=== PATIENT | male | born 1965 | race Caucasian/White ===

== ENCOUNTER 2017-03-01 08:15 | Day surgery (SDC) | payer BC ==
[2017-02-27 15:08] VITALS: BMI 42.8
[~2017-03-01 08:15] MED LIST: LACTATED RINGERS 1,000 ML IV SCH; LIDOCAINE 1% 20 ML VIAL (10MG/ML) FOR IV START INTRADERMA PRN
[2017-03-01 08:31] VITALS: RESP 18; TEMP 98
[2017-03-01] MEDS ORDERED: LACTATED RINGERS 1,000 ML IV ONE (08:32)
[2017-03-01] MEDS ORDERED: PROPOFOL 10 MG/ML 20 ML VIAL IV ONE (09:27)
[2017-03-01] MEDS ORDERED: LIDOCAINE 1% INJ 10MG/ML (20 ML MDV) ONE (09:27)
--- NOTE | 2017-03-01 09:31 | P.GSHP ---
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 marquez. Patient presents today for EGD. His had complaints of epigastric pain. Past Medical History Past Medical History: Atrial Fibrillation, Cancer, Heart Failure, GERD/Reflux, Hypertension Additional Past Medical History / Comment(s): GOUT, HX OF RENAL FAILURE (3 YRS AGO), RASHARD JOHNSONS SYNDROME, EDEMA RIGHT LEG, PROSTATE CANCER WITH METS TO BONE (DX 2014), HAS POWER PORT LEFT UPPER CHEST., RECEVIES HORMONE [place] Q 3 MONTHS AT [place], [place] FOR [place]., HAS LAP BAND., CHRONIC CONSTIPATION , DYSPHAGIA. History of Any Multi-Drug Resistant Organisms: None Reported Past Surgical History: Appendectomy, Bariatric Surgery Additional Past Surgical History / Comment(s): FLUID ABSCESS AFTER APPENDECTOMY (CHILD), PROSTATE BIOPSY'S, LAP BAND, POWER PORT. Past Anesthesia/Blood Transfusion Reactions: No Reported Reaction Past Psychological History: No Psychological Hx Reported Smoking Status: Former smoker Additional Past Alcohol Use History / Comment(s): HX OF CHEWING TOBACCO- QUIT 4 YRS AGO., OCCASIONAL CIGARS SINCE HE WAS 17 YRS OLD. (0-1 PER WEEK) Past Drug Use History: None Reported - Past Family History Father Family Medical History: Cancer Additional Family Medical History / Comment(s): PROSTATE CANCER Brother(s) Family Medical History: Cancer Additional Family Medical History / Comment(s): PROSTATE CANCER Medications and Allergies Home Medications Medication Instructions Recorded Confirmed Type Bicalutamide [Casodex] 50 mg PO HS 02/27/17 02/27/17 History Biotin 5 mg PO HS 02/27/17 02/27/17 History DULoxetine HCL [Cymbalta] 30 mg PO HS 02/27/17 02/27/17 History Furosemide [Lasix] 80 mg PO HS 02/27/17 02/27/17 History Gabapentin [Neurontin] 600 mg PO TID 02/27/17 02/27/17 History Hydrocodone/Acetaminophen 1 each PO Q4HR PRN 02/27/17 02/27/17 History [Hydrocodon-Acetaminophen 5-325] Loratadine [Claritin] 10 mg PO HS 02/27/17 02/27/17 History Omeprazole 40 mg PO HS 02/27/17 02/27/17 History Ramipril [Altace] 5 mg PO HS 02/27/17 02/27/17 History Ubidecarenone [Co Q-10] 300 mg PO HS 02/27/17 02/27/17 History Warfarin [Coumadin] 5 mg PO HS 02/27/17 02/27/17 History cloNIDine HCL [Catapres] 0.1 mg PO HS 02/27/17 02/27/17 History Allergies Allergy/AdvReac Type Severity Reaction Status Date / Time cephalexin [From Keflex] Allergy Unknown Blisters Verified 02/27/17 14:38 levofloxacin [From Levaquin] Allergy Unknown Blisters Verified 02/27/17 14:38 Penicillins Allergy Unknown Blisters Verified 02/27/17 14:38 Tetracyclines Allergy Unknown Blisters Verified 02/27/17 14:38 Surgical - Exam Vital Signs Temp Pulse Resp BP Pulse Ox 98.0 F 87 18 145/99 99 03/01/17 08:30 03/01/17 08:30 03/01/17 08:30 03/01/17 08:30 03/01/17 08:30 - General well developed, no distress - Eyes PERRL - ENT normal pinna - Neck no masses - Respiratory normal expansion - Cardiovascular Rhythm: regular - Abdomen Abdomen: soft, non tender Assessment and Plan Plan: Epigastric dull pain. We'll perform EGD.
--- NOTE | 2017-03-01 09:39 | P.OP ---
Date of Procedure: 03/01/17 Preoperative Diagnosis: Epigastric abdominal pain Postoperative Diagnosis: Mild antral gastritis LAP-BAND without inflammation Esophagitis with retained food in the esophagus Procedure(s) Performed: EGD Implants: Anesthesia: MAC Surgeon: Jairo Lujan Pathology: other (Antrum, esophagus) Condition: stable Disposition: PACU Indications for Procedure: Operative Findings: Description of Procedure: The patient's placed on the endoscopy table in the lateral position. He received IV sedation. The gastroscope placed oropharynx passed in the esophagus and stomach. The scope was then placed through the pylorus. The first and second portion of the duodenum appeared normal. Scope summer back and the antrum and this was mildly inflamed. A biopsies performed. Scope was then retroflexed remainder stomach appeared normal. The patient had a previous placed Chanell device this without insufflation José Miguel. The LAP-BAND gastric pouch appeared to be slightly enlarged. The GE junction was at 40 cm. The distal esophagus appeared inflamed. A biopsies performed. There was some retained food and fluid in the esophagus. Scope was then withdrawn and the proximal esophagus appeared normal. Scope was withdrawn for patient.
[2017-03-01 10:14] VITALS: BP 168/76; PULSE 69
== END 2017-03-01 11:14 | disposition home or self-care (01) ==
LOC: ORWHC2ENDO 08:15
PROVIDERS: ATTEND Surgery
DX: K29.70 Gastritis, unspecified, without bleeding (principal); K21.0 Gastro-esophageal reflux disease with esophagitis; K29.50 Unspecified chronic gastritis without bleeding; I48.91 Unspecified atrial fibrillation; I11.0 Hypertensive heart disease with heart failure; I50.9 Heart failure, unspecified; K59.09 Other constipation; M10.9 Gout, unspecified; Z79.01 Long term (current) use of anticoagulants; Z85.46 Personal history of malignant neoplasm of prostate; Z87.891 Personal history of nicotine dependence; Z88.0 Allergy status to penicillin; Z88.1 Allergy status to other antibiotic agents; Z98.84 Bariatric surgery status
CPT/HCPCS: 88305; 88342; 43239; J2001; J2704

== ENCOUNTER → 2017-03-04 | Outpatient (CLI) | payer BC ==
[2017-03-04 16:28] VITALS: RESP 16; TEMP 98.2; BMI 43.9
[2017-03-04 16:33] VITALS: BP 157/102; PULSE 88
--- NOTE | 2017-03-04 16:49 | P.HPBAR ---
Bariatric H&P - History & Physicial H&P Date: 03/04/17 History & Physicial: Visit/CC: Lapband follow up Patient initial contact: Initial weight: Initial weight in pounds: Height: 5 ft 9 in Initial BMI: Last weight: Current weight: 135.125 kg Current weight in pounds: 297.90 Current BMI: 43.9 [place] body weight (based on NIH guidelines): 72.575 kg Excess body weight loss: The patient is a 51 year-old M who presents for Bariatric Assessment. The patient presents today for follow-up after his EGD. Patient has had complaints of right upper quadrant and epigastric pain. His previous CAT scan was reviewed. Patient has history of cholelithiasis as well as a contracted gallbladder on CAT scan. Patient states he has pain in her quadrant when he eats. His EGD showed some mild gastritis. Past Medical History Past Medical History: Atrial Fibrillation, Cancer, Heart Failure, GERD/Reflux, Hypertension Additional Past Medical History / Comment(s): GOUT, HX OF RENAL FAILURE (3 YRS AGO), RASHARD JOHNSONS SYNDROME, EDEMA RIGHT LEG, PROSTATE CANCER WITH METS TO BONE (DX 2014), HAS POWER PORT LEFT UPPER CHEST., RECEVIES HORMONE TX Q 3 MONTHS AT [place], [place] FOR [facility]., HAS LAP BAND., CHRONIC CONSTIPATION , DYSPHAGIA. History of Any Multi-Drug Resistant Organisms: None Reported Past Surgical History: Appendectomy, Bariatric Surgery Additional Past Surgical History / Comment(s): FLUID ABSCESS AFTER APPENDECTOMY (CHILD), PROSTATE BIOPSY'S, LAP BAND, POWER PORT. Past Anesthesia/Blood Transfusion Reactions: No Reported Reaction Past Psychological History: No Psychological Hx Reported Smoking Status: Former smoker Additional Past Alcohol Use History / Comment(s): HX OF CHEWING TOBACCO- QUIT 4 YRS AGO., OCCASIONAL CIGARS SINCE HE WAS 17 YRS OLD. (0-1 PER WEEK) Past Drug Use History: None Reported - Past Family History Father Family Medical History: Cancer Additional Family Medical History / Comment(s): PROSTATE CANCER Brother(s) Family Medical History: Cancer Additional Family Medical History / Comment(s): PROSTATE CANCER Surgical - Exam Vital Signs Temp Pulse Resp BP 98.2 F 86 16 157/121 03/04/17 16:18 03/04/17 16:18 03/04/17 16:18 06/12/17 16:18 - General well developed, no distress - Eyes PERRL - ENT normal pinna - Neck no masses - Respiratory normal expansion - Abdomen Mild right upper quadrant tenderness Abdomen: soft Bariatric Assessment & Plan Plan: Symptomatically cholelithiasis. Patient will be scheduled for laparoscopic cholecystectomy. Sent minimal GERD from his band. Bariatric Checklist Checklist: Plan: Checklist: EGD: 1. Hiatal hernia: 2. H. Pylori: HgbA1c: Vitamin D: Smoking: Former smoker Primary care physician referral: Anuj Psychiatry clearance: Cardiology clearance: Sleep study: Diet journal: VTE risk score: VTE risk level: Rehab needs at discharge:
== END ==
LOC: BARWHC3 15:48
PROVIDERS: ATTEND Surgery
DX: K80.20 Calculus of gallbladder without cholecystitis without obstruction (principal); Z98.84 Bariatric surgery status; Z87.891 Personal history of nicotine dependence
CPT/HCPCS: 99211

== ENCOUNTER 2017-03-21 10:32 | Day surgery (SDC) | payer BC ==
[~2017-03-21 10:32] MED LIST changes: +CLINDAMYCIN 900 MG in DEXTROSE 5% IN WATER 50 ML IVPB ONE; +GENTAMICIN 480 MG in SODIUM CHLORIDE 0.9% 100 ML IVPB ONE; +HEPARIN SODIUM,PORCINE 5,000 UNIT/ML 1 ML VIAL SQ ONE; -LIDOCAINE 1% 20 ML VIAL (10MG/ML) FOR IV START INTRADERMA PRN
[2017-03-21 10:59] VITALS: RESP 16; TEMP 97.7
[2017-03-21] MEDS ORDERED: LIDOCAINE 1% 20 ML VIAL (10MG/ML) FOR IV START SQ ONE (11:00)
[2017-03-21] MEDS ORDERED: ONDANSETRON 4 MG/2 ML VIAL IVP ONE (11:07)
[2017-03-21] MEDS: DEXAMETHASONE SOD PHOSPHATE 10 MG/ML 1 ML VIAL IV ONE ×2 (11:08→14:07)
--- NOTE | 2017-03-21 11:38 | P.GSHP ---
History of Present Illness H&P Date: 03/21/17 Chief Complaint: Right upper quadrant pain This is a 51-year-old male who presents today for laparoscopic cholecystectomy. He's had complaints of right quadrant pain. Patient's CAT scan shows evidence of gallstones. Past Medical History Past Medical History: Atrial Fibrillation, Cancer, Heart Failure, GERD/Reflux, Hypertension Additional Past Medical History / Comment(s): GOUT. PERIPHERAL EDEMA. HX OF RENAL FAILURE (3 YRS AGO), RASHARD JOHNSONS SYNDROME. PROSTATE CANCER WITH METS TO BONE (DX 2014) IN REMISSION AT THIS TIME. HAS POWER PORT IN LEFT UPPER CHEST. RECEVIES HORMONE [place] Q 3 MONTHS AT [place], [place] FOR [place]. CHRONIC CONSTIPATION. DYSPHAGIA. History of Any Multi-Drug Resistant Organisms: None Reported Past Surgical History: Appendectomy, Bariatric Surgery, Prostate Surgery Additional Past Surgical History / Comment(s): FLUID ABSCESS AFTER APPENDECTOMY (CHILD), PROSTATE BIOPSY'S. LAP BAND 2010. POWER PORT. Past Anesthesia/Blood Transfusion Reactions: No Reported Reaction Past Psychological History: No Psychological Hx Reported Smoking Status: Former smoker Additional Past Alcohol Use History / Comment(s): HX OF CHEWING TOBACCO- QUIT 4 YRS AGO., OCCASIONAL CIGARS SINCE HE WAS 17 YRS OLD. (0-1 PER WEEK) Past Drug Use History: None Reported - Past Family History Father Family Medical History: Cancer Additional Family Medical History / Comment(s): PROSTATE CANCER Brother(s) Family Medical History: Cancer Additional Family Medical History / Comment(s): PROSTATE CANCER Medications and Allergies Home Medications Medication Instructions Recorded Confirmed Type Bicalutamide [Casodex] 50 mg PO HS 02/27/17 03/21/17 History Biotin 5 mg PO HS 02/27/17 03/21/17 History DULoxetine HCL [Cymbalta] 30 mg PO HS 02/27/17 03/21/17 History Furosemide [Lasix] 80 mg PO HS 02/27/17 03/21/17 History Gabapentin [Neurontin] 600 mg PO TID 02/27/17 03/21/17 History Hydrocodone/Acetaminophen 1 each PO Q4HR PRN 02/27/17 03/21/17 History [Hydrocodon-Acetaminophen 5-325] Loratadine [Claritin] 10 mg PO HS 02/27/17 03/21/17 History Omeprazole 40 mg PO HS 02/27/17 03/21/17 History Ramipril [Altace] 5 mg PO HS 02/27/17 03/21/17 History Ubidecarenone [Co Q-10] 300 mg PO HS 02/27/17 03/21/17 History Warfarin [Coumadin] 5 mg PO HS 02/27/17 03/21/17 History cloNIDine HCL [Catapres] 0.1 mg PO BID 02/27/17 03/21/17 History Allergies Allergy/AdvReac Type Severity Reaction Status Date / Time cephalexin [From Keflex] Allergy Unknown Blisters Verified 03/21/17 10:51 levofloxacin [From Levaquin] Allergy Unknown Blisters Verified 03/21/17 10:51 Penicillins Allergy Unknown Blisters Verified 03/21/17 10:51 Tetracyclines Allergy Unknown Blisters Verified 03/21/17 10:51 Surgical - Exam Vital Signs Temp Pulse Resp BP Pulse Ox 97.7 F 79 16 147/79 99 03/21/17 10:57 03/21/17 10:57 03/21/17 10:57 03/21/17 10:57 03/21/17 10:57 - General well developed, no distress - Eyes PERRL - ENT normal pinna - Neck no masses - Respiratory normal expansion - Cardiovascular Rhythm: regular - Abdomen Mild right upper quadrant tenderness Abdomen: soft Assessment and Plan Plan: Right quadrant pain Cholelithiasis. We'll perform laparoscopic cholecystectomy
[2017-03-21] MEDS ORDERED: fentaNYL (PF) 50 MCG/ML 2 ML AMP ONE (11:52)
[2017-03-21] MEDS ORDERED: PROPOFOL 10 MG/ML 20 ML VIAL IV ONE (11:52)
[2017-03-21] MEDS ORDERED: MIDAZOLAM 2 MG/2 ML VIAL ONE (11:52)
[2017-03-21] MEDS ORDERED: SUCCINYLCHOLINE CHLORIDE 100 MG/5 ML SYR IV ONE (11:52)
[2017-03-21] MEDS ORDERED: HYDROmorphone (PF) 1 MG/ML ONE (11:52)
[2017-03-21] MEDS ORDERED: LABETALOL 5 MG/ML VIAL MDV ONE (11:52)
[2017-03-21] MEDS ORDERED: VECURONIUM 10 MG VIAL IV ONE (11:52)
[2017-03-21] MEDS ORDERED: ePHEDrine 50 MG/ML 1 ML AMP ONE (11:52)
[2017-03-21] MEDS ORDERED: LIDOCAINE 1% INJ 10MG/ML (20 ML MDV) ONE (11:52)
[2017-03-21] MEDS ORDERED: GLYCOPYRROLATE 0.2 MG/ML 2 ML VIAL ONE (11:52)
[2017-03-21] MEDS ORDERED: NEOSTIGMINE 1 MG/ML 10 ML VIAL ONE (11:52)
[2017-03-21] MEDS ORDERED: BUPIVACAIN-EPI 0.5%-1:200,000 30 ML VIAL SQ ONE (12:21)
--- NOTE | 2017-03-21 12:38 | P.OP ---
Date of Procedure: 03/21/17 Preoperative Diagnosis: Cholecystitis Cholelithiasis Postoperative Diagnosis: Close sized Cholelithiasis Procedure(s) Performed: Laparoscopic cholecystectomy Implants: Anesthesia: RICKY Surgeon: Jairo Lujan Estimated Blood Loss (ml): 5 Pathology: other (Gallbladder) Condition: stable Disposition: PACU Indications for Procedure: Operative Findings: Description of Procedure: The patient was placed on the operating table. The patient received a general endotracheal tube anesthesia. The patients abdomen was prepped and draped in the usual sterile fashion. Through an infraumbilical stab incision, the fascia of the anterior abdominal wall was grasped with a pair of Kochers and then the Veress needle was placed in the peritoneal cavity. Position of the Veress needle was confirmed with positive drop test. The abdomen was then insufflated. After adequate insufflation, the 10 mm trocar was placed in the peritoneal cavity. Following this the laparoscope was placed in the peritoneal cavity. The patient was placed in the head-up, right side up position and then a 5 mm trocar was placed in the right lateral and right subcostal position under direct visualization. A 8 mm trocar was placed in the epigastric position. The gallbladder was grasped in the fundus and infundibulum. Traction on the gallbladder was placed in the lateral and the cephalad positions. The triangle of Calot was visualized.. The cystic duct was bluntly dissected until the union of the cystic duct and common bile duct was seen. The cystic duct was then divided and sealed with the Harmonic scissors. A PDS Endoloop was then placed throughout the cystic duct stump. The cystic artery divided and sealed with the Harmonic scissors. The gallbladder was then removed from the liver bed using Harmonic scissors. The gallbladder was then extracted through the epigastric port site. Operative field was checked for any bleeding spots and Harmonic scissors was used to coagulate the liver bed. The abdomen was irrigated. The trocars were removed. The skin was closed using interrupted 3-0 Vicryl suture. Dermabond dressing were applied. The patient tolerated the procedure well.
[2017-03-21] MEDS ORDERED: ENALAPRILAT 1.25 MG/ML 1 ML VIAL IVP ONE (13:00)
[2017-03-21] MEDS ORDERED: hydrALAZINE HCL 20 MG/ML 1 ML VIAL IVP ONE ×2 (13:02→13:20)
[2017-03-21] MEDS ORDERED: HYDROmorphone 1 MG/ML 1 ML SYRINGE IVP ONE ×2 (13:40→14:09)
[2017-03-21] MEDS ORDERED: LACTATED RINGERS 1,000 ML IV ONE ×2 (14:11)
[2017-03-21 15:36] VITALS: BP 136/82; PULSE 69
== END 2017-03-21 16:31 | disposition home or self-care (01) ==
LOC: OR 10:32
PROVIDERS: ATTEND Surgery
DX: K80.10 Calculus of gallbladder with chronic cholecystitis without obstruction (principal); Z79.01 Long term (current) use of anticoagulants; I25.10 Atherosclerotic heart disease of native coronary artery without angina pectoris; I11.0 Hypertensive heart disease with heart failure; I50.9 Heart failure, unspecified; Z87.891 Personal history of nicotine dependence; K21.9 Gastro-esophageal reflux disease without esophagitis; Z98.84 Bariatric surgery status; C79.51 Secondary malignant neoplasm of bone; C61 Malignant neoplasm of prostate; Z79.899 Other long term (current) drug therapy; Z88.1 Allergy status to other antibiotic agents; Z88.0 Allergy status to penicillin
CPT/HCPCS: 88304; 47562; J2250; J0360; J1644; J1100; J2710; J2405; J2001; J3010; J1580; J1170; J0330; J2704

== ENCOUNTER → 2018-12-30 | Outpatient (CLI) | payer MEDICARE ==
--- NOTE | 2018-12-30 12:40 | CT ---
EXAMINATION TYPE: CT ChestAbdPelvis w con DATE OF EXAM: 12/30/2018 COMPARISON: Nuclear medicine bone scan dated 05/13/[address] abdomen pelvis also dated 05/13/2015. HISTORY: Increased PSA. Follow up prostate CA CT DLP: 3150 mGycm. Automated Exposure Control for Dose Reduction was Utilized. CONTRAST: CT scan of the thorax, abdomen and pelvis is performed with IV Contrast, patient injected with 100 mL of Isovue 300. FINDINGS: Evaluation of the pelvis is somewhat limited given patient body habitus creating artifact. LUNGS: There are multiple punctate pulmonary nodules. The first measures 3 mm on series 5 image 28, t he next 4 measure 1 to 2 mm on image 29, additional 1 to 2 mm medial right basilar pulmonary nodule i s present on image 41. On the left there is a subsolid peripherally groundglass and centrally solid a pproximately 4 mm pulmonary nodule on series 5 image 34. These were not imaged on the prior of 2014 g iven [id number]. No new focal consolidation or pleural effusion is seen. No pneumothorax. MEDIASTINUM: The main pulmonary artery is enlarged measuring 4.1 cm suggesting underlying pulmonary a rterial hypertension. Very few coronary calcifications are present There are no greater than 1 cm hil ar or mediastinal lymph nodes. There is a trace pericardial effusion and mild cardiomegaly. LIVER/GB: There is a benign calcified hepatic granuloma. No new suspicious hepatic lesions are identi fied. PANCREAS: No significant abnormality is seen. SPLEEN: No significant abnormality is seen. ADRENALS: No significant abnormality is seen. KIDNEYS: Punctate to small to accurately characterize right renal lesions are present.. BOWEL: Gastric lap band is noted. No dilated large or small bowel. GENITAL ORGANS: No gross abnormality seen. LYMPH NODES: There is superficial minimal adenopathy on the right measuring up to 1.9 cm and on the l eft measuring up to 1.5 cm both in short axis. There appears to be a right common iliac lymph node me asuring 1.5 cm in short axis on series 4 image 99. OSSEOUS STRUCTURES: There is diffuse osseous metastasis. The chest was not imaged prior at this insti tution however metastasis is seen diffusely throughout the osseous structures involving the entirety of the chest, abdomen, and pelvis osseous structures with mixed sclerotic and blastic appearance. The re are partially healed fractures of the posterior lateral margins of ribs 10 and 9 on the left. Ther e is marked progression of osseous metastasis of the abdomen and pelvis skeletal structures compariso n to exam of 2014. OTHER: Superficially noted within the left supraclavicular medial chest wall there is a 1.4 cm oval s oft tissue density on series 4 image 6. Correlation with physical examination is recommended if there is further concern direct targeted ultrasound could further assess this finding. IMPRESSION: 1. 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 2. Superficial inguinal adenopathy bilaterally and solitary enlarged 1.5 cm short axis right common i liac chain lymph node. 3. Scattered punctate pulmonary nodules are of low suspicion for metastasis.
--- NOTE | 2018-12-30 13:38 | NM ---
EXAMINATION TYPE: NM bone scan whole body DATE OF EXAM: 12/30/2018 COMPARISON: NONE HISTORY: C61 PROSTATE CA, Z03.89 Delayed whole-body scanning was performed following the injection of 26.4 mCi Tc 99m MDP. Images acq uired 3 hours post injection. FINDINGS: New lesions: There is a new focal lesion noted involving the diametaphyseal region medially of the di stal left femur. L5 pedicle on the left. No additional new lesions are seen. Improved lesions: Bilateral rib lesions persist they are improved particularly involving left posteri or ribs 9 and 10 and anterior right rib #5. Near complete resolution of improvement noted of the dist al left femoral diametaphyseal lesion. Right T9 pedicle lesion. Progressive lesions: Is progressive lesion noted involving the right humeral head and neck. Progressi ve uptake is noted about the ankles and mid feet likely degenerative in nature. Stable lesions: Pelvic lesions are stable. Most liver lesions are stable as well. IMPRESSION: Findings compatible with metastatic disease as discussed with progressive lesion noted right humeral head and neck. Lesions noted distal left femur and left L5 pedicle. Improved lesions also noted as above.
== END | disposition home or self-care (01) ==
LOC: RADNMMAIN 09:03
PROVIDERS: ATTEND Internal Medicine Hematology & Oncology
DX: C79.51 Secondary malignant neoplasm of bone (principal); R91.8 Other nonspecific abnormal finding of lung field; R59.0 Localized enlarged lymph nodes; C61 Malignant neoplasm of prostate; Z88.0 Allergy status to penicillin
CPT/HCPCS: 82565; 84520; 71260; 74177; 78306; 36415; A9503; Q9967

== ENCOUNTER → 2019-03-05 | Outpatient (CLI) | payer MEDICARE ==
[2019-03-05 14:45] LABS: Anisocytosis Slight; Basophils % (A) 0 %; Eosinophils # (A) 0.1 k/uL (0-0.7); Eosinophils % (A) 3 %; HCT 33.2 % (39.0-53.0); HGB 10.1 gm/dL (13.0-17.5); Hypochromasia Marked; Lymphocytes # (A) 0.3 k/uL (1.0-4.8); Lymphocytes % (A) 8 %; MCHC 30.4 g/dL (31.0-37.0); MCV 85.6 fL (80.0-100.0); Mean Platelet Volume 6.7; Monocytes # (A) 0.3 k/uL (0-1.0); Monocytes % (A) 7 %; Neutrophils # (A) 2.9 k/uL (1.3-7.7); Neutrophils % (A) 80 %; Platelet Count 199 k/uL (150-450); RBC 3.88 m/uL (4.30-5.90); RDW 19.1 % (11.5-15.5); WBC 3.6 k/uL (3.8-10.6)
== END | disposition home or self-care (01) ==
LOC: LABWHC1 13:52
PROVIDERS: ATTEND Radiology Radiation Oncology
DX: C61 Malignant neoplasm of prostate (principal); F17.210 Nicotine dependence, cigarettes, uncomplicated
CPT/HCPCS: 36415; 85025

== ENCOUNTER 2019-05-13 12:32 | Inpatient (IN) | payer MEDICARE ==
--- NOTE | 2019-05-13 14:25 | ED ---
General Adult HPI - General Chief complaint: Recheck/Abnormal Lab/Rx Stated complaint: Abnormal labs Time Seen by Provider: 05/13/19 13:18 Source: patient, family Mode of arrival: wheelchair Limitations: no limitations - History of Present Illness Initial comments: Patient is a 53-year-old male with stage IV metastatic prostate cancer is presenting to emergency Department with chief complaint of elevated INR. Patient was sent here by his primary care physician who suggested transfer to emergency department due to elevated INR. Patient is on Coumadin daily. Patient reports multiple regions of ecchymosis on bilateral upper extremities been present for the past several weeks. He reports new onset of ecchymotic regions on his abdomen over the last 3 days. Patient reports a large ecchymotic region measuring approximately 3 x 3 cm on the right flank region. Patient denies headache, chest pain, chest and shortness of breath. Patient has any back pain or abdominal pain. Patient does report right lower leg pitting edema but states that is his baseline. 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 Patient denies headaches, or extremity pain. - Related Data Home Medications Medication Instructions Recorded Confirmed Furosemide [Lasix] 80 mg PO HS 02/27/17 05/13/19 Gabapentin [Neurontin] 900 mg PO TID 02/27/17 05/13/19 Loratadine [Claritin] 10 mg PO HS 02/27/17 05/13/19 Diltiazem HCl [Diltiazem 24Hr ER] 120 mg PO DAILY 09/25/18 05/13/19 Enzalutamide [Xtandi] 40 mg PO QID 09/25/18 05/13/19 DULoxetine HCL [Cymbalta] 20 mg PO DAILY 05/13/19 05/13/19 HYDROcodone/APAP 10-325MG [[place] 1 tab PO Q6H PRN 05/13/19 05/13/19 10-325] Metoprolol Succinate (ER) [Toprol 100 mg PO DAILY 05/13/19 05/13/19 Xl] Warfarin [Coumadin] 7.5 mg PO HS 05/13/19 05/13/19 fentaNYL 50MCG/HR PATCH [Duragesic 50 mcg TRANSDERM Q72H 05/13/19 05/13/19 50MCG/HR] Allergies Allergy/AdvReac Type Severity Reaction Status Date / Time cephalexin [From Keflex] Allergy Unknown Blisters Verified 05/13/19 13:33 levofloxacin [From Levaquin] Allergy Unknown Blisters Verified 05/13/19 13:33 Penicillins Allergy Unknown Blisters Verified 05/13/19 13:33 Tetracyclines Allergy Unknown Blisters Verified 05/13/19 13:33 Review of Systems ROS Statement: Those systems with pertinent positive or pertinent negative responses have been documented in the HPI. ROS Other: All systems not noted in ROS Statement are negative. Past Medical History Past Medical History: Atrial Fibrillation, Cancer, Heart Failure, GERD/Reflux, Hypertension Additional Past Medical History / Comment(s): GOUT. PERIPHERAL EDEMA. HX OF RENAL FAILURE (3 YRS AGO), RASHARD JOHNSONS SYNDROME. PROSTATE CANCER WITH METS TO BONE (DX 2014) IN REMISSION AT THIS TIME. HAS POWER PORT IN LEFT UPPER CHEST. RECEVIES HORMONE TX Q 3 MONTHS AT [place], [place] FOR [place]CER. CHRONIC CONSTIPATION. DYSPHAGIA. History of Any Multi-Drug Resistant Organisms: C-DIFF Date of last positivie culture/infection: 2011 Past Surgical History: Appendectomy, Bariatric Surgery, Prostate Surgery Additional Past Surgical History / Comment(s): FLUID ABSCESS AFTER APPENDECTOMY (CHILD), PROSTATE BIOPSY'S. LAP BAND 2010. POWER PORt removed Past Anesthesia/Blood Transfusion Reactions: No Reported Reaction Past Psychological History: No Psychological Hx Reported Smoking Status: Smoker, current status unknown Past Alcohol Use History: Rare Past Drug Use History: None Reported - Past Family History Father Family Medical History: Cancer Additional Family Medical History / Comment(s): PROSTATE CANCER Brother(s) Family Medical History: Cancer Additional Family Medical History / Comment(s): PROSTATE CANCER General Exam Limitations: no limitations General appearance: alert, in no apparent distress Head exam: Present: atraumatic, normocephalic, normal inspection Eye exam: Present: normal appearance, PERRL, EOMI Pupils: Present: normal accommodation ENT exam: Present: normal exam, mucous membranes moist, normal external ear exam Neck exam: Present: normal inspection, full ROM Respiratory exam: Present: normal lung sounds bilaterally Cardiovascular Exam: Present: regular rate, normal rhythm, normal heart sounds GI/Abdominal exam: Present: soft, other (Multiple ecchymotic regions on abdomen and chest. Large ecchymotic region noted in the right flank region measuring approximately 3 x 3 cm.). Absent: distended, tenderness, guarding, rebound Extremities exam: Present: full ROM, normal capillary refill. Absent: normal inspection (Stasis dermatitis noticed on bilateral lower extremities. +2 pit ting edema noted in the right leg.), tenderness, calf tenderness (Negative Homans bilaterally) Back exam: Present: normal inspection, full ROM Neurological exam: Present: alert, oriented X3 Psychiatric exam: Present: normal affect, normal mood Skin exam: Present: warm, intact, normal color, other (Multiple regions of ecchymosis on chest abdomen and bilateral upper extremities.) Course Vital Signs 05/13/19 13:04 Temperature 98.2 F Pulse Rate 79 Respiratory 18 Rate Blood Pressure 126/78 O2 Sat by Pulse 95 Oximetry Medical Decision Making - Medical Decision Making Patient is a 53-year-old male with stage IV metastatic prostate cancer is presenting to emergency Department with a chief complaint of elevated INR. Patient does report new ecchymotic regions on the abdomen. Patient denies any headaches, abdominal back pain. Patient denies any pain in the extremities. INR is above 10. Hemoglobin is a 7.5 and has decreased by 2.6 since March 15. Stool guaiac was obtained. Patient given oral vitamin K. Coumadin is held. Patient will be admitted for further medical management. occult stool is negative. Case discussed with physician. The admitting physician is Dr. Paiz. - Lab Data Result diagrams: 05/13/19 14:12 05/13/19 14:12 Lab Results 05/13/19 05/13/19 05/13/19 Range/Units 14:12 14:12 14:12 WBC 2.3 L (3.8-10.6) k/uL RBC 2.62 L (4.30-5.90) m/uL Hgb 7.5 L (13.0-17.5) gm/dL Hct 23.5 L (39.0-53.0) % MCV 89.9 (80.0-100.0) fL MCH 28.5 (25.0-35.0) pg MCHC 31.7 (31.0-37.0) g/dL RDW 21.4 H (11.5-15.5) % Plt Count 118 L (150-450) k/uL Neutrophils % 78 % Lymphocytes % 7 % Monocytes % 8 % Eosinophils % 3 % Basophils % 0 % Neutrophils # 1.8 (1.3-7.7) k/uL Lymphocytes # 0.2 L (1.0-4.8) k/uL Monocytes # 0.2 (0-1.0) k/uL Eosinophils # 0.1 (0-0.7) k/uL Basophils # 0.0 (0-0.2) k/uL Hypochromasia Moderate Poikilocytosis Slight Anisocytosis Moderate PT >130.0 H (9.0-12.0) sec INR >10.0 H* (<1.2) APTT 150.0 H* (22.0-30.0) sec Sodium 138 (137-145) mmol/L Potassium 4.0 (3.5-5.1) mmol/L Chloride 105 (98-107) mmol/L Carbon Dioxide 28 (22-30) mmol/L Anion Gap 5 mmol/L BUN 16 (9-20) mg/dL Creatinine 1.02 (0.66-1.25) mg/dL Est GFR (CKD-EPI)AfAm >90 (>60 ml/min/1.73 sqM) Est GFR (CKD-EPI)NonAf 83 (>60 ml/min/1.73 sqM) Glucose 105 H (74-99) mg/dL Calcium 8.7 (8.4-10.2) mg/dL Total Bilirubin 1.0 (0.2-1.3) mg/dL AST 45 (17-59) U/L ALT 15 L (21-72) U/L Alkaline Phosphatase 86 (38-126) U/L Total Protein 6.9 (6.3-8.2) g/dL Albumin 3.4 L (3.5-5.0) g/dL Stool Occult Blood (Negative) 05/13/19 Range/Units 15:52 WBC (3.8-10.6) k/uL RBC (4.30-5.90) m/uL Hgb (13.0-17.5) gm/dL Hct (39.0-53.0) % MCV (80.0-100.0) fL MCH (25.0-35.0) pg MCHC (31.0-37.0) g/dL RDW (11.5-15.5) % Plt Count (150-450) k/uL Neutrophils % % Lymphocytes % % Monocytes % % Eosinophils % % Basophils % % Neutrophils # (1.3-7.7) k/uL Lymphocytes # (1.0-4.8) k/uL Monocytes # (0-1.0) k/uL Eosinophils # (0-0.7) k/uL Basophils # (0-0.2) k/uL Hypochromasia Poikilocytosis Anisocytosis PT (9.0-12.0) sec INR (<1.2) APTT (22.0-30.0) sec Sodium (137-145) mmol/L Potassium (3.5-5.1) mmol/L Chloride (98-107) mmol/L Carbon Dioxide (22-30) mmol/L Anion Gap mmol/L BUN (9-20) mg/dL Creatinine (0.66-1.25) mg/dL Est GFR (CKD-EPI)AfAm (>60 ml/min/1.73 sqM) Est GFR (CKD-EPI)NonAf (>60 ml/min/1.73 sqM) Glucose (74-99) mg/dL Calcium (8.4-10.2) mg/dL Total Bilirubin (0.2-1.3) mg/dL AST (17-59) U/L ALT (21-72) U/L Alkaline Phosphatase (38-126) U/L Total Protein (6.3-8.2) g/dL Albumin (3.5-5.0) g/dL Stool Occult Blood Negative (Negative) Disposition Clinical Impression: Warfarin-induced coagulopathy Disposition: ADMITTED IP TO THIS [facility] Condition: Stable Is patient prescribed a controlled substance at d/c from ED?: No Time of Disposition: 16:04
[2019-05-13 14:29] LABS: Anisocytosis Moderate; Basophils % (A) 0 %; Eosinophils # (A) 0.1 k/uL (0-0.7); Eosinophils % (A) 3 %; HCT 23.5 % (39.0-53.0); HGB 7.5 gm/dL (13.0-17.5); Hypochromasia Moderate; Lymphocytes # (A) 0.2 k/uL (1.0-4.8); Lymphocytes % (A) 7 %; MCH 28.5 pg (25.0-35.0); MCHC 31.7 g/dL (31.0-37.0); MCV 89.9 fL (80.0-100.0); Mean Platelet Volume 7.8; Monocytes # (A) 0.2 k/uL (0-1.0); Monocytes % (A) 8 %; Neutrophils # (A) 1.8 k/uL (1.3-7.7); Neutrophils % (A) 78 %; Platelet Count 118 k/uL (150-450); Poikilocytosis Slight; RBC 2.62 m/uL (4.30-5.90); RDW 21.4 % (11.5-15.5); WBC 2.3 k/uL (3.8-10.6)
[2019-05-13 14:35] LABS: ALT 15 U/L (21-72); AST 45 U/L (17-59); African American GFR (CKD) >90 (>60 ml/min/1.73 sqM); Albumin 3.4 g/dL (3.5-5.0); Alkaline Phosphatase 86 U/L (38-126); Anion Gap 5 mmol/L; Blood Urea Nitrogen 16 mg/dL (9-20); Calcium 8.7 mg/dL (8.4-10.2); Carbon Dioxide 28 mmol/L (22-30); Chloride 105 mmol/L (98-107); Glucose 105 mg/dL (74-99); Sodium 138 mmol/L (137-145); Total Protein 6.9 g/dL (6.3-8.2)
[2019-05-13 14:59] LABS: Prothrombin Time >130.0 sec (9.0-12.0)
[2019-05-13 15:00] LABS: INR >10.0 (<1.2)
[2019-05-13] MEDS ORDERED: PHYTONADIONE ORAL 5 MG/5 ML ORAL.SYRG PO STA (15:37)
[2019-05-13] MEDS ORDERED: NALOXONE 0.4 MG/ML 1 ML VIAL IV PRN (15:54)
[2019-05-13 17:09] VITALS: BMI 53.4
[2019-05-13] MEDS ORDERED: HYDROcodone/APAP 10-325MG 1 EACH TAB PO PRN (17:30)
[2019-05-13] MEDS: ENZALUTAMIDE 40 MG PO SCH ×2 (17:43→23:12)
[2019-05-13] MEDS ORDERED: FUROSEMIDE 80 MG TAB PO SCH (21:00)
[2019-05-13] MEDS ORDERED: LORATADINE 10 MG TAB PO SCH (21:00)
[2019-05-13] MEDS: GABAPENTIN 300 MG CAP PO SCH (21:51)
[2019-05-14 06:42] LABS: Anisocytosis Moderate; Basophils % (A) 0 %; Eosinophils # (A) 0.1 k/uL (0-0.7); Eosinophils % (A) 3 %; HCT 24.8 % (39.0-53.0); HGB 7.6 gm/dL (13.0-17.5); Hypochromasia Marked; Lymphocytes # (A) 0.2 k/uL (1.0-4.8); Lymphocytes % (A) 8 %; MCH 28.1 pg (25.0-35.0); MCHC 30.7 g/dL (31.0-37.0); MCV 91.4 fL (80.0-100.0); Macrocytosis Slight; Mean Platelet Volume 7.8; Monocytes # (A) 0.2 k/uL (0-1.0); Monocytes % (A) 8 %; Neutrophils # (A) 1.9 k/uL (1.3-7.7); Neutrophils % (A) 79 %; Platelet Count 140 k/uL (150-450); RBC 2.71 m/uL (4.30-5.90); RDW 21.2 % (11.5-15.5); WBC 2.4 k/uL (3.8-10.6)
[2019-05-14 06:50] LABS: INR 2.1 (<1.2); Prothrombin Time 20.8 sec (9.0-12.0)
[2019-05-14 07:00] LABS: ALT 12 U/L (21-72); AST 40 U/L (17-59); African American GFR (CKD) >90 (>60 ml/min/1.73 sqM); Albumin 3.5 g/dL (3.5-5.0); Alkaline Phosphatase 95 U/L (38-126); Anion Gap 8 mmol/L; Blood Urea Nitrogen 14 mg/dL (9-20); Calcium 8.6 mg/dL (8.4-10.2); Carbon Dioxide 28 mmol/L (22-30); Chloride 103 mmol/L (98-107); Glucose 92 mg/dL (74-99); Potassium 3.5 mmol/L (3.5-5.1); Sodium 139 mmol/L (137-145); Total Protein 6.6 g/dL (6.3-8.2)
[2019-05-14] MEDS: GABAPENTIN 300 MG CAP PO SCH (08:31)
[2019-05-14] MEDS: ENZALUTAMIDE 40 MG PO SCH (08:31)
[2019-05-14] MEDS ORDERED: METOPROLOL SUCCINATE (ER) 100 MG TAB.ER.24H PO SCH (09:00)
[2019-05-14] MEDS ORDERED: DILTIAZEM CD 120 MG CAP.ER.24H PO SCH (09:00)
[2019-05-14] MEDS ORDERED: DULoxetine HCL 20 MG CAPSULE.DR PO SCH (09:00)
--- NOTE | 2019-05-14 11:00 | P.HPIM ---
History of Present Illness H&P Date: 05/13/19 Chief Complaint: elevated INR Sung Sutherland is a 53 yo M with PMH significant for metastatic prostate cancer, atrial fibrillation, diastolic CHF, CKD who presents to the ED after outpatient INR noted to be >10. He saw his Oncologist the day of admission for prostate cancer infusion and while there his Hgb was noted to be 7 and INR at upper limits of machine. Pt has noticed easy bruising on legs and abdomen for the past few weeks. He denies shortness of breath, chest pain, or lightheadedness. He denies any changes to his diet or medications. He has been compliant with 7.5 mg couamdin qhs and dose not changed recently. He had been having his INRs checked every 2 weeks. He states the same thing happened to his mother who was on coumadin and had a bleed, needed FFP, no one ever figured out why. In the ED vitals stable, his INR was >10 and Hgb 7.5. Review of Systems All systems: negative Constitutional: Denies chills, Denies fever Eyes: denies blurred vision, denies pain Ears, nose, mouth and throat: Denies headache, Denies sore throat Cardiovascular: Denies chest pain, Denies shortness of breath Respiratory: Denies cough Gastrointestinal: Denies abdominal pain, Denies diarrhea, Denies nausea, Denies vomiting Musculoskeletal: Denies myalgias Integumentary: Denies pruritus, Denies rash Neurological: Denies numbness, Denies weakness Psychiatric: Denies anxiety, Denies depression Endocrine: Denies fatigue, Denies weight change Hematologic/Lymphatic: Reports easy bleeding, Reports easy bruising Past Medical History Past Medical History: Atrial Fibrillation, Cancer, Heart Failure, GERD/Reflux, Hypertension Additional Past Medical History / Comment(s): GOUT. PERIPHERAL EDEMA. HX OF RENAL FAILURE (3 YRS AGO), RASHARD JOHNSONS SYNDROME. PROSTATE CANCER WITH METS TO BONE (DX 2014) IN REMISSION AT THIS TIME. HAS POWER PORT IN LEFT UPPER CHEST. RECEVIES HORMONE TX Q 3 MONTHS AT [place], [place] FOR [place]. CHRONIC CONSTIPATION. DYSPHAGIA. History of Any Multi-Drug Resistant Organisms: C-DIFF Date of last positivie culture/infection: 2011 MDRO Source:: stool Past Surgical History: Appendectomy, Bariatric Surgery, Prostate Surgery Additional Past Surgical History / Comment(s): FLUID ABSCESS AFTER APPENDECTOMY (CHILD), PROSTATE BIOPSY'S. LAP BAND 2010. POWER PORt removed Past Anesthesia/Blood Transfusion Reactions: No Reported Reaction Past Psychological History: No Psychological Hx Reported Smoking Status: Smoker, current status unknown Past Alcohol Use History: Rare Past Drug Use History: None Reported - Past Family History Father Family Medical History: Cancer Additional Family Medical History / Comment(s): PROSTATE CANCER Brother(s) Family Medical History: Cancer Additional Family Medical History / Comment(s): PROSTATE CANCER Medications and Allergies Home Medications Medication Instructions Recorded Confirmed Type Furosemide [Lasix] 80 mg PO HS 02/27/17 05/13/19 History Gabapentin [Neurontin] 900 mg PO TID 02/27/17 05/13/19 History Loratadine [Claritin] 10 mg PO HS 02/27/17 05/13/19 History Diltiazem HCl [Diltiazem 24Hr ER 120 mg PO DAILY 09/25/18 05/13/19 History (CD)] Enzalutamide [Xtandi] 40 mg PO QID 09/25/18 05/13/19 History DULoxetine HCL [Cymbalta] 20 mg PO DAILY 05/13/19 05/13/19 History HYDROcodone/APAP 10-325MG [[place] 1 tab PO Q6H PRN 05/13/19 05/13/19 History 10-325] Metoprolol Succinate (ER) [Toprol 100 mg PO DAILY 05/13/19 05/13/19 History XL] fentaNYL 50MCG/HR PATCH [Duragesic 50 mcg TRANSDERM Q72H 05/13/19 05/13/19 History 50MCG/HR] Warfarin [Coumadin] 4 mg PO DAILY #60 tab 05/14/19 Rx Allergies Allergy/AdvReac Type Severity Reaction Status Date / Time cephalexin [From Keflex] Allergy Unknown Blisters Verified 05/13/19 13:33 levofloxacin [From Levaquin] Allergy Unknown Blisters Verified 05/13/19 13:33 Penicillins Allergy Unknown Blisters Verified 05/13/19 13:33 Tetracyclines Allergy Unknown Blisters Verified 05/13/19 13:33 Physical Exam Vitals: Vital Signs Temp Pulse Pulse Resp BP BP Pulse Ox 05/14/19 04:00 98.4 F 77 15 129/77 95 05/14/19 01:06 98 F 72 15 135/75 95 05/13/19 21:50 98.2 F 75 16 140/79 93 L 05/13/19 16:47 97.7 F 68 14 119/61 99 05/13/19 13:04 98.2 F 79 18 126/78 95 Intake and Output 05/13/19 05/14/19 05/14/19 22:59 06:59 14:59 Intake Total 240 360 Output Total 500 Balance 240 -500 360 Intake: Oral 240 360 Output: Urine 500 Other: Voiding Method Toilet Toilet # Voids 3 Weight 162.7 kg Gen: vitals reviewed. well developed, NAD. obese HEENT: normocephalic. mucus membranes moist. TMs clear. PERRL Neck: supple, no JVD or thyromegaly CV: irregularly irregular, no murmur, pulses 1+ Lungs: normal effort, clear throughout Abd: soft, nondistended, no organomegaly Lymph: no cervical or axillary LAD Ext: 3+ edema RLE, 2+ edema LLE. Venous stasis dermatitis. Ecchymosis to bilateral extremities Skin: warm and dry. ecchymosis sandy Neuro: alert and oriented x3, CN II-XII intact Results CBC & Chem 7: 05/14/19 05:57 05/14/19 05:57 Labs: Abnormal Lab Results - Last 24 Hours (Table) 05/13/19 05/13/19 05/13/19 Range/Units 14:12 14:12 14:12 WBC 2.3 L (3.8-10.6) k/uL RBC 2.62 L (4.30-5.90) m/uL Hgb 7.5 L (13.0-17.5) gm/dL Hct 23.5 L (39.0-53.0) % MCHC (31.0-37.0) g/dL RDW 21.4 H (11.5-15.5) % Plt Count 118 L (150-450) k/uL Lymphocytes # 0.2 L (1.0-4.8) k/uL PT >130.0 H (9.0-12.0) sec INR >10.0 H* (<1.2) APTT 150.0 H* (22.0-30.0) sec Glucose 105 H (74-99) mg/dL ALT 15 L (21-72) U/L Albumin 3.4 L (3.5-5.0) g/dL 05/14/19 05/14/19 05/14/19 Range/Units 05:57 05:57 05:57 WBC 2.4 L (3.8-10.6) k/uL RBC 2.71 L (4.30-5.90) m/uL Hgb 7.6 L (13.0-17.5) gm/dL Hct 24.8 L (39.0-53.0) % MCHC 30.7 L (31.0-37.0) g/dL RDW 21.2 H (11.5-15.5) % Plt Count 140 L (150-450) k/uL Lymphocytes # 0.2 L (1.0-4.8) k/uL PT 20.8 H (9.0-12.0) sec INR 2.1 H (<1.2) APTT (22.0-30.0) sec Glucose (74-99) mg/dL ALT 12 L (21-72) U/L Albumin (3.5-5.0) g/dL Assessment and Plan (1) Warfarin overdosage Current Visit: Yes Status: Acute Code(s): T45.511A - POISONING BY ANTICOAGULANTS, ACCIDENTAL, INIT SNOMED Code(s): 73919686 (2) Prostate cancer metastatic to bone Current Visit: Yes Status: Acute Code(s): C61 - MALIGNANT NEOPLASM OF PROSTATE; C79.51 - SECONDARY MALIGNANT NEOPLASM OF BONE SNOMED Code(s): 291928008 (3) Atrial fibrillation Current Visit: Yes Status: Acute Code(s): I48.91 - UNSPECIFIED ATRIAL FIBRILLATION SNOMED Code(s): 73854774 (4) Diastolic CHF Current Visit: Yes Status: Acute Code(s): I50.30 - UNSPECIFIED DIASTOLIC (CONGESTIVE) HEART FAILURE SNOMED Code(s): 201067336 (5) Neuropathy Current Visit: Yes Status: Acute Code(s): G62.9 - POLYNEUROPATHY, UNSPECIFIED SNOMED Code(s): 976169526 (6) Warfarin-induced coagulopathy Current Visit: Yes Status: Acute Code(s): D68.32 - HEMORRHAGIC DISORD D/T EXTRINSIC CIRCULATING ANTICOAGULANTS; T45.515A - ADVERSE EFFECT OF ANTICOAGULANTS, INITIAL ENCOUNTER SNOMED Code(s): 39951319 (7) Acute blood loss anemia Current Visit: Yes Status: Acute Code(s): D62 - ACUTE POSTHEMORRHAGIC ANEMIA SNOMED Code(s): 797910548 Plan: 1. Coumadin coagulopathy. No evidence of active bleeding. Reversed with 10 mg vitamin K in ED. Recheck CBC and INR in the am 2. Acute blood loss anemia. Secondary to coumadin overdose. Continue to monitor 3. Prostate cancer 4. A fib. tele. continue cardize
--- NOTE | 2019-05-14 11:02 | P.DS ---
Providers Date of admission: 05/13/19 16:07 Attending physician: Curt Paiz MD Primary care physician: Elli Leslie - Discharge Diagnosis(es) (1) Warfarin overdosage Current Visit: Yes Status: Acute (2) Prostate cancer metastatic to bone Current Visit: Yes Status: Acute (3) Atrial fibrillation Current Visit: Yes Status: Acute (4) Diastolic CHF Current Visit: Yes Status: Acute (5) Neuropathy Current Visit: Yes Status: Acute (6) Warfarin-induced coagulopathy Current Visit: Yes Status: Acute (7) Acute blood loss anemia Current Visit: Yes Status: Acute Hospital Course: Sung Sutherland is a 53 yo M with PMH significant for metastatic prostate cancer, atrial fibrillation, diastolic CHF, CKD who presents to the ED after outpatient INR noted to be >10. He saw his Oncologist the day of admission for prostate cancer infusion and while there his Hgb was noted to be 7 and INR at upper limits of machine. Pt has noticed easy bruising on legs and abdomen for the past few weeks. He denies shortness of breath, chest pain, or lightheadedness. He denies any changes to his diet or medications. He has been compliant with 7.5 mg couamdin qhs and dose not changed recently. He had been having his INRs checked every 2 weeks. He states the same thing happened to his mother who was on coumadin and had a bleed, needed FFP, no one ever figured out why. In the ED vitals stable, his INR was >10 and Hgb 7.5. Patient was admitted to medicine. Coumadin coagulopathy reversed with vitamin K and coumadin held. The following morning his INR had normalized at 2.1 and Hgb stable at 7.6. He denied any bleeding, lighheadedness, or shortness of breath. He is discharged in stable condition and will follow up with Oncology tomorrow and with PCP on Saturday. He will resume 4 mg coumadin qhs starting tomorrow. We will discuss switching him to eliquis in clinic on Saturday. Discharge exam Gen: vitals reviewed. well developed, NAD. obese HEENT: normocephalic. mucus membranes moist. TMs clear. PERRL Neck: supple, no JVD or thyromegaly CV: irregularly irregular, no murmur, pulses 1+ Lungs: normal effort, clear throughout Abd: soft, nondistended, no organomegaly Lymph: no cervical or axillary LAD Ext: 3+ edema RLE, 2+ edema LLE. Venous stasis dermatitis. Ecchymosis to bilateral extremities Skin: warm and dry. ecchymosis sandy Neuro: alert and oriented x3, CN II-XII intact Patient Condition at Discharge: Stable Plan - Discharge Summary New Discharge Prescriptions: New Warfarin [Coumadin] 4 mg PO DAILY #60 tab Continue Gabapentin [Neurontin] 900 mg PO TID Loratadine [Claritin] 10 mg PO HS Furosemide [Lasix] 80 mg PO HS Enzalutamide [Xtandi] 40 mg PO QID Diltiazem HCl [Diltiazem 24Hr ER (CD)] 120 mg PO DAILY fentaNYL 50MCG/HR PATCH [Duragesic 50MCG/HR] 50 mcg TRANSDERM Q72H HYDROcodone/APAP 10-325MG [[place] 10-325] 1 tab PO Q6H PRN PRN Reason: Pain DULoxetine HCL [Cymbalta] 20 mg PO DAILY Metoprolol Succinate (ER) [Toprol XL] 100 mg PO DAILY Discontinued Warfarin [Coumadin] 7.5 mg PO HS Discharge Medication List Furosemide [Lasix] 80 mg PO HS 02/27/17 [History] Gabapentin [Neurontin] 900 mg PO TID 02/27/17 [History] Loratadine [Claritin] 10 mg PO HS 02/27/17 [History] Diltiazem HCl [Diltiazem 24Hr ER (CD)] 120 mg PO DAILY 09/25/18 [History] Enzalutamide [Xtandi] 40 mg PO QID 09/25/18 [History] DULoxetine HCL [Cymbalta] 20 mg PO DAILY 05/13/19 [History] HYDROcodone/APAP 10-325MG [[place] 10-325] 1 tab PO Q6H PRN 05/13/19 [History] Metoprolol Succinate (ER) [Toprol XL] 100 mg PO DAILY 05/13/19 [History] fentaNYL 50MCG/HR PATCH [Duragesic 50MCG/HR] 50 mcg TRANSDERM Q72H 05/13/19 [His tory] Warfarin [Coumadin] 4 mg PO DAILY #60 tab 05/14/19 [Rx] Follow up Appointment(s)/Referral(s): Elli Leslie MD [Primary Care Provider] - 1-2 days James Holman MD [STAFF PHYSICIAN] - 1 Week Patient Instructions/Handouts: Warfarin (By mouth) Activity/Diet/Wound Care/Special Instructions: Patient will be admitted for further medical management. Discharge Disposition: HOME SELF-CARE
[2019-05-14] MEDS ORDERED: ENZALUTAMIDE 40 MG PO SCH (12:00)
[2019-05-14 12:08] VITALS: BP 130/73; PULSE 80; RESP 16; TEMP 97.8
== END 2019-05-14 13:41 | disposition home or self-care (01) | DRG 918 ==
LOC: EC 12:32 → 3SCARD 16:07
PROVIDERS: ADMIT Family Medicine; ATTEND Family Medicine
DX: T45.511A Poisoning by anticoagulants, accidental (unintentional), initial encounter (principal); C79.51 Secondary malignant neoplasm of bone; D62 Acute posthemorrhagic anemia; Z68.43 Body mass index [BMI] 50.0-59.9, adult; I50.32 Chronic diastolic (congestive) heart failure; I13.0 Hypertensive heart and chronic kidney disease with heart failure and stage 1 through stage 4 chronic kidney disease, or unspecified chronic kidney disease; L51.1 Stevens-Johnson syndrome; R89.2 Abnormal level of other drugs, medicaments and biological substances in specimens from other organs, systems and tissues; C61 Malignant neoplasm of prostate; E66.9 Obesity, unspecified; F17.200 Nicotine dependence, unspecified, uncomplicated; G62.0 Drug-induced polyneuropathy; T45.1X5A Adverse effect of antineoplastic and immunosuppressive drugs, initial encounter; I48.91 Unspecified atrial fibrillation; I87.2 Venous insufficiency (chronic) (peripheral); K21.9 Gastro-esophageal reflux disease without esophagitis; N18.9 Chronic kidney disease, unspecified; R79.1 Abnormal coagulation profile; Z79.01 Long term (current) use of anticoagulants; Z79.899 Other long term (current) drug therapy; Z80.42 Family history of malignant neoplasm of prostate; Z98.84 Bariatric surgery status; M10.9 Gout, unspecified; R58 Hemorrhage, not elsewhere classified; Z79.891 Long term (current) use of opiate analgesic; Z88.1 Allergy status to other antibiotic agents; Z88.0 Allergy status to penicillin
CPT/HCPCS: 36415; 80053; 82272; 85025; 85610; 85730; 99284

== ENCOUNTER 2019-06-20 20:38 | Emergency (ER) | payer MEDICARE ==
--- NOTE | 2019-06-20 21:33 | ED ---
Recheck HPI - General Chief Complaint: Recheck/Abnormal Lab/Rx Stated Complaint: Abn labs Time Seen by Provider: 06/20/19 20:58 Source: patient, family Mode of arrival: ambulatory Limitations: no limitations - History of Present Illness Initial Comments: This patient is a 53-year-old man who states he has history of stage IV prostate cancer and also some underlying kidney dysfunction. He states that he had seen his physician Dr. Paiz to have follow-up lab testing for his conditions, and then received a call today that his hemoglobin was low. The patient states that he has been having some symptoms of anemia mainly in the form of exertional dy spnea and fatigue. He denies resting dyspnea, chest pain, palpitations. He has not had syncopal episodes. The patient has not noted any bloody or dark tarry stools. No overt bleeding. He states that his hemoglobin had been trending low and that his last cancer treatment has been postponed due to having low hemoglobins. MD Complaint: abnormal lab Onset/Timin -: days(s) Returns Today for: Called Because of Abnormal Lab/Test Symptoms Since Prior Visit: no new symptoms Context: called for abnormal lab result Associated Symptoms: none - Related Data Home Medications Medication Instructions Recorded Confirmed Furosemide [Lasix] 80 mg PO HS 02/27/17 06/20/19 Loratadine [Claritin] 10 mg PO HS 02/27/17 06/20/19 Diltiazem HCl [Diltiazem 24Hr ER 120 mg PO DAILY 09/25/18 06/20/19 (CD)] Enzalutamide [Xtandi] 40 mg PO QID 09/25/18 06/20/19 DULoxetine HCL [Cymbalta] 20 mg PO DAILY 05/13/19 06/20/19 HYDROcodone/APAP 10-325MG [[place] 2 tab PO TID 05/13/19 06/20/19 10-325] Metoprolol Succinate (ER) [Toprol 100 mg PO DAILY 05/13/19 06/20/19 XL] Apixaban [Eliquis] 5 mg PO BID 06/20/19 06/20/19 Gabapentin 800 mg PO TID 06/20/19 06/20/19 Methyl Salicylate/Menthol 1 patch TOPICAL DAILY 06/20/19 06/20/19 [Salonpas Patch] fentaNYL 75MCG/HR PATCH [Duragesic 75 mcg TRANSDERM Q72H 06/20/19 06/20/19 75MCG/HR] Allergies Allergy/AdvReac Type Severity Reaction Status Date / Time cephalexin [From Keflex] Allergy Unknown Blisters Verified 06/20/19 21:11 levofloxacin [From Levaquin] Allergy Unknown Blisters Verified 06/20/19 21:11 Penicillins Allergy Unknown Blisters Verified 06/20/19 21:11 Tetracyclines Allergy Unknown Blisters Verified 06/20/19 21:11 adhesive Allergy BLISTERS Verified 06/20/19 21:11 Review of Systems ROS Statement: Those systems with pertinent positive or pertinent negative responses have been documented in the HPI. ROS Other: All systems not noted in ROS Statement are negative. Constitutional: Denies: fever, chills Respiratory: Denies: cough, dyspnea, hemoptysis Cardiovascular: Reports: dyspnea on exertion. Denies: chest pain, palpitations, edema, syncope Gastrointestinal: Denies: abdominal pain, vomiting, diarrhea, hematemesis, melena, hematochezia Genitourinary: Denies: dysuria, hematuria Musculoskeletal: Denies: back pain Skin: Denies: rash Neurological: Denies: headache, weakness Hematological/Lymphatic: Denies: easy bleeding Past Medical History Past Medical History: Atrial Fibrillation, Cancer, Heart Failure, GERD/Reflux, Hypertension Additional Past Medical History / Comment(s): GOUT. PERIPHERAL EDEMA. HX OF RENAL FAILURE (3 YRS AGO), RASHARD JOHNSONS SYNDROME. PROSTATE CANCER WITH METS TO BONE (DX 2014) IN REMISSION AT THIS TIME. HAS POWER PORT IN LEFT UPPER CHEST. RECEVIES HORMONE TX Q 3 MONTHS AT [place], [place] FOR CANCER. CHRONIC CONSTIPATION. DYSPHAGIA. History of Any Multi-Drug Resistant Organisms: C-DIFF Date of last positivie culture/infection: 2011 MDRO Source:: stool Past Surgical History: Appendectomy, Bariatric Surgery, Prostate Surgery Additional Past Surgical History / Comment(s): FLUID ABSCESS AFTER APPENDECTOMY (CHILD), PROSTATE BIOPSY'S. LAP BAND 2010. POWER PORt removed Past Anesthesia/Blood Transfusion Reactions: No Reported Reaction Past Psychological History: No Psychological Hx Reported Smoking Status: Smoker, current status unknown Past Alcohol Use History: Rare Past Drug Use History: None Reported - Past Family History Father Family Medical History: Cancer Additional Family Medical History / Comment(s): PROSTATE CANCER Brother(s) Family Medical History: Cancer Additional Family Medical History / Comment(s): PROSTATE CANCER General Exam Limitations: no limitations General appearance: alert, in no apparent distress Head exam: Present: atraumatic, normocephalic Eye exam: Present: normal appearance. Absent: scleral icterus, conjunctival injection ENT exam: Present: normal oropharynx Neck exam: Present: normal inspection Respiratory exam: Present: normal lung sounds bilaterally. Absent: respiratory distress, wheezes, rales, rhonchi, stridor Cardiovascular Exam: Present: regular rate, irregular rhythm, normal heart sounds. Absent: systolic murmur, diastolic murmur, rubs, gallop GI/Abdominal exam: Present: soft. Absent: distended, tenderness, guarding, rebound, rigid, mass Extremities exam: Present: normal inspection, normal capillary refill. Absent: pedal edema, calf tenderness Neurological exam: Present: alert Skin exam: Present: warm, dry, intact, pallor. Absent: rash, cyanosis, diaphoretic, erythema, petechiae Course Vital Signs 06/20/19 06/20/19 06/20/19 20:50 23:40 23:56 Temperature 98.3 F 99.1 F 99.1 F Pulse Rate 77 79 79 Respiratory 18 19 18 Rate Blood Pressure 122/64 132/82 139/95 O2 Sat by Pulse 100 99 98 Oximetry 06/21/19 06/21/19 06/21/19 00:06 00:35 00:36 Temperature 98.9 F 98.8 F 98.8 F Pulse Rate 69 89 89 Respiratory 18 18 18 Rate Blood Pressure 152/88 154/82 154/82 O2 Sat by Pulse 93 L 96 96 Oximetry 06/21/19 02:00 Temperature 99.2 F Pulse Rate 85 Respiratory 18 Rate Blood Pressure 143/80 O2 Sat by Pulse 96 Oximetry Medical Decision Making - Medical Decision Making Patient's 53-year-old man with history of prostate cancer and with anemia. Patient states he is not able to even move around the home any more without becoming extremely fatigued and winded. His hemoglobin remains below 8 and therefore will transfuse one unit. He then wanted to go home. We'll have him follow with his physician, return here should any symptoms recur. - Lab Data Result diagrams: 06/20/19 22:00 06/20/19 22:00 Lab Results 06/20/19 06/20/19 06/20/19 Range/Units 21:43 22:00 22:00 WBC (3.8-10.6) k/uL RBC (4.30-5.90) m/uL Hgb (13.0-17.5) gm/dL Hct (39.0-53.0) % MCV (80.0-100.0) fL MCH (25.0-35.0) pg MCHC (31.0-37.0) g/dL RDW (11.5-15.5) % Plt Count (150-450) k/uL Neutrophils % % Lymphocytes % % Monocytes % % Eosinophils % % Basophils % % Neutrophils # (1.3-7.7) k/uL Lymphocytes # (1.0-4.8) k/uL Monocytes # (0-1.0) k/uL Eosinophils # (0-0.7) k/uL Basophils # (0-0.2) k/uL Hypochromasia Poikilocytosis Anisocytosis Macrocytosis Sodium 139 (137-145) mmol/L Potassium 4.5 (3.5-5.1) mmol/L Chloride 102 (98-107) mmol/L Carbon Dioxide 26 (22-30) mmol/L Anion Gap 11 mmol/L BUN 25 H (9-20) mg/dL Creatinine 1.13 (0.66-1.25) mg/dL Est GFR (CKD-EPI)AfAm 85 (>60 ml/min/1.73 sqM) Est GFR (CKD-EPI)NonAf 74 (>60 ml/min/1.73 sqM) Glucose 97 (74-99) mg/dL Calcium 9.7 (8.4-10.2) mg/dL Blood Type O Positive Blood Type Confirm O Positive Blood Type Recheck No Previous Record Bld Type Recheck Status CABO Indicated Antibody Screen NEGATIVE Crossmatch See Detail Spec Expiration Date 06/23/2019 - 229906/20/19 Range/Units 22:00 WBC 7.1 (3.8-10.6) k/uL RBC 2.62 L (4.30-5.90) m/uL Hgb 7.6 L (13.0-17.5) gm/dL Hct 24.3 L (39.0-53.0) % MCV 92.7 (80.0-100.0) fL MCH 29.2 (25.0-35.0) pg MCHC 31.4 (31.0-37.0) g/dL RDW 20.0 H (11.5-15.5) % Plt Count 187 (150-450) k/uL Neutrophils % 84 % Lymphocytes % 4 % Monocytes % 7 % Eosinophils % 3 % Basophils % 1 % Neutrophils # 6.0 (1.3-7.7) k/uL Lymphocytes # 0.3 L (1.0-4.8) k/uL Monocytes # 0.5 (0-1.0) k/uL Eosinophils # 0.2 (0-0.7) k/uL Basophils # 0.0 (0-0.2) k/uL Hypochromasia Marked Poikilocytosis Slight Anisocytosis Moderate Macrocytosis Slight Sodium (137-145) mmol/L Potassium (3.5-5.1) mmol/L Chloride (98-107) mmol/L Carbon Dioxide (22-30) mmol/L Anion Gap mmol/L BUN (9-20) mg/dL Creatinine (0.66-1.25) mg/dL Est GFR (CKD-EPI)AfAm (>60 ml/min/1.73 sqM) Est GFR (CKD-EPI)NonAf (>60 ml/min/1.73 sqM) Glucose (74-99) mg/dL Calcium (8.4-10.2) mg/dL Blood Type Blood Type Confirm Blood Type Recheck Bld Type Recheck Status Antibody Screen Crossmatch Spec Expiration Date Disposition Clinical Impression: Symptomatic anemia Disposition: HOME SELF-CARE Condition: Fair Instructions (If sedation given, give patient instructions): Anemia (ED) Is patient prescribed a controlled substance at d/c from ED?: No Referrals: Curt Paiz MD [Primary Care Provider] - 1-2 days
[2019-06-20 22:12] LABS: Anisocytosis Moderate; Basophils % (A) 1 %; Eosinophils # (A) 0.2 k/uL (0-0.7); Eosinophils % (A) 3 %; HCT 24.3 % (39.0-53.0); HGB 7.6 gm/dL (13.0-17.5); Hypochromasia Marked; Lymphocytes # (A) 0.3 k/uL (1.0-4.8); Lymphocytes % (A) 4 %; MCH 29.2 pg (25.0-35.0); MCHC 31.4 g/dL (31.0-37.0); MCV 92.7 fL (80.0-100.0); Macrocytosis Slight; Monocytes # (A) 0.5 k/uL (0-1.0); Monocytes % (A) 7 %; Neutrophils % (A) 84 %; Platelet Count 187 k/uL (150-450); Poikilocytosis Slight; RBC 2.62 m/uL (4.30-5.90); WBC 7.1 k/uL (3.8-10.6)
[2019-06-20 22:50] LABS: Calcium 9.7 mg/dL (8.4-10.2); Potassium 4.5 mmol/L (3.5-5.1)
[2019-06-20 23:57] VITALS: RESP 18
[2019-06-21 02:02] VITALS: BP 143/80; PULSE 85; TEMP 99.2
== END 2019-06-21 02:37 | disposition home or self-care (01) ==
LOC: EC 20:38
DX: D64.9 Anemia, unspecified (principal); I48.91 Unspecified atrial fibrillation; I11.0 Hypertensive heart disease with heart failure; I50.9 Heart failure, unspecified; F17.200 Nicotine dependence, unspecified, uncomplicated; Z79.01 Long term (current) use of anticoagulants; Z79.899 Other long term (current) drug therapy; Z88.0 Allergy status to penicillin; Z88.1 Allergy status to other antibiotic agents; Z91.048 Other nonmedicinal substance allergy status; Z98.84 Bariatric surgery status; Z85.46 Personal history of malignant neoplasm of prostate; Z85.830 Personal history of malignant neoplasm of bone
CPT/HCPCS: 36415; 86900; 86901; 80048; 85025; 86850; 86920; 99283; P9016

== ENCOUNTER → 2019-07-23 | Outpatient (CLI) | payer MEDICARE ==
--- NOTE | 2019-07-23 13:49 | CT ---
EXAMINATION TYPE: CT ChestAbdPelvis w con DATE OF EXAM: 07/23/2019 COMPARISON: 12/30/2018 HISTORY: Prostate CA CT DLP: 5036.2 mGycm CONTRAST: CT scan of the chest, abdomen and pelvis is performed with Oral Contrast and with IV Contrast, patien t injected with 100 mL of Isovue 300. CT Chest: LUNGS: The lungs are clear and free of infiltrate or atelectasis. No pulmonary nodule or mass is det ected. There is a new left-sided pleural effusion measuring 3.8 cm AP dimension. MEDIASTINUM: Thoracic aorta is of normal caliber. The heart is mildly enlarged. No evidence for me diastinal mass or adenopathy. HILAR STRUCTURES: No evidence for mass. No hilar adenopathy is appreciated. OTHER: Multiple Large lymph nodes right axilla measuring up to 2.8 cm short axis. No left axillary adenopathy. CONTRAST CT ABDOMEN AND PELVIS FINDINGS: LIVER/GB: Cholecystectomy clips are in place. No space occupying hepatic lesion. Biliary tree is of n ormal caliber. PANCREAS: No inflammation. No distinct mass. SPLEEN: No splenic enlargement. No lesion seen. ADRENALS: No nodule. No thickening. KIDNEYS/BLADDER: No hydronephrosis. 4 mm calculus proximal right ureter resulting in mild fullness o f the right sided renal collecting system. No distinct renal mass. BOWEL: Normal appendix. Normal bowel caliber. No inflammation. GENITAL ORGANS: No gross abnormality. LYMPH NODES: Bilateral inguinal adenopathy noted. Largest right inguinal lymph node measures 2.2 cm a nd on the left 0.8 cm short axis. Lobulated right-sided external iliac artery adenopathy measures 3.2 cm and appears new. There is also right-sided internal iliac adenopathy measuring 1.9 cm. AORTA: No significant abnormality. OSSEOUS STRUCTURES: No significant abnormality is seen. OTHER: Fat-containing umbilical hernia noted. IMPRESSION: 1. New adenopathy in the region of the right axilla, bilateral inguinal regions and pelvis as discuss ed above. 2. Diffuse bony metastases remain essentially stable. 3. New left-sided pleural effusion.
--- NOTE | 2019-07-23 14:25 | NM ---
EXAMINATION TYPE: NM bone scan whole body DATE OF EXAM: 07/23/2019 COMPARISON: 12/30/2018 HISTORY: 53-year-old male with prostate cancer TECHNIQUE: Delayed whole-body scanning was performed following the injection of 21.7 mCi Tc 99m MDP. Images acquired 3 hours post injection. FINDINGS: Redemonstrated focal increased abnormal activity right humeral head, right clavicular head, upper april rnum, and scattered mild foci throughout the left posterior ribs and scattered within the mid to lowe r thoracic and upper to mid lumbar spine. Focal increased activity left ischium also redemonstrated. Abnormal activity within the right greater than left distal femurs and proximal right tibia. Abnormal activity at the left greater than right ankles may be degenerative and is also similar. Improved activity mid posterior right rib and posterior elements of the lower lumbar spine on the lef t show improvement. IMPRESSION: Scattered osseous metastatic disease relatively similar to prior involving both axial and appendicula r skeletons. There has been some improvement along the mid right posterior rib and within the left po sterior lower lumbar spine.
== END | disposition home or self-care (01) ==
LOC: RADCTMAIN 09:12
PROVIDERS: ATTEND Internal Medicine Hematology & Oncology
DX: C79.51 Secondary malignant neoplasm of bone (principal); C61 Malignant neoplasm of prostate; J90 Pleural effusion, not elsewhere classified; R59.0 Localized enlarged lymph nodes; Z88.0 Allergy status to penicillin
CPT/HCPCS: 82565; 84520; 71260; 74177; 36415; 78306; A9503; Q9967 ×2

== ENCOUNTER 2019-09-01 14:52 | Inpatient (IN) | payer MEDICARE ==
[2019-09-01 15:57] LABS: Anisocytosis Slight; Hypochromasia Moderate; MCH 31.5 pg (25.0-35.0); MCV 95.6 fL (80.0-100.0); Macrocytosis Slight; Mean Platelet Volume 8.3; Poikilocytosis Moderate; RBC 1.59 m/uL (4.30-5.90); RDW 19.6 % (11.5-15.5); WBC 6.4 k/uL (3.8-10.6)
[2019-09-01 15:59] LABS: Albumin 3.1 g/dL (3.5-5.0); Calcium 8.9 mg/dL (8.4-10.2); HCT 15.2 % (39.0-53.0); Potassium 4.5 mmol/L (3.5-5.1); Total Bilirubin 0.8 mg/dL (0.2-1.3); Total Protein 6.8 g/dL (6.3-8.2)
--- NOTE | 2019-09-01 16:02 | ED ---
General Adult HPI - General Source: patient, RN notes reviewed, old records reviewed Mode of arrival: EMS Limitations: no limitations <Mio Flores - Last Filed: 09/01/19 17:50> <Lili Morales - Last Filed: 09/02/19 01:15> - General Chief complaint: Syncope Stated complaint: weakness/near syncope - History of Present Illness Initial comments: This is a 53-year-old male with past medical history significant for metastatic prostate cancer. Patient comes into the emergency department because he was off balance and fell over today he hurt fourth and fifth toe on the right foot. Patient denies any sites denies any neck pain. Patient denies any other symptoms he states he was not dizzy or lightheaded he states he was just off b alance for a second. Patient denies chest pain difficulty breathing first breath. Patient denies any black or bloody stools. Patient denies any fever chills. (Mio Flores) - Related Data Home Medications Medication Instructions Recorded Confirmed Furosemide [Lasix] 80 mg PO HS 02/27/17 09/01/19 Loratadine [Claritin] 10 mg PO HS 02/27/17 09/01/19 Diltiazem HCl [Diltiazem 24Hr ER 120 mg PO DAILY 09/25/18 09/01/19 (CD)] DULoxetine HCL [Cymbalta] 20 mg PO DAILY 05/13/19 09/01/19 HYDROcodone/APAP 10-325MG [[place] 2 tab PO TID 05/13/19 09/01/19 10-325] Metoprolol Succinate (ER) [Toprol 100 mg PO DAILY 05/13/19 09/01/19 XL] Apixaban [Eliquis] 5 mg PO BID 06/20/19 09/01/19 Gabapentin 800 mg PO TID 06/20/19 09/01/19 fentaNYL 75MCG/HR PATCH [Duragesic 75 mcg TRANSDERM Q72H 06/20/19 09/01/19 75MCG/HR] Apalutamide [Erleada] 240 mg PO DAILY 09/01/19 09/01/19 Allergies Allergy/AdvReac Type Severity Reaction Status Date / Time cephalexin [From Keflex] Allergy Unknown Blisters Verified 09/01/19 18:26 levofloxacin [From Levaquin] Allergy Unknown Blisters Verified 09/01/19 18:26 Penicillins Allergy Unknown Blisters Verified 09/01/19 18:26 Tetracyclines Allergy Unknown Blisters Verified 09/01/19 18:26 adhesive Allergy BLISTERS Verified 09/01/19 18:26 Review of Systems ROS Other: All systems not noted in ROS Statement are negative. <Mio Flores - Last Filed: 09/01/19 17:50> ROS Other: All systems not noted in ROS Statement are negative. <Lili Morales - Last Filed: 09/02/19 01:15> ROS Statement: Those systems with pertinent positive or pertinent negative responses have been documented in the HPI. Past Medical History Past Medical History: Atrial Fibrillation, Cancer, Heart Failure, GERD/Reflux, Hypertension Additional Past Medical History / Comment(s): GOUT. PERIPHERAL EDEMA. HX OF RENAL FAILURE (3 YRS AGO), RASHARD JOHNSONS SYNDROME. PROSTATE CANCER WITH METS TO BONE (DX 2014) IN REMISSION AT THIS TIME. HAS POWER PORT IN LEFT UPPER CHEST. RECEVIES HORMONE TX Q 3 MONTHS AT [place], [place] FOR CANCER. CHRONIC CONSTIPATION. DYSPHAGIA. History of Any Multi-Drug Resistant Organisms: C-DIFF Date of last positivie culture/infection: 2011 MDRO Source:: stool Past Surgical History: Appendectomy, Bariatric Surgery, Prostate Surgery Additional Past Surgical History / Comment(s): FLUID ABSCESS AFTER APPENDECTOMY (CHILD), PROSTATE BIOPSY'S. LAP BAND 2010. POWER PORt removed Past Anesthesia/Blood Transfusion Reactions: No Reported Reaction Past Psychological History: No Psychological Hx Reported Smoking Status: Light tobacco smoker Past Alcohol Use History: Rare Past Drug Use History: None Reported - Past Family History Father Family Medical History: Cancer Additional Family Medical History / Comment(s): PROSTATE CANCER Brother(s) Family Medical History: Cancer Additional Family Medical History / Comment(s): PROSTATE CANCER <Mio Flores - Last Filed: 09/01/19 17:50> General Exam Limitations: no limitations <Mio Flores - Last Filed: 09/01/19 17:50> - General Exam Comments Initial Comments: GENERAL: Patient is well-developed and well-nourished. Patient is nontoxic and well- hydrated and is in no acute distress. ENT: Neck is soft and supple. No significant lymphadenopathy is noted. Oropharynx is clear. Moist mucous membranes. Neck has full range of motion without eliciting any pain. EYES: The sclera were anicteric and conjunctiva were pink and moist. Extraocular movements were intact and pupils were equal round and reactive to light. Eyelids were unremarkable. PULMONARY: Unlabored respirations. Good breath sounds bilaterally. No audible rales rhonchi or wheezing was noted. CARDIOVASCULAR: There is a regular rate and rhythm without any murmurs gallops or rubs. ABDOMEN: Soft and nontender with normal bowel sounds. No palpable organomegaly was noted. There is no palpable pulsatile mass. SKIN: Patient's skin is pale. RECTAL: Stool on rectal exam was dark brown NEUROLOGIC: Patient is alert and oriented x3. Cranial nerves II through XII are grossly intact. Motor and sensory are also intact. Normal speech, volume and content. Symmetrical smile. Cerebellar exam grossly intact. MUSCULOSKELETAL: Normal extremities with adequate strength and full range of motion. No lower extremity swelling or edema. No calf tenderness. LYMPHATICS: No significant lymphadenopathy is noted PSYCHIATRIC: Normal psychiatric evaluation. (Mio Flores) Course Vital Signs 09/01/19 09/01/19 09/01/19 14:55 16:56 17:08 Temperature 97.7 F 98.3 F 98.0 F Pulse Rate 78 79 75 Respiratory 17 17 17 Rate Blood Pressure 131/71 127/77 139/86 O2 Sat by Pulse 99 97 Oximetry 09/01/19 17:38 Temperature 98.1 F Pulse Rate 73 Respiratory 17 Rate Blood Pressure 128/88 O2 Sat by Pulse 98 Oximetry Procedures - Laceration Laceration #1 Consent Obtained: verbal consent Indication: laceration Site: foot (between digit 3/4) Size (cm): 2 Description: linear, irregular Depth: simple, single layer Anesthetic Used: lidocaine 1% Anesthesia Technique: local infiltration Amount (mls): 1 Pre-repair: wound explored, irrigated extensively, deep structures intact Type of Sutures: nylon Size of Sutures: 5-0 Number of Sutures: 6 Technique: simple, interrupted Patient Tolerated Procedure: well, no complications Laceration #2 Consent Obtained: verbal consent Indication: laceration Site: foot (Between digits 4 and 5) Size (cm): 2 Description: linear Depth: simple, single layer Anesthetic Used: lidocaine 1% Anesthesia Technique: local infiltration Amount (mls): 1 Pre-repair: wound explored, irrigated extensively, deep structures intact Type of Sutures: nylon Size of Sutures: 5-0 Number of Sutures: 7 Technique: simple, interrupted Patient Tolerated Procedure: well, no complications <Lili Morales - Last Filed: 09/02/19 01:15> - Laceration Laceration #1 Additional Comments: After irrigation extensive cleansing wound edges were approximated as best as possible. (Lili Morales) Laceration #2 Additional Comments: Are was extensively irrigated and cleansed prior to closure. (Lili Morales) Medical Decision Making - Lab Data Result diagrams: 09/01/19 15:20 09/01/19 15:20 <Mio Flores - Last Filed: 09/01/19 17:50> - Lab Data Result diagrams: 09/02/19 00:20 09/01/19 15:20 <Lili Morales - Last Filed: 09/02/19 01:15> - Medical Decision Making EKG shows atrial fibrillation at 82 bpm QRS is 88 QT interval 398 QTC is 464. Patient's EKG shows no ST segment elevation or depression. I gave the patient 2 units of packed red blood cells. Patient has 2 fractures of the proximal phalanx of the right fourth and fifth toes. Patient had lacerations in those areas so he had open fractures I gave the patient clindamycin because he was ALLERGIC to Rocephin and penicillins. Magnesium to the physician [employer] assistant principal sewed up the lacerations. She also was given a tetanus. I spoke with Dr. Delong he agreed to admit the patient admitted the patient wrote admitting orders. (Mio Flores) - Lab Data Lab Results 09/01/19 09/01/19 09/01/19 Range/Units 15:20 15:20 15:20 WBC 6.4 (3.8-10.6) k/uL RBC 1.59 L (4.30-5.90) m/uL Hgb 5.0 L* D (13.0-17.5) gm/dL Hct 15.2 L* (39.0-53.0) % MCV 95.6 (80.0-100.0) fL MCH 31.5 (25.0-35.0) pg MCHC 33.0 (31.0-37.0) g/dL RDW 19.6 H (11.5-15.5) % Plt Count 92 L (150-450) k/uL Neutrophils % (Manual) 82 % Band Neutrophils % 3 % Lymphocytes % (Manual) 10 % Monocytes % (Manual) 5 % Neutrophils # (Manual) 5.40 (1.3-7.7) k/uL Lymphocytes # (Manual) 0.64 L (1.0-4.8) k/uL Monocytes # (Manual) 0.32 (0-1.0) k/uL Nucleated RBCs 0 (0-0) /100 WBC Manual Slide Review Performed Polychromasia Present Hypochromasia Moderate Poikilocytosis Moderate Anisocytosis Slight Macrocytosis Slight PT 11.9 (9.0-12.0) sec INR 1.1 (<1.2) APTT 24.1 (22.0-30.0) sec Sodium 135 L (137-145) mmol/L Potassium 4.5 (3.5-5.1) mmol/L Chloride 104 (98-107) mmol/L Carbon Dioxide 26 (22-30) mmol/L Anion Gap 5 mmol/L BUN 20 (9-20) mg/dL Creatinine 1.08 (0.66-1.25) mg/dL Est GFR (CKD-EPI)AfAm 89 (>60 ml/min/1.73 sqM) Est GFR (CKD-EPI)NonAf 77 (>60 ml/min/1.73 sqM) Glucose 107 H (74-99) mg/dL Calcium 8.9 (8.4-10.2) mg/dL Total Bilirubin 0.8 (0.2-1.3) mg/dL AST 54 (17-59) U/L ALT 11 L (21-72) U/L Alkaline Phosphatase 88 (38-126) U/L Total Protein 6.8 (6.3-8.2) g/dL Albumin 3.1 L (3.5-5.0) g/dL Stool Occult Blood (Negative) Blood Type Blood Type Recheck Bld Type Recheck Status Antibody Screen Crossmatch Spec Expiration Date 09/01/19 09/01/19 Range/Units 15:40 16:50 WBC (3.8-10.6) k/uL RBC (4.30-5.90) m/uL Hgb (13.0-17.5) gm/dL Hct (39.0-53.0) % MCV (80.0-100.0) fL MCH (25.0-35.0) pg MCHC (31.0-37.0) g/dL RDW (11.5-15.5) % Plt Count (150-450) k/uL Neutrophils % (Manual) % Band Neutrophils % % Lymphocytes % (Manual) % Monocytes % (Manual) % Neutrophils # (Manual) (1.3-7.7) k/uL Lymphocytes # (Manual) (1.0-4.8) k/uL Monocytes # (Manual) (0-1.0) k/uL Nucleated RBCs (0-0) /100 WBC Manual Slide Review Polychromasia Hypochromasia Poikilocytosis Anisocytosis Macrocytosis PT (9.0-12.0) sec INR (<1.2) APTT (22.0-30.0) sec Sodium (137-145) mmol/L Potassium (3.5-5.1) mmol/L Chloride (98-107) mmol/L Carbon Dioxide (22-30) mmol/L Anion Gap mmol/L BUN (9-20) mg/dL Creatinine (0.66-1.25) mg/dL Est GFR (CKD-EPI)AfAm (>60 ml/min/1.73 sqM) Est GFR (CKD-EPI)NonAf (>60 ml/min/1.73 sqM) Glucose (74-99) mg/dL Calcium (8.4-10.2) mg/dL Total Bilirubin (0.2-1.3) mg/dL AST (17-59) U/L ALT (21-72) U/L Alkaline Phosphatase (38-126) U/L Total Protein (6.3-8.2) g/dL Albumin (3.5-5.0) g/dL Stool Occult Blood Positive (Negative) Blood Type O Positive Blood Type Recheck O Pos Bld Type Recheck Status No Antibody Screen NEGATIVE Crossmatch See Detail Spec Expiration Date 09/04/2019 - 234 Disposition Time of Disposition: 17:54 <Mio Flores - Last Filed: 09/01/19 17:50> <Lili Morales - Last Filed: 09/02/19 01:15> Clinical Impression: Laceration of foot, GI bleed, Anemia, Toes fractured, Open fracture of fifth toe of right foot, Open fracture of fourth toe of right foot Disposition: ADMITTED IP TO THIS HOSP
[2019-09-01 16:06] LABS: INR 1.1 (<1.2); Partial Thromboplastin Time 24.1 sec (22.0-30.0); Prothrombin Time 11.9 sec (9.0-12.0)
--- NOTE | 2019-09-01 16:15 | XR ---
Right foot HISTORY: Right foot pain 3 views of the right foot Bone mineralization is reduced which may limit sensitivity. There is subchondral sclerosis and possib le cystic change present at the tarsometatarsal joints, degenerative change present at the metatarsop halangeal joint of the first digit. There is hypertrophic change, spurring at the intertarsal joints. Plantar calcaneal spur is present. Basilar calcifications are noted incidentally, spurring also pres ent tibiotalar joint. At the proximal phalanx proximal aspect of the fifth digit right foot there is a minimally displaced transverse fracture. At the distal aspect of the proximal falx of the fourth digit there is a transve rse fracture with minimal displacement. No evident dislocation. There is soft tissue swelling. IMPRESSION: Fourth and fifth digit fractures. There may be underlying crystal deposition arthropathy, osteoarthritic change. Low bone mineralization could limit sensitivity.
[2019-09-01 16:17] LABS: Band Neutrophils % 3 %; Lymphocytes # (M) 0.64 k/uL (1.0-4.8); Monocytes # (M) 0.32 k/uL (0-1.0); Neutrophils % (M) 82 %; Nucleated Red Blood Cells 0 /100 WBC (0-0); Platelet Count 92 k/uL (150-450); Polychromasia Present; Total Cells Counted 100
[2019-09-01] MEDS ORDERED: DIPH,PERTUS(ACELL)TETVAC-LF 0.5 ML VIAL IM ONE (16:50)
[2019-09-01] MEDS ORDERED: CLINDAMYCIN 600 MG in DEXTROSE 5% IN WATER 50 ML IVPB ONE ×2 (17:15)
[2019-09-01] MEDS ORDERED: LIDOCAINE 1% INJ 10MG/ML (20 ML MDV) SQ ONE (17:19)
[2019-09-01] MEDS ORDERED: SODIUM CHLORIDE 0.9% 1,000 ML IV ONE (17:54)
[2019-09-01 19:00] LABS: Glucose,Whole Blood 97 mg/dL (75-99)
[2019-09-01] MEDS: LORATADINE 10 MG TAB PO SCH (21:02)
[2019-09-01] MEDS: HYDROcodone/APAP 10-325MG 1 EACH TAB PO SCH (21:03)
[2019-09-01] MEDS: GABAPENTIN 400 MG CAP PO SCH (21:04)
[2019-09-01] MEDS: CLINDAMYCIN 600 MG in DEXTROSE 5% IN WATER 50 ML IVPB SCH ×2 (22:42)
[2019-09-02 00:58] LABS: Anisocytosis Moderate; HCT 20.5 % (39.0-53.0); Hypochromasia Slight; MCH 30.7 pg (25.0-35.0); MCHC 33.1 g/dL (31.0-37.0); MCV 92.9 fL (80.0-100.0); Macrocytosis Slight; Mean Platelet Volume 8.6; Poikilocytosis Slight; RBC 2.21 m/uL (4.30-5.90); RDW 20.2 % (11.5-15.5)
[2019-09-02 01:07] LABS: HGB 6.8 gm/dL (13.0-17.5); Platelet Count 76 k/uL (150-450)
[2019-09-02 01:34] LABS: Band Neutrophils % 6 %; Metamyelocytes % 3 %; Myelocytes % 1 %; Neutrophils % (M) 77 %; Nucleated Red Blood Cells 3 /100 WBC (0-0); Total Cells Counted 200
[2019-09-02 01:35] LABS: Eosinophils # (M) 0.16 k/uL (0-0.7); Lymphocytes # (M) 0.27 k/uL (1.0-4.8); Metamyelocytes # (M) 0.16 k/uL (0); Monocytes # (M) 0.37 k/uL (0-1.0); Myelocytes # (M) 0.05 k/uL (0); Polychromasia Present; WBC 5.3 k/uL (3.8-10.6)
[2019-09-02] MEDS: CLINDAMYCIN 600 MG in DEXTROSE 5% IN WATER 50 ML IVPB SCH ×8 (05:46→23:06)
[2019-09-02] MEDS: HYDROcodone/APAP 10-325MG 1 EACH TAB PO SCH ×3 (05:46→20:12)
[2019-09-02 06:45] LABS: Anisocytosis Moderate; Basophils % (A) 0 %; Eosinophils # (A) 0.1 k/uL (0-0.7); Eosinophils % (A) 2 %; HCT 21.1 % (39.0-53.0); Hypochromasia Moderate; Lymphocytes # (A) 0.3 k/uL (1.0-4.8); Lymphocytes % (A) 7 %; MCH 29.6 pg (25.0-35.0); MCHC 31.7 g/dL (31.0-37.0); MCV 93.5 fL (80.0-100.0); Macrocytosis Slight; Mean Platelet Volume 8.3; Monocytes # (A) 0.2 k/uL (0-1.0); Monocytes % (A) 5 %; Neutrophils # (A) 3.8 k/uL (1.3-7.7); Neutrophils % (A) 84 %; Poikilocytosis Moderate; RBC 2.26 m/uL (4.30-5.90); RDW 20.6 % (11.5-15.5); WBC 4.5 k/uL (3.8-10.6)
[2019-09-02 06:53] LABS: HGB 6.7 gm/dL (13.0-17.5); Platelet Count 71 k/uL (150-450)
[2019-09-02 07:04] LABS: Calcium 8.3 mg/dL (8.4-10.2); Potassium 3.5 mmol/L (3.5-5.1)
[2019-09-02 07:48] LABS: Polychromasia Present
[2019-09-02] MEDS: GABAPENTIN 400 MG CAP PO SCH ×3 (08:28→20:12)
--- NOTE | 2019-09-02 08:46 | P.CNOR ---
History of Present Illness - [facility] Consult date: 09/02/19 Consult reason: fracture History of present illness: Patient is a 53-year-old male who was brought to [facility] yesterday after sustaining a fall in his home and injuring his right foot. Patient was apparently trying to get to his fall when he tripped he believes he smashed his foot against the edge of his couch or chair. Patient did report to the hospital at that time, lab and imaging test were done. Labs demonstrated a significantly decreased hemoglobin, and a receiving 2 units in the emergency department. Is a history of prostate cancer with metastases, he is followed by oncology and other medical providers. X-rays of the foot demonstrated fractures, the lacerations were washed out and closed in the emergency room by the physician sociology research assistant. They did note it was likely an open fracture due to the fact of the fracture locations compared to the lacerations. In the notes, they documented superficial layer repair, so hard to determine if there was actually bony involvement in the areas of the lacerations. patient was evaluated in the ICU unit today, is resting comfortably. He has a history of neuropathy states it is related to the cancer. He gets occasional sensation in the lower extremity. He notes most discomfort between the toes of the fourth and fifth and third and fourth lacerations are. He has no other acute orthopedic complaints this time. He normally utilizes a cane with ambulation. Review of Systems Constitutional: Reports as per HPI Past Medical History Past Medical History: Atrial Fibrillation, Cancer, Heart Failure, GERD/Reflux, Hypertension Additional Past Medical History / Comment(s): GOUT. PERIPHERAL EDEMA. HX OF RENAL FAILURE (3 YRS AGO), RASHARD JOHNSONS SYNDROME. PROSTATE CANCER WITH METS TO BONE (DX 2014) IN REMISSION AT THIS TIME. POWER PORT IN LEFT UPPER CHEST INFECTED AND REMOVED 2017. RECEVIES HORMONE TX Q 3 MONTHS AT [facility]. CHRONIC CONSTIPATION. DYSPHAGIA. History of Any Multi-Drug Resistant Organisms: C-DIFF Year Discovered:: 2011 MDRO Source:: stool Past Surgical History: Appendectomy, Bariatric Surgery Additional Past Surgical History / Comment(s): FLUID ABSCESS AFTER APPENDECTOMY (CHILD), PROSTATE BIOPSY'S. LAP BAND 2010. POWER PORt removed, gallbladder removed Past Anesthesia/Blood Transfusion Reactions: No Reported Reaction Past Psychological History: No Psychological Hx Reported Smoking Status: Current some day smoker Past Alcohol Use History: Rare Additional Past Alcohol Use History / Comment(s): HX OF CHEWING TOBACCO- QUIT 4 YRS AGO., OCCASIONAL CIGARS SINCE HE WAS 17 YRS OLD. (0-1 PER WEEK) Past Drug Use History: None Reported - Past Family History Father Family Medical History: Cancer Additional Family Medical History / Comment(s): PROSTATE CANCER Brother(s) Family Medical History: Cancer Additional Family Medical History / Comment(s): PROSTATE CANCER Medications and Allergies Home Medications Medication Instructions Recorded Confirmed Type Furosemide [Lasix] 80 mg PO HS 02/27/17 09/01/19 History Loratadine [Claritin] 10 mg PO HS 02/27/17 09/01/19 History Diltiazem HCl [Diltiazem 24Hr ER 120 mg PO DAILY 09/25/18 09/01/19 History (CD)] DULoxetine HCL [Cymbalta] 20 mg PO DAILY 05/13/19 09/01/19 History HYDROcodone/APAP 10-325MG [[place] 2 tab PO TID 05/13/19 09/01/19 History 10-325] Metoprolol Succinate (ER) [Toprol 100 mg PO DAILY 05/13/19 09/01/19 History XL] Apixaban [Eliquis] 5 mg PO BID 06/20/19 09/01/19 History Gabapentin 800 mg PO TID 06/20/19 09/01/19 History fentaNYL 75MCG/HR PATCH [Duragesic 75 mcg TRANSDERM Q72H 06/20/19 09/01/19 History 75MCG/HR] Apalutamide [Erleada] 240 mg PO DAILY 09/01/19 09/01/19 History Allergies Allergy/AdvReac Type Severity Reaction Status Date / Time cephalexin [From Keflex] Allergy Unknown Blisters Verified 09/01/19 18:26 levofloxacin [From Levaquin] Allergy Unknown Blisters Verified 09/01/19 18:26 Penicillins Allergy Unknown Blisters Verified 09/01/19 18:26 Tetracyclines Allergy Unknown Blisters Verified 09/01/19 18:26 adhesive Allergy BLISTERS Verified 09/01/19 18:26 Physical Examination Right foot: Lacerations with sutures were visualized during the third and fourth digit and fourth and fifth digit. The wound edges appeared clean and intact, no obvious drainage present. He's able to wiggle all the toes of minimal difficulty. The dorsal pedis pulses 2+. No areas of fluctuance appreciated around the foot. Notable swelling throughout that right lower extremity, he has a history of lymphedema. Results - Labs Labs: Abnormal Lab Results - Last 24 Hours (Table) 09/01/19 09/01/19 09/01/19 Range/Units 15:20 15:20 15:40 RBC 1.59 L (4.30-5.90) m/uL Hgb 5.0 L* D (13.0-17.5) gm/dL Hct 15.2 L* (39.0-53.0) % RDW 19.6 H (11.5-15.5) % Plt Count 92 L (150-450) k/uL Lymphocytes # (1.0-4.8) k/uL Lymphocytes # (Manual) 0.64 L (1.0-4.8) k/uL Metamyelocytes # (Man) (0) k/uL Myelocytes # (Manual) (0) k/uL Nucleated RBCs (0-0) /100 WBC Sodium 135 L (137-145) mmol/L Glucose 107 H (74-99) mg/dL Calcium (8.4-10.2) mg/dL ALT 11 L (21-72) U/L Albumin 3.1 L (3.5-5.0) g/dL Crossmatch See Detail 09/02/19 09/02/19 09/02/19 Range/Units 00:20 06:19 06:19 RBC 2.21 L 2.26 L (4.30-5.90) m/uL Hgb 6.8 L* D 6.7 L* (13.0-17.5) gm/dL Hct 20.5 L 21.1 L (39.0-53.0) % RDW 20.2 H 20.6 H (11.5-15.5) % Plt Count 76 L 71 L (150-450) k/uL Lymphocytes # 0.3 L (1.0-4.8) k/uL Lymphocytes # (Manual) 0.27 L (1.0-4.8) k/uL Metamyelocytes # (Man) 0.16 H (0) k/uL Myelocytes # (Manual) 0.05 H (0) k/uL Nucleated RBCs 3 H (0-0) /100 WBC Sodium (137-145) mmol/L Glucose (74-99) mg/dL Calcium 8.3 L (8.4-10.2) mg/dL ALT (21-72) U/L Albumin (3.5-5.0) g/dL Crossmatch H & H 09/01/19 09/02/19 09/02/19 Range/Units 15:20 00:20 06:19 Hgb 5.0 L* D 6.8 L* D 6.7 L* (13.0-17.5) gm/dL Hct 15.2 L* 20.5 L 21.1 L (39.0-53.0) % Coagulation 09/01/19 Range/Units 15:20 INR 1.1 (<1.2) Result Diagrams: 09/02/19 06:19 09/02/19 06:19 Assessment and Plan Plan: Imaging: I was unable to review the x-rays of the foot today, there is an issue with her system. We'll be able to review once system is up and running Assessment: 1. Right foot fourth proximal phalanx fracture 2. Right foot fifth proximal phalanx fracture 3. Right foot lacerations 4. Multiple medical comorbidities Plan: I was able to review the case in maintaining Dr. Menjivar. We will review the images when available. I did redress the foot today at bedside. I will place a prescription for a postop shoe. Recommend weight-bear as tolerated, advise walking more to the heel versus the toes. Ice and elevate often Dressing changes every 2-3 days, I will do this myself during hospital stay No orthopedic surgical intervention at this time Other medical editor recommendations We'll continue to follow during inpatient stay Time with Patient: Less than 30
[2019-09-02] MEDS: DILTIAZEM CD 120 MG CAP.ER.24H PO SCH (10:39)
[2019-09-02] MEDS: FUROSEMIDE 80 MG TAB PO SCH (10:39)
[2019-09-02] MEDS: METOPROLOL SUCCINATE (ER) 100 MG TAB.ER.24H PO SCH (10:39)
[2019-09-02] MEDS: DULoxetine HCL 20 MG CAPSULE.DR PO SCH (10:39)
[2019-09-02 11:09] LABS: Reticulocyte % 2.6 % (0.5-2.0)
[2019-09-02] MEDS ORDERED: LOPERAMIDE 2 MG CAP PO PRN (15:06)
--- NOTE | 2019-09-02 19:32 | P.CONS ---
History of Present Illness - Reason for Consult Consult date: 09/02/19 GI bleed Requesting physician: Curt Paiz - Chief Complaint Fall - History of Present Illness 53-year-old male with a full history significant for atrial fibrillation, c ongestive heart failure, GERD, metastatic prostate cancer and hypertension who presented to the hospital due to complaints of a mechanical fall. The patient sustained lacerations to his right foot after following from a standing position after tripping and injuring his foot on what he believes was C edge of his couch or chair. The patient reports significant blood loss stating that "it looked li ke a crime scene" at his house secondary to the blood loss. The patient is currently being treated for metastatic prostate cancer and reports starting a new chemotherapeutic agent approximately 4 weeks ago. He also reports significant nosebleeds over the 1-2 days prior to presentation during which she states that he swallowed a significant amount of blood. At that time he is also noted some dark bowel movements which she attributed to the nosebleeds. On presentation he was found to have a hemoglobin of 5 and was subsequently transfused 2 units of packed red blood cells with a repeat hemoglobin of 6.8 and then 6.7. He denies any pain in his abdomen, nausea, vomiting, hematemesis or bright red blood per rectum. 2 bowel movements today were also dark in color. Previously he underwent EGD on 02/2017 with findings of antritis and esophagitis. Review of Systems REVIEW OF SYSTEMS: CONSTITUTIONAL: Denies any fevers, chills, weight change or fatigue. CARDIOVASCULAR: Denies any chest pain, palpitations high or low blood pressures RESPIRATORY: Denies any shortness of breath, hemoptysis or cough. GENITOURINARY: No dysuria or hematuria. MUSCULOSKELETAL: Laceration of the right foot secondary to mechanical fall SKIN: Denies any new rashes or lesions, jaundice or pallor. PSYCHIATRIC: Denies any depression or anxiety. NEUROLOGY: Denies headache, denies any new focal deficits. EARS/NOSE/THROAT: No recent hearing change, congestion, nasal discharge or sore throat. EYES: No pain in eyes, discharge or change in vision. GASTROINTESTINAL: As per HPI. Past Medical History Past Medical History: Atrial Fibrillation, Cancer, Heart Failure, GERD/Reflux, Hypertension Additional Past Medical History / Comment(s): GOUT. PERIPHERAL EDEMA. HX OF RENAL FAILURE (3 YRS AGO), RASHARD JOHNSONS SYNDROME. PROSTATE CANCER WITH METS TO BONE (DX 2014) IN REMISSION AT THIS TIME. POWER PORT IN LEFT UPPER CHEST INFECTED AND REMOVED 2017. RECEVIES HORMONE TX Q 3 MONTHS AT [facility]. CHRONIC CONSTIPATION. DYSPHAGIA. History of Any Multi-Drug Resistant Organisms: C-DIFF Year Discovered:: 2011 MDRO Source:: stool Past Surgical History: Appendectomy, Bariatric Surgery Additional Past Surgical History / Comment(s): FLUID ABSCESS AFTER APPENDECTOMY (CHILD), PROSTATE BIOPSY'S. LAP BAND 2010. POWER PORt removed, gallbladder removed Past Anesthesia/Blood Transfusion Reactions: No Reported Reaction Past Psychological History: No Psychological Hx Reported Smoking Status: Current some day smoker Past Alcohol Use History: Rare Additional Past Alcohol Use History / Comment(s): HX OF CHEWING TOBACCO- QUIT 4 YRS AGO., OCCASIONAL CIGARS SINCE HE WAS 17 YRS OLD. (0-1 PER WEEK) Past Drug Use History: None Reported - Past Family History Father Family Medical History: Cancer Additional Family Medical History / Comment(s): PROSTATE CANCER Brother(s) Family Medical History: Cancer Additional Family Medical History / Comment(s): PROSTATE CANCER Medications and Allergies Home Medications Medication Instructions Recorded Confirmed Type Furosemide [Lasix] 80 mg PO HS 02/27/17 09/01/19 History Loratadine [Claritin] 10 mg PO HS 02/27/17 09/01/19 History Diltiazem HCl [Diltiazem 24Hr ER 120 mg PO DAILY 09/25/18 09/01/19 History (CD)] DULoxetine HCL [Cymbalta] 20 mg PO DAILY 05/13/19 09/01/19 History HYDROcodone/APAP 10-325MG [[place] 2 tab PO TID 05/13/19 09/01/19 History 10-325] Metoprolol Succinate (ER) [Toprol 100 mg PO DAILY 05/13/19 09/01/19 History XL] Apixaban [Eliquis] 5 mg PO BID 06/20/19 09/01/19 History Gabapentin 800 mg PO TID 06/20/19 09/01/19 History fentaNYL 75MCG/HR PATCH [Duragesic 75 mcg TRANSDERM Q72H 06/20/19 09/01/19 History 75MCG/HR] Apalutamide [Erleada] 240 mg PO DAILY 09/01/19 09/01/19 History Allergies Allergy/AdvReac Type Severity Reaction Status Date / Time cephalexin [From Keflex] Allergy Unknown Blisters Verified 09/01/19 18:26 levofloxacin [From Levaquin] Allergy Unknown Blisters Verified 09/01/19 18:26 Penicillins Allergy Unknown Blisters Verified 09/01/19 18:26 Tetracyclines Allergy Unknown Blisters Verified 09/01/19 18:26 adhesive Allergy BLISTERS Verified 09/01/19 18:26 Physical Exam Vitals: Vital Signs Temp Pulse Resp BP Pulse Ox 09/02/19 04:00 98.5 F 66 17 124/70 95 09/02/19 02:00 78 14 135/67 09/02/19 00:00 98.6 F 74 13 149/81 94 L 09/01/19 22:36 99.0 F 75 17 149/81 95 09/01/19 22:00 72 10 L 130/103 98 09/01/19 21:40 98.6 F 73 23 130/103 96 09/01/19 21:30 77 18 146/85 96 09/01/19 21:10 98.4 F 75 19 146/85 98 09/01/19 21:00 98.0 F 77 13 142/82 97 09/01/19 20:39 97.8 F 76 18 143/90 99 09/01/19 20:30 74 12 132/81 95 09/01/19 20:00 97.8 F 77 16 141/71 96 09/01/19 19:30 79 14 144/86 100 09/01/19 19:01 98.3 F 98 14 133/99 98 09/01/19 17:38 98.1 F 73 17 128/88 98 09/01/19 17:08 98.0 F 75 17 139/86 97 09/01/19 16:56 98.3 F 79 17 127/77 09/01/19 14:55 97.7 F 78 17 131/71 99 Intake and Output 09/01/19 09/02/19 09/02/19 22:59 06:59 14:59 Intake Total 620 425 Balance 620 425 Intake: IV 375 Sodium Chloride 0.9% 1, 375 000 ml @ 75 mls/hr IV . [id number] Rx#:[id number] Intake, IV Titration 50 Amount Clindamycin 600 mg In 50 Dextrose 5% in Water 50 ml @ 50 mls/hr IVPB Q6HR [facility] Rx#:[id number] Blood Product 620 Rc Cpda-1 Unit 310 [id number] Rc Pheresis 2 As3 Unit 310 [id number] Other: Weight 152.407 kg 149.7 kg On physical examination, patient appears comfortable in no apparent distress. HEAD: Normocephalic, atraumatic. EYES: No scleral icterus. No conjunctival injection. MOUTH: No lesions, tongue midline. NECK: Trachea midline, no gross abnormalities. CHEST: Clear to auscultation with no wheezing or rhonchi appreciated. HEART: S1-S2 appreciated, no murmurs appreciated ABDOMEN: Soft, obese. Bowel sounds are positive. No organomegaly. No guarding or rigidity. EXTREMITIES: Laceration of right lower extremity. SKIN: No rashes, no jaundice. NEUROLOGIC: Alert and oriented x3. No focal deficits. Results CBC & Chem 7: 09/02/19 06:19 09/02/19 06:19 Labs: Abnormal Lab Results - Last 24 Hours (Table) 09/01/19 09/01/19 09/01/19 Range/Units 15:20 15:20 15:40 RBC 1.59 L (4.30-5.90) m/uL Hgb 5.0 L* D (13.0-17.5) gm/dL Hct 15.2 L* (39.0-53.0) % RDW 19.6 H (11.5-15.5) % Plt Count 92 L (150-450) k/uL Lymphocytes # (1.0-4.8) k/uL Lymphocytes # (Manual) 0.64 L (1.0-4.8) k/uL Metamyelocytes # (Man) (0) k/uL Myelocytes # (Manual) (0) k/uL Nucleated RBCs (0-0) /100 WBC Sodium 135 L (137-145) mmol/L Glucose 107 H (74-99) mg/dL Calcium (8.4-10.2) mg/dL ALT 11 L (21-72) U/L Albumin 3.1 L (3.5-5.0) g/dL Crossmatch See Detail 09/02/19 09/02/19 09/02/19 Range/Units 00:20 06:19 06:19 RBC 2.21 L 2.26 L (4.30-5.90) m/uL Hgb 6.8 L* D 6.7 L* (13.0-17.5) gm/dL Hct 20.5 L 21.1 L (39.0-53.0) % RDW 20.2 H 20.6 H (11.5-15.5) % Plt Count 76 L 71 L (150-450) k/uL Lymphocytes # 0.3 L (1.0-4.8) k/uL Lymphocytes # (Manual) 0.27 L (1.0-4.8) k/uL Metamyelocytes # (Man) 0.16 H (0) k/uL Myelocytes # (Manual) 0.05 H (0) k/uL Nucleated RBCs 3 H (0-0) /100 WBC Sodium (137-145) mmol/L Glucose (74-99) mg/dL Calcium 8.3 L (8.4-10.2) mg/dL ALT (21-72) U/L Albumin (3.5-5.0) g/dL Crossmatch Comments: X-ray of the foot with fractures of the fourth and fifth digits of the right foot noted Assessment and Plan (1) Acute blood loss anemia Narrative/Plan: 53-year-old male with multiple medical comorbidities presenting after a mechanical fall with fractures of his right foot fourth and fifth digits with la ceration found to be anemic on presentation. Patient reports a large amount of blood loss and association with the lacerations and also states that he had been having nosebleeds for the 2 days prior to presentation during which she states he swallowed a large amount of blood. Stool testing was positive for blood. The patient has no prior colonoscopy reported. EGD in 03/09 significant for antritis and esophagitis. Denies any hematemesis, coffee-ground emesis, blood per rectum but does don't have bowel movements have been darker after the nosebleeds. Anemia likely multifactorial secondary to acute blood loss from lacerations on the right foot as well as recent epistaxis, cannot rule out a component of anemia from chronic disease, GI blood loss is also possible but patient currently denying any risk factors. Current Visit: No Status: Acute Code(s): D62 - ACUTE POSTHEMORRHAGIC ANEMIA SNOMED Code(s): 127186738 (2) Open fracture of fifth toe of right foot Current Visit: Yes Status: Acute Code(s): S92.501B - DISPLACED UNSP FX RIGHT LESSER TOE(S), INIT FOR OPN FX SNOMED Code(s): 48230235 (3) Open fracture of fourth toe of right foot Current Visit: Yes Status: Acute Code(s): S92.501B - DISPLACED UNSP FX RIGHT LESSER TOE(S), INIT FOR OPN FX SNOMED Code(s): 89278483 Plan: Supportive care Okay for diet 1 additional units of packed red blood cells ordered as the patient's hemoglobin has remained persistently less than 7 after transfusion at 6.8 and then 6.7 Protonix 40 mg daily added to medical regimen Continue to monitor hemoglobin and hematocrit and transfuse as needed Okay for Imodium as needed for diarrhea No plans for endoscopic evaluation at this time however if clinical symptoms concerning for GI bleed recur or patient continues to drop hemoglobin will consider endoscopic evaluation at that time Thank you for allowing us to participate in the care of the patient we will continue to follow
[2019-09-02 19:49] LABS: % Iron Saturation 86.04 (15.00-50.00); Ferritin 1648.5 ng/mL (22.0-322.0)
[2019-09-02] MEDS: LORATADINE 10 MG TAB PO SCH (20:12)
[2019-09-02] MEDS: PANTOPRAZOLE 40 MG/10 ML VIAL IVP SCH (20:12)
[2019-09-02 20:22] LABS: Anisocytosis Slight; HCT 23.9 % (39.0-53.0); HGB 7.6 gm/dL (13.0-17.5); Hypochromasia Moderate; MCH 29.9 pg (25.0-35.0); MCV 93.5 fL (80.0-100.0); Macrocytosis Slight; Mean Platelet Volume 9.5; Poikilocytosis Moderate; RBC 2.55 m/uL (4.30-5.90); RDW 19.5 % (11.5-15.5); WBC 5.9 k/uL (3.8-10.6)
[2019-09-02 20:29] LABS: Platelet Count 69 k/uL (150-450)
--- NOTE | 2019-09-02 23:15 | P.CONS ---
History of Present Illness - Reason for Consult Consult date: 09/02/19 . Anemia. Metastatic prostate cancer - History of Present Illness The patient is a 53 -year-old white male, with a known history of metastatic prostate cancer. The patient had tripped over his right foot and indicated that in the process with marked swelling and pain. He therefore came into the emergency room where he was found to have fracture of the fourth and fifth digits. Labs showed a hemoglobin of 5. He was therefore admitted for further management. The patient denied specific dizziness or syncope. He states that he was reaching for something when he felt his right for tripped and found himself on the floor. He denied any bleeding in the stool or urine. However he states that he had a significant nosebleed the day prior to his fall. He states that he would feel bleeding down the back of his throat for several hours. He also noted black stools subsequently which then cleared. The patient was diagnosed with prostate cancer in 2014 when he presented with adenopathy in the abdomen and pelvis and bone metastases. He was started on Lupron which has been continued. He was also treated with Taxotere, followed by Casodex. He then received extending the on progression and continued on that till around January 2019. At that time he received Xofigo for progressive bone pain due to metastases. He has also received palliative radiation He was started on Erleada in early 08/11. He has been chronically anemic with hemoglobin in the high 6-8 range. He received transfusion in 07/11 for hemoglobin in the 6 range. Review of Systems Constitutional: Reports weakness Eyes: denies blurred vision, denies pain Ears: deny: decreased hearing, ear discharge, earache, tinnitus Ears, nose, mouth and throat: Reports epistaxis Cardiovascular: Reports dyspnea on exertion Respiratory: Denies cough Gastrointestinal: Reports melena, Denies abdominal pain, Denies diarrhea, Denies nausea, Denies vomiting Genitourinary: Reports as per HPI Musculoskeletal: Reports muscle weakness Musculoskeletal: right: foot pain Integumentary: Reports color changes, Reports unusual bruising (right foot) Neurological: Reports weakness Psychiatric: Denies anxiety, Denies depression Endocrine: Reports fatigue Hematologic/Lymphatic: Reports as per HPI Past Medical History Past Medical History: Atrial Fibrillation, Cancer, Heart Failure, GERD/Reflux, Hypertension Additional Past Medical History / Comment(s): GOUT. PERIPHERAL EDEMA. HX OF RENAL FAILURE (3 YRS AGO), RASHARD JOHNSONS SYNDROME. PROSTATE CANCER WITH METS TO BONE (DX 2014) IN REMISSION AT THIS TIME. POWER PORT IN LEFT UPPER CHEST INFECTED AND REMOVED 2017. RECEVIES HORMONE TX Q 3 MONTHS AT [facility]. CHRONIC CONSTIPATION. DYSPHAGIA. History of Any Multi-Drug Resistant Organisms: C-DIFF Year Discovered:: 2011 MDRO Source:: stool Past Surgical History: Appendectomy, Bariatric Surgery Additional Past Surgical History / Comment(s): FLUID ABSCESS AFTER APPENDECTOMY (CHILD), PROSTATE BIOPSY'S. LAP BAND 2010. POWER PORt removed, gallbladder removed Past Anesthesia/Blood Transfusion Reactions: No Reported Reaction Past Psychological History: No Psychological Hx Reported Smoking Status: Current some day smoker Past Alcohol Use History: Rare Additional Past Alcohol Use History / Comment(s): HX OF CHEWING TOBACCO- QUIT 4 YRS AGO., OCCASIONAL CIGARS SINCE HE WAS 17 YRS OLD. (0-1 PER WEEK) Past Drug Use History: None Reported - Past Family History Father Family Medical History: Cancer Additional Family Medical History / Comment(s): PROSTATE CANCER Brother(s) Family Medical History: Cancer Additional Family Medical History / Comment(s): PROSTATE CANCER Medications and Allergies Home Medications Medication Instructions Recorded Confirmed Type Furosemide [Lasix] 80 mg PO HS 02/27/17 09/01/19 History Loratadine [Claritin] 10 mg PO HS 02/27/17 09/01/19 History Diltiazem HCl [Diltiazem 24Hr ER 120 mg PO DAILY 09/25/18 09/01/19 History (CD)] DULoxetine HCL [Cymbalta] 20 mg PO DAILY 05/13/19 09/01/19 History HYDROcodone/APAP 10-325MG [[place] 2 tab PO TID 05/13/19 09/01/19 History 10-325] Metoprolol Succinate (ER) [Toprol 100 mg PO DAILY 05/13/19 09/01/19 History XL] Apixaban [Eliquis] 5 mg PO BID 06/20/19 09/01/19 History Gabapentin 800 mg PO TID 06/20/19 09/01/19 History fentaNYL 75MCG/HR PATCH [Duragesic 75 mcg TRANSDERM Q72H 06/20/19 09/01/19 History 75MCG/HR] Apalutamide [Erleada] 240 mg PO DAILY 09/01/19 09/01/19 History Allergies Allergy/AdvReac Type Severity Reaction Status Date / Time cephalexin [From Keflex] Allergy Unknown Blisters Verified 09/01/19 18:26 levofloxacin [From Levaquin] Allergy Unknown Blisters Verified 09/01/19 18:26 Penicillins Allergy Unknown Blisters Verified 09/01/19 18:26 Tetracyclines Allergy Unknown Blisters Verified 09/01/19 18:26 adhesive Allergy BLISTERS Verified 09/01/19 18:26 Physical Exam Vitals: Vital Signs Temp Pulse Pulse Pulse Resp BP BP 09/02/19 20:00 98.0 F 70 80 16 129/85 09/02/19 17:02 97.5 F L 70 12 146/90 09/02/19 16:00 97.5 F L 70 12 146/90 09/02/19 14:15 97 F L 78 18 143/85 09/02/19 14:05 97.5 F L 84 25 H 140/93 09/02/19 12:00 98.9 F 83 18 130/62 09/02/19 10:00 81 15 124/94 09/02/19 08:00 97.9 F 79 80 14 124/94 09/02/19 04:00 98.5 F 66 17 124/70 09/02/19 02:00 78 14 135/67 09/02/19 00:00 98.6 F 74 13 149/81 Pulse Ox 09/02/19 20:00 99 09/02/19 17:02 95 09/02/19 16:00 95 09/02/19 14:15 09/02/19 14:05 95 09/02/19 12:00 95 09/02/19 10:00 09/02/19 08:00 99 09/02/19 04:00 95 09/02/19 02:00 09/02/19 00:00 94 L Intake and Output 09/02/19 09/02/19 09/02/19 06:59 14:59 22:59 Intake Total 425 170 310 Balance 425 170 310 Intake: IV 375 120 Sodium Chloride 0.9% 1, 375 120 000 ml @ 75 mls/hr IV . [id number] ONE Rx#:[id number] Intake, IV Titration 50 50 Amount Clindamycin 600 mg In 50 50 Dextrose 5% in Water 50 ml @ 50 mls/hr IVPB Q6HR [facility] Rx#:[id number] Blood Product 0 310 Rc Cpda-1 Unit 0 310 [id number] Other: # Voids 2 1 Weight 149.7 kg 149.7 kg - Constitutional General appearance: no acute distress - EENT Eyes: EOMI, PERRLA ENT: hearing grossly normal, normal oropharynx - Neck Neck: no lymphadenopathy Thyroid: bilateral: normal size - Respiratory Respiratory: bilateral: CTA - Cardiovascular Rhythm: regular Heart sounds: normal: S1, S2 - Gastrointestinal General gastrointestinal: normal bowel sounds, soft - Integumentary Right foot bandaged. Significant bruising involving right foot. Bilateral lower extremity venous congestion changes - Neurologic Neurologic: CNII-XII intact - Musculoskeletal Musculoskeletal: generalized weakness, strength equal bilaterally Results CBC & Chem 7: 09/02/19 20:07 09/02/19 06:19 Labs: Abnormal Lab Results - Last 24 Hours (Table) 09/01/19 09/02/19 09/02/19 Range/Units 15:40 00:20 06:19 RBC 2.21 L (4.30-5.90) m/uL Hgb 6.8 L* D (13.0-17.5) gm/dL Hct 20.5 L (39.0-53.0) % RDW 20.2 H (11.5-15.5) % Plt Count 76 L (150-450) k/uL Lymphocytes # (1.0-4.8) k/uL Lymphocytes # (Manual) 0.27 L (1.0-4.8) k/uL Metamyelocytes # (Man) 0.16 H (0) k/uL Myelocytes # (Manual) 0.05 H (0) k/uL Nucleated RBCs 3 H (0-0) /100 WBC Retic Count (0.5-2.0) % Calcium 8.3 L (8.4-10.2) mg/dL Iron (65-175) ug/dL TIBC (228-460) ug/dL % Saturation (15.00-50.00) Ferritin (22.0-322.0) ng/mL Crossmatch See Detail 09/02/19 09/02/19 09/02/19 Range/Units 06:19 06:19 06:19 RBC 2.26 L (4.30-5.90) m/uL Hgb 6.7 L* (13.0-17.5) gm/dL Hct 21.1 L (39.0-53.0) % RDW 20.6 H (11.5-15.5) % Plt Count 71 L (150-450) k/uL Lymphocytes # 0.3 L (1.0-4.8) k/uL Lymphocytes # (Manual) (1.0-4.8) k/uL Metamyelocytes # (Man) (0) k/uL Myelocytes # (Manual) (0) k/uL Nucleated RBCs (0-0) /100 WBC Retic Count 2.6 H (0.5-2.0) % Calcium (8.4-10.2) mg/dL Iron 191 H (65-175) ug/dL TIBC 222 L (228-460) ug/dL % Saturation 86.04 H (15.00-50.00) Ferritin 1648.5 H (22.0-322.0) ng/mL Crossmatch 09/02/19 Range/Units 20:07 RBC 2.55 L (4.30-5.90) m/uL Hgb 7.6 L (13.0-17.5) gm/dL Hct 23.9 L (39.0-53.0) % RDW 19.5 H (11.5-15.5) % Plt Count 69 L (150-450) k/uL Lymphocytes # (1.0-4.8) k/uL Lymphocytes # (Manual) (1.0-4.8) k/uL Metamyelocytes # (Man) (0) k/uL Myelocytes # (Manual) (0) k/uL Nucleated RBCs (0-0) /100 WBC Retic Count (0.5-2.0) % Calcium (8.4-10.2) mg/dL Iron (65-175) ug/dL TIBC (228-460) ug/dL % Saturation (15.00-50.00) Ferritin (22.0-322.0) ng/mL Crossmatch Comments: foot x-ray report reviewed Assessment and Plan (1) Anemia Narrative/Plan: The patient does have chronic anemia and received blood transfusion for hemoglobin in the 6 range most recently in 07/11. Lab workup did not show any evidence of hemolysis or iron deficiency at the time. Hemoglobin on presentation this time is lower than his baseline. The most likely diagnosis is decreased hematopoiesis due to anemia of cancer, as well as bone marrow suppression from his prior Xofigo treatment. Chronic androgen suppression as part of his treatment will also reduce erythropoiesis. This, along with added acute loss likely from his nosebleed, and to further drop from his baseline. Epistaxis has since resolved. The patient has received blood transfusion. Agree with the same. Continue to return and transfuse to keep hemoglobin greater than 7 I will repeat iron studies, and also check hemolysis workup. If these are negative, and hemoglobin remains stable, then the patient can be discharged , without additional workup unless he has evidence of bleeding elsewhere. Current Visit: Yes Status: Acute Code(s): D64.9 - ANEMIA, UNSPECIFIED SNOMED Code(s): 677536486 (2) Open fracture of fifth toe of right foot Narrative/Plan: Defer to the orthopedic service for further management Current Visit: Yes Status: Acute Code(s): S92.501B - DISPLACED UNSP FX RIGHT LESSER TOE(S), INIT FOR OPN FX SNOMED Code(s): 56114761
--- NOTE | 2019-09-02 23:38 | P.HPIM ---
History of Present Illness H&P Date: 09/02/19 Chief Complaint: romaine Sutherland is a 53 yo M with a history of metastatic prostate cancer, chronic anemia, a fib, CHF who presented to the ED after a fall at home and subsequent pain and bleeding from his foot. He states he stumbled forward moving from his couch and fell forward causing nosebleed and foot lacerations. In the ED Hgb 5.0, pt found to have fractured his 4th and 5th metatarsals. He was transfused 2 U PRBC and seen by Ortho. He has had a baseline hgb between 6-7 since his treatment with Xofigo. Review of Systems All systems: negative Constitutional: Reports malaise, Reports weakness, Denies chills, Denies fever Eyes: denies blurred vision, denies pain Ears, nose, mouth and throat: Denies headache, Denies sore throat Cardiovascular: Reports dyspnea on exertion, Denies chest pain, Denies shortness of breath Respiratory: Denies cough Gastrointestinal: Denies abdominal pain, Denies diarrhea, Denies nausea, Denies vomiting Musculoskeletal: Reports as per HPI, Denies myalgias Integumentary: Denies pruritus, Denies rash Neurological: Reports weakness, Denies numbness Psychiatric: Denies anxiety, Denies depression Endocrine: Denies fatigue, Denies weight change Past Medical History Past Medical History: Atrial Fibrillation, Cancer, Heart Failure, GERD/Reflux, Hypertension Additional Past Medical History / Comment(s): GOUT. PERIPHERAL EDEMA. HX OF RENAL FAILURE (3 YRS AGO), RASHARD JOHNSONS SYNDROME. PROSTATE CANCER WITH METS TO BONE (DX 2014) IN REMISSION AT THIS TIME. POWER PORT IN LEFT UPPER CHEST INFECTED AND REMOVED 2017. RECEVIES HORMONE TX Q 3 MONTHS AT [facility]. CHRONIC CONSTIPATION. DYSPHAGIA. History of Any Multi-Drug Resistant Organisms: C-DIFF Date of last positivie culture/infection: 2011 MDRO Source:: stool Past Surgical History: Appendectomy, Bariatric Surgery Additional Past Surgical History / Comment(s): FLUID ABSCESS AFTER APPENDECTOMY (CHILD), PROSTATE BIOPSY'S. LAP BAND 2010. POWER PORt removed, gallbladder removed Past Anesthesia/Blood Transfusion Reactions: No Reported Reaction Past Psychological History: No Psychological Hx Reported Smoking Status: Current some day smoker Past Alcohol Use History: Rare Additional Past Alcohol Use History / Comment(s): HX OF CHEWING TOBACCO- QUIT 4 YRS AGO., OCCASIONAL CIGARS SINCE HE WAS 17 YRS OLD. (0-1 PER WEEK) Past Drug Use History: None Reported - Past Family History Father Family Medical History: Cancer Additional Family Medical History / Comment(s): PROSTATE CANCER Brother(s) Family Medical History: Cancer Additional Family Medical History / Comment(s): PROSTATE CANCER Medications and Allergies Home Medications Medication Instructions Recorded Confirmed Type Furosemide [Lasix] 80 mg PO HS 02/27/17 09/01/19 History Loratadine [Claritin] 10 mg PO HS 02/27/17 09/01/19 History Diltiazem HCl [Diltiazem 24Hr ER 120 mg PO DAILY 09/25/18 09/01/19 History (CD)] DULoxetine HCL [Cymbalta] 20 mg PO DAILY 05/13/19 09/01/19 History HYDROcodone/APAP 10-325MG [[place] 2 tab PO TID 05/13/19 09/01/19 History 10-325] Metoprolol Succinate (ER) [Toprol 100 mg PO DAILY 05/13/19 09/01/19 History XL] Apixaban [Eliquis] 5 mg PO BID 06/20/19 09/01/19 History Gabapentin 800 mg PO TID 06/20/19 09/01/19 History fentaNYL 75MCG/HR PATCH [Duragesic 75 mcg TRANSDERM Q72H 06/20/19 09/01/19 History 75MCG/HR] Apalutamide [Erleada] 240 mg PO DAILY 09/01/19 09/01/19 History Allergies Allergy/AdvReac Type Severity Reaction Status Date / Time cephalexin [From Keflex] Allergy Unknown Blisters Verified 09/01/19 18:26 levofloxacin [From Levaquin] Allergy Unknown Blisters Verified 09/01/19 18:26 Penicillins Allergy Unknown Blisters Verified 09/01/19 18:26 Tetracyclines Allergy Unknown Blisters Verified 09/01/19 18:26 adhesive Allergy BLISTERS Verified 09/01/19 18:26 Physical Exam Vitals: Vital Signs Temp Pulse Pulse Pulse Resp BP BP 09/02/19 23:10 97.8 F 75 18 124/75 09/02/19 20:00 98.0 F 70 80 16 129/85 09/02/19 17:02 97.5 F L 70 12 146/90 09/02/19 16:00 97.5 F L 70 12 146/90 09/02/19 14:15 97 F L 78 18 143/85 09/02/19 14:05 97.5 F L 84 25 H 140/93 09/02/19 12:00 98.9 F 83 18 130/62 09/02/19 10:00 81 15 124/94 09/02/19 08:00 97.9 F 79 80 14 124/94 09/02/19 04:00 98.5 F 66 17 124/70 09/02/19 02:00 78 14 135/67 09/02/19 00:00 98.6 F 74 13 149/81 Pulse Ox 09/02/19 23:10 99 09/02/19 20:00 99 09/02/19 17:02 95 09/02/19 16:00 95 09/02/19 14:15 09/02/19 14:05 95 09/02/19 12:00 95 09/02/19 10:00 09/02/19 08:00 99 09/02/19 04:00 95 09/02/19 02:00 09/02/19 00:00 94 L Intake and Output 09/02/19 09/02/19 09/03/19 14:59 22:59 06:59 Intake Total 170 310 Balance 170 310 Intake: IV 120 Sodium Chloride 0.9% 1, 120 000 ml @ 75 mls/hr IV . [id number] ONE Rx#:[id number] Intake, IV Titration 50 Amount Clindamycin 600 mg In 50 Dextrose 5% in Water 50 ml @ 50 mls/hr IVPB Q6HR [facility] Rx#:[id number] Blood Product 0 310 Rc Cpda-1 Unit 0 310 [id number] Other: # Voids 2 1 Weight 149.7 kg General: anasarca, obese, NAD. Vitals reviewed Eyes: PERRL, EOMI, conjunctiva normal HENT: normocephalic, mucus membranes moist Neck: supple, no JVD Lungs: normal respiratory effort, no wheezes or rales CV: Irregular, no murmur. Peripheral pulses 2+ Abdomen: soft, nondistended, no organomegaly Lymph: no cervical or axillary LAD Skin: warm and dry. Ecchymosis and laceration RLE Neuro: A&Ox3, normal mood and affect Results CBC & Chem 7: 09/02/19 20:07 09/02/19 06:19 Labs: Abnormal Lab Results - Last 24 Hours (Table) 09/01/19 09/02/19 09/02/19 Range/Units 15:40 00:20 06:19 RBC 2.21 L (4.30-5.90) m/uL Hgb 6.8 L* D (13.0-17.5) gm/dL Hct 20.5 L (39.0-53.0) % RDW 20.2 H (11.5-15.5) % Plt Count 76 L (150-450) k/uL Lymphocytes # (1.0-4.8) k/uL Lymphocytes # (Manual) 0.27 L (1.0-4.8) k/uL Metamyelocytes # (Man) 0.16 H (0) k/uL Myelocytes # (Manual) 0.05 H (0) k/uL Nucleated RBCs 3 H (0-0) /100 WBC Retic Count (0.5-2.0) % Calcium 8.3 L (8.4-10.2) mg/dL Iron (65-175) ug/dL TIBC (228-460) ug/dL % Saturation (15.00-50.00) Ferritin (22.0-322.0) ng/mL Crossmatch See Detail 09/02/19 09/02/19 09/02/19 Range/Units 06:19 06:19 06:19 RBC 2.26 L (4.30-5.90) m/uL Hgb 6.7 L* (13.0-17.5) gm/dL Hct 21.1 L (39.0-53.0) % RDW 20.6 H (11.5-15.5) % Plt Count 71 L (150-450) k/uL Lymphocytes # 0.3 L (1.0-4.8) k/uL Lymphocytes # (Manual) (1.0-4.8) k/uL Metamyelocytes # (Man) (0) k/uL Myelocytes # (Manual) (0) k/uL Nucleated RBCs (0-0) /100 WBC Retic Count 2.6 H (0.5-2.0) % Calcium (8.4-10.2) mg/dL Iron 191 H (65-175) ug/dL TIBC 222 L (228-460) ug/dL % Saturation 86.04 H (15.00-50.00) Ferritin 1648.5 H (22.0-322.0) ng/mL Crossmatch 09/02/19 Range/Units 20:07 RBC 2.55 L (4.30-5.90) m/uL Hgb 7.6 L (13.0-17.5) gm/dL Hct 23.9 L (39.0-53.0) % RDW 19.5 H (11.5-15.5) % Plt Count 69 L (150-450) k/uL Lymphocytes # (1.0-4.8) k/uL Lymphocytes # (Manual) (1.0-4.8) k/uL Metamyelocytes # (Man) (0) k/uL Myelocytes # (Manual) (0) k/uL Nucleated RBCs (0-0) /100 WBC Retic Count (0.5-2.0) % Calcium (8.4-10.2) mg/dL Iron (65-175) ug/dL TIBC (228-460) ug/dL % Saturation (15.00-50.00) Ferritin (22.0-322.0) ng/mL Crossmatch Thrombosis Risk Factor Assmnt - Choose All That Apply Any of the Below Risk Factors Present?: Yes Each Factor Represents 1 point: Age 41-60 years, Medical pt on bed rest, Obesity (BMI >25), Swollen legs (current) Other Risk Factors: No Other congenital or acquired thrombophilia - If yes, enter type in comment: No Thrombosis Risk Factor Assessment Total Risk Factor Score: 4 Thrombosis Risk Factor Assessment Level: Moderate Risk Assessment and Plan (1) Open fracture of fifth toe of right foot Current Visit: Yes Status: Acute Code(s): S92.501B - DISPLACED UNSP FX RIGHT LESSER TOE(S), INIT FOR OPN FX SNOMED Code(s): 97771421 (2) Open fracture of fourth toe of right foot Current Visit: Yes Status: Acute Code(s): S92.501B - DISPLACED UNSP FX RIGHT LESSER TOE(S), INIT FOR OPN FX SNOMED Code(s): 49764689 (3) Acute blood loss anemia Current Visit: No Status: Acute Code(s): D62 - ACUTE POSTHEMORRHAGIC ANEMIA SNOMED Code(s): 673230755 (4) Atrial fibrillation Current Visit: No Status: Acute Code(s): I48.91 - UNSPECIFIED ATRIAL FIBRILLATION SNOMED Code(s): 14197949 (5) Diastolic CHF Current Visit: No Status: Acute Code(s): I50.30 - UNSPECIFIED DIASTOLIC (CONGESTIVE) HEART FAILURE SNOMED Code(s): 026992774 (6) Neuropathy Current Visit: No Status: Acute Code(s): G62.9 - POLYNEUROPATHY, UNSPECIFIED SNOMED Code(s): 265107641 (7) Prostate cancer metastatic to bone Current Visit: No Status: Acute Code(s): C61 - MALIGNANT NEOPLASM OF PROSTATE; C79.51 - SECONDARY MALIGNANT NEOPLASM OF BONE SNOMED Code(s): 710626726 (8) Anemia in chronic illness Current Visit: Yes Status: Acute Code(s): D63.8 - ANEMIA IN OTHER CHRONIC DISEASES CLASSIFIED ELSEWHERE SNOMED Code(s): 074919373 Plan: 1. Acute on chronic blood loss anemia. Pt s/p 2 U PRBC and Hgb up to 6.8. Hematology and GI consulted. 1 additional unit PRBC. AM labs 2. Open fracture of 4 and 5 digit RLE. Management per ortho 3. Diastolic CHF. Continue lasix 4. A fib. Continue toprol. Hold eliquis, plan to resume tomorrow
[2019-09-03 06:11] LABS: Anisocytosis Slight; HCT 23.6 % (39.0-53.0); HGB 7.6 gm/dL (13.0-17.5); Hypochromasia Slight; MCH 30.4 pg (25.0-35.0); MCHC 32.3 g/dL (31.0-37.0); MCV 93.9 fL (80.0-100.0); Macrocytosis Slight; Mean Platelet Volume 9.2; Poikilocytosis Moderate; RBC 2.51 m/uL (4.30-5.90); RDW 19.4 % (11.5-15.5)
[2019-09-03 06:12] LABS: Calcium 8.1 mg/dL (8.4-10.2); Potassium 3.5 mmol/L (3.5-5.1)
[2019-09-03 06:16] LABS: Platelet Count 68 k/uL (150-450)
[2019-09-03] MEDS: CLINDAMYCIN 600 MG in DEXTROSE 5% IN WATER 50 ML IVPB SCH ×6 (06:18→20:00)
[2019-09-03 06:37] LABS: Band Neutrophils % 7 %; Lymphocytes # (M) 0.48 k/uL (1.0-4.8); Monocytes # (M) 0.53 k/uL (0-1.0); Neutrophils % (M) 71 %; Nucleated Red Blood Cells 3 /100 WBC (0-0); Total Cells Counted 200; WBC 4.8 k/uL (3.8-10.6)
[2019-09-03 06:40] LABS: Anisocytosis (M) Present; Poikilocytosis (M) Present; Polychromasia Present
[2019-09-03] MEDS: FUROSEMIDE 80 MG TAB PO SCH (08:45)
[2019-09-03] MEDS: HYDROcodone/APAP 10-325MG 1 EACH TAB PO SCH ×3 (08:45→21:37)
[2019-09-03] MEDS: APIXABAN 5 MG TAB PO SCH ×2 (08:45→21:38)
[2019-09-03] MEDS: DULoxetine HCL 20 MG CAPSULE.DR PO SCH (08:45)
[2019-09-03] MEDS: DILTIAZEM CD 120 MG CAP.ER.24H PO SCH (08:45)
[2019-09-03] MEDS: GABAPENTIN 400 MG CAP PO SCH ×3 (08:45→21:38)
[2019-09-03] MEDS: METOPROLOL SUCCINATE (ER) 100 MG TAB.ER.24H PO SCH (08:46)
[2019-09-03] MEDS: PANTOPRAZOLE 40 MG/10 ML VIAL IVP SCH (08:46)
[2019-09-03 08:58] VITALS: TEMP 97.9
[2019-09-03 10:49] VITALS: BMI 48.9
--- NOTE | 2019-09-03 12:00 | P.PN ---
Subjective Progress Note Date: 09/03/19 Principal diagnosis: Right fourth and fifth proximal phalanx fractures with skin lacerations Patient evaluated today at bedside, he is resting comfortably. His hemoglobin has improved. The postop shoe has not been delivered at this time. Patient states the pain is under control, he's been able to ambulate with a walker. Objective - Vital Signs Vital signs: Vital Signs Temp 97.9 F 09/03/19 08:00 Pulse 79 09/03/19 08:00 Resp 22 09/03/19 08:00 BP 146/97 09/03/19 08:00 Pulse Ox 98 09/03/19 08:00 Intake & Output 09/02/19 09/03/19 09/03/19 18:59 06:59 18:59 Intake Total 480 Balance 480 Weight 149.7 kg 150.1 kg 150.1 kg Intake: IV 120 Sodium Chloride 0.9% 1, 120 000 ml @ 75 mls/hr IV . [id number] ONE Rx#:[id number] Intake, IV Titration 50 Amount Clindamycin 600 mg In 50 Dextrose 5% in Water 50 ml @ 50 mls/hr IVPB Q6HR COUNT INCLUDES THE [facility] Rx#:[id number] Blood Product 310 Rc Cpda-1 Unit 310 [id number] Other: # Voids 2 2 # Bowel Movements 1 - Exam Right lower extremity: Bandages were applied yesterday is in good position and condition, plan to change before discharge - Labs CBC & Chem 7: 09/03/19 04:34 09/03/19 04:34 Labs: Abnormal Lab Results - Last 24 Hours (Table) 09/01/19 09/02/19 09/02/19 Range/Units 15:40 06:19 20:07 RBC 2.55 L (4.30-5.90) m/uL Hgb 7.6 L (13.0-17.5) gm/dL Hct 23.9 L (39.0-53.0) % RDW 19.5 H (11.5-15.5) % Plt Count 69 L (150-450) k/uL Lymphocytes # (Manual) (1.0-4.8) k/uL Nucleated RBCs (0-0) /100 WBC BUN (9-20) mg/dL Calcium (8.4-10.2) mg/dL Iron 191 H (65-175) ug/dL TIBC 222 L (228-460) ug/dL % Saturation 86.04 H (15.00-50.00) Ferritin 1648.5 H (22.0-322.0) ng/mL Crossmatch See Detail 09/03/19 09/03/19 Range/Units 04:34 04:34 RBC 2.51 L (4.30-5.90) m/uL Hgb 7.6 L (13.0-17.5) gm/dL Hct 23.6 L (39.0-53.0) % RDW 19.4 H (11.5-15.5) % Plt Count 68 L (150-450) k/uL Lymphocytes # (Manual) 0.48 L (1.0-4.8) k/uL Nucleated RBCs 3 H (0-0) /100 WBC BUN 21 H (9-20) mg/dL Calcium 8.1 L (8.4-10.2) mg/dL Iron (65-175) ug/dL TIBC (228-460) ug/dL % Saturation (15.00-50.00) Ferritin (22.0-322.0) ng/mL Crossmatch Assessment and Plan Plan: Assessment: 1. Right foot fourth proximal phalanx fracture 2. Right foot fifth proximal phalanx fracture 3. Right foot lacerations 4. Multiple medical comorbidities Plan: Awaiting postop shoe at this time Ice and elevate often I will change dressing before patient is discharged to home No orthopedic surgical intervention at this time Other medical staff manager recommendations We'll continue to follow during inpatient stay Time with Patient: Less than 30
--- NOTE | 2019-09-03 19:48 | P.PN ---
Subjective Progress Note Date: 09/03/19 Principal diagnosis: acute blood loss anemiaon chronic anemia patient seen lying in bed reporting that he tolerated his diet. His bowel movements have improved with antidiarrheal medications. Objective - Vital Signs Vital signs: Vital Signs Temp 97.9 F 09/03/19 08:00 Pulse 79 09/03/19 08:00 Resp 22 09/03/19 08:00 BP 146/97 09/03/19 08:00 Pulse Ox 98 09/03/19 08:00 Intake & Output 09/02/19 09/03/19 09/03/19 18:59 06:59 18:59 Intake Total 480 Balance 480 Weight 149.7 kg 150.1 kg 150.1 kg Intake: IV 120 Sodium Chloride 0.9% 1, 120 000 ml @ 75 mls/hr IV . [id number] ONE Rx#:[id number] Intake, IV Titration 50 Amount Clindamycin 600 mg In 50 Dextrose 5% in Water 50 ml @ 50 mls/hr IVPB Q6HR [facility] Rx#:[id number] Blood Product 310 Rc Cpda-1 Unit 310 [id number] Other: # Voids 2 2 # Bowel Movements 1 - Exam On physical examination, patient appears comfortable in no apparent distress. HEAD: Normocephalic, atraumatic. EYES: No scleral icterus. No conjunctival injection. MOUTH: No lesions, tongue midline. NECK: Trachea midline, no gross abnormalities. CHEST: no respiratory distress ABDOMEN: Soft, obese. Bowel sounds are positive. No organomegaly. No guarding or rigidity. EXTREMITIES: bilateral lower extremity edema and erythema wi lacerations of the toe on the right foot. NEUROLOGIC: Alert and oriented x3. No focal deficits. - Labs CBC & Chem 7: 09/03/19 04:34 09/03/19 04:34 Labs: Abnormal Lab Results - Last 24 Hours (Table) 09/01/19 09/02/19 09/02/19 Range/Units 15:40 06:19 20:07 RBC 2.55 L (4.30-5.90) m/uL Hgb 7.6 L (13.0-17.5) gm/dL Hct 23.9 L (39.0-53.0) % RDW 19.5 H (11.5-15.5) % Plt Count 69 L (150-450) k/uL Lymphocytes # (Manual) (1.0-4.8) k/uL Nucleated RBCs (0-0) /100 WBC BUN (9-20) mg/dL Calcium (8.4-10.2) mg/dL Iron 191 H (65-175) ug/dL TIBC 222 L (228-460) ug/dL % Saturation 86.04 H (15.00-50.00) Ferritin 1648.5 H (22.0-322.0) ng/mL Crossmatch See Detail 09/03/19 09/03/19 Range/Units 04:34 04:34 RBC 2.51 L (4.30-5.90) m/uL Hgb 7.6 L (13.0-17.5) gm/dL Hct 23.6 L (39.0-53.0) % RDW 19.4 H (11.5-15.5) % Plt Count 68 L (150-450) k/uL Lymphocytes # (Manual) 0.48 L (1.0-4.8) k/uL Nucleated RBCs 3 H (0-0) /100 WBC BUN 21 H (9-20) mg/dL Calcium 8.1 L (8.4-10.2) mg/dL Iron (65-175) ug/dL TIBC (228-460) ug/dL % Saturation (15.00-50.00) Ferritin (22.0-322.0) ng/mL Crossmatch Assessment and Plan (1) Acute blood loss anemia Narrative/Plan: 53-year-old male with multiple medical comorbidities presenting after a mechanical fall with fractures of his right foot fourth and fifth digits with laceration found to be anemic on presentation. Patient reports a large amount of blood loss and association with the lacerations and also states that he had been having nosebleeds for the 2 days prior to presentation during which she states he swallowed a large amount of blood. Stool testing was positive for blood. The patient has no prior colonoscopy reported. EGD in 03/09 significant for antritis and esophagitis. Denies any hematemesis, coffee-ground emesis, blood per rectum but does don't have bowel movements have been darker after the nosebleeds. Anemia likely multifactorial secondary to acute blood loss from lacerations on the right foot as well as recent epistaxis, cannot rule out a component of anemia from malignancy and chemotherapy. Current Visit: No Status: Acute Code(s): D62 - ACUTE POSTHEMORRHAGIC ANEMIA SNOMED Code(s): 731868365 (2) Open fracture of fifth toe of right foot Current Visit: Yes Status: Acute Code(s): S92.501B - DISPLACED UNSP FX RIGHT LESSER TOE(S), INIT FOR OPN FX SNOMED Code(s): 65205649 (3) Open fracture of fourth toe of right foot Current Visit: Yes Status: Acute Code(s): S92.501B - DISPLACED UNSP FX RIGHT LESSER TOE(S), INIT FOR OPN FX SNOMED Code(s): 89378653 Plan: Supportive care Okay for diet Protonix 40 mg daily Continue to monitor hemoglobin and hematocrit and transfuse as needed Okay for Imodium as needed for diarrhea No plans for endoscopic evaluation at this time however if clinical symptoms concerning for GI bleed recur or patient continues to drop hemoglobin will consider endoscopic evaluation at that time Thank you for allowing us to participate in the care of the patient the gastroenterology service will stand by please call us back with any questions or concerns
[2019-09-03] MEDS: LORATADINE 10 MG TAB PO SCH (21:38)
[2019-09-03] MEDS ORDERED: HYDROcodone/APAP 10-325MG 1 EACH TAB PO PRN (23:59)
[2019-09-04] MEDS: CLINDAMYCIN 600 MG in DEXTROSE 5% IN WATER 50 ML IVPB SCH ×4 (01:00→05:46)
[2019-09-04 04:47] LABS: Anisocytosis Slight; HCT 23.6 % (39.0-53.0); HGB 7.6 gm/dL (13.0-17.5); Hypochromasia Slight; MCH 29.8 pg (25.0-35.0); MCHC 32.1 g/dL (31.0-37.0); MCV 92.6 fL (80.0-100.0); Macrocytosis Slight; Mean Platelet Volume 8.7; Poikilocytosis Moderate; RBC 2.54 m/uL (4.30-5.90); RDW 19.5 % (11.5-15.5)
[2019-09-04 04:57] LABS: Calcium 8.1 mg/dL (8.4-10.2); Potassium 3.9 mmol/L (3.5-5.1)
[2019-09-04 05:02] LABS: Platelet Count 61 k/uL (150-450)
[2019-09-04 06:26] LABS: Band Neutrophils % 10 %; Eosinophils # (M) 0.16 k/uL (0-0.7); Metamyelocytes # (M) 0.11 k/uL (0); Metamyelocytes % 2 %; Monocytes # (M) 0.05 k/uL (0-1.0); Neutrophils % (M) 79 %; Nucleated Red Blood Cells 2 /100 WBC (0-0); Total Cells Counted 200
[2019-09-04 06:27] LABS: Lymphocytes # (M) 0.37 k/uL (1.0-4.8); WBC 5.3 k/uL (3.8-10.6)
[2019-09-04 06:28] LABS: Polychromasia Present
[2019-09-04 09:16] VITALS: BP 119/78; PULSE 75; RESP 19
[2019-09-04] MEDS: DULoxetine HCL 20 MG CAPSULE.DR PO SCH (09:27)
[2019-09-04] MEDS: PANTOPRAZOLE 40 MG/10 ML VIAL IVP SCH (09:28)
[2019-09-04] MEDS: GABAPENTIN 400 MG CAP PO SCH (09:28)
[2019-09-04] MEDS: METOPROLOL SUCCINATE (ER) 100 MG TAB.ER.24H PO SCH (09:29)
[2019-09-04] MEDS: FUROSEMIDE 80 MG TAB PO SCH (09:29)
[2019-09-04] MEDS: DILTIAZEM CD 120 MG CAP.ER.24H PO SCH (09:29)
[2019-09-04] MEDS: APIXABAN 5 MG TAB PO SCH (10:12)
--- NOTE | 2019-09-04 10:47 | P.PN ---
Subjective Progress Note Date: 09/04/19 Principal diagnosis: Right fourth and fifth proximal phalanx fractures with skin lacerations Patient evaluated today at bedside, he is resting comfortably. His hemoglobin has remained stable. postop shoe has been delivered and patient is currently wearing. Objective - Vital Signs Vital signs: Vital Signs Temp 97.9 F 09/04/19 09:00 Pulse 75 09/04/19 09:00 Resp 19 09/04/19 09:00 BP 119/78 09/04/19 09:00 Pulse Ox 95 09/04/19 09:00 Intake & Output 09/03/19 09/04/19 09/04/19 18:59 06:59 18:59 Intake Total 580 Balance 580 Weight 150.1 kg 152 kg Intake: IV 50 Clindamycin 600 mg In 50 Dextrose 5% in Water 50 ml @ 50 mls/hr IVPB Q6HR [facility] Rx#:[id number] Intake, IV Titration 50 Amount Clindamycin 600 mg In 50 Dextrose 5% in Water 50 ml @ 50 mls/hr IVPB Q6HR [facility] Rx#:[id number] Oral 480 Other: # Voids 2 1 1 - Exam Right lower extremity: Bandage was removed, incisions are well healing at this time, noactive drainage. New dressing was reapplied. - Labs CBC & Chem 7: 09/04/19 04:29 09/04/19 04:29 Labs: Abnormal Lab Results - Last 24 Hours (Table) 09/04/19 09/04/19 Range/Units 04:29 04:29 RBC 2.54 L (4.30-5.90) m/uL Hgb 7.6 L (13.0-17.5) gm/dL Hct 23.6 L (39.0-53.0) % RDW 19.5 H (11.5-15.5) % Plt Count 61 L (150-450) k/uL Lymphocytes # (Manual) 0.37 L (1.0-4.8) k/uL Metamyelocytes # (Man) 0.11 H (0) k/uL Nucleated RBCs 2 H (0-0) /100 WBC BUN 22 H (9-20) mg/dL Glucose 126 H (74-99) mg/dL Calcium 8.1 L (8.4-10.2) mg/dL Assessment and Plan Plan: Assessment: 1. Right foot fourth proximal phalanx fracture 2. Right foot fifth proximal phalanx fracture 3. Right foot lacerations 4. Multiple medical comorbidities Plan: continue use the postop shoe Ice and elevate often Recommend dressing changes every 2-3 days, discussed with nursing patient would benefit from an home care to assess this Other medical records coder recommendations Orthopedically patient stable for discharge, recommend follow-up with Dr. Menjivar in 1 week for x-ray evaluation and recheck of the laceration Time with Patient: Less than 30
--- NOTE | 2019-09-04 14:15 | CDI ---
Documentation Clarification Form Date: 09/04/2019 1:42:08 PM From: Marry Venegas RN, CCDS Admit Date: 09/01/2019 5:54:00 PM Patient Name: Sung Sutherland Visit Number: [id number] Discharge Date: 09/04/2019 1:18:00 PM ATTENTION: The Clinical Documentation Specialists (CDI) and [facility] Coding Staff appreciate your assistance in clarifying documentation. Please respond to the clarification below the line at the bottom and electronically sign. The CDI & [facility] Coding staff will review the response and follow-up if needed. Please note: Queries are made part of the Legal Health Record. If you have any questions, please contact the author of this message via ITS. Dr. Curt Paiz Diastolic CHF is documented in the past medical history and in your History & Physical and further clarification is needed. History/Risk Factors: Atrial Fibrillation, Heart Failure, Hypertension, Chronic anemia, Clinical Indicators: 53-year-old male present after fall with bleeding from his foot. In the H&P diastolic with continue treatment Lasix. VS/Pulse OX: on admission: 131/71 78 17 99 % RA Echocardiogram Results: not noted (Diastolic CHF per attending) Treatment: Lasix 80 mg PO Daily Toprol XL 100 mg PO daily In your professional opinion, can you please clarify the acuity of Diastolic CHF if known? Diastolic Heart Failure: Chronic Acute on Chronic Unable to Determine Other, please specify (Last Revision: December 2017) Chronic diastolic CHF MTDD
--- NOTE | 2019-09-04 14:40 | CDI ---
Documentation Clarification Form Date: 09/04/2019 2:16:08 PM From: Marry Venegas RN, CCDS Phone: [phone] Admit Date: 09/01/2019 5:54:00 PM Patient Name: Sung Sutherland Visit Number: [id number] Discharge Date: 09/04/2019 1:18:00 PM ATTENTION: The Clinical Documentation Specialists (CDI) and [facility] Coding Staff appreciate your assistance in clarifying documentation. Please respond to the clarification below the line at the bottom and electronically sign. The CDI & [facility] Coding staff will review the response and follow-up if needed. Please note: Queries are made part of the Legal Health Record. If you have any questions, please contact the author of this message via ITS. Dr. Curt Paiz Atrial Fibrillation is documented in the past medical history and in your History and Physical and further clarification is needed. History/Risk Factors: Atrial Fibrillation, Heart Failure, Hypertension, Chronic anemia. Metastatic Prostate cancer Clinical Indicators: 53-year-old male with past medical history for atrial fibrillation on current treatment with Eliquis present with laceration and bleeding from his foot. Initial hemoglobin was 5.0 with hematocrit 15.2. EKG/telemetry on admission: Atrial fibrillation vent. rate 82 bpm Treatment: CBC, PT/INR Toprol XL Cardizem Cd Eliquis (on hold) (continue as home meds at discharge) In your professional opinion, can you please clarify the type of Atrial Fibrillation, if known? Chronic/Permanent Paroxysmal Persistent Other, please specify Unable to determine (Last Revision: December 2017) Persistent A fib MTDD
--- NOTE | 2019-09-04 16:39 | P.PN ---
Subjective Progress Note Date: 09/03/19 Sung Sutherland is a 53 yo M with a history of metastatic prostate cancer, chronic anemia, a fib, CHF who presented to the ED after a fall at home and subsequent pain and bleeding from his foot. He states he stumbled forward moving from his couch and fell forward causing nosebleed and foot lacerations. In the ED Hgb 5.0, pt found to have fractured his 4th and 5th metatarsals. He was transfused 2 U PRBC and seen by Ortho. He has had a baseline hgb between 6-7 since his treatment with Xofigo. 09/03/2019. Evaluated by GI, oncology,orthopedic surgery. no surgical intervention recommended at this time, orthopedic shoe ordered. status post 3 units of packed RBCs. hemoglobin remained stable at 7.6 and no signs/symptoms of bleeding.Eliquis being resumed today.vital signs stable.denies shortness of breath. Denies chest pain or palpitations. Denies lightheadedness, dizziness or focal deficits. Objective - Vital Signs Vital signs: Vital Signs Temp 97.9 F 09/03/19 08:00 Pulse 79 09/03/19 08:00 Resp 22 09/03/19 08:00 BP 146/97 09/03/19 08:00 Pulse Ox 98 09/03/19 08:00 Intake & Output 09/02/19 09/03/19 09/03/19 18:59 06:59 18:59 Intake Total 480 Balance 480 Weight 149.7 kg 150.1 kg 150.1 kg Intake: IV 120 Sodium Chloride 0.9% 1, 120 000 ml @ 75 mls/hr IV . [id number] [facility] Rx#:[id number] Intake, IV Titration 50 Amount Clindamycin 600 mg In 50 Dextrose 5% in Water 50 ml @ 50 mls/hr IVPB Q6HR [facility] Rx#:[id number] Blood Product 310 Rc Cpda-1 Unit 310 [id number] Other: # Voids 2 2 # Bowel Movements 1 - Exam General: anasarca, obese, NAD. Vitals reviewed Eyes: PERRL, EOMI, conjunctiva normal HENT: normocephalic, mucus membranes moist Neck: supple, no JVD Lungs: normal respiratory effort, no wheezes or rales CV: Irregular, no murmur. Peripheral pulses 2+ Abdomen: soft, nondistended, no organomegaly Lymph: no cervical or axillary LAD Skin: warm and dry. Ecchymosis and laceration RLE Neuro: A&Ox3, normal mood and affect - Labs CBC & Chem 7: 09/04/19 04:29 09/04/19 04:29 Labs: Abnormal Lab Results - Last 24 Hours (Table) 09/01/19 09/02/19 09/02/19 Range/Units 15:40 06:19 20:07 RBC 2.55 L (4.30-5.90) m/uL Hgb 7.6 L (13.0-17.5) gm/dL Hct 23.9 L (39.0-53.0) % RDW 19.5 H (11.5-15.5) % Plt Count 69 L (150-450) k/uL Lymphocytes # (Manual) (1.0-4.8) k/uL Nucleated RBCs (0-0) /100 WBC BUN (9-20) mg/dL Calcium (8.4-10.2) mg/dL Iron 191 H (65-175) ug/dL TIBC 222 L (228-460) ug/dL % Saturation 86.04 H (15.00-50.00) Ferritin 1648.5 H (22.0-322.0) ng/mL Crossmatch See Detail 09/03/19 09/03/19 Range/Units 04:34 04:34 RBC 2.51 L (4.30-5.90) m/uL Hgb 7.6 L (13.0-17.5) gm/dL Hct 23.6 L (39.0-53.0) % RDW 19.4 H (11.5-15.5) % Plt Count 68 L (150-450) k/uL Lymphocytes # (Manual) 0.48 L (1.0-4.8) k/uL Nucleated RBCs 3 H (0-0) /100 WBC BUN 21 H (9-20) mg/dL Calcium 8.1 L (8.4-10.2) mg/dL Iron (65-175) ug/dL TIBC (228-460) ug/dL % Saturation (15.00-50.00) Ferritin (22.0-322.0) ng/mL Crossmatch Assessment and Plan Assessment: (1) Open fracture of fifth toe of right foot Current Visit: Yes Status: Acute Code(s): S92.501B - DISPLACED UNSP FX RIGHT LESSER TOE(S), INIT FOR OPN FX SNOMED Code(s): 28982846 (2) Open fracture of fourth toe of right foot Current Visit: Yes Status: Acute Code(s): S92.501B - DISPLACED UNSP FX RIGHT LESSER TOE(S), INIT FOR OPN FX SNOMED Code(s): 00470184 (3) Acute blood loss anemia Current Visit: No Status: Acute Code(s): D62 - ACUTE POSTHEMORRHAGIC ANEMIA SNOMED Code(s): 349914442 (4) Atrial fibrillation Current Visit: No Status: Acute Code(s): I48.91 - UNSPECIFIED ATRIAL FIBRILLATION SNOMED Code(s): 07027202 (5) Diastolic CHF Current Visit: No Status: Acute Code(s): I50.30 - UNSPECIFIED DIASTOLIC (CONGESTIVE) HEART FAILURE SNOMED Code(s): 083328410 (6) Neuropathy Current Visit: No Status: Acute Code(s): G62.9 - POLYNEUROPATHY, UNSPECIFIED SNOMED Code(s): 306458573 (7) Prostate cancer metastatic to bone Current Visit: No Status: Acute Code(s): C61 - MALIGNANT NEOPLASM OF PROSTATE; C79.51 - SECONDARY MALIGNANT NEOPLASM OF BONE SNOMED Code(s): 208084918 (8) Anemia in chronic illness Current Visit: Yes Status: Acute Code(s): D63.8 - ANEMIA IN OTHER CHRONIC DISEASES CLASSIFIED ELSEWHERE SNOMED Code(s): 713272979 plan continue on current medication regime, monitoring and symptomatically treatment. postoperative shoe ordered as per orthopedics. Eliquis to be resumed today. Continue monitoring overnight. Discharge planning in progress for tomorrow. The impression and plan of care has been dictated as directed. : I performed a history and examination of this patient, discussed the same with the dictator. I agree with the dictator's note ,documented as a scribe. Any additional findings or plans will be noted.
--- NOTE | 2019-09-04 16:41 | P.DS ---
Providers Date of admission: 09/01/19 17:54 Expected date of discharge: 09/04/19 Attending physician: Curt Paiz MD Consults: 09/01/19 17:54 Consult Physician Urgent Consulting Provider: Benji Hollingsworth Consult Reason/Comments: Anemia Do you want consulting provider notified?: Yes 09/01/19 17:59 Consult Physician Urgent Consulting Provider: Mitch Menjivar Consult Reason/Comments: open Fractures proximal phalanx right foot fourth and fifth Do you want consulting provider notified?: Yes Primary care physician: Curt Paiz MD Hospital Course: final diagnoses: (1) Open fracture of fifth toe of right foot Current Visit: Yes Status: Acute Code(s): S92.501B - DISPLACED UNSP FX RIGHT LESSER TOE(S), INIT FOR OPN FX SNOMED Code(s): 32845673 (2) Open fracture of fourth toe of right foot Current Visit: Yes Status: Acute Code(s): S92.501B - DISPLACED UNSP FX RIGHT LESSER TOE(S), INIT FOR OPN FX SNOMED Code(s): 43466644 (3) Acute blood loss anemia Current Visit: No Status: Acute Code(s): D62 - ACUTE POSTHEMORRHAGIC ANEMIA SNOMED Code(s): 424125924 (4) Atrial fibrillation Current Visit: No Status: Acute Code(s): I48.91 - UNSPECIFIED ATRIAL FIBRILLATION SNOMED Code(s): 91652660 (5) Diastolic CHF Current Visit: No Status: Acute Code(s): I50.30 - UNSPECIFIED DIASTOLIC (CONGESTIVE) HEART FAILURE SNOMED Code(s): 126100996 (6) Neuropathy Current Visit: No Status: Acute Code(s): G62.9 - POLYNEUROPATHY, UNSPECIFIED SNOMED Code(s): 955870722 (7) Prostate cancer metastatic to bone Current Visit: No Status: Acute Code(s): C61 - MALIGNANT NEOPLASM OF PROSTATE; C79.51 - SECONDARY MALIGNANT NEOPLASM OF BONE SNOMED Code(s): 129300961 (8) Anemia in chronic illness Current Visit: Yes Status: Acute Code(s): D63.8 - ANEMIA IN OTHER CHRONIC DISEASES CLASSIFIED ELSEWHERE SNOMED Code(s): 330788827 Hospital course:Sung Sutherland is a 53 yo M with a history of metastatic prostate cancer, chronic anemia, a fib, CHF who presented to the ED after a fall at home and subsequent pain and bleeding from his foot. He states he stumbled forward moving from his couch and fell forward causing nosebleed and foot lacerations. In the ED Hgb 5.0, pt found to have fractured his 4th and 5th metatarsals. He was transfused 2 U PRBC and seen by Ortho. He has had a baseline hgb between 6-7 since his treatment with Xofigo. 09/03/2019. Evaluated by GI, oncology,orthopedic surgery. no surgical intervention recommended at this time, orthopedic shoe ordered. status post 3 units of packed RBCs. hemoglobin remained stable at 7.6 and no signs/symptoms of bleeding.Eliquis being resumed today.vital signs stable.denies shortness of breath. Denies chest pain or palpitations. Denies lightheadedness, dizziness or focal deficits. significant clinical improvement. Cleared by all consults for discharge. Patient is being discharged home in stable condition with guarded prognosis. The impression and plan of care has been dictated as directed. : I performed a history and examination of this patient, discussed the same with the dictator. I agree with the dictator's note ,documented as a scribe. Any additional findings or plans will be noted. Patient Condition at Discharge: Stable Plan - Discharge Summary Discharge Rx Participant: No New Discharge Prescriptions: New Loperamide [Imodium] 2 mg PO QID PRN #0 cap PRN Reason: Diarrhea Doxycycline [Vibramycin] 100 mg PO BID #8 cap Continue Loratadine [Claritin] 10 mg PO HS Furosemide [Lasix] 80 mg PO HS Diltiazem HCl [Diltiazem 24Hr ER (CD)] 120 mg PO DAILY HYDROcodone/APAP 10-325MG [[place] 10-325] 2 tab PO TID DULoxetine HCL [Cymbalta] 20 mg PO DAILY Metoprolol Succinate (ER) [Toprol XL] 100 mg PO DAILY Apixaban [Eliquis] 5 mg PO BID Gabapentin 800 mg PO TID fentaNYL 75MCG/HR PATCH [Duragesic 75MCG/HR] 75 mcg TRANSDERM Q72H Apalutamide [Erleada] 240 mg PO DAILY Discharge Medication List Furosemide [Lasix] 80 mg PO HS 06/07/17 [History] Loratadine [Claritin] 10 mg PO HS 02/27/17 [History] Diltiazem HCl [Diltiazem 24Hr ER (CD)] 120 mg PO DAILY 09/25/18 [History] DULoxetine HCL [Cymbalta] 20 mg PO DAILY 05/13/19 [History] HYDROcodone/APAP 10-325MG [[place] 10-325] 2 tab PO TID 05/13/19 [History] Metoprolol Succinate (ER) [Toprol XL] 100 mg PO DAILY 05/13/19 [History] Apixaban [Eliquis] 5 mg PO BID 06/20/19 [History] Gabapentin 800 mg PO TID 06/20/19 [History] fentaNYL 75MCG/HR PATCH [Duragesic 75MCG/HR] 75 mcg TRANSDERM Q72H 06/20/19 [History] Apalutamide [Erleada] 240 mg PO DAILY 09/01/19 [History] Doxycycline [Vibramycin] 100 mg PO BID #8 cap 09/04/19 [Rx] Loperamide [Imodium] 2 mg PO QID PRN #0 cap 09/04/19 [Rx] Follow up Appointment(s)/Referral(s): Curt Paiz MD [Primary Care Provider] - 1 Week (Pt will make the appointment ) James Holman MD [STAFF PHYSICIAN] - 09/08/19 10:30 am (RN called office. OFfice stated that he had missed his appt. It was 09/03/19 Sung aware. Stated he would make his own appointment) Mitch Menjivar MD [STAFF PHYSICIAN] - 1 Week (Pt will make the appointment ) WAYNE Visiting Nurse, [NON-STAFF] - 1-2 Days (RN spoke with WAYNE martines, she also spoke with the pt.) Ambulatory/Diagnostic Orders: Complete Blood Count w/diff [LAB.AMB] Time Frame: 3 Days, Location: None Selected Patient Instructions/Handouts: Toe Fracture (DC), Nosebleed (GEN), Surgical Site Infections (DC) Activity/Diet/Wound Care/Special Instructions: post op shoe Discharge Disposition: HOME SELF-CARE Plan of Treatment: Change foot dressing every two or three days. Basic gauze between toes and Kerlix around foot
== END 2019-09-04 13:18 | disposition home health service (06) | DRG 563 ==
LOC: EC 14:52 → 2SICU 17:54
PROVIDERS: ADMIT Family Medicine; ATTEND Family Medicine
PROC: 0HQMXZZ Repair Right Foot Skin, External Approach (ICD-10-PCS; principal; 2019-09-01)
PROC: 30233N1 Transfusion of Nonautologous Red Blood Cells into Peripheral Vein, Percutaneous Approach (ICD-10-PCS; principal; 2019-09-01)
DX: S92.911B Unspecified fracture of right toe(s), initial encounter for open fracture (principal); C79.51 Secondary malignant neoplasm of bone; D62 Acute posthemorrhagic anemia; I48.19 Other persistent atrial fibrillation; I50.32 Chronic diastolic (congestive) heart failure; C61 Malignant neoplasm of prostate; D63.0 Anemia in neoplastic disease; F17.290 Nicotine dependence, other tobacco product, uncomplicated; G62.9 Polyneuropathy, unspecified; I11.0 Hypertensive heart disease with heart failure; K21.0 Gastro-esophageal reflux disease with esophagitis; W01.0XXA Fall on same level from slipping, tripping and stumbling without subsequent striking against object, initial encounter; Y92.009 Unspecified place in unspecified non-institutional (private) residence as the place of occurrence of the external cause; Z79.01 Long term (current) use of anticoagulants; Z79.899 Other long term (current) drug therapy; Z80.42 Family history of malignant neoplasm of prostate; Z98.84 Bariatric surgery status; Z88.1 Allergy status to other antibiotic agents; Z88.0 Allergy status to penicillin; Z88.8 Allergy status to other drugs, medicaments and biological substances
CPT/HCPCS: 12002; 36415; 36430; 80048; 80053; 82272; 82728; 83540; 83550; 85025; 85027; 85045; 85610; 85730; 86850; 86900; 86901; 86920; 90471; 90715; 99285

== ENCOUNTER 2019-09-18 18:11 | Inpatient (IN) | payer MEDICARE ==
[2019-09-18] MEDS ORDERED: PANTOPRAZOLE 40 MG/10 ML VIAL IVP STA (19:01)
[2019-09-18] MEDS ORDERED: SODIUM CHLORIDE 0.9% 500 ML 500 ML IV STA (19:01)
[2019-09-18] MEDS ORDERED: MORPHINE SULFATE 4 MG/ML SYRINGE IVP STA (19:02)
[2019-09-18 19:29] LABS: Anisocytosis Moderate; Basophils % (A) 0 %; Eosinophils # (A) 0.1 k/uL (0-0.7); Eosinophils % (A) 1 %; Hypochromasia Slight; Lymphocytes # (A) 0.3 k/uL (1.0-4.8); Lymphocytes % (A) 4 %; MCH 30.1 pg (25.0-35.0); MCHC 32.4 g/dL (31.0-37.0); MCV 92.8 fL (80.0-100.0); Macrocytosis Slight; Mean Platelet Volume 9.3; Monocytes # (A) 0.3 k/uL (0-1.0); Monocytes % (A) 4 %; Neutrophils # (A) 7.2 k/uL (1.3-7.7); Neutrophils % (A) 90 %; Poikilocytosis Moderate; RBC 2.08 m/uL (4.30-5.90); RDW 20.2 % (11.5-15.5); WBC 8.1 k/uL (3.8-10.6)
[2019-09-18 19:39] LABS: Albumin 2.9 g/dL (3.5-5.0); Calcium 7.3 mg/dL (8.4-10.2); Potassium 4.1 mmol/L (3.5-5.1); Total Bilirubin 0.6 mg/dL (0.2-1.3); Total Protein 6.2 g/dL (6.3-8.2)
[2019-09-18 19:46] LABS: HCT 19.3 % (39.0-53.0); HGB 6.2 gm/dL (13.0-17.5); Platelet Count 79 k/uL (150-450)
[2019-09-18 19:49] LABS: INR 1.2 (<1.2); Prothrombin Time 12.3 sec (9.0-12.0)
[2019-09-18] MEDS ORDERED: SODIUM CHLORIDE 0.9% 1,000 ML IV STA (19:50)
[2019-09-18] MEDS ORDERED: SODIUM CHLORIDE 0.9% 500 ML 750 ML IV ONE (20:17)
--- NOTE | 2019-09-18 20:45 | ED ---
General Adult HPI - General Chief complaint: Recheck/Abnormal Lab/Rx Stated complaint: Gout Time Seen by Provider: 09/18/19 18:20 Source: patient Mode of arrival: ambulatory Limitations: no limitations - History of Present Illness Initial comments: Patient is a 53-year-old male with past history of metastatic prostate cancer on chemotherapy, A. fib on Eliquis and hypertension who presents to the emergency department with rectal bleeding. The patient was just recently hospitalized at our facility for anemia. He came in on September 01 after he had a fall with a laceration to his foot. He did sustain blood loss anemia and therefore was admitted to the hospital. He was also suffering from epistaxis. The patient did have some bleeding from his bottom which they thought was secondary to swallowing blood from his nosebleed. GI was consulted however did not believe there was any acute intervention. Patient was discharged on the with a hem oglobin of 7.6. With his history of active chemotherapy his goal Hb is between 6 and 7. Patient reports that he has been having a significant nosebleeds. States it lasted for several hours yesterday and for an hour today. He then ended up coughing up a large amount of bright red blood and started having black tarry stools again. Because of this he did go see Dr. Barrett in office. Dr. Barrett was worried about his pallor and therefore sent him to the emergency room for evaluation. He denies any fevers or chills. He is taking his Elquis however reports that he he is not consistent with it. It was last taken this morning. He has not taken his chemotherapy in [address] Norman for his prostate cancer. He reports a history of an EGD in 2017. Has never had a colonoscopy. Denies bleeding from any other source. States his foot is healing well. The patient also reports to left wrist pain and right elbow pain possibly secondary to gout. Dr. Barrett attempted to tap his left wrist in office however was unsuccessful. There are no other alleviating, precipitating or modifying factors - Related Data Home Medications Medication Instructions Recorded Confirmed Furosemide [Lasix] 80 mg PO DAILY 02/27/17 09/18/19 Loratadine [Claritin] 10 mg PO HS 02/27/17 09/18/19 Diltiazem HCl [Diltiazem 24Hr ER 120 mg PO HS 09/25/18 09/18/19 (CD)] DULoxetine HCL [Cymbalta] 20 mg PO HS 05/13/19 09/18/19 HYDROcodone/APAP 10-325MG [[place] 2 tab PO TID PRN 05/13/19 09/18/19 10-325] Metoprolol Succinate (ER) [Toprol 100 mg PO DAILY 05/13/19 09/18/19 XL] Apixaban [Eliquis] 5 mg PO BID 06/20/19 09/18/19 Gabapentin 800 mg PO TID 06/20/19 09/18/19 fentaNYL 75MCG/HR PATCH [Duragesic 1 patch TRANSDERM Q72H 06/20/19 09/18/19 75MCG/HR] Methyl Salicylate/Menth/Camph 1 patch TOPICAL DAILY PRN 09/18/19 09/18/19 [Salonpas 3.1%-6.0%-10.0% Patch] Previous Rx's Medication Instructions Recorded Loperamide [Imodium] 2 mg PO QID PRN #0 cap 09/04/19 Allopurinol [Zyloprim] 200 mg PO DAILY #60 tab 09/23/19 Oxymetazoline 0.05% Nasl Bimble 3 spray NASAL TID PRN #1 bottle 09/23/19 [Afrin 0.05% Nasal Bimble] Pantoprazole Sodium [Protonix] 40 mg PO BID #60 tablet. 09/23/19 Allergies Allergy/AdvReac Type Severity Reaction Status Date / Time cephalexin [From Keflex] Allergy Unknown Itching Verified 09/19/19 13:30 levofloxacin [From Levaquin] Allergy Unknown Blisters Verified 09/18/19 20:56 Penicillins Allergy Unknown Blisters Verified 09/18/19 20:56 Tetracyclines Allergy Unknown Blisters Verified 09/18/19 20:56 adhesive Allergy BLISTERS Verified 09/18/19 20:56 Review of Systems ROS Statement: Those systems with pertinent positive or pertinent negative responses have been documented in the HPI. ROS Other: All systems not noted in ROS Statement are negative. Past Medical History Past Medical History: Atrial Fibrillation, Cancer, Heart Failure, GERD/Reflux, Hypertension Additional Past Medical History / Comment(s): GOUT. PERIPHERAL EDEMA. HX OF RENAL FAILURE (3 YRS AGO), RASHARD JOHNSONS SYNDROME. PROSTATE CANCER WITH METS TO BONE (DX 2014) IN REMISSION AT THIS TIME. POWER PORT IN LEFT UPPER CHEST INFECTED AND REMOVED 2018. RECEVIES HORMONE TX Q 3 MONTHS AT [facility]. CHR ONIC CONSTIPATION. DYSPHAGIA. History of Any Multi-Drug Resistant Organisms: C-DIFF Date of last positivie culture/infection: 2011 MDRO Source:: stool Past Surgical History: Appendectomy, Bariatric Surgery Additional Past Surgical History / Comment(s): FLUID ABSCESS AFTER APPENDECTOMY (CHILD), PROSTATE BIOPSY'S. LAP BAND 2010. POWER PORt removed, gallbladder removed Past Anesthesia/Blood Transfusion Reactions: No Reported Reaction Past Psychological History: No Psychological Hx Reported Smoking Status: Current some day smoker Past Alcohol Use History: Rare Past Drug Use History: None Reported - Past Family History Father Family Medical History: Cancer Additional Family Medical History / Comment(s): PROSTATE CANCER Brother(s) Family Medical History: Cancer Additional Family Medical History / Comment(s): PROSTATE CANCER General Exam Limitations: no limitations General appearance: alert, other (pale) Head exam: Present: atraumatic, normocephalic Eye exam: Present: PERRL, EOMI ENT exam: Present: mucous membranes dry, other (dry blood right nare. No active bleeding. No septal hematoma) Neck exam: Absent: tenderness, meningismus Respiratory exam: Present: normal lung sounds bilaterally. Absent: respiratory distress, wheezes, rales, rhonchi Cardiovascular Exam: Present: regular rate, normal rhythm GI/Abdominal exam: Present: soft, tenderness. Absent: distended Rectal exam: Present: heme (+) stool, black stool Extremities exam: Present: pedal edema Neurological exam: Present: alert, oriented X3 Psychiatric exam: Present: normal affect, normal mood Skin exam: Present: warm, pallor Course Vital Signs 09/18/19 09/18/19 09/18/19 18:18 20:45 21:02 Temperature 98.1 F 98 F Pulse Rate 90 100 Respiratory 18 17 10 L Rate Blood Pressure 111/73 100/67 Blood Pressure 84/60 [Right Arm] O2 Sat by Pulse 94 L 97 99 Oximetry 09/18/19 21:36 Temperature Pulse Rate 90 Respiratory 18 Rate Blood Pressure 103/56 Blood Pressure [Right Arm] O2 Sat by Pulse 96 Oximetry EKG Findings - EKG Comments: EKG Findings:: EKG demonstrates A. fib with a rate of 103. QRS 80. QTC of 476. There is some ST depression in leads V3 through V6. No acute ST segment elevations Medical Decision Making - Medical Decision Making Upon arrival the patient is placed into room 7. A thorough history and physical exam is performed. 2 large bore IV's were obtained. The patient does have a large bowel movement which is dark and tarry in color. I did perform a rectal exam which demonstrates dark tarry stools. I did recommend laboratory studies. The patient was given a milligram's Protonix. CBC shows a hemoglobin of 6.2. Platelets are 79. INR is 1.2. Creatinine elevated at 1.6. Lactic acid is 4.4. Fecal occult is positive. The patient is reevaluated. His blood pressure has dropped to the 70 systolic. He was given 2200 mL of normal saline. I then typed and screened the patient and did order a unit of blood because of his low blood pressure. As the patient is an active GI bleed I did recommend ICU admission. I called and discussed the case with Dr. montoya who accepted admission for the patient. I will place Dr. Patel consult. I did discuss the case with Dr. Alvarez who accepted admission to the ICU. After fluid administration the patient did have improvement of his blood pressure to 103 systolic. His blood is ready and will be administered on the floor. The patient was then transported to the floor in hemodynamically stable condition - Lab Data Result diagrams: 09/23/19 04:08 09/23/19 04:08 Lab Results 09/18/19 09/18/19 09/18/19 Range/Units 19:05 19:05 19:05 WBC 8.1 (3.8-10.6) k/uL RBC 2.08 L (4.30-5.90) m/uL Hgb 6.2 L* (13.0-17.5) gm/dL Hct 19.3 L* (39.0-53.0) % MCV 92.8 (80.0-100.0) fL MCH 30.1 (25.0-35.0) pg MCHC 32.4 (31.0-37.0) g/dL RDW 20.2 H (11.5-15.5) % Plt Count 79 L (150-450) k/uL Neutrophils % 90 % Lymphocytes % 4 % Monocytes % 4 % Eosinophils % 1 % Basophils % 0 % Neutrophils # 7.2 (1.3-7.7) k/uL Lymphocytes # 0.3 L (1.0-4.8) k/uL Monocytes # 0.3 (0-1.0) k/uL Eosinophils # 0.1 (0-0.7) k/uL Basophils # 0.0 (0-0.2) k/uL Manual Slide Review Performed Hypochromasia Slight Poikilocytosis Moderate Anisocytosis Moderate Macrocytosis Slight PT 12.3 H (9.0-12.0) sec INR 1.2 H (<1.2) APTT 31.0 H (22.0-30.0) sec Sodium 134 L (137-145) mmol/L Potassium 4.1 (3.5-5.1) mmol/L Chloride 101 (98-107) mmol/L Carbon Dioxide 21 L (22-30) mmol/L Anion Gap 12 mmol/L BUN 40 H (9-20) mg/dL Creatinine 1.64 H (0.66-1.25) mg/dL Est GFR (CKD-EPI)AfAm 54 (>60 ml/min/1.73 sqM) Est GFR (CKD-EPI)NonAf 47 (>60 ml/min/1.73 sqM) Glucose 114 H (74-99) mg/dL Lactic Ac Sepsis Rflx Plasma Lactic Acid Go (0.7-2.0) mmol/L Calcium 7.3 L (8.4-10.2) mg/dL Magnesium 2.0 (1.6-2.3) mg/dL Total Bilirubin 0.6 (0.2-1.3) mg/dL AST 173 H (17-59) U/L ALT 14 (4-49) U/L Alkaline Phosphatase 119 (38-126) U/L Troponin I (0.000-0.034) ng/mL Total Protein 6.2 L (6.3-8.2) g/dL Albumin 2.9 L (3.5-5.0) g/dL Stool Occult Blood (Negative) Blood Type Blood Type Recheck Bld Type Recheck Status Antibody Screen Crossmatch Spec Expiration Date 12/27/19 12/27/19 12/27/19 Range/Units 19:05 19:05 19:05 WBC (3.8-10.6) k/uL RBC (4.30-5.90) m/uL Hgb (13.0-17.5) gm/dL Hct (39.0-53.0) % MCV (80.0-100.0) fL MCH (25.0-35.0) pg MCHC (31.0-37.0) g/dL RDW (11.5-15.5) % Plt Count (150-450) k/uL Neutrophils % % Lymphocytes % % Monocytes % % Eosinophils % % Basophils % % Neutrophils # (1.3-7.7) k/uL Lymphocytes # (1.0-4.8) k/uL Monocytes # (0-1.0) k/uL Eosinophils # (0-0.7) k/uL Basophils # (0-0.2) k/uL Manual Slide Review Hypochromasia Poikilocytosis Anisocytosis Macrocytosis PT (9.0-12.0) sec INR (<1.2) APTT (22.0-30.0) sec Sodium (137-145) mmol/L Potassium (3.5-5.1) mmol/L Chloride (98-107) mmol/L Carbon Dioxide (22-30) mmol/L Anion Gap mmol/L BUN (9-20) mg/dL Creatinine (0.66-1.25) mg/dL Est GFR (CKD-EPI)AfAm (>60 ml/min/1.73 sqM) Est GFR (CKD-EPI)NonAf (>60 ml/min/1.73 sqM) Glucose (74-99) mg/dL Lactic Ac Sepsis Rflx Plasma Lactic Acid Go 4.4 H* (0.7-2.0) mmol/L Calcium (8.4-10.2) mg/dL Magnesium (1.6-2.3) mg/dL Total Bilirubin (0.2-1.3) mg/dL AST (17-59) U/L ALT (4-49) U/L Alkaline Phosphatase (38-126) U/L Troponin I 0.019 (0.000-0.034) ng/mL Total Protein (6.3-8.2) g/dL Albumin (3.5-5.0) g/dL Stool Occult Blood Positive (Negative) Blood Type Blood Type Recheck Bld Type Recheck Status Antibody Screen Crossmatch Spec Expiration Date 09/18/19 09/18/19 Range/Units 19:05 19:33 WBC (3.8-10.6) k/uL RBC (4.30-5.90) m/uL Hgb (13.0-17.5) gm/dL Hct (39.0-53.0) % MCV (80.0-100.0) fL MCH (25.0-35.0) pg MCHC (31.0-37.0) g/dL RDW (11.5-15.5) % Plt Count (150-450) k/uL Neutrophils % % Lymphocytes % % Monocytes % % Eosinophils % % Basophils % % Neutrophils # (1.3-7.7) k/uL Lymphocytes # (1.0-4.8) k/uL Monocytes # (0-1.0) k/uL Eosinophils # (0-0.7) k/uL Basophils # (0-0.2) k/uL Manual Slide Review Hypochromasia Poikilocytosis Anisocytosis Macrocytosis PT (9.0-12.0) sec INR (<1.2) APTT (22.0-30.0) sec Sodium (137-145) mmol/L Potassium (3.5-5.1) mmol/L Chloride (98-107) mmol/L Carbon Dioxide (22-30) mmol/L Anion Gap mmol/L BUN (9-20) mg/dL Creatinine (0.66-1.25) mg/dL Est GFR (CKD-EPI)AfAm (>60 ml/min/1.73 sqM) Est GFR (CKD-EPI)NonAf (>60 ml/min/1.73 sqM) Glucose (74-99) mg/dL Lactic Ac Sepsis Rflx Y Plasma Lactic Acid Go (0.7-2.0) mmol/L Calcium (8.4-10.2) mg/dL Magnesium (1.6-2.3) mg/dL Total Bilirubin (0.2-1.3) mg/dL AST (17-59) U/L ALT (4-49) U/L Alkaline Phosphatase (38-126) U/L Troponin I (0.000-0.034) ng/mL Total Protein (6.3-8.2) g/dL Albumin (3.5-5.0) g/dL Stool Occult Blood (Negative) Blood Type O Positive Blood Type Recheck O Pos Bld Type Recheck Status No Antibody Screen NEGATIVE Crossmatch See Detail Spec Expiration Date 09/21/2019 - 2308 Critical Care Time Critical Care Time: Yes Critical Care Time: 35 minutes for stabilization of the patient's blood pressure using crystalloid infusion and 2 units PRBC. I also consulted the delivery director and hospitalist. The patient was admitted to the ICU after hemodynamic stability was achieved. Disposition Clinical Impression: GI bleed, Anemia, Acute blood loss anemia, Atrial fibrillation, Prostate cancer, Epistaxis, Toes fractured Disposition: ADMITTED IP TO THIS [facility] Condition: Serious Is patient prescribed a controlled substance at d/c from ED?: No Decision to Admit Reason: Admit from EC Decision Date: 09/18/19 Decision Time: 20:45
[2019-09-18] MEDS ORDERED: NALOXONE 0.4 MG/ML 1 ML VIAL IV PRN (20:46)
[2019-09-18 21:44] LABS: Glucose,Whole Blood 117 mg/dL (75-99)
[2019-09-19] MEDS ORDERED: LOPERAMIDE 2 MG CAP PO PRN (01:00)
[2019-09-19] MEDS: HYDROcodone/APAP 10-325MG 1 EACH TAB PO PRN ×3 (01:15→21:32)
[2019-09-19 03:41] LABS: Anisocytosis Slight; Basophils % (A) 0 %; Eosinophils % (A) 0 %; Hypochromasia Moderate; Lymphocytes # (A) 0.2 k/uL (1.0-4.8); Lymphocytes % (A) 3 %; MCH 30.1 pg (25.0-35.0); MCV 94.1 fL (80.0-100.0); Macrocytosis Slight; Mean Platelet Volume 9.5; Monocytes # (A) 0.3 k/uL (0-1.0); Monocytes % (A) 4 %; Neutrophils # (A) 6.7 k/uL (1.3-7.7); Neutrophils % (A) 91 %; Poikilocytosis Moderate; RBC 1.65 m/uL (4.30-5.90); RDW 19.8 % (11.5-15.5); WBC 7.3 k/uL (3.8-10.6)
[2019-09-19 03:47] LABS: HCT 15.6 % (39.0-53.0); Platelet Count 64 k/uL (150-450)
[2019-09-19 04:32] LABS: Calcium 6.6 mg/dL (8.4-10.2); Phosphorus 3.2 mg/dL (2.5-4.5); Potassium 4.1 mmol/L (3.5-5.1)
[2019-09-19] MEDS ORDERED: LIDOCAINE 1%-EPI 1:100,000 20 ML VIAL SUBMUCOSAL ONE (06:00)
[2019-09-19] MEDS: MENTHOL (NICE) LOZENGE MUCOUS MEM PRN ×2 (06:16→10:17)
--- NOTE | 2019-09-19 06:47 | XR ---
EXAMINATION TYPE: XR chest 1V DATE OF EXAM: 09/19/2019 CLINICAL HISTORY: Difficulty breathing progress study. History of prostate cancer. TECHNIQUE: Single AP portable semiupright view of the chest is obtained. COMPARISON: Chest x-ray from May 13, 2015. CT July 23, 2019 FINDINGS: Diffuse osseous sclerotic metastatic disease redemonstrated. Persistent cardiomegaly. No s uspicious focal airspace opacity or pneumothorax bilaterally. Probable persistent small to tiny left pleural effusion. IMPRESSION: Diffuse osseous metastatic disease redemonstrated. Cardiomegaly with suspected small to t iny left pleural effusion. No new focal infiltrate.
[2019-09-19] MEDS: SODIUM CHLORIDE 0.9% 1,000 ML IV SCH ×3 (08:21→16:08)
--- NOTE | 2019-09-19 08:21 | HP ---
HISTORY AND PHYSICAL DATE OF SERVICE: 09/18/2019 I am covering for Dr. Paiz. CHIEF COMPLAINTS: Anemia. HISTORY OF PRESENT ILLNESS: This 53-year-old gentleman with a past medical history of atrial fibrillation, history of prostate cancer with metastasis, CHF, GERD, hypertension, gout, peripheral edema, appendectomy, bariatric surgery, being followed by Dr. Paiz in the outpatient setting was recently admitted to [facility] with complaints of anemia. The hemoglobin was around 5, 3 units transfusion was done. The patient has also had some bleeding and fracture of the 3rd and 4th toe, which was sutured and the patient improved significantly and the patient went home. The patient is having epistaxis mostly in the right nostril and currently the patient is complaining of weakness and being pale and hemoglobin was found to be 6.2. The patient is being multiple transfused. Patient admitted for further evaluation and treatment. The stool OB was positive. There is no history of fever, rigors. No history of headache or loss of consciousness. The patient is complaining of multiple ecchymoses. Eliquis was restarted after the last admission. The patient also found to be mildly hypotensive secondary to blood loss anemia and responding to IV fluids and transfusion. PAST MEDICAL HISTORY: Atrial fibrillation history of CHF, GERD, hypertension, gout, history of prostate cancer with metastases. MEDICATIONS ARE: 1. Fentanyl patch 75 mcg q.72h hours. 2. Metoprolol 100 mg p.o. daily. 3. ( ) topically daily p.r.n. 4. Claritin 10 mg q.h.s. p.r.n. 5. Imodium 2 mg q.i.d. p.r.n. 6. [place] 10 mg t.i.d. p.r.n. 7. Gabapentin 800 mg p.o. t.i.d. 8. Lasix 80 mg p.o. daily. 9. Cardizem CD 120 mg p.o. q.h.s. 10.Cymbalta 20 mg q.h.s. 11.Eliquis 5 mg p.o. b.i.d. ALLERGIES: CEPHALEXIN, LEVAQUIN, PENICILLIN, TETRACYCLINE, ADHESIVES. FAMILY HISTORY: History of prostate cancer in the family. SOCIAL HISTORY: History of smoking, continued ongoing. Occasional alcohol intake. REVIEW OF SYSTEMS: ENT: No history of diminished hearing or vision. CARDIOVASCULAR: No angina or palpitations. RESPIRATORY: No cough, no hemoptysis. GI: As mentioned earlier. : As mentioned earlier. NERVOUS: No numbness or weakness. ALLERGY/IMMUNOLOGY: No asthma or hayfever. MUSCULOSKELETAL: As mentioned earlier. HEMATOLOGY/ONCOLOGY: As mentioned earlier. ENDOCRINE: No history of diabetes or hypothyroidism. CONSTITUTIONAL: As mentioned earlier. DERMATOLOGY: As mentioned earlier. RHEUMATOLOGY: Negative. PSYCHIATRY As mentioned earlier. PHYSICAL EXAMINATION: Alert and oriented x3. Pulse 87, blood pressure 96/50, respiration 20, temperature 98.2, pulse ox 93% on room air HEENT: Conjunctivae normal. Oral mucosa pale. NECK: No jugular venous distention. No lymph node enlargement. CARDIOVASCULAR: S1, S2. RESPIRATORY: Diminished breath sounds at the bases. No rhonchi, no crackles. ABDOMEN: Soft, obese, nontender. No mass palpable. LEGS: Bilateral leg edema. Some bleeding from the left third nail which was dislodged recently and right foot is status post suturing at this time. NERVOUS SYSTEM: Higher functions mentioned earlier. Moves all four limbs. No focal motor or sensory deficits. LYMPHATICS: No lymph node in neck or axilla. SKIN: As mentioned earlier. JOINTS: No active deforming arthropathy. LABS: WBC 8.2, hemoglobin 6.2. INR 1.2. Sodium 135, creatinine is 1.64. Plasma lactic acid 4.4. ASSESSMENT: 1. Acute blood loss anemia, rule out acute gastrointestinal bleed. 2. Rule out blood loss anemia from epistaxis. 3. History of recent blood-loss anemia apparently from bleeding. 4. Renal failure with prerenal acute tubular necrosis with dehydration present on admission. 5. Hypotension secondary to acute blood loss anemia, responding to IV fluids and blood transfusion. 6. Hyponatremia. 7. Hypoalbuminemia with mild to moderate protein calorie malnutrition. 8. Elevated plasma lactic acid secondary to dehydration. 9. Thrombocytopenia. 10.Prostate cancer with metastasis. 11.History of recent right foot 3rd and 4th digit fractures. 12.Atrial fibrillation. 13.Congestive heart failure with chronic diastolic dysfunction. 14.Peripheral neuropathy. 15.History of gastroesophageal reflux disease. 16.History of gout. 17.History of peripheral edema. 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 19.History of constipation. 20.History of Clostridium difficile colitis. 21.History of bariatric surgery. 22.Continued ongoing nicotine dependence. 23.Obesity with body mass index 49.9. 24.FULL CODE. RECOMMENDATION: In this 53-year-old gentleman who presented with multiple complex medical issues, we will monitor the patient closely. As mentioned earlier the patient has already been arranged for 1 unit transfusion. I recommend H and H q.6h and transfuse if hemoglobin remains less than 7 or less than 8 if symptomatic or if the blood pressure is low. Otherwise, we will continue to monitor. GI consult has been recommended as well as a consultation with Dr. Sneed and Dr. Rodriguez. Resume the home medications. Cautious hydration. I would also repeat a chest x-ray tomorrow morning. See orders for details. Further recommendations for DVT prophylaxis. We will hold the Eliquis for now. Will hold metoprolol as well. Continue the pain medications. Diuretics can be restarted tomorrow once the blood pressure normalizes. MMODL / IJN: [id number] /
[2019-09-19] MEDS ORDERED: PANTOPRAZOLE 40 MG/10 ML VIAL IV SCH (09:00)
[2019-09-19] MEDS: GABAPENTIN 400 MG CAP PO SCH ×3 (10:16→21:31)
[2019-09-19] MEDS: NICOTINE 14MG/24HR PATCH TRANSDERM SCH ×2 (10:16→10:19)
--- NOTE | 2019-09-19 11:59 | P.CNPUL ---
History of Present Illness Consult date: 09/19/19 Requesting physician: Mercedes Doty Reason for consult: other (GI bleeding and epistaxis) Chief complaint: Nasal bleeding, weakness and black stools History of present illness: This is a 53-year-old white male with history of chronic atrial fibrillation, metastatic prostate cancer, hypertension, gout, chronic venous insufficiency and chronic lower extremity swelling and cellulitis, history of hypertension, gout, history of bariatric surgery, patient was recently in the hospital for anemia and hemoglobin was 5. Patient was transfused, and at that time he was noted to have bleeding and fracture of the third and fourth toe on the right foot. Patient was sutured, and he was eventually discharged home. Presented to the ER yesterday complaining of epistaxis, mostly from the right nostril. He was also complaining of weakness, black stools, and his hemoglobin was noted to be 6.2. Patient received a total of 3 units of packed RBCs so far, considering the profound anemia and considering that the patient may have a combination of epistaxis and upper GI bleeding, patient was admitted to the ICU, and I was asked to see him on consultation. Patient denies any headache, no blurred vision, no dizziness, his right nostril bleeding was controlled by nasal packing done by the ER physician. He was placed on Protonix, GI consultation was initiated, and it is pending. Apparently the patient has been taking Eliquis for atrial fibrillation, and it is presently on hold. In the ER his blood pressure was borderline low, patient received 2 units of packed RBCs in the ER, and 2 L of IV fluids. Upon my evaluation in the ICU, the patient was feeling much better, blood pressure was better controlled, and he was on his third units of packed RBCs. Patient has no previous history of upper GI bleeding, no history of peptic ulcer disease, no history of liver disease, and he is not taking any nonsteroidal anti-inflammatory drugs. Review of Systems Constitutional: No fever no chills no weight loss. Has mostly generalized weakness HEENT: Denies headache. Vision dizziness, no sore throat, no earache. Positive epistaxis right nostril as noted in HPI. Pulmonary: No cough no wheezing no shortness of breath no chest pain. Cardiac: Denies any chest pain, no angina, no palpitations, no diaphoresis. No syncope no PND GI: Denies any nausea vomiting, but he does have black stools for the last few days. Denies any abdominal pain. Skin: Recent laceration and fracture of third and fourth toe of the right foot, requiring laceration repair. And recent avulsion of the third toe on the left. Genitourinary: Denies any dysuria frequency urgency or hematuria. Endocrine: Denies any heat or cold intolerance, denies any polyuria or polyphagia polydipsia. Musculoskeletal: Generalized weakness. Neurologic: No headache no blurred vision no dizziness no syncope. Hematologic: As noted in HPI, patient presented with epistaxis, and black stools. Psychiatric: Denies any symptoms of active depression. Past Medical History Past Medical History: Atrial Fibrillation, Cancer, Heart Failure, GERD/Reflux, Hypertension Additional Past Medical History / Comment(s): GOUT. PERIPHERAL EDEMA. HX OF RENAL FAILURE (3 YRS AGO), RASHARD JOHNSONS SYNDROME. PROSTATE CANCER WITH METS TO BONE (DX 2014) IN REMISSION AT THIS TIME. POWER PORT IN LEFT UPPER CHEST INFECTED AND REMOVED 2017. RECEVIES HORMONE TX Q 3 MONTHS AT [facility]. CHRONIC CONSTIPATION. DYSPHAGIA. History of Any Multi-Drug Resistant Organisms: C-DIFF Date of last positivie culture/infection: 2011 MDRO Source:: stool Past Surgical History: Appendectomy, Bariatric Surgery Additional Past Surgical History / Comment(s): FLUID ABSCESS AFTER APPENDECTOMY (CHILD), PROSTATE BIOPSY'S. LAP BAND 2010. POWER PORt removed, gallbladder removed Past Anesthesia/Blood Transfusion Reactions: No Reported Reaction Past Psychological History: No Psychological Hx Reported Smoking Status: Current some day smoker Past Alcohol Use History: Rare Past Drug Use History: None Reported - Past Family History Father Family Medical History: Cancer Additional Family Medical History / Comment(s): PROSTATE CANCER Brother(s) Family Medical History: Cancer Additional Family Medical History / Comment(s): PROSTATE CANCER Medications and Allergies Home Medications Medication Instructions Recorded Confirmed Type Furosemide [Lasix] 80 mg PO DAILY 02/27/17 09/18/19 History Loratadine [Claritin] 10 mg PO HS 02/27/17 09/18/19 History Diltiazem HCl [Diltiazem 24Hr ER 120 mg PO HS 09/25/18 09/18/19 History (CD)] DULoxetine HCL [Cymbalta] 20 mg PO HS 05/13/19 09/18/19 History HYDROcodone/APAP 10-325MG [Exline 2 tab PO TID PRN 05/13/19 09/18/19 History 10-325] Metoprolol Succinate (ER) [Toprol 100 mg PO DAILY 05/13/19 09/18/19 History XL] Apixaban [Eliquis] 5 mg PO BID 06/20/19 09/18/19 History Gabapentin 800 mg PO TID 06/20/19 09/18/19 History fentaNYL 75MCG/HR PATCH [Duragesic 1 patch TRANSDERM Q72H 06/20/19 09/18/19 History 75MCG/HR] Loperamide [Imodium] 2 mg PO QID PRN #0 cap 09/04/19 09/18/19 Rx Methyl Salicylate/Menth/Camph 1 patch TOPICAL DAILY PRN 09/18/19 09/18/19 History [Salonpas 3.1%-6.0%-10.0% Patch] Allergies Allergy/AdvReac Type Severity Reaction Status Date / Time cephalexin [From Keflex] Allergy Unknown Blisters Verified 09/18/19 20:56 levofloxacin [From Levaquin] Allergy Unknown Blisters Verified 09/18/19 20:56 Penicillins Allergy Unknown Blisters Verified 09/18/19 20:56 Tetracyclines Allergy Unknown Blisters Verified 09/18/19 20:56 adhesive Allergy BLISTERS Verified 09/18/19 20:56 Physical Exam Vitals: Vital Signs Temp Pulse Resp BP BP Pulse Ox 09/19/19 11:09 98.1 F 76 14 92/64 09/19/19 11:00 78 13 90/51 97 09/19/19 10:00 85 19 87/50 97 09/19/19 09:00 91 13 103/50 97 09/19/19 08:43 98.0 F 85 16 90/51 09/19/19 08:33 97.7 F 76 14 104/76 09/19/19 08:17 97.7 F 93 14 104/56 09/19/19 08:16 97.7 F 83 14 116/60 97 09/19/19 08:00 97.7 F 76 10 L 110/76 97 09/19/19 07:00 79 14 93/55 95 09/19/19 06:52 98.0 F 93 14 82/51 97 09/19/19 06:22 98.1 F 87 14 92/55 93 L 09/19/19 06:12 98.0 F 77 16 101/58 94 L 09/19/19 06:00 98.1 F 87 13 99/58 94 L 09/19/19 05:00 79 14 102/60 95 09/19/19 04:00 98.1 F 97 16 87/68 98 09/19/19 03:00 86 13 94/49 95 09/19/19 02:30 78 17 83/47 93 L 09/19/19 02:01 85 15 91/51 92 L 09/19/19 01:30 93 11 L 99/56 09/19/19 01:00 94 10 L 100/63 09/19/19 00:30 97 12 100/63 09/19/19 00:04 98.1 F 80 14 97/55 94 L 09/19/19 00:02 98.3 F 87 10 L 96/50 93 L 09/19/19 00:00 98.3 F 81 11 L 85/43 93 L 09/18/19 23:30 80 14 89/53 94 L 09/18/19 23:00 98.6 F 86 15 95/53 94 L 09/18/19 22:46 98.6 F 77 12 95/53 94 L 09/18/19 22:30 87 14 74/38 93 L 09/18/19 22:16 98.4 F 78 17 68/34 93 L 09/18/19 22:06 98.3 F 89 14 75/50 09/18/19 22:00 98.4 F 102 H 14 64/29 93 L 09/18/19 21:36 90 18 103/56 96 09/18/19 21:02 98 F 10 L 84/60 99 09/18/19 20:45 100 17 100/67 97 09/18/19 18:18 98.1 F 90 18 111/73 94 L Intake and Output 09/18/19 09/19/19 09/19/19 22:59 06:59 14:59 Intake Total 225 1485 1615 Balance 225 1485 1615 Intake: IV 100 800 500 Sodium Chloride 0.9% 1, 100 800 500 000 ml @ 100 mls/hr IV . [facility]10H [facility] Rx#:[id number] Blood Product 691 [id number] Rc As-3 Unit 0 310 [id number] Rc Pheresis 2 As3 Unit 310 [id number] Rc Pheresis 2 As3 Unit 0 310 [id number] Other 50 Rc As-3 Unit 50 [id number] Other: Voiding Method Toilet # Voids 0 0 1 # Bowel Movements 1 Weight 153.3 kg 153.3 kg Physical Exam: Revealed a 53-year-old white male, obese, pale looking, in no distress. O2 saturation 93% on room air. Head: Atraumatic, normocephalic. HEENT:[Neck is supple.] [No neck masses.] [No thyromegaly.] [No JVD.] PERRLA, EOMI, no icterus, right nasal packing is noted. Chest: Symmetrical chest expansion, diminished breath sounds at the bases no rhonchi and no wheezes. Cardiac Exam: [Normal S1 and S2, no S3 gallop, no murmur.] Abdomen: [Obese, Soft, nontender, no megaly, no rebound, no guarding, normal bowel sounds.] Extremities: [No clubbing, chronic venous stasis changes noted in both lower extremities. 2+ bipedal edema noted. Dressing noted on the fourth and fifth toe of the right foot and a dressing noted on the left foot third toe. Neurological Exam: Alert and oriented 3. [No focal neurologic deficit.] Lymphatics: No lymphadenopathy. Skin: Venous stasis changes noted in lower extremities, and both feet are covered with a sterile dressing because of recent bleeding from both feet. Psychiatric: Normal mood, affect and normal mental status examination. Results - Laboratory Findings CBC and BMP: 09/19/19 03:07 09/19/19 03:07 PT/INR, D-dimer PT 12.3 sec (9.0-12.0) H 09/18/19 19:05 INR 1.2 (<1.2) H 09/18/19 19:05 Abnormal lab findings: Abnormal Labs 09/18/19 09/18/19 09/18/19 19:05 19:05 19:05 RBC 2.08 L Hgb 6.2 L* Hct 19.3 L* RDW 20.2 H Plt Count 79 L Lymphocytes # 0.3 L PT 12.3 H INR 1.2 H APTT 31.0 H Sodium 134 L Carbon Dioxide 21 L BUN 40 H Creatinine 1.64 H Glucose 114 H POC Glucose (mg/dL) Plasma Lactic Acid Go Calcium 7.3 L AST 173 H Total Protein 6.2 L Albumin 2.9 L Crossmatch 09/18/19 09/18/19 09/18/19 19:05 19:05 21:33 RBC Hgb Hct RDW Plt Count Lymphocytes # PT INR APTT Sodium Carbon Dioxide BUN Creatinine Glucose POC Glucose (mg/dL) 117 H Plasma Lactic Acid Go 4.4 H* Calcium AST Total Protein Albumin Crossmatch See Detail 09/19/19 09/19/19 03:07 03:07 RBC 1.65 L Hgb 5.0 L* Hct 15.6 L* RDW 19.8 H Plt Count 64 L Lymphocytes # 0.2 L PT INR APTT Sodium 133 L Carbon Dioxide BUN 38 H Creatinine 1.45 H Glucose 127 H POC Glucose (mg/dL) Plasma Lactic Acid Go Calcium 6.6 L AST Total Protein Albumin Crossmatch - Diagnostic Findings Chest x-ray: image reviewed (Osseous metastatic disease noted, cardiomegaly, small tiny left pleural effusion is suspected.) Assessment and Plan Assessment: Impression: 1 acute blood loss anemia secondary to GI bleeding and epistaxis. Most likely source of the GI bleeding is upper unless proven otherwise. This is most likely secondary to Eliquis and possible erosive gastritis or peptic ulcer disease. 2 acute epistaxis secondary to Eliquis. 3 acute hypotension secondary to acute blood loss, hypovolemic in nature, responding to IV fluids and blood transfusion. 4 chemotherapy induced peripheral neuropathy and recurrent trauma to both feet related to neuropathy. 5 history of metastatic prostate cancer. 6 acute kidney injury most likely secondary to hypotension and acute tubular necrosis. 7 chronic atrial fibrillation, patient is normally maintained on Eliquis, presently on hold. 8 history of atrial fibrillation 9 history of gout 10 history of GERD without esophagitis. 11 history of bariatric surgery 12 nicotine dependence syndrome 13 morbid obesity, body mass index of 49.9 14 history of C. 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 Recommendation: Continue to monitor in the ICU. Transfused blood, keep hemoglobin above 7 Protonix 40 mg IV push twice a day GI consultation to evaluate for possible EGD ENT consultation. Evaluate his epistaxis and possibly remove packing in the next 24-48 hours. Close monitoring of electrolytes, serial hemoglobin and hematocrit and transfuse accordingly. Hold Eliquis. And hold any anticoagulation therapy for now. Close monitoring of blood pressure. Hydrate cautiously. Hold blood pressure medications if blood pressure remains marginal. We'll continue to follow. Prognosis is guarded. Time with Patient: Greater than 30
[2019-09-19 14:15] LABS: Bilirubin, Delta 0.7 mg/dL (0.0-0.2); Bilirubin,Unconjugated 0.4 mg/dL (0.0-1.1); Total Bilirubin 1.1 mg/dL (0.2-1.3)
[2019-09-19 14:19] LABS: Anisocytosis Slight; Basophils % (A) 0 %; Eosinophils % (A) 0 %; Hypochromasia Slight; Lymphocytes # (A) 0.2 k/uL (1.0-4.8); Lymphocytes % (A) 3 %; MCHC 32.9 g/dL (31.0-37.0); MCV 91.2 fL (80.0-100.0); Mean Platelet Volume 8.6; Monocytes # (A) 0.2 k/uL (0-1.0); Monocytes % (A) 3 %; Neutrophils # (A) 5.7 k/uL (1.3-7.7); Neutrophils % (A) 93 %; Poikilocytosis Moderate; RDW 19.1 % (11.5-15.5); WBC 6.2 k/uL (3.8-10.6)
[2019-09-19 14:22] LABS: HCT 19.1 % (39.0-53.0); HGB 6.3 gm/dL (13.0-17.5); Platelet Count 68 k/uL (150-450)
[2019-09-19 14:26] LABS: Reticulocyte % 4.2 % (0.5-2.0)
--- NOTE | 2019-09-19 19:15 | P.CONS ---
History of Present Illness - Reason for Consult Consult date: 09/19/19 Anemia, prostate cancer Requesting physician: Patricia Russo - Chief Complaint Weakness - History of Present Illness Mr. Sutherland is a very pleasant 53 yo male with history of metastatic prostate cancer, on lupron and Erlaeda since 07/2019, as well as multiple comorbidities who is here for generalized weakness. CBC showed severe anemia, Hgb 6.4. He has chronic normocytic anemia. Baseline hemoglobin is around 6-8. Recently admitted for toe injury and bleeding, Hgb was 5. He was transfused and Hgb improved to 7.6 prior to discharge. Also has trouble with epistaxis. Back with Hgb 6.4. Repeat today at 5. Plts also low, baseline seems to be around 100- 160, however during recent admission and now, plt are 60's. Normal WBC. He did have recent iron studies which showed iron 191, TIBC 222, 86% sat, ferritin 1600. Unclear if this was post transfusion iron panel as this was drawn during prior hospitalization when he did receive transfusions. FOBT was positive as well during this admission as well as prior admission. He also has atrial fibrillation and CHF, on eliquis. This was held while IPD recently however resumed upon discharge. His prostate cancer history is as follows. He was diagnosed with metastatic disease, abdominal LAD, in 2014. Has been on lurpon since then. Initially treated with taxotere then casodex, then Xtandi on progression. He then had bone only progression, and was treated with Xofigo and palliative RT. Most recently has been on Erlaeda since around 07/2019. Review of Systems All systems: negative Constitutional: Reports as per HPI Past Medical History Past Medical History: Atrial Fibrillation, Cancer, Heart Failure, GERD/Reflux, Hypertension Additional Past Medical History / Comment(s): GOUT. PERIPHERAL EDEMA. HX OF RENAL FAILURE (3 YRS AGO), RASHARD JOHNSONS SYNDROME. PROSTATE CANCER WITH METS TO BONE (DX 2014) IN REMISSION AT THIS TIME. POWER PORT IN LEFT UPPER CHEST INFECTED AND REMOVED 2017. RECEVIES HORMONE TX Q 3 MONTHS AT [facility]. CHRONIC CONSTIPATION. DYSPHAGIA. History of Any Multi-Drug Resistant Organisms: C-DIFF Year Discovered:: 2011 MDRO Source:: stool Past Surgical History: Appendectomy, Bariatric Surgery Additional Past Surgical History / Comment(s): FLUID ABSCESS AFTER APPENDECTOMY (CHILD), PROSTATE BIOPSY'S. LAP BAND 2010. POWER PORt removed, gallbladder removed Past Anesthesia/Blood Transfusion Reactions: No Reported Reaction Past Psychological History: No Psychological Hx Reported Smoking Status: Current some day smoker Past Alcohol Use History: Rare Past Drug Use History: None Reported - Past Family History Father Family Medical History: Cancer Additional Family Medical History / Comment(s): PROSTATE CANCER Brother(s) Family Medical History: Cancer Additional Family Medical History / Comment(s): PROSTATE CANCER Medications and Allergies Home Medications Medication Instructions Recorded Confirmed Type Furosemide [Lasix] 80 mg PO DAILY 02/27/17 09/18/19 History Loratadine [Claritin] 10 mg PO HS 02/27/17 09/18/19 History Diltiazem HCl [Diltiazem 24Hr ER 120 mg PO HS 09/25/18 09/18/19 History (CD)] DULoxetine HCL [Cymbalta] 20 mg PO HS 05/13/19 09/18/19 History HYDROcodone/APAP 10-325MG [Chandler 2 tab PO TID PRN 05/13/19 09/18/19 History 10-325] Metoprolol Succinate (ER) [Toprol 100 mg PO DAILY 05/13/19 09/18/19 History XL] Apixaban [Eliquis] 5 mg PO BID 06/20/19 09/18/19 History Gabapentin 800 mg PO TID 06/20/19 09/18/19 History fentaNYL 75MCG/HR PATCH [Duragesic 1 patch TRANSDERM Q72H 06/20/19 09/18/19 History 75MCG/HR] Loperamide [Imodium] 2 mg PO QID PRN #0 cap 09/04/19 09/18/19 Rx Methyl Salicylate/Menth/Camph 1 patch TOPICAL DAILY PRN 09/18/19 09/18/19 History [Salonpas 3.1%-6.0%-10.0% Patch] Allergies Allergy/AdvReac Type Severity Reaction Status Date / Time cephalexin [From Keflex] Allergy Unknown Itching Verified 09/19/19 13:30 levofloxacin [From Levaquin] Allergy Unknown Blisters Verified 09/18/19 20:56 Penicillins Allergy Unknown Blisters Verified 09/18/19 20:56 Tetracyclines Allergy Unknown Blisters Verified 09/18/19 20:56 adhesive Allergy BLISTERS Verified 09/18/19 20:56 Physical Exam Vitals: Vital Signs Temp Pulse Resp BP BP Pulse Ox 09/19/19 11:09 98.1 F 76 14 92/64 09/19/19 11:00 78 13 90/51 97 09/19/19 10:00 85 19 87/50 97 09/19/19 09:00 91 13 103/50 97 09/19/19 08:43 98.0 F 85 16 90/51 09/19/19 08:33 97.7 F 76 14 104/76 09/19/19 08:17 97.7 F 93 14 104/56 09/19/19 08:16 97.7 F 83 14 116/60 97 09/19/19 08:00 97.7 F 76 10 L 110/76 97 09/19/19 07:00 79 14 93/55 95 09/19/19 06:52 98.0 F 93 14 82/51 97 09/19/19 06:22 98.1 F 87 14 92/55 93 L 09/19/19 06:12 98.0 F 77 16 101/58 94 L 09/19/19 06:00 98.1 F 87 13 99/58 94 L 09/19/19 05:00 79 14 102/60 95 09/19/19 04:00 98.1 F 97 16 87/68 98 09/19/19 03:00 86 13 94/49 95 09/19/19 02:30 78 17 83/47 93 L 09/19/19 02:01 85 15 91/51 92 L 09/19/19 01:30 93 11 L 99/56 09/19/19 01:00 94 10 L 100/63 09/19/19 00:30 97 12 100/63 09/19/19 00:04 98.1 F 80 14 97/55 94 L 09/19/19 00:02 98.3 F 87 10 L 96/50 93 L 09/19/19 00:00 98.3 F 81 11 L 85/43 93 L 09/18/19 23:30 80 14 89/53 94 L 09/18/19 23:00 98.6 F 86 15 95/53 94 L 09/18/19 22:46 98.6 F 77 12 95/53 94 L 09/18/19 22:30 87 14 74/38 93 L 09/18/19 22:16 98.4 F 78 17 68/34 93 L 09/18/19 22:06 98.3 F 89 14 75/50 09/18/19 22:00 98.4 F 102 H 14 64/29 93 L 09/18/19 21:36 90 18 103/56 96 09/18/19 21:02 98 F 10 L 84/60 99 09/18/19 20:45 100 17 100/67 97 09/18/19 18:18 98.1 F 90 18 111/73 94 L Intake and Output 09/18/19 09/19/19 09/19/19 22:59 06:59 14:59 Intake Total 225 1485 1615 Balance 225 1485 1615 Intake: IV 100 800 500 Sodium Chloride 0.9% 1, 100 800 500 000 ml @ 100 mls/hr IV . Q10H [facility] Rx#:[id number] Blood Product 036 [id number] Rc As-3 Unit 0 310 [id number] Rc Pheresis 2 As3 Unit 310 [id number] Rc Pheresis 2 As3 Unit 0 310 [id number] Other 50 Rc As-3 Unit 50 [id number] Other: Voiding Method Toilet # Voids 0 0 1 # Bowel Movements 1 Weight 153.3 kg 153.3 kg General: In no acute distress. HEENT: EOMI. Conjunctival pallor. No scleral icterus. Mucosa moist. Neck: Neck supple. Lymph: No cervical/supraclavicular LAD. Lungs: CTA-B without wheezing or rhonchi. Heart: Regular rate. No LE edema. Abdomen: Soft, nontender, nondistended, with positive bowel sounds. MSK: 4/4 strength in all 4 extremities. Neuro: Alert and oriented 3. No obvious gross neurologic deficits. Skin: No jaundice or rash. Psych: Appropriate affect. Results CBC & Chem 7: 09/19/19 13:33 09/19/19 03:07 Labs: Abnormal Lab Results - Last 24 Hours (Table) 09/18/19 09/18/19 09/18/19 Range/Units 19:05 19:05 19:05 RBC 2.08 L (4.30-5.90) m/uL Hgb 6.2 L* (13.0-17.5) gm/dL Hct 19.3 L* (39.0-53.0) % RDW 20.2 H (11.5-15.5) % Plt Count 79 L (150-450) k/uL Lymphocytes # 0.3 L (1.0-4.8) k/uL PT 12.3 H (9.0-12.0) sec INR 1.2 H (<1.2) APTT 31.0 H (22.0-30.0) sec Sodium 134 L (137-145) mmol/L Carbon Dioxide 21 L (22-30) mmol/L BUN 40 H (9-20) mg/dL Creatinine 1.64 H (0.66-1.25) mg/dL Glucose 114 H (74-99) mg/dL POC Glucose (mg/dL) (75-99) mg/dL Plasma Lactic Acid Go (0.7-2.0) mmol/L Calcium 7.3 L (8.4-10.2) mg/dL AST 173 H (17-59) U/L Total Protein 6.2 L (6.3-8.2) g/dL Albumin 2.9 L (3.5-5.0) g/dL Crossmatch 09/18/19 09/18/19 09/18/19 Range/Units 19:05 19:05 21:33 RBC (4.30-5.90) m/uL Hgb (13.0-17.5) gm/dL Hct (39.0-53.0) % RDW (11.5-15.5) % Plt Count (150-450) k/uL Lymphocytes # (1.0-4.8) k/uL PT (9.0-12.0) sec INR (<1.2) APTT (22.0-30.0) sec Sodium (137-145) mmol/L Carbon Dioxide (22-30) mmol/L BUN (9-20) mg/dL Creatinine (0.66-1.25) mg/dL Glucose (74-99) mg/dL POC Glucose (mg/dL) 117 H (75-99) mg/dL Plasma Lactic Acid Go 4.4 H* (0.7-2.0) mmol/L Calcium (8.4-10.2) mg/dL AST (17-59) U/L Total Protein (6.3-8.2) g/dL Albumin (3.5-5.0) g/dL Crossmatch See Detail 09/19/19 09/19/19 Range/Units 03:07 03:07 RBC 1.65 L (4.30-5.90) m/uL Hgb 5.0 L* (13.0-17.5) gm/dL Hct 15.6 L* (39.0-53.0) % RDW 19.8 H (11.5-15.5) % Plt Count 64 L (150-450) k/uL Lymphocytes # 0.2 L (1.0-4.8) k/uL PT (9.0-12.0) sec INR (<1.2) APTT (22.0-30.0) sec Sodium 133 L (137-145) mmol/L Carbon Dioxide (22-30) mmol/L BUN 38 H (9-20) mg/dL Creatinine 1.45 H (0.66-1.25) mg/dL Glucose 127 H (74-99) mg/dL POC Glucose (mg/dL) (75-99) mg/dL Plasma Lactic Acid Go (0.7-2.0) mmol/L Calcium 6.6 L (8.4-10.2) mg/dL AST (17-59) U/L Total Protein (6.3-8.2) g/dL Albumin (3.5-5.0) g/dL Crossmatch from 08/2019: Iron 191, TIBC 222, 86% satur ferritin 1600 Baseline creatinine 1.1 CBC with normal WBC count in the past, hemoglobin 10.1 and 02/2019 done sevens and 04/2019 and most recently from 08/2019 onward has been 5 to sevens. Platelets were in the low 100s until 08/2019 when they became 60s. Chest x-ray: report reviewed Assessment and Plan Assessment: 1. Acute on chronic anemia, normocytic 2. Acute blood loss due to epistaxis and possibly GI bleed 3. MAGALY 4. Metastatic prostate cancer 5. Atrial fibrillation 6. CHF 7. History of bariatric surgery 8. HTN 9. GERD Plan: Mr. Sutherland is a very pleasant 53-year-old gentleman with multiple comorbidities including metastatic prostate cancer currently on treatment with Lupron and Erlaeda, as well as chronic anemia, baseline, as well as A. fib on anticoagulation, who is here for weakness, found to have a hemoglobin of 6.4. Also with MAGALY, with creatinine 1.6 from baseline of 1.1. he is having epistaxis. Recently admitted for toe injury and bleeding resulting in a hemoglob in of 5. Also FOBT is positive. His acute on chronic anemia is likely due to acute blood loss. He would benefit from GI evaluation. will also check iron panel, B12, and folate and supplement as needed He has a history of bariatric surgery and might need IM B12 and IV iron supplement. His underlying chronic anemia is likely multifactorial, anemia chronic disease as well as related to his prostate cancer and bone met's, with likely bone marrow infiltration. In the meantime, hold prostate cancer treatment with Erlaeda as this can contribute to anemia as well, and plan supportive transfusion as needed. Discussed with pt and he is agreeable. All questions answered.
--- NOTE | 2019-09-19 19:27 | P.CONS ---
History of Present Illness - Reason for Consult Consult date: 09/19/19 Anemia Requesting physician: Mercedes Doty - Chief Complaint Dizziness, weakness - History of Present Illness 53-year-old male with a medical history significant for atrial fibrillation, congestive heart failure, GERD, metastatic prostate cancer and hypertension who presented to the hospital due to complaints of weakness and dizziness. The patient was previously hospitalized earlier in the month at which time he underwent a mechanical fall at which time he had a fracture of his foot with associated open wound and bleeding requiring suturing. The patient was found to be anemic at that time and also had complained of epistaxis. He had been having dark bowel movements which she felt was associated with the epistaxis. The patient was treated for his fracture and eventually discharged home. He presented back to the hospital due to complaints of weakness and dizziness. On presentation to the hospital he was found to have a bicytopenia with a hemoglobin of 5 and platelet count of 64. Currently he is seen back in the ICU. The patient again denies any pain in the abdomen, nausea, vomiting, hematemesis or bright red blood per rectum. He again is reporting epistaxis predominantly from his right nare. Last EGD was performed on 02/2017 with findings of antr itis and esophagitis. Review of Systems REVIEW OF SYSTEMS: CONSTITUTIONAL: Denies any fevers, chills, but does report weakness and fatigue. CARDIOVASCULAR: Denies any chest pain, palpitations high or low blood pressures RESPIRATORY: Denies any shortness of breath, hemoptysis or cough. GENITOURINARY: No dysuria or hematuria. MUSCULOSKELETAL: No weakness reported. SKIN: Denies any new rashes or lesions, jaundice or pallor. PSYCHIATRIC: Denies any depression or anxiety. NEUROLOGY: Denies headache, denies any new focal deficits, but did report dizziness on presentation. EARS/NOSE/THROAT: No recent hearing change, congestion, nasal discharge or sore throat, has been having epistaxis. EYES: No pain in eyes, discharge or change in vision. GASTROINTESTINAL: As per HPI. Past Medical History Past Medical History: Atrial Fibrillation, Cancer, Heart Failure, GERD/Reflux, Hypertension Additional Past Medical History / Comment(s): GOUT. PERIPHERAL EDEMA. HX OF RENAL FAILURE (3 YRS AGO), RASHARD JOHNSONS SYNDROME. PROSTATE CANCER WITH METS TO BONE (DX 2014) IN REMISSION AT THIS TIME. POWER PORT IN LEFT UPPER CHEST INFECTED AND REMOVED 2018. RECEVIES HORMONE TX Q 3 MONTHS AT [facility]. CHRONIC CONSTIPATION. DYSPHAGIA. History of Any Multi-Drug Resistant Organisms: C-DIFF Year Discovered:: 2011 MDRO Source:: stool Past Surgical History: Appendectomy, Bariatric Surgery Additional Past Surgical History / Comment(s): FLUID ABSCESS AFTER APPENDECTOMY (CHILD), PROSTATE BIOPSY'S. LAP BAND 2010. POWER PORt removed, gallbladder re moved Past Anesthesia/Blood Transfusion Reactions: No Reported Reaction Past Psychological History: No Psychological Hx Reported Smoking Status: Current some day smoker Past Alcohol Use History: Rare Past Drug Use History: None Reported - Past Family History Father Family Medical History: Cancer Additional Family Medical History / Comment(s): PROSTATE CANCER Brother(s) Family Medical History: Cancer Additional Family Medical History / Comment(s): PROSTATE CANCER Medications and Allergies Home Medications Medication Instructions Recorded Confirmed Type Furosemide [Lasix] 80 mg PO DAILY 02/27/17 09/18/19 History Loratadine [Claritin] 10 mg PO HS 02/27/17 09/18/19 History Diltiazem HCl [Diltiazem 24Hr ER 120 mg PO HS 09/25/18 09/18/19 History (CD)] DULoxetine HCL [Cymbalta] 20 mg PO HS 05/13/19 09/18/19 History HYDROcodone/APAP 10-325MG [[place] 2 tab PO TID PRN 05/13/19 09/18/19 History 10-325] Metoprolol Succinate (ER) [Toprol 100 mg PO DAILY 05/13/19 09/18/19 History XL] Apixaban [Eliquis] 5 mg PO BID 06/20/19 09/18/19 History Gabapentin 800 mg PO TID 06/20/19 09/18/19 History fentaNYL 75MCG/HR PATCH [Duragesic 1 patch TRANSDERM Q72H 06/20/19 09/18/19 History 75MCG/HR] Loperamide [Imodium] 2 mg PO QID PRN #0 cap 09/04/19 09/18/19 Rx Methyl Salicylate/Menth/Camph 1 patch TOPICAL DAILY PRN 09/18/19 09/18/19 History [Salonpas 3.1%-6.0%-10.0% Patch] Allergies Allergy/AdvReac Type Severity Reaction Status Date / Time cephalexin [From Keflex] Allergy Unknown Itching Verified 09/19/19 13:30 levofloxacin [From Levaquin] Allergy Unknown Blisters Verified 09/18/19 20:56 Penicillins Allergy Unknown Blisters Verified 09/18/19 20:56 Tetracyclines Allergy Unknown Blisters Verified 09/18/19 20:56 adhesive Allergy BLISTERS Verified 09/18/19 20:56 Physical Exam Vitals: Vital Signs Temp Pulse Resp BP BP Pulse Ox 09/19/19 11:09 98.1 F 76 14 92/64 09/19/19 11:00 78 13 90/51 97 09/19/19 10:00 85 19 87/50 97 09/19/19 09:00 91 13 103/50 97 09/19/19 08:43 98.0 F 85 16 90/51 09/19/19 08:33 97.7 F 76 14 104/76 09/19/19 08:17 97.7 F 93 14 104/56 09/19/19 08:16 97.7 F 83 14 116/60 97 09/19/19 08:00 97.7 F 76 10 L 110/76 97 09/19/19 07:00 79 14 93/55 95 09/19/19 06:52 98.0 F 93 14 82/51 97 09/19/19 06:22 98.1 F 87 14 92/55 93 L 09/19/19 06:12 98.0 F 77 16 101/58 94 L 09/19/19 06:00 98.1 F 87 13 99/58 94 L 09/19/19 05:00 79 14 102/60 95 09/19/19 04:00 98.1 F 97 16 87/68 98 09/19/19 03:00 86 13 94/49 95 09/19/19 02:30 78 17 83/47 93 L 09/19/19 02:01 85 15 91/51 92 L 09/19/19 01:30 93 11 L 99/56 09/19/19 01:00 94 10 L 100/63 09/19/19 00:30 97 12 100/63 09/19/19 00:04 98.1 F 80 14 97/55 94 L 09/19/19 00:02 98.3 F 87 10 L 96/50 93 L 09/19/19 00:00 98.3 F 81 11 L 85/43 93 L 09/18/19 23:30 80 14 89/53 94 L 09/18/19 23:00 98.6 F 86 15 95/53 94 L 09/18/19 22:46 98.6 F 77 12 95/53 94 L 09/18/19 22:30 87 14 74/38 93 L 09/18/19 22:16 98.4 F 78 17 68/34 93 L 09/18/19 22:06 98.3 F 89 14 75/50 09/18/19 22:00 98.4 F 102 H 14 64/29 93 L 09/18/19 21:36 90 18 103/56 96 09/18/19 21:02 98 F 10 L 84/60 99 09/18/19 20:45 100 17 100/67 97 09/18/19 18:18 98.1 F 90 18 111/73 94 L Intake and Output 09/18/19 09/19/19 09/19/19 22:59 06:59 14:59 Intake Total 225 1485 1615 Balance 225 1485 1615 Intake: IV 100 800 500 Sodium Chloride 0.9% 1, 100 800 500 000 ml @ 100 mls/hr IV . Q10H [facility] Rx#:[id number] Blood Product 760 723 2480 Rc As-3 Unit 0 310 [id number] Rc Pheresis 2 As3 Unit 310 [id number] Rc Pheresis 2 As3 Unit 0 310 [id number] Other 50 Rc As-3 Unit 50 [id number] Other: Voiding Method Toilet # Voids 0 0 1 # Bowel Movements 1 Weight 153.3 kg 153.3 kg On physical examination, patient appears comfortable in no apparent distress. HEAD: Normocephalic, atraumatic. EYES: No scleral icterus. No conjunctival injection. MOUTH: No lesions, tongue midline. NECK: Trachea midline, no gross abnormalities. CHEST: No respiratory distress or wheezing appreciated. HEART: S1-S2, no murmur. ABDOMEN: Soft, obese. Bowel sounds are positive. No organomegaly. No guarding or rigidity. EXTREMITIES: No pedal edema. SKIN: No rashes, no jaundice. NEUROLOGIC: Alert and oriented x3. No focal deficits. Results CBC & Chem 7: 09/19/19 13:33 09/19/19 03:07 Labs: Abnormal Lab Results - Last 24 Hours (Table) 09/18/19 09/18/19 09/18/19 Range/Units 19:05 19:05 19:05 RBC 2.08 L (4.30-5.90) m/uL Hgb 6.2 L* (13.0-17.5) gm/dL Hct 19.3 L* (39.0-53.0) % RDW 20.2 H (11.5-15.5) % Plt Count 79 L (150-450) k/uL Lymphocytes # 0.3 L (1.0-4.8) k/uL PT 12.3 H (9.0-12.0) sec INR 1.2 H (<1.2) APTT 31.0 H (22.0-30.0) sec Sodium 134 L (137-145) mmol/L Carbon Dioxide 21 L (22-30) mmol/L BUN 40 H (9-20) mg/dL Creatinine 1.64 H (0.66-1.25) mg/dL Glucose 114 H (74-99) mg/dL POC Glucose (mg/dL) (75-99) mg/dL Plasma Lactic Acid Go (0.7-2.0) mmol/L Calcium 7.3 L (8.4-10.2) mg/dL AST 173 H (17-59) U/L Total Protein 6.2 L (6.3-8.2) g/dL Albumin 2.9 L (3.5-5.0) g/dL Crossmatch 09/18/19 09/18/19 09/18/19 Range/Units 19:05 19:05 21:33 RBC (4.30-5.90) m/uL Hgb (13.0-17.5) gm/dL Hct (39.0-53.0) % RDW (11.5-15.5) % Plt Count (150-450) k/uL Lymphocytes # (1.0-4.8) k/uL PT (9.0-12.0) sec INR (<1.2) APTT (22.0-30.0) sec Sodium (137-145) mmol/L Carbon Dioxide (22-30) mmol/L BUN (9-20) mg/dL Creatinine (0.66-1.25) mg/dL Glucose (74-99) mg/dL POC Glucose (mg/dL) 117 H (75-99) mg/dL Plasma Lactic Acid Go 4.4 H* (0.7-2.0) mmol/L Calcium (8.4-10.2) mg/dL AST (17-59) U/L Total Protein (6.3-8.2) g/dL Albumin (3.5-5.0) g/dL Crossmatch See Detail 09/19/19 09/19/19 Range/Units 03:07 03:07 RBC 1.65 L (4.30-5.90) m/uL Hgb 5.0 L* (13.0-17.5) gm/dL Hct 15.6 L* (39.0-53.0) % RDW 19.8 H (11.5-15.5) % Plt Count 64 L (150-450) k/uL Lymphocytes # 0.2 L (1.0-4.8) k/uL PT (9.0-12.0) sec INR (<1.2) APTT (22.0-30.0) sec Sodium 133 L (137-145) mmol/L Carbon Dioxide (22-30) mmol/L BUN 38 H (9-20) mg/dL Creatinine 1.45 H (0.66-1.25) mg/dL Glucose 127 H (74-99) mg/dL POC Glucose (mg/dL) (75-99) mg/dL Plasma Lactic Acid Go (0.7-2.0) mmol/L Calcium 6.6 L (8.4-10.2) mg/dL AST (17-59) U/L Total Protein (6.3-8.2) g/dL Albumin (3.5-5.0) g/dL Crossmatch Chest x-ray: report reviewed (Diffuse osseous metastatic disease we demonstrated on chest x-ray.) Assessment and Plan (1) Acute blood loss anemia Narrative/Plan: 53-year-old male presenting to the hospital with weakness and dizziness and found to have anemia. Patient recently hospitalized for similar complaints afte r mechanical fall and fracture of his foot requiring suturing. At that time patient also complained of epistaxis which was continued. Stool testing was positive for blood. The patient is currently being treated for metastatic prostate cancer. Anemia likely multifactorial given epistaxis, anemia of chronic disease in the setting of malignancy with bony metastases, chemotherapy, however cannot rule out a component of GI bleed. Current Visit: Yes Status: Acute Code(s): D62 - ACUTE POSTHEMORRHAGIC ANEMIA SNOMED Code(s): 747370532 Plan: Supportive care Okay for diet Continue Protonix therapy Continue to monitor hemoglobin and hematocrit and change his as needed Continue to monitor stool output Continue to hold anticoagulation therapy Continue ICU care We'll plan on EGD in the morning to rule out a component of upper GI bleed contributing to his anemia Thank you for allowing us to participate in the care of the patient we will continue to follow
[2019-09-19] MEDS: HYDROmorphone 0.5 MG/0.5 ML SYRINGE IVP PRN (21:29)
[2019-09-19] MEDS: LORATADINE 10 MG TAB PO SCH (21:31)
[2019-09-19] MEDS: PANTOPRAZOLE 40 MG/10 ML VIAL IV SCH (21:31)
[2019-09-19] MEDS: DULoxetine HCL 20 MG CAPSULE.DR PO SCH (21:33)
--- NOTE | 2019-09-19 22:38 | PN ---
PROGRESS NOTE DATE OF SERVICE: 09/19/2019 This 53-year-old gentleman admitted with anemia and multiple other medical problems is being closely monitored. The patient has continued anemia with a hemoglobin of 6.3 and 3 units transfusion has been given. Patient also has continued epistaxis, ENT evaluation in progress at this time. Patient being closely monitored in ICU. PAST MEDICAL HISTORY: Reviewed. REVIEW OF SYSTEMS: ENT: As mentioned earlier. CARDIOVASCULAR SYSTEM: No angina. RESPIRATORY: As mentioned earlier. GI: As mentioned earlier. : No dysuria or retention. CURRENT MEDICATIONS: 1. [place] 10 mg. 2. Cefazolin 1 g IV q.8h. 3. Cymbalta. 4. Duragesic patch 75 mcg q.72h. 5. Dilaudid. 6. Imodium. 7. Claritin. 8. Multivitamins. 9. Narcan. 10.Protonix. The doses are reviewed. PHYSICAL EXAM: Patient is alert, oriented x3. Pulse is 106, blood pressure 110/70, respirations 16, temperature 98.2, pulse ox 98% on room air. HEENT: Conjunctivae pale. Oral mucosa pale. NECK: No jugular venous distention. No lymph node enlargement. CARDIOVASCULAR: S1, S2. RESPIRATORY: Diminished breath sounds at the bases. A few scattered rhonchi and crackles. ABDOMEN: Soft, obese, nontender. LEGS: No swelling. NERVOUS SYSTEM: No focal deficits. LABS: WBC 6.2, hemoglobin 6.3. Otherwise, sodium 133. ASSESSMENT: 1. Anemia, acute blood loss anemia, possibly epistaxis or from gastrointestinal bleed. 2. Baseline chronic anemia, multifactorial. 3. History of recent blood-loss anemia apparently from bleeding from the leg. 4. Renal failure with prerenal acute tubular necrosis with dehydration, present on admission. 5. Hypotension secondary to acute blood loss anemia, responding to IV fluids and blood transfusion. 6. Hyponatremia. 7. Hypoalbuminemia with mild to moderate protein calorie malnutrition. 8. Elevated plasma lactic acid secondary to dehydration, present on admission. 9. Thrombocytopenia. 10.Prostate cancer with metastasis. 11.History of recent right foot 3rd and 4th digit fracture. 12.Atrial fibrillation. 13.Congestive heart failure with chronic diastolic dysfunction. 14.Peripheral neuropathy. 15.History of gastroesophageal reflux disease. 16.History of gout. 17.History of peripheral edema. 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 19.History of constipation. 20.History of Clostridium difficile colitis. 21.History of bariatric surgery. 22.Continued ongoing nicotine dependence. 23.Obesity with body mass index of 49.9. 24.FULL CODE. RECOMMENDATIONS AND DISCUSSION: I recommend to continue current management and symptomatic treatment. Monitor H and H q.6h and transfuse periodically. Follow closely with multiple consultants. Discussed with Gastroenterology, planning EGD tomorrow. Otherwise, hematology/oncology input appreciated. Repeat labs. Closely follow with Dr. Rodriguez. Prognosis extremely guarded because of multiple complex medical issues and further recommendations to follow. MMODL / IJN: [id number] /
[2019-09-19 23:06] LABS: Anisocytosis Slight; HCT 20.9 % (39.0-53.0); Hypochromasia Slight; MCH 30.2 pg (25.0-35.0); MCHC 33.1 g/dL (31.0-37.0); MCV 91.1 fL (80.0-100.0); Mean Platelet Volume 9.2; Poikilocytosis Moderate; RBC 2.29 m/uL (4.30-5.90); RDW 19.2 % (11.5-15.5); WBC 7.9 k/uL (3.8-10.6)
[2019-09-19 23:34] LABS: HGB 6.9 gm/dL (13.0-17.5)
[2019-09-19 23:35] LABS: Platelet Count 68 k/uL (150-450)
--- NOTE | 2019-09-20 00:51 | ED ---
ENT HPI - General Chief complaint: Recheck/Abnormal Lab/Rx Stated complaint: Nosebleed Source: patient Mode of arrival: ambulatory Limitations: no limitations - History of Present Illness Initial comments: I was called to the ICU at 0515am to evaluate the patient having a nose bleed. On evaluation patient is pale, anemic appearing with superficial nasal packing hanging out of right nares. She reports intermittent nosebleeds for a number of days. This one is been the most persistent. Nursing staff attempted clamping with no improvement. Upon review of the labs patient is pancytopenic with platelet count of only 64 he's received packed red blood cells for his anemia which they presumed was due to upper GI bleeding. - Related Data Home Medications Medication Instructions Recorded Confirmed Furosemide [Lasix] 80 mg PO DAILY 02/27/17 09/18/19 Loratadine [Claritin] 10 mg PO HS 02/27/17 09/18/19 Diltiazem HCl [Diltiazem 24Hr ER 120 mg PO HS 09/25/18 09/18/19 (CD)] DULoxetine HCL [Cymbalta] 20 mg PO HS 05/13/19 09/18/19 HYDROcodone/APAP 10-325MG [[place] 2 tab PO TID PRN 05/13/19 09/18/19 10-325] Metoprolol Succinate (ER) [Toprol 100 mg PO DAILY 05/13/19 09/18/19 XL] Apixaban [Eliquis] 5 mg PO BID 06/20/19 09/18/19 Gabapentin 800 mg PO TID 06/20/19 09/18/19 fentaNYL 75MCG/HR PATCH [Duragesic 1 patch TRANSDERM Q72H 06/20/19 09/18/19 75MCG/HR] Methyl Salicylate/Menth/Camph 1 patch TOPICAL DAILY PRN 09/18/19 09/18/19 [Salonpas 3.1%-6.0%-10.0% Patch] Previous Rx's Medication Instructions Recorded Loperamide [Imodium] 2 mg PO QID PRN #0 cap 09/04/19 Allergies Allergy/AdvReac Type Severity Reaction Status Date / Time cephalexin [From Keflex] Allergy Unknown Itching Verified 09/19/19 13:30 levofloxacin [From Levaquin] Allergy Unknown Blisters Verified 09/18/19 20:56 Penicillins Allergy Unknown Blisters Verified 09/18/19 20:56 Tetracyclines Allergy Unknown Blisters Verified 09/18/19 20:56 adhesive Allergy BLISTERS Verified 09/18/19 20:56 Review of Systems ROS Statement: Those systems with pertinent positive or pertinent negative responses have been documented in the HPI. ROS Other: All systems not noted in ROS Statement are negative. Past Medical History Past Medical History: Atrial Fibrillation, Cancer, Heart Failure, GERD/Reflux, Hypertension Additional Past Medical History / Comment(s): GOUT. PERIPHERAL EDEMA. HX OF RENAL FAILURE (3 YRS AGO), RASHARD JOHNSONS SYNDROME. PROSTATE CANCER WITH METS TO BONE (DX 2014) IN REMISSION AT THIS TIME. POWER PORT IN LEFT UPPER CHEST INFECTED AND REMOVED 2017. RECEVIES HORMONE TX Q 3 MONTHS AT [facility]. CHRONIC CONSTIPATION. DYSPHAGIA. History of Any Multi-Drug Resistant Organisms: C-DIFF Date of last positivie culture/infection: 2011 MDRO Source:: stool Past Surgical History: Appendectomy, Bariatric Surgery Additional Past Surgical History / Comment(s): FLUID ABSCESS AFTER APPENDECTOMY (CHILD), PROSTATE BIOPSY'S. LAP BAND 2010. POWER PORt removed, gallbladder removed Past Anesthesia/Blood Transfusion Reactions: No Reported Reaction Past Psychological History: No Psychological Hx Reported Smoking Status: Current some day smoker Past Alcohol Use History: Rare Past Drug Use History: None Reported - Past Family History Father Family Medical History: Cancer Additional Family Medical History / Comment(s): PROSTATE CANCER Brother(s) Family Medical History: Cancer Additional Family Medical History / Comment(s): PROSTATE CANCER General Exam Limitations: no limitations General appearance: alert, in no apparent distress Head exam: Present: atraumatic, normocephalic Eye exam: Present: other (Conjunctival pallor) ENT exam: Present: other (Bleeding from right anterior naris) Respiratory exam: Absent: respiratory distress Cardiovascular Exam: Present: regular rate GI/Abdominal exam: Absent: distended Rectal exam: Present: deferred Extremities exam: Present: pedal edema Neurological exam: Present: alert, oriented X3 Psychiatric exam: Present: normal affect, normal mood Skin exam: Present: pallor Course Vital Signs 09/18/19 09/18/19 09/18/19 18:18 20:45 21:02 Temperature 98.1 F 98 F Pulse Rate 90 100 Respiratory 18 17 10 L Rate Blood Pressure 111/73 100/67 Blood Pressure 84/60 [Right Arm] O2 Sat by Pulse 94 L 97 99 Oximetry 09/18/19 21:36 Temperature Pulse Rate 90 Respiratory 18 Rate Blood Pressure 103/56 Blood Pressure [Right Arm] O2 Sat by Pulse 96 Oximetry Medical Decision Making - Medical Decision Making Is called for to evaluate the patient for a persistent nosebleed that had not improved with nasal clamping and attempted nasal packing by nursing staff. Upon arrival patient's nasal packing was very superficial. This packing was removed. Clot swerved blown from the patient's nose. Gauze soaked in lidocaine with epinephrine was packed into the nose momentarily and then the patient's nose was packed with anterior packing. There is no noted bleeding around the packing after observation for 10 minutes. Patient care was discussed with the admitting team Dr Russo. I recommended ENT be consulted , consideration of transfusion of platelets for thrombocytopenia, additional packed red blood cells for anemia, prophylactic antibiotics with Keflex by mouth for nasal packing. - Lab Data Result diagrams: 09/19/19 22:53 09/19/19 03:07 Lab Results 09/18/19 09/18/19 09/18/19 Range/Units 19:05 19:05 19:05 WBC 8.1 (3.8-10.6) k/uL RBC 2.08 L (4.30-5.90) m/uL Hgb 6.2 L* (13.0-17.5) gm/dL Hct 19.3 L* (39.0-53.0) % MCV 92.8 (80.0-100.0) fL MCH 30.1 (25.0-35.0) pg MCHC 32.4 (31.0-37.0) g/dL RDW 20.2 H (11.5-15.5) % Plt Count 79 L (150-450) k/uL Neutrophils % 90 % Lymphocytes % 4 % Monocytes % 4 % Eosinophils % 1 % Basophils % 0 % Neutrophils # 7.2 (1.3-7.7) k/uL Lymphocytes # 0.3 L (1.0-4.8) k/uL Monocytes # 0.3 (0-1.0) k/uL Eosinophils # 0.1 (0-0.7) k/uL Basophils # 0.0 (0-0.2) k/uL Manual Slide Review Performed Hypochromasia Slight Poikilocytosis Moderate Anisocytosis Moderate Macrocytosis Slight PT 12.3 H (9.0-12.0) sec INR 1.2 H (<1.2) APTT 31.0 H (22.0-30.0) sec Sodium 134 L (137-145) mmol/L Potassium 4.1 (3.5-5.1) mmol/L Chloride 101 (98-107) mmol/L Carbon Dioxide 21 L (22-30) mmol/L Anion Gap 12 mmol/L BUN 40 H (9-20) mg/dL Creatinine 1.64 H (0.66-1.25) mg/dL Est GFR (CKD-EPI)AfAm 54 (>60 ml/min/1.73 sqM) Est GFR (CKD-EPI)NonAf 47 (>60 ml/min/1.73 sqM) Glucose 114 H (74-99) mg/dL Lactic Ac Sepsis Rflx Plasma Lactic Acid Go (0.7-2.0) mmol/L Calcium 7.3 L (8.4-10.2) mg/dL Magnesium 2.0 (1.6-2.3) mg/dL Total Bilirubin 0.6 (0.2-1.3) mg/dL AST 173 H (17-59) U/L ALT 14 (4-49) U/L Alkaline Phosphatase 119 (38-126) U/L Troponin I (0.000-0.034) ng/mL Total Protein 6.2 L (6.3-8.2) g/dL Albumin 2.9 L (3.5-5.0) g/dL Stool Occult Blood (Negative) Blood Type Blood Type Recheck Bld Type Recheck Status Antibody Screen Crossmatch Spec Expiration Date 09/18/19 09/18/19 09/18/19 Range/Units 19:05 19:05 19:05 WBC (3.8-10.6) k/uL RBC (4.30-5.90) m/uL Hgb (13.0-17.5) gm/dL Hct (39.0-53.0) % MCV (80.0-100.0) fL MCH (25.0-35.0) pg MCHC (31.0-37.0) g/dL RDW (11.5-15.5) % Plt Count (150-450) k/uL Neutrophils % % Lymphocytes % % Monocytes % % Eosinophils % % Basophils % % Neutrophils # (1.3-7.7) k/uL Lymphocytes # (1.0-4.8) k/uL Monocytes # (0-1.0) k/uL Eosinophils # (0-0.7) k/uL Basophils # (0-0.2) k/uL Manual Slide Review Hypochromasia Poikilocytosis Anisocytosis Macrocytosis PT (9.0-12.0) sec INR (<1.2) APTT (22.0-30.0) sec Sodium (137-145) mmol/L Potassium (3.5-5.1) mmol/L Chloride (98-107) mmol/L Carbon Dioxide (22-30) mmol/L Anion Gap mmol/L BUN (9-20) mg/dL Creatinine (0.66-1.25) mg/dL Est GFR (CKD-EPI)AfAm (>60 ml/min/1.73 sqM) Est GFR (CKD-EPI)NonAf (>60 ml/min/1.73 sqM) Glucose (74-99) mg/dL Lactic Ac Sepsis Rflx Plasma Lactic Acid Go 4.4 H* (0.7-2.0) mmol/L Calcium (8.4-10.2) mg/dL Magnesium (1.6-2.3) mg/dL Total Bilirubin (0.2-1.3) mg/dL AST (17-59) U/L ALT (4-49) U/L Alkaline Phosphatase (38-126) U/L Troponin I 0.019 (0.000-0.034) ng/mL Total Protein (6.3-8.2) g/dL Albumin (3.5-5.0) g/dL Stool Occult Blood Positive (Negative) Blood Type Blood Type Recheck Bld Type Recheck Status Antibody Screen Crossmatch Spec Expiration Date 09/18/19 09/18/19 Range/Units 19:05 19:33 WBC (3.8-10.6) k/uL RBC (4.30-5.90) m/uL Hgb (13.0-17.5) gm/dL Hct (39.0-53.0) % MCV (80.0-100.0) fL MCH (25.0-35.0) pg MCHC (31.0-37.0) g/dL RDW (11.5-15.5) % Plt Count (150-450) k/uL Neutrophils % % Lymphocytes % % Monocytes % % Eosinophils % % Basophils % % Neutrophils # (1.3-7.7) k/uL Lymphocytes # (1.0-4.8) k/uL Monocytes # (0-1.0) k/uL Eosinophils # (0-0.7) k/uL Basophils # (0-0.2) k/uL Manual Slide Review Hypochromasia Poikilocytosis Anisocytosis Macrocytosis PT (9.0-12.0) sec INR (<1.2) APTT (22.0-30.0) sec Sodium (137-145) mmol/L Potassium (3.5-5.1) mmol/L Chloride (98-107) mmol/L Carbon Dioxide (22-30) mmol/L Anion Gap mmol/L BUN (9-20) mg/dL Creatinine (0.66-1.25) mg/dL Est GFR (CKD-EPI)AfAm (>60 ml/min/1.73 sqM) Est GFR (CKD-EPI)NonAf (>60 ml/min/1.73 sqM) Glucose (74-99) mg/dL Lactic Ac Sepsis Rflx Y Plasma Lactic Acid Go (0.7-2.0) mmol/L Calcium (8.4-10.2) mg/dL Magnesium (1.6-2.3) mg/dL Total Bilirubin (0.2-1.3) mg/dL AST (17-59) U/L ALT (4-49) U/L Alkaline Phosphatase (38-126) U/L Troponin I (0.000-0.034) ng/mL Total Protein (6.3-8.2) g/dL Albumin (3.5-5.0) g/dL Stool Occult Blood (Negative) Blood Type O Positive Blood Type Recheck O Pos Bld Type Recheck Status No Antibody Screen NEGATIVE Crossmatch See Detail Spec Expiration Date 09/21/2019 - 2304 Disposition Clinical Impression: GI bleed, Anemia, Acute blood loss anemia, Atrial fibrillation, Prostate cancer Disposition: ADMITTED IP TO THIS HOSP Condition: Serious Is patient prescribed a controlled substance at d/c from ED?: No
[2019-09-20] MEDS: HYDROmorphone 0.5 MG/0.5 ML SYRINGE IVP PRN ×2 (02:15→05:51)
[2019-09-20] MEDS ORDERED: DILTIAZEM DRIP BOLUS FROM BAG 1 MG SOLN IV ONE (06:23)
[2019-09-20] MEDS ORDERED: DILTIAZEM 125 MG in SODIUM CHLORIDE 0.9% 100 ML IV SCH (06:30)
[2019-09-20 06:36] LABS: Anisocytosis Slight; HCT 21.9 % (39.0-53.0); HGB 7.2 gm/dL (13.0-17.5); Hypochromasia Slight; MCHC 32.8 g/dL (31.0-37.0); MCV 91.6 fL (80.0-100.0); Macrocytosis Slight; Mean Platelet Volume 9.2; Poikilocytosis Moderate; RBC 2.39 m/uL (4.30-5.90); RDW 19.3 % (11.5-15.5); WBC 7.8 k/uL (3.8-10.6)
[2019-09-20 06:44] LABS: Platelet Count 81 k/uL (150-450)
[2019-09-20 07:33] LABS: Calcium 7.1 mg/dL (8.4-10.2); Potassium 4.1 mmol/L (3.5-5.1)
[2019-09-20] MEDS: PANTOPRAZOLE 40 MG/10 ML VIAL IV SCH ×2 (08:10→20:04)
[2019-09-20] MEDS: SODIUM CHLORIDE 0.9% 1,000 ML IV SCH ×2 (08:11→12:07)
[2019-09-20] MEDS: METOPROLOL TARTRATE 50 MG TAB PO SCH ×3 (09:23→20:04)
[2019-09-20 10:38] LABS: Band Neutrophils % 3 %; Eosinophils # (M) 0.16 k/uL (0-0.7); Lymphocytes # (M) 0.39 k/uL (1.0-4.8); Monocytes # (M) 0.62 k/uL (0-1.0); Myelocytes # (M) 0.16 k/uL (0); Myelocytes % 2 %; Neutrophils % (M) 82 %; Nucleated Red Blood Cells 0 /100 WBC (0-0); Total Cells Counted 200
[2019-09-20] MEDS: GABAPENTIN 400 MG CAP PO SCH ×3 (10:53→20:04)
--- NOTE | 2019-09-20 11:28 | P.PN ---
Subjective Progress Note Date: 09/20/19 Principal diagnosis: Acute GI bleeding and epistaxis. This is a 53-year-old white male with history of chronic atrial fibrillation, metastatic prostate cancer, hypertension, gout, chronic venous insufficiency and chronic lower extremity swelling and cellulitis, history of hypertension, gout, history of bariatric surgery, patient was recently in the hospital for anemia and hemoglobin was 5. Patient was transfused, and at that time he was noted to have bleeding and fracture of the third and fourth toe on the right foot. Patient was sutured, and he was eventually discharged home. Presented to the ER yesterday complaining of epistaxis, mostly from the right nostril. He was also complaining of weakness, black stools, and his hemoglobin was noted to be 6.2. Patient received a total of 3 units of packed RBCs so far, considering the profound anemia and considering that the patient may have a combination of epistaxis and upper GI bleeding, patient was admitted to the ICU, and I was asked to see him on consultation. Patient denies any headache, no blurred vision, no dizziness, his right nostril bleeding was controlled by nasal packing done by the ER physician. He was placed on Protonix, GI consultation was initiated, and it is pending. Apparently the patient has been taking Eliquis for atrial fibrillation, and it is presently on hold. In the ER his blood pres sure was borderline low, patient received 2 units of packed RBCs in the ER, and 2 L of IV fluids. Upon my evaluation in the ICU, the patient was feeling much better, blood pressure was better controlled, and he was on his third units of packed RBCs. Patient has no previous history of upper GI bleeding, no history of peptic ulcer disease, no history of liver disease, and he is not taking any nonsteroidal anti-inflammatory drugs. Reevaluated today on 09/20/2019, patient remains in the ICU, scheduled to undergo EGD this morning. Patient continues to have some black tarry stools, no hematemesis, no further epistaxis. He received a total of 3 units of packed RBCs since admission and his hemoglobin this morning is 7.2. Earlier today, the patient developed an episode of atrial fibrillation with RVR, with normal blood pressure, hence I recommended Cardizem 20 mg IV push and a Cardizem drip at 5 mg per hour, also recommended cardiac consultation. Patient may have to have clearance for EGD by cardiology. The patient is pleasant and in no distress, he is feeling much better compared to how he felt on admission. His basic metabolic profile is basically normal. And his renal profile seems to be significantly improved with BUN down to 30 creatinine is down to 1.10 from 1.45 yesterday. He was seen by oncology/hematology yesterday, and he was felt to have underlying chronic anemia with acute anemia/blood loss, and felt to be multifactorial related to his prostate cancer, bone metastasis, and likely bone marrow infiltration. Objective - Vital Signs Vital signs: Vital Signs Temp 97.8 F 09/20/19 08:00 Pulse 105 H 09/20/19 10:00 Resp 11 L 09/20/19 10:00 BP 112/77 09/20/19 10:00 Pulse Ox 95 09/20/19 10:00 Intake & Output 09/19/19 09/20/19 09/20/19 18:59 06:59 18:59 Intake Total 2024 280 175.417 Balance 2024 280 175.417 Weight 158.2 kg Intake: IV 910 280 160 Sodium Chloride 0.9% 1, 860 230 110 000 ml @ 100 mls/hr IV . Q10H VERÓNICA Rx#:[id number] ceFAZolin 1,000 mg In 50 50 50 Sodium Chloride 0.9% 50 ml @ 100 mls/hr IVPB Q8HR VERÓNICA Rx#:[id number] Intake, IV Titration 15.417 Amount Diltiazem 125 mg In 15.417 Sodium Chloride 0.9% 100 ml @ Per Protocol IV .Q0M VERÓNICA Rx#:[id number] Blood Product 1115 Rc Pheresis 2 As3 Unit 310 [id number] Rc Pheresis 2 As3 Unit 310 [id number] Other: Voiding Method Toilet Urinal # Voids 1 0 1 # Bowel Movements 1 1 - Exam Physical Exam: Revealed a 53-year-old white male, obese, pale looking, in no distress. On room air. Head: Atraumatic, normocephalic. HEENT:[Neck is supple.] [No neck masses.] [No thyromegaly.] [No JVD.] PERRLA, EOMI, no icterus, continues to have right nasal packing in place. To be evaluated by ENT today Chest: Symmetrical chest expansion, diminished breath sounds at the bases no rhonchi and no wheezes. Cardiac Exam: [Irregular irregular rhythm. Normal S1 and S2, no S3 gallop, no murmur.] Abdomen: [Obese, Soft, nontender, no megaly, no rebound, no guarding, normal bowel sounds.] Extremities: [No clubbing, chronic venous stasis changes noted in both lower extremities. 2+ bipedal edema noted. Dressing noted on the fourth and fifth toe of the right foot and a dressing noted on the left foot third toe. Neurological Exam: Alert and oriented 3. [No focal neurologic deficit.] Lymphatics: No lymphadenopathy. Skin: Venous stasis changes noted in lower extremities, and both feet are covered with a sterile dressing because of recent bleeding from both feet. Psychiatric: Normal mood, affect and normal mental status examination. - Labs CBC & Chem 7: 09/20/19 05:40 09/20/19 05:40 Labs: Abnormal Lab Results - Last 24 Hours (Table) 09/19/19 09/19/19 09/19/19 Range/Units 13:33 13:33 13:33 RBC 2.10 L (4.30-5.90) m/uL Hgb 6.3 L* (13.0-17.5) gm/dL Hct 19.1 L* (39.0-53.0) % RDW 19.1 H (11.5-15.5) % Plt Count 68 L (150-450) k/uL Lymphocytes # 0.2 L (1.0-4.8) k/uL Lymphocytes # (Manual) (1.0-4.8) k/uL Myelocytes # (Manual) (0) k/uL Retic Count 4.2 H (0.5-2.0) % Sodium (137-145) mmol/L Carbon Dioxide (22-30) mmol/L BUN (9-20) mg/dL Glucose (74-99) mg/dL Calcium (8.4-10.2) mg/dL Delta Bilirubin 0.7 H (0.0-0.2) mg/dL Lactate Dehydrogenase 5386 H (313-618) U/L 09/19/19 09/20/19 09/20/19 Range/Units 22:53 05:40 05:40 RBC 2.29 L 2.39 L (4.30-5.90) m/uL Hgb 6.9 L* 7.2 L (13.0-17.5) gm/dL Hct 20.9 L 21.9 L (39.0-53.0) % RDW 19.2 H 19.3 H (11.5-15.5) % Plt Count 68 L 81 L (150-450) k/uL Lymphocytes # (1.0-4.8) k/uL Lymphocytes # (Manual) 0.39 L (1.0-4.8) k/uL Myelocytes # (Manual) 0.16 H (0) k/uL Retic Count (0.5-2.0) % Sodium 134 L (137-145) mmol/L Carbon Dioxide 20 L (22-30) mmol/L BUN 30 H (9-20) mg/dL Glucose 128 H (74-99) mg/dL Calcium 7.1 L (8.4-10.2) mg/dL Delta Bilirubin (0.0-0.2) mg/dL Lactate Dehydrogenase (313-618) U/L Assessment and Plan Assessment: Impression: 1 acute blood loss anemia secondary to GI bleeding and epistaxis. Most likely source of the GI bleeding is upper unless proven otherwise. This is most likely secondary to Eliquis and possible erosive gastritis or peptic ulcer disease. 2 acute epistaxis secondary to Eliquis. 3 acute hypotension secondary to acute blood loss, hypovolemia, responded to IV fluids and blood transfusion 4 chemotherapy induced peripheral neuropathy and recurrent trauma to both feet related to neuropathy. 5 history of metastatic prostate cancer. 6 acute kidney injury most likely secondary to hypotension and acute tubular necrosis. Improving with hydration and blood transfusion. 7 chronic atrial fibrillation, patient is normally maintained on Eliquis, presently on hold. Patient developed an episode of A. fib with RVR last night, Rezulin. Cardizem drip. 8 atrial fibrillation with RVR requiring Cardizem bolus and Cardizem drip 9 history of gout 10 history of GERD without esophagitis. 11 history of bariatric surgery 12 nicotine dependence syndrome 13 morbid obesity, body mass index of 49.9 14 history of C. 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 Recommendation: Continue to monitor in the ICU. Transfuse as needed and keep hemoglobin above 7. Patient received a total of 3 units of packed RBCs since admission. Awaiting EGD to be done today. Protonix 40 mg IV push twice a day ENT consultation. 2 likely remove nasal packing today Continue to closely monitor hemoglobin and hematocrit and blood indices. Continue to hold Eliquis. Continue Cardizem, consult cardiology for atrial fibrillation/RVR Close monitoring of blood pressure. Continue to hydrate but cautiously. We'll continue to follow in the ICU. Further recommendations will be made based on EGD findings today. Time with Patient: Less than 30
[2019-09-20] MEDS: HYDROcodone/APAP 10-325MG 1 EACH TAB PO PRN (12:06)
[2019-09-20 13:08] LABS: Anisocytosis Slight; Basophils % (A) 0 %; Eosinophils # (A) 0.1 k/uL (0-0.7); Eosinophils % (A) 1 %; Hypochromasia Slight; Lymphocytes # (A) 0.2 k/uL (1.0-4.8); Lymphocytes % (A) 3 %; Mean Platelet Volume 8.7; Monocytes # (A) 0.2 k/uL (0-1.0); Monocytes % (A) 3 %; Neutrophils # (A) 6.5 k/uL (1.3-7.7); Neutrophils % (A) 92 %; Poikilocytosis Moderate; RBC 2.07 m/uL (4.30-5.90); RDW 19.1 % (11.5-15.5)
[2019-09-20 13:19] LABS: HCT 18.8 % (39.0-53.0)
[2019-09-20 13:20] LABS: HGB 6.2 gm/dL (13.0-17.5); Platelet Count 77 k/uL (150-450)
[2019-09-20] MEDS ORDERED: FUROSEMIDE 10 MG/ML 2 ML VIAL IV ONE (14:00)
--- NOTE | 2019-09-20 16:56 | P.PN ---
Subjective Progress Note Date: 09/20/19 Principal diagnosis: Anemia Patient seen lying in bed. No abdominal pain reported. No nausea or vomiting reported. Objective - Vital Signs Vital signs: Vital Signs Temp 98.1 F 09/20/19 12:00 Pulse 84 09/20/19 12:00 Resp 18 09/20/19 12:00 BP 100/69 09/20/19 12:00 Pulse Ox 94 L 09/20/19 12:00 Intake & Output 09/19/19 09/20/19 09/20/19 18:59 06:59 18:59 Intake Total 2024 280 195.417 Balance 2024 280 195.417 Weight 158.2 kg Intake: IV 910 280 180 Sodium Chloride 0.9% 1, 860 230 130 000 ml @ 100 mls/hr IV . Q10H VERÓNICA Rx#:[id number] ceFAZolin 1,000 mg In 50 50 50 Sodium Chloride 0.9% 50 ml @ 100 mls/hr IVPB Q8HR VERÓNICA Rx#:[id number] Intake, IV Titration 15.417 Amount Diltiazem 125 mg In 15.417 Sodium Chloride 0.9% 100 ml @ Per Protocol IV .Q0M VERÓNICA Rx#:[id number] Blood Product 1115 Rc Pheresis 2 As3 Unit 310 [id number] Rc Pheresis 2 As3 Unit 310 [id number] Other: Voiding Method Toilet Urinal # Voids 1 0 1 # Bowel Movements 1 1 - Exam On physical examination, patient appears comfortable in no apparent distress. HEAD: Normocephalic, atraumatic. EYES: No scleral icterus. No conjunctival injection. MOUTH: No lesions, tongue midline. NECK: Trachea midline, no gross abnormalities. ABDOMEN: Soft, obese. Bowel sounds are positive. No organomegaly. No guarding or rigidity. EXTREMITIES: Bilateral pedal edema. SKIN: No rashes, no jaundice. NEUROLOGIC: Alert and oriented x3. No focal deficits. - Labs CBC & Chem 7: 09/20/19 12:16 09/20/19 05:40 Labs: Abnormal Lab Results - Last 24 Hours (Table) 09/18/19 09/19/19 09/19/19 Range/Units 19:05 13:33 13:33 RBC 2.10 L (4.30-5.90) m/uL Hgb 6.3 L* (13.0-17.5) gm/dL Hct 19.1 L* (39.0-53.0) % RDW 19.1 H (11.5-15.5) % Plt Count 68 L (150-450) k/uL Lymphocytes # 0.2 L (1.0-4.8) k/uL Lymphocytes # (Manual) (1.0-4.8) k/uL Myelocytes # (Manual) (0) k/uL Retic Count 4.2 H (0.5-2.0) % Sodium (137-145) mmol/L Carbon Dioxide (22-30) mmol/L BUN (9-20) mg/dL Glucose (74-99) mg/dL Calcium (8.4-10.2) mg/dL Delta Bilirubin (0.0-0.2) mg/dL Lactate Dehydrogenase (313-618) U/L Crossmatch See Detail 09/19/19 09/19/19 09/20/19 Range/Units 13:33 22:53 05:40 RBC 2.29 L 2.39 L (4.30-5.90) m/uL Hgb 6.9 L* 7.2 L (13.0-17.5) gm/dL Hct 20.9 L 21.9 L (39.0-53.0) % RDW 19.2 H 19.3 H (11.5-15.5) % Plt Count 68 L 81 L (150-450) k/uL Lymphocytes # (1.0-4.8) k/uL Lymphocytes # (Manual) 0.39 L (1.0-4.8) k/uL Myelocytes # (Manual) 0.16 H (0) k/uL Retic Count (0.5-2.0) % Sodium (137-145) mmol/L Carbon Dioxide (22-30) mmol/L BUN (9-20) mg/dL Glucose (74-99) mg/dL Calcium (8.4-10.2) mg/dL Delta Bilirubin 0.7 H (0.0-0.2) mg/dL Lactate Dehydrogenase 5386 H (313-618) U/L Crossmatch 09/20/19 Range/Units 05:40 RBC (4.30-5.90) m/uL Hgb (13.0-17.5) gm/dL Hct (39.0-53.0) % RDW (11.5-15.5) % Plt Count (150-450) k/uL Lymphocytes # (1.0-4.8) k/uL Lymphocytes # (Manual) (1.0-4.8) k/uL Myelocytes # (Manual) (0) k/uL Retic Count (0.5-2.0) % Sodium 134 L (137-145) mmol/L Carbon Dioxide 20 L (22-30) mmol/L BUN 30 H (9-20) mg/dL Glucose 128 H (74-99) mg/dL Calcium 7.1 L (8.4-10.2) mg/dL Delta Bilirubin (0.0-0.2) mg/dL Lactate Dehydrogenase (313-618) U/L Crossmatch Assessment and Plan (1) Acute blood loss anemia Narrative/Plan: 53-year-old male presenting to the hospital with weakness and dizziness and found to have anemia. Patient recently hospitalized for similar complaints after mechanical fall and fracture of his foot requiring suturing. At that time patient also complained of epistaxis which was continued. Stool testing was positive for blood. The patient is currently being treated for metastatic prostate cancer. Anemia likely multifactorial given epistaxis, anemia of chronic disease in the setting of malignancy with bony metastases, chemotherapy, however cannot rule out a component of GI bleed. Current Visit: Yes Status: Acute Code(s): D62 - ACUTE POSTHEMORRHAGIC ANEMIA SNOMED Code(s): 567305773 Plan: Supportive care Okay for diet Continue Protonix therapy Continue to monitor hemoglobin and hematocrit and change his as needed Continue to monitor stool output Continue to hold anticoagulation therapy Continue ICU care Patient requires ENT consultation for definitive treatment of recurrent epistax is We'll plan on EGD in the morning to rule out a component of upper GI bleed contributing to his anemia Thank you for allowing us to participate in the care of the patient we will continue to follow
[2019-09-20 18:49] LABS: Anisocytosis Slight; Basophils % (A) 0 %; Eosinophils # (A) 0.1 k/uL (0-0.7); Eosinophils % (A) 1 %; HCT 21.8 % (39.0-53.0); HGB 7.2 gm/dL (13.0-17.5); Hypochromasia Slight; Lymphocytes # (A) 0.3 k/uL (1.0-4.8); Lymphocytes % (A) 3 %; MCH 29.6 pg (25.0-35.0); MCHC 33.1 g/dL (31.0-37.0); MCV 89.6 fL (80.0-100.0); Mean Platelet Volume 8.4; Monocytes # (A) 0.3 k/uL (0-1.0); Monocytes % (A) 4 %; Neutrophils # (A) 6.7 k/uL (1.3-7.7); Neutrophils % (A) 90 %; Poikilocytosis Moderate; RBC 2.43 m/uL (4.30-5.90); WBC 7.4 k/uL (3.8-10.6)
[2019-09-20 19:24] LABS: Platelet Count 69 k/uL (150-450)
[2019-09-20] MEDS: LORATADINE 10 MG TAB PO SCH (20:04)
[2019-09-20] MEDS: DULoxetine HCL 20 MG CAPSULE.DR PO SCH (20:04)
--- NOTE | 2019-09-20 20:53 | PN ---
PROGRESS NOTE DATE OF SERVICE: 09/20/2019. This 53 -year-old gentleman who was admitted with anemia and multiple other medical problems is being closely monitored. Patient received multiple transfusions. The patient had tachycardia yesterday with atrial fibrillation with fast ventricular rate responded to multiple dose of Cardizem. Currently the hemoglobin is 6.2. The patient has received up to 4 units transfusion today. Patient being closely monitored. PAST MEDICAL HISTORY: Reviewed. REVIEW OF SYSTEMS: Cardiovascular system: No angina or palpitations. RESPIRATORY: As mentioned earlier. GI: As mentioned earlier. : No dysuria. CENTRAL NERVOUS SYSTEM: No numbness or weakness. CURRENT MEDICATIONS: Reviewed and include: 1. [place] 10 mg t.i.d. p.r.n. 2. Cefazolin 1 g IV q.8h. 3. Cardizem drip. 4. Duragesic 75 mcg q.72h. 5. Neurontin. 6. Dilaudid. 7. Imodium. 8. Claritin. 9. Multivitamins. 10.Lopressor 50 mg p.o. t.i.d. 11.Protonix. PHYSICAL EXAM: Patient is alert and oriented times three. Pulse 98. Blood pressure 103/46. Respirations 12. Temperature 98.1, pulse ox 94% on room air. HEENT: Conjunctivae pale. Oral mucosa moist. NECK is no jugular venous distention. No carotid bruit. No lymph node enlargement. Cardiovascular system: S1, S2 muffled. Tachycardic. Ejection systolic murmur. Respirations: Breath sounds diminished in the bases. A few scattered rhonchi and crackles. ABDOMEN: Soft, nontender. No mass palpable. LEGS no edema. No swelling. CENTRAL NERVOUS SYSTEM: Diffusely weak. LABS: WBC 7, hemoglobin 6.2, platelets 77. Sodium 134, LDH noted. ASSESSMENT: 1. Anemia, acute blood loss anemia, possibly epistaxis or from gastrointestinal bleed or combination status post transfusion of 4 units. 2. Baseline chronic anemia possibly multifactorial. 3. History of recent blood-loss anemia apparently from bleeding from the foot. 4. Renal failure, acute with prerenal acute tubular necrosis with dehydration, present on admission. 5. Hypotension secondary to acute blood loss anemia. Responding to IV fluids and blood transfusion. 6. Hyponatremia. 7. Hypoalbuminemia with mild to moderate protein calorie malnutrition. 8. Elevated plasma lactic acid secondary to dehydration present on admission. 9. Thrombocytopenia. 10.Prostate cancer with mets. 11.History of recent right foot 3rd and 4th digit fractures. 12.Atrial fibrillation with fast ventricular rate. 13.Congestive heart failure with chronic diastolic dysfunction. 14.Peripheral neuropathy. 15.History of gastroesophageal reflux disease. 16.History of gout. 17.History of peripheral edema. 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 19.History of constipation. 20.History of Clostridium difficile colitis. 21.History of bariatric surgery. 22.Continued ongoing nicotine dependence. 23.Obesity with body mass index of 49.9. 24.FULL CODE. RECOMMENDATIONS AND DISCUSSION: Recommend to continue current medications, symptomatic treatment. Recommend H and H q.6h. Dr. Peterson is planning upper GI endoscopy as part of the workup. Otherwise, I would recommend to transfuse 2 units and with Lasix in between. Otherwise, continue to monitor. Continue rest of medications. Hold antiplatelet and anticoagulations. Guarded prognosis because of multiple complex medical issues. I would also recommend coagulation parameters. Repeat Coagulation parameters also. Otherwise prognosis extremely guarded because of multiple complex medical issues. Further recommendations to follow. Dr. Paiz will follow. MMODL / IJN: [id number] /
--- NOTE | 2019-09-20 21:20 | CONS ---
CONSULTATION REASON FOR CONSULTATION: Epistaxis. HISTORY: This is a 53-year-old white male who was admitted for anemia. He has a history of metastatic prostate cancer and has chronic anemia which was felt to be secondary to this. He has chronic anemia in the area of hemoglobin between 6 and 7 due to his chemotherapy but did have some epistaxis over the last few days intermittently. He also did cough up a large amount of bright red blood and had has had black tarry stools. Does have a history of a GI bleeding previously also. He has been using Eliquis for atrial fibrillation. He early yesterday morning had an anterior nasal pack placed on the right by the ER staff on the floor, which has controlled epistaxis since then. This was not necessitated at his initial admission. He is scheduled for an EGD tomorrow now to check for upper GI bleed. His hemoglobin has improved with transfusions and he does feel less fatigued. PAST MEDICAL HISTORY: Past medical history for atrial fibrillation. Cancer as above. Heart failure. GERD. Hypertension. Gout. Peripheral edema. Renal failure. Nelson-Heriberto syndrome. Prostate cancer with metastasis to bone. PAST SURGICAL HISTORY: Appendectomy, the bariatric surgery. Prostate biopsies, lap band. ALLERGIES: TO THE KEFLEX, LEVAQUIN, PENICILLIN, TETRACYCLINE, ADHESIVES. MEDICATIONS: His medications at home: Lasix, Claritin, diltiazem, Cymbalta, [place], Toprol, Eliquis, gabapentin and Duragesic. REVIEW OF SYSTEMS: Systems with pertinent positive or pertinent negatives responses have been documented in the HPI. All systems not noted in review of systems statement are negative. FAMILY HISTORY: For prostate cancer. PHYSICAL EXAM: General: Well-developed adult white male in no acute distress. He is alert, awake, and oriented x3. Conversant. VITAL SIGNS: Afebrile and stable otherwise. HEENT. HEAD: Normocephalic and atraumatic. Ears show canals to be clear. TMs unremarkable, mobile. Nose shows the left nasal cavity is patent with no abnormalities noted. Right nasal cavity with a Merocel sponge pack in place with dark old blood but no active bleeding. Oropharynx and oral cavity shows relatively dry mucosa with oral cavity and oropharynx are otherwise unremarkable with no posterior bleeding noted. NECK: Supple without adenopathy or tenderness. ASSESSMENT: 1. Right-sided epistaxis. 2. Anemia. 3. Anticoagulated status. PLAN: The patient currently has well-controlled right-sided epistaxis. Generally speaking once a pack is placed intranasally, this is left for at least 2 but more so in the range of 3 days generally and I reviewed this with the patient today. He does understand this. He is not particularly uncomfortable with this and is on analgesics even for his bone metastasis. Will plan on packing removal later tomorrow or Saturday. He does list an ALLERGY TO KEFLEX. However, has tolerated Kefzol previously and is on this already prophylactically and having no side effects. Should he develop any allergic reaction to this, this will have to be changed to a different medication as for prophylactic antibiotics. If there are questions or concerns, please free to contact me. SELENE / YAAKOV: [id number] /
--- NOTE | 2019-09-20 21:50 | CONS ---
CONSULTATION Mr. Sutherland is a 53-year-old gentleman with metastatic prostate Ca, also has chronic atrial fibrillation, anemia, GI bleeding. He came into the hospital with epistaxis with a drop in hemoglobin down to 6.2. He is still in atrial fib, rate control is somewhat better. He is on a small dose of Cardizem drip of 5 mg/hour. At this time he is going for upper endoscopy. The patient overall appears to be somewhat noncompliant with medications, but he has a lot of issues and comorbid conditions going on. On reviewing the old chart that is available, I could not find any echocardiogram. However, patient appears to be resting comfortably. He is morbidly obese. He has multiple comorbid conditions in the form of chronic atrial fib, anemia, GI bleeding, metastatic prostate Ca, and also recurrent epistaxis. Given the circumstances he should not be on any anticoagulation. Apparently has been taking Eliquis on and off at 5 mg b.i.d. PAST MEDICAL HISTORY: This is remarkable for chronic atrial fib, hypertension, hyperlipidemia, gastroesophageal reflux disease, gouty, arthritis, metastatic prostate Ca. MEDICATIONS: At home include Lasix, diltiazem, metoprolol succinate 100 mg daily, Duragesic patch, and he also takes apixaban 5 mg b.i.d. ALLERGIES: KEFLEX, LEVOFLOXACIN, PENICILLINS AND TETRACYCLINES. PHYSICAL EXAMINATION: Blood pressure is 130/80, pulse rate is about 80-90, irregular, irregular. HEENT unremarkable. Fundus was not examined by me. His right nostril is packed because of recent epistaxis. Heart exam reveals S1, S2 with a irregular rate and rhythm. Distant heart sounds. Lungs reveal diminished air entry. Abdomen is soft. Lower extremities reveal bilateral chronic pigmentation and edema. Central nervous system: Grossly no focal deficits. IMPRESSION: 1. Chronic atrial fibrillation. 2. Gastrointestinal bleeding. 3. Epistaxis, recurrent. 4. Anemia. 5. Metastatic prostate cancer with bone metastasis. RECOMMENDATION: I am recommending that we should increase Cardizem to 7.5 mg/hour until the endoscopy is performed and then switch him to metoprolol tartrate 50 mg t.i.d. and discontinue IV Cardizem altogether after the procedure. I will also obtain echocardiogram to assess LV function. I am recommending that he should not be on any anticoagulants in view of his current clinical circumstances. Thank you very much for the consult. MMODL / IJN: [id number] /
[2019-09-21 00:05] LABS: Anisocytosis Slight; Basophils % (A) 0 %; Eosinophils # (A) 0.1 k/uL (0-0.7); Eosinophils % (A) 1 %; HCT 20.8 % (39.0-53.0); Hypochromasia Slight; Lymphocytes # (A) 0.2 k/uL (1.0-4.8); Lymphocytes % (A) 3 %; MCH 30.2 pg (25.0-35.0); MCHC 33.6 g/dL (31.0-37.0); MCV 89.7 fL (80.0-100.0); Monocytes # (A) 0.3 k/uL (0-1.0); Monocytes % (A) 4 %; Neutrophils # (A) 5.9 k/uL (1.3-7.7); Neutrophils % (A) 90 %; Poikilocytosis Moderate; RBC 2.31 m/uL (4.30-5.90); WBC 6.5 k/uL (3.8-10.6)
[2019-09-21] MEDS: methylPREDNISolone SOD SUCCI 40 MG/ML 1 ML VIAL IV SCH ×4 (00:07→17:43)
[2019-09-21 00:18] LABS: Platelet Count 65 k/uL (150-450)
[2019-09-21 05:38] LABS: Anisocytosis Slight; Basophils % (A) 0 %; Eosinophils % (A) 1 %; Hypochromasia Slight; Lymphocytes # (A) 0.2 k/uL (1.0-4.8); Lymphocytes % (A) 3 %; MCH 30.1 pg (25.0-35.0); MCHC 33.2 g/dL (31.0-37.0); MCV 90.7 fL (80.0-100.0); Mean Platelet Volume 8.9; Monocytes # (A) 0.4 k/uL (0-1.0); Monocytes % (A) 5 %; Neutrophils # (A) 6.2 k/uL (1.3-7.7); Neutrophils % (A) 89 %; Poikilocytosis Moderate; RBC 2.19 m/uL (4.30-5.90); RDW 19.1 % (11.5-15.5); WBC 6.9 k/uL (3.8-10.6)
[2019-09-21 05:53] LABS: HCT 19.8 % (39.0-53.0); HGB 6.6 gm/dL (13.0-17.5)
[2019-09-21 05:54] LABS: Platelet Count 62 k/uL (150-450)
[2019-09-21 07:30] LABS: Potassium 4.4 mmol/L (3.5-5.1)
[2019-09-21] MEDS: PANTOPRAZOLE 40 MG/10 ML VIAL IV SCH ×2 (08:32→20:46)
[2019-09-21] MEDS: GABAPENTIN 400 MG CAP PO SCH ×3 (08:32→20:59)
[2019-09-21] MEDS: METOPROLOL TARTRATE 50 MG TAB PO SCH ×3 (08:32→20:59)
[2019-09-21 10:18] LABS: Folate, Serum 6.6 ng/mL
--- NOTE | 2019-09-21 10:30 | P.PN ---
Subjective Progress Note Date: 09/21/19 Principal diagnosis: Acute GI bleeding and epistaxis This is a 53-year-old white male with history of chronic atrial fibrillation, metastatic prostate cancer, hypertension, gout, chronic venous insufficiency and chronic lower extremity swelling and cellulitis, history of hypertension, gout, history of bariatric surgery, patient was recently in the hospital for anemia and hemoglobin was 5. Patient was transfused, and at that time he was noted to have bleeding and fracture of the third and fourth toe on the right foot. Patient was sutured, and he was eventually discharged home. Presented to the ER yesterday complaining of epistaxis, mostly from the right nostril. He was also complaining of weakness, black stools, and his hemoglobin was noted to be 6.2. Patient received a total of 3 units of packed RBCs so far, considering the profound anemia and considering that the patient may have a combination of epistaxis and upper GI bleeding, patient was admitted to the ICU, and I was asked to see him on consultation. Patient denies any headache, no blurred vision, no dizziness, his right nostril bleeding was controlled by nasal packing done by the ER physician. He was placed on Protonix, GI consultation was initiated, and it is pending. Apparently the patient has been taking Eliquis for atrial fibrillation, and it is presently on hold. In the ER his blood press ure was borderline low, patient received 2 units of packed RBCs in the ER, and 2 L of IV fluids. Upon my evaluation in the ICU, the patient was feeling much better, blood pressure was better controlled, and he was on his third units of packed RBCs. Patient has no previous history of upper GI bleeding, no history of peptic ulcer disease, no history of liver disease, and he is not taking any nonsteroidal anti-inflammatory drugs. Reevaluated today on 09/20/2019, patient remains in the ICU, scheduled to undergo EGD this morning. Patient continues to have some black tarry stools, no hematemesis, no further epistaxis. He received a total of 3 units of packed RBCs since admission and his hemoglobin this morning is 7.2. Earlier today, the patient developed an episode of atrial fibrillation with RVR, with normal blood pressure, hence I recommended Cardizem 20 mg IV push and a Cardizem drip at 5 mg per hour, also recommended cardiac consultation. Patient may have to have clearance for EGD by cardiology. The patient is pleasant and in no distress, he is feeling much better compared to how he felt on admission. His basic metabolic profile is basically normal. And his renal profile seems to be significantly improved with BUN down to 30 creatinine is down to 1.10 from 1.45 yesterday. He was seen by oncology/hematology yesterday, and he was felt to have underlying chronic anemia with acute anemia/blood loss, and felt to be multifactorial related to his prostate cancer, bone metastasis, and likely bone marrow infiltration. On 09/21/2019 patient seen in follow-up in the intensive care unit. No acute bleeding overnight, today's hemoglobin, is 6.6, and patient is receiving an a dditional unit of packed red blood cells. This will be his fifth unit of packed red blood cells this admission. He is awake and alert, hemodynamically stable, no vasopressors, IV 0.9 and was seen a rate of 20 ML per hour, no complaints of chest pain, shortness of breath, patient remains on 2 L of oxygen his pulse ox is 95-99%, no fever or chills, no tachycardia. No complaint of abdominal pain, no nausea, no vomiting or black tarry stools. Nasal packing remains in place, and it is anticipated to be discontinued today. He is on PPI therapy, GI service and medical oncology are following. Anticoagulation remains on hold, patient is in atrial fibrillation, with a controlled rate. His EGD scheduled for this morning with Dr. Barone Objective - Vital Signs Vital signs: Vital Signs Temp 98.3 F 09/21/19 08:33 Pulse 92 09/21/19 08:33 Resp 20 09/21/19 08:33 BP 112/66 09/21/19 08:33 Pulse Ox 95 09/21/19 08:33 Intake & Output 09/20/19 09/21/19 09/21/19 18:59 06:59 18:59 Intake Total 969.167 320 20 Output Total 1405 650 600 Balance -435.833 -330 -580 Weight 158.9 kg Intake: IV 320 320 20 Sodium Chloride 0.9% 1, 270 220 20 000 ml @ 100 mls/hr IV . Q10H VER[facility]ICA Rx#:[id number] ceFAZolin 1,000 mg In 50 100 Sodium Chloride 0.9% 50 ml @ 100 mls/hr IVPB Q8HR [facility]ICA Rx#:[id number] Intake, IV Titration 29.167 Amount Diltiazem 125 mg In 29.167 Sodium Chloride 0.9% 100 ml @ Per Protocol IV .Q0M VERÓNICA Rx#:[id number] Blood Product 620 0 Rc As-1 Unit 310 [id number] Rc Pheresis 2 As3 Unit 0 [id number] Output: Urine 1405 650 600 Other: Voiding Method Urinal Urinal # Voids 1 - Exam GENERAL EXAM: Alert, very pleasant, 53-year-old white male, currently on 2 L of oxygen the pulse ox of 95% comfortable in no apparent distress. HEAD: Normocephalic/atraumatic. EYES: Normal reaction of pupils, equal size. Conjunctiva pink, sclera white. NOSE: Clear with pink turbinates. THROAT: No erythema or exudates. NECK: No masses, no JVD, no thyroid enlargement, no adenopathy. CHEST: No chest wall deformity. Symmetrical expansion. LUNGS: Equal air entry with no crackles, wheeze, rhonchi or dullness. CVS: Regular rate and rhythm, normal S1 and S2, no gallops, no murmurs, no rubs ABDOMEN: Soft, nontender. No hepatosplenomegaly, normal bowel sounds, no guarding or rigidity. EXTREMITIES: No clubbing, anasarca, generalized edema, chronic lower extremity venous stasis changes, with greater swelling in the right lower extremity in the calf area, no cyanosis, 2+ pulses and upper and lower extremities. MUSCULOSKELETAL: Muscle strength and tone normal. SPINE: No scoliosis or deformity SKIN: No rashes CENTRAL NERVOUS SYSTEM: Alert and oriented -3. No focal deficits, tone is normal in all 4 extremities. PSYCHIATRIC: Alert and oriented -3. Appropriate affect. Intact judgment and insight. - Labs CBC & Chem 7: 09/21/19 04:34 09/21/19 04:34 Labs: Abnormal Lab Results - Last 24 Hours (Table) 09/18/19 09/19/19 09/20/19 Range/Units 19:05 13:33 05:40 RBC 2.39 L (4.30-5.90) m/uL Hgb 7.2 L (13.0-17.5) gm/dL Hct 21.9 L (39.0-53.0) % RDW 19.3 H (11.5-15.5) % Plt Count 81 L (150-450) k/uL Lymphocytes # (1.0-4.8) k/uL Lymphocytes # (Manual) 0.39 L (1.0-4.8) k/uL Myelocytes # (Manual) 0.16 H (0) k/uL Haptoglobin 237.0 H (31.2-198.0) mg/dL Chloride (98-107) mmol/L Carbon Dioxide (22-30) mmol/L BUN (9-20) mg/dL Glucose (74-99) mg/dL Uric Acid (3.5-8.5) mg/dL Calcium (8.4-10.2) mg/dL Crossmatch See Detail 09/20/19 09/20/19 09/20/19 Range/Units 05:40 12:16 18:25 RBC 2.07 L 2.43 L (4.30-5.90) m/uL Hgb 6.2 L* 7.2 L (13.0-17.5) gm/dL Hct 18.8 L* 21.8 L (39.0-53.0) % RDW 19.1 H 19.0 H (11.5-15.5) % Plt Count 77 L 69 L (150-450) k/uL Lymphocytes # 0.2 L 0.3 L (1.0-4.8) k/uL Lymphocytes # (Manual) (1.0-4.8) k/uL Myelocytes # (Manual) (0) k/uL Haptoglobin (31.2-198.0) mg/dL Chloride (98-107) mmol/L Carbon Dioxide (22-30) mmol/L BUN (9-20) mg/dL Glucose (74-99) mg/dL Uric Acid 10.9 H (3.5-8.5) mg/dL Calcium (8.4-10.2) mg/dL Crossmatch 09/20/19 09/21/19 09/21/19 Range/Units 23:49 04:34 04:34 RBC 2.31 L 2.19 L (4.30-5.90) m/uL Hgb 7.0 L 6.6 L* (13.0-17.5) gm/dL Hct 20.8 L 19.8 L* (39.0-53.0) % RDW 19.0 H 19.1 H (11.5-15.5) % Plt Count 65 L 62 L (150-450) k/uL Lymphocytes # 0.2 L 0.2 L (1.0-4.8) k/uL Lymphocytes # (Manual) (1.0-4.8) k/uL Myelocytes # (Manual) (0) k/uL Haptoglobin (31.2-198.0) mg/dL Chloride 109 H (98-107) mmol/L Carbon Dioxide 20 L (22-30) mmol/L BUN 24 H (9-20) mg/dL Glucose 161 H (74-99) mg/dL Uric Acid (3.5-8.5) mg/dL Calcium 7.0 L (8.4-10.2) mg/dL Crossmatch Assessment and Plan Plan: Assessment: #1. Acute blood loss anemia, secondary to GI bleeding and epistaxis. The source of GI bleeding his upper GI tract, unless proven otherwise, Eliquis remains on hold #2. Acute epistaxis related to Eliquis, controlled with nasal packing #3. Acute hypotension secondary to acute blood loss, hypovolemia, patient responded well to IV fluids and has received 5 units of packed red blood cells this admission so far #4. Chemotherapy induced peripheral neuropathy and recurrent trauma to both feet related to neuropathy #5. History of metastatic prostate cancer #6. Acute kidney injury related to hypotension and acute tubular necrosis, improving with hydration and blood transfusions #7. Chronic atrial fibrillation, normally on Eliquis, which is presently on hold related to GI bleeding #8. History of gout #9. History of GERD without esophagitis #10. History of bariatric surgery #11. Nicotine dependence syndrome #12. Morbid obesity, the BMI of 49.9 #13. History of C. difficile colitis #14. History of Nelson-Heriberto syndrome Plan: Continue PPI therapy, patient is receiving an additional unit of packed red blood cells this morning, hemodynamically he remains stable, renal function has improved. No active bleeding overnight, patient is scheduled for EGD this morning, vital signs are active, Eliquis remains on hold, anticipate removal of his nasal packing today. Will await results of the EGD, and supportive care right now. We'll continue to follow I performed a history & physical examination of the patient and discussed their management with my nurse practitioner, Shanta Sanchez. I reviewed the nurse practitioner's note and agree with the documented findings and plan of care. Lung sounds are positive for diminished breath sounds. The findings and the impression was discussed with the patient. I attest to the documentation by the nurse practitioner. Time with Patient: Less than 30
[2019-09-21 10:55] LABS: % Iron Saturation 80.11 (15.00-50.00); Ferritin 5755.4 ng/mL (22.0-322.0)
[2019-09-21] MEDS: SODIUM CHLORIDE 0.9% 1,000 ML IV SCH (12:29)
[2019-09-21] MEDS ORDERED: KETAMINE 10 MG/ML 20 ML VIAL ONE (14:25)
[2019-09-21] MEDS ORDERED: LIDOCAINE 1% INJ 10MG/ML (20 ML MDV) ONE (14:25)
[2019-09-21] MEDS ORDERED: PROPOFOL 10 MG/ML 20 ML VIAL IV ONE (14:25)
[2019-09-21] MEDS ORDERED: IV FLUID CONTINUATION 1,000 ML IV ONE ×2 (14:26)
--- NOTE | 2019-09-21 14:53 | P.PCN ---
Date of Procedure: 09/21/19 Description of Procedure: BRIEF HISTORY: 53-year-old male presenting to the hospital with weakness and dizziness and found to have anemia. Patient recently hospitalized for similar complaints after mechanical fall and fracture of his foot requiring suturing. At that time patient also complained of epistaxis which was continued. Stool testing was positive for blood. The patient is currently being treated for metastatic prostate cancer. EGD is ordered to rule out GI source of anemia. PROCEDURE PERFORMED: Esophagogastroduodenoscopy with biopsy . PREOPERATIVE DIAGNOSIS: Anemia acute blood loss ESTIMATED BLOOD LOSS: Minimal. IV sedation per anesthesia. PROCEDURE: After informed consent was obtained, the patient was brought into the endoscopy unit. IV sedation was administered by Anesthesia under continuous monitoring. Initially the Olympus GIF-190 video endoscope was inserted into the mouth. Esophagus intubated without any difficulty. It was gradually advanced into the stomach and duodenum and carefully examined. The bulb and the second part of the duodenum appeared normal. The scope at this time was withdrawn to the stomach, adequately insufflated with air, and upon careful examination, mucosa of the antrum, body, cardia and the fundus appearedgrossly normal except for 3 antral ulcers, to which appeared more superficial in the third which was somewhat greater and measured approximately 5 mm in length. There was no active bleeding or high risk stigmata of bleeding from the ulcers. Small biopsies were taken of the ulcers sent for pathology. The scope was then withdrawn into the esophagus. The GE junction was located at 39 cm from the incisors. The esophagus appeared normal. There were no erosions or ulcerations seen and the patient tolerated the procedure well. IMPRESSION: 1. No active bleeding or old blood noted on EGD. 2. 3 antral ulcers without active bleeding or high risk stigmata for rebleeding biopsied. RECOMMENDATIONS: The findings of this examination were discussed with the patient in the ICU team. Okay to resume diet. Continue twice daily PPI therapy with Protonix 40 mg twice a day need to monitor hemoglobin and hematocrit. Continue treatment of other comorbidities including epistaxis.
--- NOTE | 2019-09-21 17:18 | P.PN ---
Subjective Progress Note Date: 09/21/19 This is a 53-year-old gentleman with history of metastatic prostate CVA was admitted to the hospital with hypertension and epistaxis. Patient's hemoglobin is in the range of 6. Patient is getting additional one unit of blood transfusion. Patient is also scheduled for upper endoscopy. Patient denies any chest pain or shortness of breath. Doesn't appear to be in acute distress. Objective - Vital Signs Vital signs: Vital Signs Temp 98.1 F 09/21/19 12:00 Pulse 78 09/21/19 16:00 Resp 18 09/21/19 16:00 BP 112/74 09/21/19 16:00 Pulse Ox 97 09/21/19 16:00 Intake & Output 09/20/19 09/21/19 09/21/19 18:59 06:59 18:59 Intake Total 969.167 320 760 Output Total 7513 410 4582 Balance -435.833 -330 -290 Weight 158.9 kg Intake: IV 320 320 450 Sodium Chloride 0.9% 1, 270 220 20 000 ml @ 100 mls/hr IV . Q10H [facility] Rx#:[id number] Sodium Chloride 0.9% 1, 180 000 ml @ 20 mls/hr IV . Q24H [facility] Rx#:[id number] ceFAZolin 1,000 mg In 50 100 150 Sodium Chloride 0.9% 50 ml @ 100 mls/hr IVPB Q8HR [facility] Rx#:[id number] Intake, IV Titration 29.167 Amount Diltiazem 125 mg In 29.167 Sodium Chloride 0.9% 100 ml @ Per Protocol IV .Q0M [facility] Rx#:[id number] Blood Product 620 310 Rc As-1 Unit 310 [id number] Rc Pheresis 2 As3 Unit 310 [id number] Output: Urine 3553 526 9023 Other: Voiding Method Urinal Urinal Urinal # Voids 1 - Exam GENERAL EXAM: Patient is alert and oriented and doesn't appear to be in any acute distress HEENT: Normocephalic. Normal reaction of pupils, equal size, normal range of extraocular motion. No erythema or exudates in the throat. NECK: No masses, no nuchal rigidity. CHEST: No chest wall deformity. LUNGS: Equal air entry with no crackles or wheeze. HEART: S1 and S2 normal with no audible mumurs or gallops. Regular rhythm, femorals equal on both sides.. ABDOMEN: No hepatosplenomegaly, normal bowel sounds, no guarding or rigidity. SKIN: No rashes CENTRAL NERVOUS SYSTEM: No focal deficits. EXTREMITIES: No cyanosis, clubbing or edema. - Labs CBC & Chem 7: 09/21/19 04:34 09/21/19 04:34 Labs: Abnormal Lab Results - Last 24 Hours (Table) 09/18/19 09/19/19 09/19/19 Range/Units 19:05 13:33 13:33 RBC (4.30-5.90) m/uL Hgb (13.0-17.5) gm/dL Hct (39.0-53.0) % RDW (11.5-15.5) % Plt Count (150-450) k/uL Lymphocytes # (1.0-4.8) k/uL Haptoglobin 237.0 H (31.2-198.0) mg/dL Chloride (98-107) mmol/L Carbon Dioxide (22-30) mmol/L BUN (9-20) mg/dL Glucose (74-99) mg/dL Uric Acid (3.5-8.5) mg/dL Calcium (8.4-10.2) mg/dL TIBC 176 L (228-460) ug/dL % Saturation 80.11 H (15.00-50.00) Ferritin 5755.4 H (22.0-322.0) ng/mL Crossmatch See Detail 09/20/19 09/20/19 09/20/19 Range/Units 05:40 18:25 23:49 RBC 2.43 L 2.31 L (4.30-5.90) m/uL Hgb 7.2 L 7.0 L (13.0-17.5) gm/dL Hct 21.8 L 20.8 L (39.0-53.0) % RDW 19.0 H 19.0 H (11.5-15.5) % Plt Count 69 L 65 L (150-450) k/uL Lymphocytes # 0.3 L 0.2 L (1.0-4.8) k/uL Haptoglobin (31.2-198.0) mg/dL Chloride (98-107) mmol/L Carbon Dioxide (22-30) mmol/L BUN (9-20) mg/dL Glucose (74-99) mg/dL Uric Acid 10.9 H (3.5-8.5) mg/dL Calcium (8.4-10.2) mg/dL TIBC (228-460) ug/dL % Saturation (15.00-50.00) Ferritin (22.0-322.0) ng/mL Crossmatch 09/21/19 09/21/19 Range/Units 04:34 04:34 RBC 2.19 L (4.30-5.90) m/uL Hgb 6.6 L* (13.0-17.5) gm/dL Hct 19.8 L* (39.0-53.0) % RDW 19.1 H (11.5-15.5) % Plt Count 62 L (150-450) k/uL Lymphocytes # 0.2 L (1.0-4.8) k/uL Haptoglobin (31.2-198.0) mg/dL Chloride 109 H (98-107) mmol/L Carbon Dioxide 20 L (22-30) mmol/L BUN 24 H (9-20) mg/dL Glucose 161 H (74-99) mg/dL Uric Acid (3.5-8.5) mg/dL Calcium 7.0 L (8.4-10.2) mg/dL TIBC (228-460) ug/dL % Saturation (15.00-50.00) Ferritin (22.0-322.0) ng/mL Crossmatch Assessment and Plan (1) Acute blood loss anemia Current Visit: Yes Status: Acute Code(s): D62 - ACUTE POSTHEMORRHAGIC ANEMIA SNOMED Code(s): 921280488 (2) Atrial fibrillation Current Visit: Yes Status: Acute Code(s): I48.91 - UNSPECIFIED ATRIAL FIBRILLATION SNOMED Code(s): 44933188 (3) GI bleed Current Visit: Yes Status: Acute Code(s): K92.2 - GASTROINTESTINAL HEMORRHAGE, UNSPECIFIED SNOMED Code(s): 43303167 (4) Prostate cancer Current Visit: Yes Status: Acute Code(s): C61 - MALIGNANT NEOPLASM OF PROSTATE SNOMED Code(s): 032523612 Plan: Patient has chronic atrial fibrillation. Because of her severe anemia, antral ulcers and also nasal bleeding, patient may not be candidate for anti-cognition therapy at this time. Continue the rest of the management
[2019-09-21] MEDS: HYDROcodone/APAP 10-325MG 1 EACH TAB PO PRN (17:43)
[2019-09-21 18:14] LABS: Anisocytosis Slight; Basophils % (A) 0 %; Eosinophils % (A) 0 %; HCT 24.3 % (39.0-53.0); HGB 7.9 gm/dL (13.0-17.5); Hypochromasia Slight; Lymphocytes # (A) 0.3 k/uL (1.0-4.8); Lymphocytes % (A) 5 %; MCH 29.5 pg (25.0-35.0); MCHC 32.5 g/dL (31.0-37.0); MCV 90.7 fL (80.0-100.0); Mean Platelet Volume 9.1; Monocytes # (A) 0.2 k/uL (0-1.0); Monocytes % (A) 3 %; Neutrophils # (A) 6.4 k/uL (1.3-7.7); Neutrophils % (A) 92 %; Poikilocytosis Moderate; RBC 2.68 m/uL (4.30-5.90); RDW 18.5 % (11.5-15.5)
[2019-09-21 18:21] LABS: Platelet Count 58 k/uL (150-450)
--- NOTE | 2019-09-21 18:37 | ECHOF ---
Referral Reason:LV function MEASUREMENTS -------- HEIGHT: 175.3 cm WEIGHT: 158.8 kg BP: 98/50 RVIDd: 4.2 cm (< 3.3) IVSd: 1.3 cm (0.6 - 1.1) LVIDd: 5.3 cm (3.9 - 5.3) LVPWd: 1.5 cm (0.6 - 1.1) IVSs: 1.7 cm LVIDs: 4.0 cm LVPWs: 1.9 cm LA Diam: 5.5 cm (2.7 - 3.8) LAESV Index (A-L): 42.39 ml/m Ao Diam: 3.5 cm (2.0 - 3.7) AV Cusp: 1.8 cm (1.5 - 2.6) LA Diam: 6.3 cm (2.7 - 3.8) MV EXCURSION: 21.844 mm (> 18.000) MV EF SLOPE: 57 mm/s (70 - 150) EPSS: 0.7 cm MV E Giovanni: 1.18 m/s MV DecT: 177 ms MV A Giovanni: 0.04 m/s MV E/A Ratio: 28.37 RAP: 15.00 mmHg RVSP: 48.74 mmHg FINDINGS -------- Sinus rhythm. This was a technically adequate study. Morbid Obesity The left ventricular size is normal. There is mild concentric left ventricular hypertrophy. Overa ll left ventricular systolic function is low-normal with, an EF between 50 - 55 %. The right ventricle is severely enlarged. LA is severely dilated >40 ml/m2 The right atrial size is normal. There is mild aortic valve sclerosis. There is no evidence of aortic regurgitation. Mild mitral annular calcification present. Mild mitral regurgitation is present. Moderate tricuspid regurgitation present. There is moderate pulmonary hypertension. The right marc tricular systolic pressure, as measured by Doppler, is 48.74mmHg. There is no pulmonic regurgitation present. The aortic root size is normal. There is a small, generalized pericardial effusion present. CONCLUSIONS -------- 1. Sinus rhythm. 2. This was a technically adequate study. 3. Morbid Obesity 4. The left ventricular size is normal. 5. There is mild concentric left ventricular hypertrophy. 6. Overall left ventricular systolic function is low-normal with, an EF between 50 - 55 %. 7. The right ventricle is severely enlarged. 8. LA is severely dilated >40 ml/m2 9. The right atrial size is normal. 10. There is mild aortic valve sclerosis. 11. Mild mitral annular calcification present. 12. Mild mitral regurgitation is present. 13. Moderate tricuspid regurgitation present. 14. There is moderate pulmonary hypertension. 15. There is no pulmonic regurgitation present. 16. There is a small, generalized pericardial effusion present. DRYWALL APPLICATOR: Aixa Myles RDCS
[2019-09-21] MEDS ORDERED: OXYMETAZOLINE 0.05% NASL SPRAY 1 SPRAY BOTTLE NASAL PRN (18:48)
[2019-09-21] MEDS: DULoxetine HCL 20 MG CAPSULE.DR PO SCH (20:46)
[2019-09-21] MEDS: LORATADINE 10 MG TAB PO SCH (20:46)
[2019-09-21] MEDS: HYDROmorphone 0.5 MG/0.5 ML SYRINGE IVP PRN (20:46)
--- NOTE | 2019-09-21 21:53 | PN ---
PROGRESS NOTE CHIEF COMPLAINT: Followup on epistaxis. HISTORY: Mr. Sutherland has not had any further epistaxis from the right side of the nose. He did have EGD today. It showed 3 ulcers apparently. PHYSICAL EXAMINATION: The patient is alert and awake, in no distress. Left nasal cavity is unremarkable. Right nasal cavity has Merocel pack placed. This was removed. There was no fresh blood. He does have a large septal spur on the right, which has mild active bleeding in the area approximately 1.5 cm. This was controlled for the most part with topical Afrin and cotton, but otherwise was cauterized with silver nitrate, which controlled the bleeding readily. A small pledget of Nasalcease nasal dressing moistened with Afrin was placed, and will be left in place, as this is dissolvable. ASSESSMENT: 1. Right anterior epistaxis. 2. Anticoagulated status. PLAN: The patient currently is doing well. I explained to the patient he should not blow his nose for one week. I left a verbal order for Afrin to be used as needed for epistaxis on the right side of the nose. If there is any uncontrolled epistaxis otherwise, please contact me. Otherwise, would follow up as needed. MMODL / IJN: [id number] /
--- NOTE | 2019-09-21 22:43 | P.PN ---
Subjective Progress Note Date: 09/21/19 He is resting in the ICU this morning, epistaxis resolved and 5th unit PRBC transfusing. His energy is improved today. Pt for EGD today. Objective - Vital Signs Vital signs: Vital Signs Temp 97.7 F 09/21/19 20:00 Pulse 86 09/21/19 22:00 Resp 17 09/21/19 22:00 BP 138/94 09/21/19 22:00 Pulse Ox 97 09/21/19 22:00 Intake & Output 09/21/19 09/21/19 09/22/19 06:59 18:59 06:59 Intake Total 320 800 480 Output Total 650 1050 0 Balance -330 -250 480 Weight 158.9 kg Intake: IV 320 490 80 Sodium Chloride 0.9% 1, 220 20 000 ml @ 100 mls/hr IV . Q10H [facility] Rx#:[id number] Sodium Chloride 0.9% 1, 220 80 000 ml @ 20 mls/hr IV . Q24H [facility]ICA Rx#:[id number] ceFAZolin 1,000 mg In 100 150 Sodium Chloride 0.9% 50 ml @ 100 mls/hr IVPB Q8HR [facility] Rx#:[id number] Oral 400 Blood Product 310 Rc Pheresis 2 As3 Unit 310 [id number] Output: Urine 650 1050 0 Other: Voiding Method Urinal Urinal Urinal - Exam General: well nourished, well developed, NAD. Obese. Vitals reviewed Lungs: normal respiratory effort, no wheezes or rales CV: Regular rate and rhythm, no murmur. Peripheral pulses 2+ Abdomen: soft, nondistended, no organomegaly Skin: warm and dry. - Labs CBC & Chem 7: 09/21/19 17:32 09/21/19 04:34 Labs: Abnormal Lab Results - Last 24 Hours (Table) 09/18/19 09/19/19 09/19/19 Range/Units 19:05 13:33 13:33 RBC (4.30-5.90) m/uL Hgb (13.0-17.5) gm/dL Hct (39.0-53.0) % RDW (11.5-15.5) % Plt Count (150-450) k/uL Lymphocytes # (1.0-4.8) k/uL Haptoglobin 237.0 H (31.2-198.0) mg/dL Chloride (98-107) mmol/L Carbon Dioxide (22-30) mmol/L BUN (9-20) mg/dL Glucose (74-99) mg/dL Calcium (8.4-10.2) mg/dL TIBC 176 L (228-460) ug/dL % Saturation 80.11 H (15.00-50.00) Ferritin 5755.4 H (22.0-322.0) ng/mL Crossmatch See Detail 09/20/19 09/21/19 09/21/19 Range/Units 23:49 04:34 04:34 RBC 2.31 L 2.19 L (4.30-5.90) m/uL Hgb 7.0 L 6.6 L* (13.0-17.5) gm/dL Hct 20.8 L 19.8 L* (39.0-53.0) % RDW 19.0 H 19.1 H (11.5-15.5) % Plt Count 65 L 62 L (150-450) k/uL Lymphocytes # 0.2 L 0.2 L (1.0-4.8) k/uL Haptoglobin (31.2-198.0) mg/dL Chloride 109 H (98-107) mmol/L Carbon Dioxide 20 L (22-30) mmol/L BUN 24 H (9-20) mg/dL Glucose 161 H (74-99) mg/dL Calcium 7.0 L (8.4-10.2) mg/dL TIBC (228-460) ug/dL % Saturation (15.00-50.00) Ferritin (22.0-322.0) ng/mL Crossmatch 09/21/19 Range/Units 17:32 RBC 2.68 L (4.30-5.90) m/uL Hgb 7.9 L (13.0-17.5) gm/dL Hct 24.3 L (39.0-53.0) % RDW 18.5 H (11.5-15.5) % Plt Count 58 L (150-450) k/uL Lymphocytes # 0.3 L (1.0-4.8) k/uL Haptoglobin (31.2-198.0) mg/dL Chloride (98-107) mmol/L Carbon Dioxide (22-30) mmol/L BUN (9-20) mg/dL Glucose (74-99) mg/dL Calcium (8.4-10.2) mg/dL TIBC (228-460) ug/dL % Saturation (15.00-50.00) Ferritin (22.0-322.0) ng/mL Crossmatch Assessment and Plan (1) Acute blood loss anemia Current Visit: Yes Status: Acute Code(s): D62 - ACUTE POSTHEMORRHAGIC ANEMIA SNOMED Code(s): 651593492 (2) Atrial fibrillation Current Visit: Yes Status: Acute Code(s): I48.91 - UNSPECIFIED ATRIAL FIBRILLATION SNOMED Code(s): 60528957 (3) GI bleed Current Visit: Yes Status: Acute Code(s): K92.2 - GASTROINTESTINAL HEMORRHAGE, UNSPECIFIED SNOMED Code(s): 86266486 (4) Prostate cancer Current Visit: Yes Status: Acute Code(s): C61 - MALIGNANT NEOPLASM OF PROSTATE SNOMED Code(s): 683976403 (5) Anemia in chronic illness Current Visit: No Status: Acute Code(s): D63.8 - ANEMIA IN OTHER CHRONIC DISEASES CLASSIFIED ELSEWHERE SNOMED Code(s): 578126855 (6) Diastolic CHF Current Visit: No Status: Acute Code(s): I50.30 - UNSPECIFIED DIASTOLIC (CONGESTIVE) HEART FAILURE SNOMED Code(s): 095444702 Plan: 1. Acute blood loss anemia. With GIB and epistaxis. EGD today. Transfuse for hgb <7. Continue PPI 2. Atrial fibrillation. On cardizem gtt per ICU protocol. Continue metoprolol
[2019-09-22] MEDS: methylPREDNISolone SOD SUCCI 40 MG/ML 1 ML VIAL IV SCH ×2 (00:56→06:16)
[2019-09-22 05:33] LABS: Anisocytosis Slight; HGB 7.5 gm/dL (13.0-17.5); Hypochromasia Slight; MCH 29.7 pg (25.0-35.0); MCHC 32.8 g/dL (31.0-37.0); MCV 90.5 fL (80.0-100.0); Mean Platelet Volume 8.9; Poikilocytosis Slight; RBC 2.54 m/uL (4.30-5.90); RDW 18.3 % (11.5-15.5)
[2019-09-22 05:46] LABS: Platelet Count 63 k/uL (150-450)
[2019-09-22 05:53] LABS: African American GFR (CKD) >90 (>60 ml/min/1.73 sqM); Anion Gap 6 mmol/L; Blood Urea Nitrogen 21 mg/dL (9-20); Calcium 6.9 mg/dL (8.4-10.2); Carbon Dioxide 22 mmol/L (22-30); Chloride 108 mmol/L (98-107); Glucose 133 mg/dL (74-99); Non-African American GFR(CKD) >90 (>60 ml/min/1.73 sqM); Potassium 4.4 mmol/L (3.5-5.1); Sodium 136 mmol/L (137-145)
[2019-09-22 06:48] LABS: Band Neutrophils % 6 %; Eosinophils # (M) 0.07 k/uL (0-0.7); Lymphocytes # (M) 0.43 k/uL (1.0-4.8); Metamyelocytes # (M) 0.14 k/uL (0); Metamyelocytes % 2 %; Monocytes # (M) 0.36 k/uL (0-1.0); Neutrophils % (M) 82 %; Nucleated Red Blood Cells 1 /100 WBC (0-0); Total Cells Counted 200
[2019-09-22 06:49] LABS: WBC 7.1 k/uL (3.8-10.6)
[2019-09-22 06:50] LABS: Polychromasia Present
[2019-09-22] MEDS: PANTOPRAZOLE 40 MG/10 ML VIAL IV SCH ×2 (08:25→20:00)
[2019-09-22] MEDS: METOPROLOL TARTRATE 50 MG TAB PO SCH ×3 (08:25→20:01)
[2019-09-22] MEDS: METHYL SALICYLATE/MENTHOL CREAM 5 OZ TOPICAL PRN ×2 (08:26→20:01)
[2019-09-22] MEDS: GABAPENTIN 400 MG CAP PO SCH ×3 (08:26→20:01)
--- NOTE | 2019-09-22 08:40 | P.PN ---
Subjective Progress Note Date: 09/22/19 This is a 53-year-old gentleman with history of metastatic prostate CVA was admitted to the hospital with hypertension and epistaxis. Patient's hemoglobin is in the range of 6. Patient is getting additional one unit of blood transfusion. Patient is also scheduled for upper endoscopy. Patient denies any chest pain or shortness of breath. Doesn't appear to be in acute distress. 09/22/2019: This patient with history of metastatic prostate CVA was admitted with epistaxis. Patient also to severe anemia. Received 1 unit of blood transfusion and his hemoglobin is more than 7 g. Patient denies any chest pain or shortness of breath. Patient has chronic atrial fibrillation with controlled ventricular response. Patient is not on anticoagulation therapy because of anemia, epistaxis and also antral ulcers. Continue rest of the medication. Patient to be transferred to stepdown unit. We'll follow as needed Objective - Vital Signs Vital signs: Vital Signs Temp 97.5 F L 09/22/19 08:00 Pulse 71 09/22/19 08:00 Resp 18 09/22/19 08:00 BP 116/82 09/22/19 08:00 Pulse Ox 96 09/22/19 08:00 Intake & Output 09/21/19 09/22/19 09/22/19 18:59 06:59 18:59 Intake Total 800 640 20 Output Total 1050 400 0 Balance -250 240 20 Weight 150.1 kg Intake: IV 490 240 20 Sodium Chloride 0.9% 1, 20 000 ml @ 100 mls/hr IV . Q10H VER[facility]ICA Rx#:[id number] Sodium Chloride 0.9% 1, 220 240 20 000 ml @ 20 mls/hr IV . Q24H [facility]NICA Rx#:[id number] ceFAZolin 1,000 mg In 150 Sodium Chloride 0.9% 50 ml @ 100 mls/hr IVPB Q8HR [facility] Rx#:[id number] Oral 400 Blood Product 310 Rc Pheresis 2 As3 Unit 310 [id number] Output: Urine 1050 400 0 Other: Voiding Method Urinal Urinal - Exam GENERAL EXAM: Patient is alert and oriented and doesn't appear to be in any ac [place] distress HEENT: Normocephalic. Normal reaction of pupils, equal size, normal range of extraocular motion. No erythema or exudates in the throat. NECK: No masses, no nuchal rigidity. CHEST: No chest wall deformity. LUNGS: Equal air entry with no crackles or wheeze. HEART: S1 and S2 normal with no audible mumurs or gallops. Regular rhythm, femorals equal on both sides.. ABDOMEN: No hepatosplenomegaly, normal bowel sounds, no guarding or rigidity. SKIN: No rashes CENTRAL NERVOUS SYSTEM: No focal deficits. EXTREMITIES: No cyanosis, clubbing or edema. - Labs CBC & Chem 7: 09/22/19 04:39 09/22/19 04:39 Labs: Abnormal Lab Results - Last 24 Hours (Table) 09/18/19 09/19/19 09/21/19 Range/Units 19:05 13:33 17:32 RBC 2.68 L (4.30-5.90) m/uL Hgb 7.9 L (13.0-17.5) gm/dL Hct 24.3 L (39.0-53.0) % RDW 18.5 H (11.5-15.5) % Plt Count 58 L (150-450) k/uL Lymphocytes # 0.3 L (1.0-4.8) k/uL Lymphocytes # (Manual) (1.0-4.8) k/uL Metamyelocytes # (Man) (0) k/uL Nucleated RBCs (0-0) /100 WBC Sodium (137-145) mmol/L Chloride (98-107) mmol/L BUN (9-20) mg/dL Glucose (74-99) mg/dL Calcium (8.4-10.2) mg/dL TIBC 176 L (228-460) ug/dL % Saturation 80.11 H (15.00-50.00) Ferritin 5755.4 H (22.0-322.0) ng/mL Crossmatch See Detail 09/22/19 09/22/19 Range/Units 04:39 04:39 RBC 2.54 L (4.30-5.90) m/uL Hgb 7.5 L (13.0-17.5) gm/dL Hct 23.0 L (39.0-53.0) % RDW 18.3 H (11.5-15.5) % Plt Count 63 L (150-450) k/uL Lymphocytes # (1.0-4.8) k/uL Lymphocytes # (Manual) 0.43 L (1.0-4.8) k/uL Metamyelocytes # (Man) 0.14 H (0) k/uL Nucleated RBCs 1 H (0-0) /100 WBC Sodium 136 L (137-145) mmol/L Chloride 108 H (98-107) mmol/L BUN 21 H (9-20) mg/dL Glucose 133 H (74-99) mg/dL Calcium 6.9 L (8.4-10.2) mg/dL TIBC (228-460) ug/dL % Saturation (15.00-50.00) Ferritin (22.0-322.0) ng/mL Crossmatch Assessment and Plan (1) Acute blood loss anemia Current Visit: Yes Status: Acute Code(s): D62 - ACUTE POSTHEMORRHAGIC ANEMIA SNOMED Code(s): 544396405 (2) Atrial fibrillation Current Visit: Yes Status: Acute Code(s): I48.91 - UNSPECIFIED ATRIAL FIBRILLATION SNOMED Code(s): 71015951 (3) GI bleed Current Visit: Yes Status: Acute Code(s): K92.2 - GASTROINTESTINAL HEMORRHAGE, UNSPECIFIED SNOMED Code(s): 94709537 (4) Prostate cancer Current Visit: Yes Status: Acute Code(s): C61 - MALIGNANT NEOPLASM OF PROSTATE SNOMED Code(s): 213180731 Plan: Patient is clinically stable. No further episodes of epistaxis. Patient is being transferred to [facility] floor. Patient has chronic atrial fibrillation, but not on anticoagulation because of epistaxis and anemia. We'll follow patient as needed
--- NOTE | 2019-09-22 08:53 | P.PN ---
Subjective Progress Note Date: 09/22/19 Principal diagnosis: Acute GI bleeding and epistaxis This is a 53-year-old white male with history of chronic atrial fibrillation, metastatic prostate cancer, hypertension, gout, chronic venous insufficiency and chronic lower extremity swelling and cellulitis, history of hypertension, gout, history of bariatric surgery, patient was recently in the hospital for anemia and hemoglobin was 5. Patient was transfused, and at that time he was noted to have bleeding and fracture of the third and fourth toe on the right foot. Patient was sutured, and he was eventually discharged home. Presented to the ER yesterday complaining of epistaxis, mostly from the right nostril. He was also complaining of weakness, black stools, and his hemoglobin was noted to be 6.2. Patient received a total of 3 units of packed RBCs so far, considering the profound anemia and considering that the patient may have a combination of epistaxis and upper GI bleeding, patient was admitted to the ICU, and I was asked to see him on consultation. Patient denies any headache, no blurred vision, no dizziness, his right nostril bleeding was controlled by nasal packing done by the ER physician. He was placed on Protonix, GI consultation was initiated, and it is pending. Apparently the patient has been taking Eliquis for atrial fibrillation, and it is presently on hold. In the ER his blood press ure was borderline low, patient received 2 units of packed RBCs in the ER, and 2 L of IV fluids. Upon my evaluation in the ICU, the patient was feeling much better, blood pressure was better controlled, and he was on his third units of packed RBCs. Patient has no previous history of upper GI bleeding, no history of peptic ulcer disease, no history of liver disease, and he is not taking any nonsteroidal anti-inflammatory drugs. Reevaluated today on 09/20/2019, patient remains in the ICU, scheduled to undergo EGD this morning. Patient continues to have some black tarry stools, no hematemesis, no further epistaxis. He received a total of 3 units of packed RBCs since admission and his hemoglobin this morning is 7.2. Earlier today, the patient developed an episode of atrial fibrillation with RVR, with normal blood pressure, hence I recommended Cardizem 20 mg IV push and a Cardizem drip at 5 mg per hour, also recommended cardiac consultation. Patient may have to have clearance for EGD by cardiology. The patient is pleasant and in no distress, he is feeling much better compared to how he felt on admission. His basic metabolic profile is basically normal. And his renal profile seems to be significantly improved with BUN down to 30 creatinine is down to 1.10 from 1.45 yesterday. He was seen by oncology/hematology yesterday, and he was felt to have underlying chronic anemia with acute anemia/blood loss, and felt to be multifactorial related to his prostate cancer, bone metastasis, and likely bone marrow infiltration. On 09/21/2019 patient seen in follow-up in the intensive care unit. No acute bleeding overnight, today's hemoglobin, is 6.6, and patient is receiving an a dditional unit of packed red blood cells. This will be his fifth unit of packed red blood cells this admission. He is awake and alert, hemodynamically stable, no vasopressors, IV 0.9 and was seen a rate of 20 ML per hour, no complaints of chest pain, shortness of breath, patient remains on 2 L of oxygen his pulse ox is 95-99%, no fever or chills, no tachycardia. No complaint of abdominal pain, no nausea, no vomiting or black tarry stools. Nasal packing remains in place, and it is anticipated to be discontinued today. He is on PPI therapy, GI service and medical oncology are following. Anticoagulation remains on hold, patient is in atrial fibrillation, with a controlled rate. His EGD scheduled for this morning with Dr. Barone On 09/22/2019 patient seen in follow-up in intensive care unit, he is resting comfortably in bed, in no acute distress, there has been no further bleeding overnight, vital signs are stable, 0.9 normal saline infusing at a rate of 20 ML per hour, patient is on room air, no specific complaints, no shortness of breath, no abdominal pain, patient has received a total of 5 units of packed red blood cells this admission, today's hemoglobin 7.5. Patient had his EGD yesterday, and no active bleeding was noted on the EGD, and there were 3 antral ulcers without active bleeding or high risk stigmata for rebleeding, sees were taken, and are pending at this time. Objective - Vital Signs Vital signs: Vital Signs Temp 97.5 F L 09/22/19 08:00 Pulse 71 09/22/19 08:00 Resp 18 09/22/19 08:00 BP 116/82 09/22/19 08:00 Pulse Ox 96 09/22/19 08:00 Intake & Output 09/21/19 09/22/19 09/22/19 18:59 06:59 18:59 Intake Total 800 640 20 Output Total 1050 400 0 Balance -250 240 20 Weight 150.1 kg Intake: IV 490 240 20 Sodium Chloride 0.9% 1, 20 000 ml @ 100 mls/hr IV . Q10H [facility] Rx#:[id number] Sodium Chloride 0.9% 1, 220 240 20 000 ml @ 20 mls/hr IV . Q24H [facility]ICA Rx#:[id number] ceFAZolin 1,000 mg In 150 Sodium Chloride 0.9% 50 ml @ 100 mls/hr IVPB Q8HR [facility] Rx#:[id number] Oral 400 Blood Product 310 Rc Pheresis 2 As3 Unit 310 [id number] Output: Urine 1050 400 0 Other: Voiding Method Urinal Urinal - Exam GENERAL EXAM: Alert, very pleasant, 53-year-old white male, currently on room air with a pulse ox of 96% comfortable in no apparent distress. HEAD: Normocephalic/atraumatic. EYES: Normal reaction of pupils, equal size. Conjunctiva pink, sclera white. NOSE: Clear with pink turbinates. THROAT: No erythema or exudates. NECK: No masses, no JVD, no thyroid enlargement, no adenopathy. CHEST: No chest wall deformity. Symmetrical expansion. LUNGS: Equal air entry with no crackles, wheeze, rhonchi or dullness. CVS: Regular rate and rhythm, normal S1 and S2, no gallops, no murmurs, no rubs ABDOMEN: Soft, nontender. No hepatosplenomegaly, normal bowel sounds, no guarding or rigidity. EXTREMITIES: No clubbing, anasarca, generalized edema, chronic lower extremity venous stasis changes, with greater swelling in the right lower extremity in the calf area, no cyanosis, 2+ pulses and upper and lower extremities. MUSCULOSKELETAL: Muscle strength and tone normal. SPINE: No scoliosis or deformity SKIN: No rashes CENTRAL NERVOUS SYSTEM: Alert and oriented -3. No focal deficits, tone is normal in all 4 extremities. PSYCHIATRIC: Alert and oriented -3. Appropriate affect. Intact judgment and insight. - Labs CBC & Chem 7: 09/22/19 04:39 09/22/19 04:39 Labs: Abnormal Lab Results - Last 24 Hours (Table) 09/18/19 09/19/19 09/21/19 Range/Units 19:05 13:33 17:32 RBC 2.68 L (4.30-5.90) m/uL Hgb 7.9 L (13.0-17.5) gm/dL Hct 24.3 L (39.0-53.0) % RDW 18.5 H (11.5-15.5) % Plt Count 58 L (150-450) k/uL Lymphocytes # 0.3 L (1.0-4.8) k/uL Lymphocytes # (Manual) (1.0-4.8) k/uL Metamyelocytes # (Man) (0) k/uL Nucleated RBCs (0-0) /100 WBC Sodium (137-145) mmol/L Chloride (98-107) mmol/L BUN (9-20) mg/dL Glucose (74-99) mg/dL Calcium (8.4-10.2) mg/dL TIBC 176 L (228-460) ug/dL % Saturation 80.11 H (15.00-50.00) Ferritin 5755.4 H (22.0-322.0) ng/mL Crossmatch See Detail 09/22/19 09/22/19 Range/Units 04:39 04:39 RBC 2.54 L (4.30-5.90) m/uL Hgb 7.5 L (13.0-17.5) gm/dL Hct 23.0 L (39.0-53.0) % RDW 18.3 H (11.5-15.5) % Plt Count 63 L (150-450) k/uL Lymphocytes # (1.0-4.8) k/uL Lymphocytes # (Manual) 0.43 L (1.0-4.8) k/uL Metamyelocytes # (Man) 0.14 H (0) k/uL Nucleated RBCs 1 H (0-0) /100 WBC Sodium 136 L (137-145) mmol/L Chloride 108 H (98-107) mmol/L BUN 21 H (9-20) mg/dL Glucose 133 H (74-99) mg/dL Calcium 6.9 L (8.4-10.2) mg/dL TIBC (228-460) ug/dL % Saturation (15.00-50.00) Ferritin (22.0-322.0) ng/mL Crossmatch Assessment and Plan Plan: Assessment: #1. Acute blood loss anemia, secondary to GI bleeding and epistaxis. EGD showed 3 antral ulcers without active bleeding #2. Acute epistaxis related to Eliquis, controlled with nasal packing #3. Acute hypotension secondary to acute blood loss, hypovolemia, patient responded well to IV fluids and has received 5 units of packed red blood cells this admission so far #4. Chemotherapy induced peripheral neuropathy and recurrent trauma to both fe et related to neuropathy #5. History of metastatic prostate cancer #6. Acute kidney injury related to hypotension and acute tubular necrosis, improving with hydration and blood transfusions #7. Chronic atrial fibrillation, normally on Eliquis, which is presently on hold related to GI bleeding #8. History of gout #9. History of GERD without esophagitis #10. History of bariatric surgery #11. Nicotine dependence syndrome #12. Morbid obesity, the BMI of 49.9 #13. History of C. 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 We will Hep-Lock his IV fluids. We'll continue to follow I performed a history & physical examination of the patient and discussed their management with my nurse practitioner, Shanta Sanchez. I reviewed the nurse practitioner's note and agree with the documented findings and plan of care. Lung sounds are positive for diminished breath sounds. The findings and the impression was discussed with the patient. I attest to the documentation by the nurse practitioner. Time with Patient: Less than 30
[2019-09-22] MEDS: HYDROmorphone 0.5 MG/0.5 ML SYRINGE IVP PRN ×2 (13:06→21:47)
[2019-09-22] MEDS: ALLOPURINOL 100 MG TAB PO SCH (15:42)
[2019-09-22] MEDS: HYDROcodone/APAP 10-325MG 1 EACH TAB PO PRN ×2 (15:43→23:45)
--- NOTE | 2019-09-22 16:41 | P.PN ---
Objective - Vital Signs Vital signs: Vital Signs Temp 98.1 F 09/22/19 15:00 Pulse 86 09/22/19 15:00 Resp 17 09/22/19 15:00 BP 121/73 09/22/19 15:00 Pulse Ox 94 L 09/22/19 15:00 Intake & Output 09/21/19 09/22/19 09/22/19 18:59 06:59 18:59 Intake Total 800 640 20 Output Total 1050 400 400 Balance -250 240 -380 Weight 150.1 kg Intake: IV 490 240 20 Sodium Chloride 0.9% 1, 20 000 ml @ 100 mls/hr IV . Q10H [facility] Rx#:[id number] Sodium Chloride 0.9% 1, 220 240 20 000 ml @ 20 mls/hr IV . Q24H [facility]ICA Rx#:[id number] ceFAZolin 1,000 mg In 150 Sodium Chloride 0.9% 50 ml @ 100 mls/hr IVPB Q8HR [facility]ICA Rx#:[id number] Oral 400 Blood Product 310 Rc Pheresis 2 As3 Unit 310 [id number] Output: Urine 1050 400 400 Other: Voiding Method Urinal Urinal Urinal - Labs CBC & Chem 7: 09/22/19 04:39 09/22/19 04:39 Labs: Abnormal Lab Results - Last 24 Hours (Table) 09/21/19 09/22/19 09/22/19 Range/Units 17:32 04:39 04:39 RBC 2.68 L 2.54 L (4.30-5.90) m/uL Hgb 7.9 L 7.5 L (13.0-17.5) gm/dL Hct 24.3 L 23.0 L (39.0-53.0) % RDW 18.5 H 18.3 H (11.5-15.5) % Plt Count 58 L 63 L (150-450) k/uL Lymphocytes # 0.3 L (1.0-4.8) k/uL Lymphocytes # (Manual) 0.43 L (1.0-4.8) k/uL Metamyelocytes # (Man) 0.14 H (0) k/uL Nucleated RBCs 1 H (0-0) /100 WBC Sodium 136 L (137-145) mmol/L Chloride 108 H (98-107) mmol/L BUN 21 H (9-20) mg/dL Glucose 133 H (74-99) mg/dL Calcium 6.9 L (8.4-10.2) mg/dL Assessment and Plan (1) Acute blood loss anemia Narrative/Plan: Patient is status post 5 units of packed red blood cells. Hemoglobin is 7.5 today. GI work up results pending. CBC daily to monitor for Hgb stability. Anemia workup is showing iron overload due to massive transfusion. No iron supplements Continue to transfuse to keep hemoglobin 7 or higher Current Visit: Yes Status: Acute Priority: High Code(s): D62 - ACUTE POSTHEMORRHAGIC ANEMIA SNOMED Code(s): 472727023 (2) Prostate cancer Narrative/Plan: Most recently started on erleada in mid July. Treatment is on hold at the moment to see if the hemoglobin will stabilize. Patient will follow-up in the office prior to resuming earleada. Current Visit: Yes Status: Chronic Priority: High Code(s): C61 - MALIGNANT NEOPLASM OF PROSTATE SNOMED Code(s): 208395272 Plan: Pt is on anticoagulation for a-fib, unable to withhold. Doctor attests: I performed a history and physical examination of this patient, developed impr ession and plan of care, discussed with dictator. I agree with dictators note, documented as a scribe.
[2019-09-22] MEDS: LORATADINE 10 MG TAB PO SCH (20:01)
[2019-09-22] MEDS: DULoxetine HCL 20 MG CAPSULE.DR PO SCH (20:01)
--- NOTE | 2019-09-22 22:54 | P.PN ---
Subjective Progress Note Date: 09/22/19 Pt is feeling better today, more energy, denies shortness of breath, melena or hematochezia. EGD showed 3 non-active ulcers, pt recommended to continue PPI on discharge. Hgb stable today at 7.5. Objective - Vital Signs Vital signs: Vital Signs Temp 97.8 F 09/22/19 20:00 Pulse 97 09/22/19 20:00 Resp 16 09/22/19 20:00 BP 120/87 09/22/19 20:00 Pulse Ox 97 09/22/19 20:00 Intake & Output 09/22/19 09/22/19 09/23/19 06:59 18:59 06:59 Intake Total 640 20 Output Total 400 400 Balance 240 -380 Weight 150.1 kg Intake: IV 240 20 Sodium Chloride 0.9% 1, 240 20 000 ml @ 20 mls/hr IV . Q24H VER[facility]NICA Rx#:[id number] Oral 400 Output: Urine 400 400 Other: Voiding Method Urinal Urinal Urinal - Exam General: well nourished, well developed, NAD. Obese. Vitals reviewed Lungs: normal respiratory effort, no wheezes or rales CV: Regular rate and rhythm, no murmur. Peripheral pulses 2+ Abdomen: soft, nondistended, no organomegaly Skin: warm and dry. - Labs CBC & Chem 7: 09/22/19 04:39 09/22/19 04:39 Labs: Abnormal Lab Results - Last 24 Hours (Table) 09/22/19 09/22/19 Range/Units 04:39 04:39 RBC 2.54 L (4.30-5.90) m/uL Hgb 7.5 L (13.0-17.5) gm/dL Hct 23.0 L (39.0-53.0) % RDW 18.3 H (11.5-15.5) % Plt Count 63 L (150-450) k/uL Lymphocytes # (Manual) 0.43 L (1.0-4.8) k/uL Metamyelocytes # (Man) 0.14 H (0) k/uL Nucleated RBCs 1 H (0-0) /100 WBC Sodium 136 L (137-145) mmol/L Chloride 108 H (98-107) mmol/L BUN 21 H (9-20) mg/dL Glucose 133 H (74-99) mg/dL Calcium 6.9 L (8.4-10.2) mg/dL Assessment and Plan (1) Acute blood loss anemia Current Visit: Yes Status: Acute Priority: High Code(s): D62 - ACUTE POSTHEMORRHAGIC ANEMIA SNOMED Code(s): 105560844 (2) Atrial fibrillation Current Visit: Yes Status: Acute Code(s): I48.91 - UNSPECIFIED ATRIAL FIBRILLATION SNOMED Code(s): 33735486 (3) GI bleed Current Visit: Yes Status: Acute Code(s): K92.2 - GASTROINTESTINAL HEMORRHAGE, UNSPECIFIED SNOMED Code(s): 32737293 (4) Prostate cancer Current Visit: Yes Status: Chronic Priority: High Code(s): C61 - MALIGNANT NEOPLASM OF PROSTATE SNOMED Code(s): 898327842 (5) Anemia in chronic illness Current Visit: No Status: Acute Code(s): D63.8 - ANEMIA IN OTHER CHRONIC DISEASES CLASSIFIED ELSEWHERE SNOMED Code(s): 490454552 (6) Diastolic CHF Current Visit: No Status: Acute Code(s): I50.30 - UNSPECIFIED DIASTOLIC (CONGESTIVE) HEART FAILURE SNOMED Code(s): 649526875 Plan: 1. Acute blood loss anemia. Resolved, given total 5 units PRBC. Transfuse for hgb <7. Continue PPI 2. Atrial fibrillation. On cardizem gtt per ICU protocol. Continue metoprolol 3. Prostate cancer. Oncology following, erleada on hold with anemia
[2019-09-23 05:02] LABS: African American GFR (CKD) >90 (>60 ml/min/1.73 sqM); Anion Gap 5 mmol/L; Blood Urea Nitrogen 23 mg/dL (9-20); Calcium 7.1 mg/dL (8.4-10.2); Carbon Dioxide 23 mmol/L (22-30); Chloride 106 mmol/L (98-107); Glucose 96 mg/dL (74-99); Non-African American GFR(CKD) >90 (>60 ml/min/1.73 sqM); Potassium 4.6 mmol/L (3.5-5.1); Sodium 134 mmol/L (137-145)
[2019-09-23 05:05] LABS: Anisocytosis Slight; HCT 26.1 % (39.0-53.0); HGB 8.4 gm/dL (13.0-17.5); Hypochromasia Slight; MCH 29.3 pg (25.0-35.0); MCV 91.5 fL (80.0-100.0); Mean Platelet Volume 10.3; Platelet Count 80 k/uL (150-450); Poikilocytosis Slight; RBC 2.86 m/uL (4.30-5.90); RDW 18.2 % (11.5-15.5)
[2019-09-23 05:26] LABS: Band Neutrophils % 2 %; Eosinophils # (M) 0.14 k/uL (0-0.7); Lymphocytes # (M) 0.28 k/uL (1.0-4.8); Monocytes # (M) 0.42 k/uL (0-1.0); Neutrophils % (M) 86 %; Nucleated Red Blood Cells 1 /100 WBC (0-0); Total Cells Counted 200
[2019-09-23] MEDS: SODIUM CHLORIDE 0.9% 1,000 ML IV SCH (05:42)
[2019-09-23 08:14] VITALS: BP 114/73; RESP 14; TEMP 97.9
[2019-09-23] MEDS: PANTOPRAZOLE 40 MG/10 ML VIAL IV SCH (08:20)
[2019-09-23] MEDS: METOPROLOL TARTRATE 50 MG TAB PO SCH (08:20)
[2019-09-23] MEDS: HYDROmorphone 0.5 MG/0.5 ML SYRINGE IVP PRN (08:20)
[2019-09-23] MEDS: ALLOPURINOL 100 MG TAB PO SCH (08:20)
[2019-09-23] MEDS: GABAPENTIN 400 MG CAP PO SCH (08:20)
[2019-09-23 09:05] VITALS: PULSE 97
--- NOTE | 2019-09-23 10:29 | P.PN ---
Subjective Progress Note Date: 09/23/19 Principal diagnosis: Acute GI bleeding, epistaxis This is a 53-year-old white male with history of chronic atrial fibrillation, metastatic prostate cancer, hypertension, gout, chronic venous insufficiency and chronic lower extremity swelling and cellulitis, history of hypertension, gout, history of bariatric surgery, patient was recently in the hospital for anemia and hemoglobin was 5. Patient was transfused, and at that time he was noted to have bleeding and fracture of the third and fourth toe on the right foot. Patient was sutured, and he was eventually discharged home. Presented to the ER yesterday complaining of epistaxis, mostly from the right nostril. He was also complaining of weakness, black stools, and his hemoglobin was noted to be 6.2. Patient received a total of 3 units of packed RBCs so far, considering the profound anemia and considering that the patient may have a combination of epistaxis and upper GI bleeding, patient was admitted to the ICU, and I was asked to see him on consultation. Patient denies any headache, no blurred vision, no dizziness, his right nostril bleeding was controlled by nasal packing done by the ER physician. He was placed on Protonix, GI consultation was initiated, and it is pending. Apparently the patient has been taking Eliquis for atrial fibrillation, and it is presently on hold. In the ER his blood pressure was borderline low, patient received 2 units of packed RBCs in the ER, and 2 L of IV fluids. Upon my evaluation in the ICU, the patient was feeling much better, blood pressure was better controlled, and he was on his third units of packed RBCs. Patient has no previous history of upper GI bleeding, no history of peptic ulcer disease, no history of liver disease, and he is not taking any nonsteroidal anti-inflammatory drugs. Reevaluated today on 09/20/2019, patient remains in the ICU, scheduled to undergo EGD this morning. Patient continues to have some black tarry stools, no hematemesis, no further epistaxis. He received a total of 3 units of packed RBCs since admission and his hemoglobin this morning is 7.2. Earlier today, the patient developed an episode of atrial fibrillation with RVR, with normal blood pressure, hence I recommended Cardizem 20 mg IV push and a Cardizem drip at 5 mg per hour, also recommended cardiac consultation. Patient may have to have clearance for EGD by cardiology. The patient is pleasant and in no distress, he is feeling much better compared to how he felt on admission. His basic metabolic profile is basically normal. And his renal profile seems to be significantly improved with BUN down to 30 creatinine is down to 1.10 from 1.45 yesterday. He was seen by oncology/hematology yesterday, and he was felt to have underlying chronic anemia with acute anemia/blood loss, and felt to be multifactorial related to his prostate cancer, bone metastasis, and likely bone marrow infiltration. On 09/21/2019 patient seen in follow-up in the intensive care unit. No acute bleeding overnight, today's hemoglobin, is 6.6, and patient is receiving an add itional unit of packed red blood cells. This will be his fifth unit of packed red blood cells this admission. He is awake and alert, hemodynamically stable, no vasopressors, IV 0.9 and was seen a rate of 20 ML per hour, no complaints of chest pain, shortness of breath, patient remains on 2 L of oxygen his pulse ox is 95-99%, no fever or chills, no tachycardia. No complaint of abdominal pain, no nausea, no vomiting or black tarry stools. Nasal packing remains in place, and it is anticipated to be discontinued today. He is on PPI therapy, GI service and medical oncology are following. Anticoagulation remains on hold, patient is in atrial fibrillation, with a controlled rate. His EGD scheduled for this morning with Dr. Barone On 09/22/2019 patient seen in follow-up in intensive care unit, he is resting comfortably in bed, in no acute distress, there has been no further bleeding ov ernight, vital signs are stable, 0.9 normal saline infusing at a rate of 20 ML per hour, patient is on room air, no specific complaints, no shortness of breath, no abdominal pain, patient has received a total of 5 units of packed red blood cells this admission, today's hemoglobin 7.5. Patient had his EGD yesterday, and no active bleeding was noted on the EGD, and there were 3 antral ulcers without active bleeding or high risk stigmata for rebleeding, sees were taken, and are pending at this time. The patient is seen today 09/23/2019 in follow-up in the intensive care unit. He is awake, alert distress currently resting comfortably in bed. Maintaining good O2 saturations in the mid 90s on room air. He's been afebrile. Hemodynamically stable. Remains in atrial fibrillation with a controlled ventricular response. He is status post 5 units packed red blood cell transfusions this admission. Current hemoglobin 8.4. White count 7.0. Platelets 80,000. Sodium 134. Potassium 4.6. Creatinine 0.88. He is continued on cefazolin. He is having complaints of right elbow and wrist pain. X-rays pending. He'll be initiated on colchicine 0.6 mg twice a day for his suspected gout. Currently on allopurinol. Objective - Vital Signs Vital signs: Vital Signs Temp 97.9 F 09/23/19 08:00 Pulse 76 09/23/19 08:00 Resp 14 09/23/19 08:00 BP 114/73 09/23/19 08:00 Pulse Ox 96 09/23/19 08:00 Intake & Output 09/22/19 09/23/19 09/23/19 18:59 06:59 18:59 Intake Total 20 Output Total 400 500 Balance -380 -500 Intake: IV 20 Sodium Chloride 0.9% 1, 20 000 ml @ 20 mls/hr IV . Q24H [facility] Rx#:[id number] Output: Urine 400 500 Other: Voiding Method Urinal Urinal Urinal - Exam GENERAL EXAM: Alert, very pleasant, 53-year-old male patient, currently on room air with a pulse ox of 96% comfortable in no apparent distress. HEAD: Normocephalic/atraumatic. EYES: Normal reaction of pupils, equal size. Conjunctiva pink, sclera white. NOSE: Clear with pink turbinates. THROAT: No erythema or exudates. NECK: No masses, no JVD, no thyroid enlargement, no adenopathy. CHEST: No chest wall deformity. Symmetrical expansion. LUNGS: Equal air entry with no crackles, wheeze, rhonchi or dullness. CVS: Regular rate and rhythm, normal S1 and S2, no gallops, no murmurs, no rubs ABDOMEN: Soft, nontender. No hepatosplenomegaly, normal bowel sounds, no guarding or rigidity. EXTREMITIES: No clubbing, anasarca, generalized edema, chronic lower extremity venous stasis changes, with greater swelling in the right lower extremity in the calf area, no cyanosis, 2+ pulses and upper and lower extremities. MUSCULOSKELETAL: Muscle strength and tone normal. Complains of right elbow and right wrist pain SPINE: No scoliosis or deformity SKIN: No rashes CENTRAL NERVOUS SYSTEM: No focal deficits, tone is normal in all 4 extremities. PSYCHIATRIC: Alert and oriented -3. Appropriate affect. Intact judgment and insight. - Labs CBC & Chem 7: 09/23/19 04:08 09/23/19 04:08 Labs: Abnormal Lab Results - Last 24 Hours (Table) 09/23/19 09/23/19 Range/Units 04:08 04:08 RBC 2.86 L (4.30-5.90) m/uL Hgb 8.4 L (13.0-17.5) gm/dL Hct 26.1 L (39.0-53.0) % RDW 18.2 H (11.5-15.5) % Plt Count 80 L (150-450) k/uL Lymphocytes # (Manual) 0.28 L (1.0-4.8) k/uL Nucleated RBCs 1 H (0-0) /100 WBC Sodium 134 L (137-145) mmol/L BUN 23 H (9-20) mg/dL Calcium 7.1 L (8.4-10.2) mg/dL Assessment and Plan Assessment: #1. Acute blood loss anemia, secondary to GI bleeding and epistaxis. EGD showed 3 antral ulcers without active bleeding status post 5 units packed red blood cells in total. Current hemoglobin 8.4. #2. Acute epistaxis related to Eliquis, controlled with nasal packing #3. Acute hypotension secondary to acute blood loss, hypovolemia, patient responded well to IV fluids and has received 5 units of packed red blood cells this admission so far #4. Chemotherapy induced peripheral neuropathy and recurrent trauma to both feet related to neuropathy #5. History of metastatic prostate cancer #6. Acute kidney injury related to hypotension and acute tubular necrosis, improving with hydration and blood transfusions #7. Chronic atrial fibrillation, normally on Eliquis, which is presently on hold related to GI bleeding #8. History of gout #9. History of GERD without esophagitis #10. History of bariatric surgery #11. Nicotine dependence syndrome #12. Morbid obesity, the BMI of 48.9 #13. History of C. 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 Marley. His hemoglobin is stable at 8.4. He does have complaints of gout pain. We'll initiate colchicine 0.6 mg twice a day. X-ray the right elbow and right wrist. DC cefazolin. Transfer out of the ICU today. We'll continue to follow. I, the cosigning physician, performed a history & physical examination of the patient. Lungs sounds are clear. Maintaining good O2 saturations in the 90s on room air. I discussed the assessment and plan of care with my nurse practitioner, Sameera Turner. I attest to the above note as dictated by her.
--- NOTE | 2019-09-23 11:07 | XR ---
EXAMINATION TYPE: XR elbow complete RT DATE OF EXAM: 09/23/2019 COMPARISON: None HISTORY: Fall, pain TECHNIQUE: Three-view right elbow FINDINGS: Radial head articulates with the humerus. Olecranon spur is present. Anterior fat pad appea rs normal. There may be some elevation posterior fat pad. Consider joint effusion within the differen tial. An occult fracture may be less likely but should be included within the differential. IMPRESSION: 1. Small joint effusion at the elbow. Occult fracture cannot entirely excluded. Follow-up exams 7-10 days from acute trauma for continued pain be performed.
--- NOTE | 2019-09-23 11:08 | XR ---
EXAMINATION TYPE: XR wrist complete RT DATE OF EXAM: 09/23/2019 COMPARISON: None HISTORY: Fall, pain TECHNIQUE: 4 view right wrist FINDINGS: No acute fractures or dislocations are evident. Mild joint space changes are present at the first carpal metacarpal junction. Soft tissues appear normal. There is pain at the anatomic snuff box, nuclear medicine bone scan could be performed for additional evaluation. Follow-up exams can be performed 7-10 days from acute trauma for continued pain. IMPRESSION: 1. No acute osseous abnormality right wrist.
[2019-09-23] MEDS ORDERED: COLCHICINE 0.6 MG EACH PO SCH (21:00)
--- NOTE | 2019-09-28 08:30 | P.DS ---
Providers Date of admission: 09/18/19 20:46 Expected date of discharge: 09/25/19 Attending physician: Curt Paiz MD Consults: 09/18/19 20:46 Consult Physician Stat Consulting Provider: Kacy Rodriguez Consult Reason/Comments: gib Do you want consulting provider notified?: Yes Consult Physician Urgent Consulting Provider: James Holman Consult Reason/Comments: prostate cancer on chemo Do you want consulting provider notified?: Yes 09/19/19 13:24 Consult Physician Routine Consulting Provider: Efren Smith Consult Reason/Comments: Epistaxis Do you want consulting provider notified?: Already Contacted 09/20/19 08:15 Consult Physician Stat Consulting Provider: Jacinda Velazquez Consult Reason/Comments: afib RVR; history of afib Do you want consulting provider notified?: Already Contacted 09/20/19 08:17 Consult Physician Routine Consulting Provider: Jacinda Velazquez Consult Reason/Comments: AFIB/RVR Do you want consulting provider notified?: Yes Primary care physician: Curt Paiz MD - Discharge Diagnosis(es) (1) Acute blood loss anemia Status: Acute Priority: High (2) Atrial fibrillation Status: Acute (3) GI bleed Status: Acute (4) Prostate cancer Status: Chronic Priority: High (5) Anemia in chronic illness Status: Acute (6) Diastolic CHF Status: Acute Hospital Course: 53-year-old male with a medical history significant for atrial fibrillation, congestive heart failure, GERD, metastatic prostate cancer and hypertension who presented to the hospital due to complaints of weakness and dizziness. The patient was previously hospitalized earlier in the month at which time he underwent a mechanical fall at which time he had a fracture of his foot with associated open wound and bleeding requiring suturing. The patient was found to be anemic at that time and also had complained of epistaxis. He had been having dark bowel movements which she felt was associated with the epistaxis. The patient was treated for his fracture and eventually discharged home. He presented back to the hospital due to complaints of weakness and dizziness. On presentation to the hospital he was found to have a bicytopenia with a hemoglobin of 5 and platelet count of 64. Pt was admitted to medicine and seen by GI, he underwent an EGD which did show multiple healing ulcers without active bleeding. Pt also complained of significant epistaxis passing chung clots from his sinus. He was seen by ENT and nasal packing was placed. Pt was transfused during his admission to maintain Hgb above 7 and required a total of 5 units PRBC. On day of discharge his Hgb had stabilizied and was rising and pt denied any further bleeding. He is discharged in stable condition and will follow up with his PCP within 1 week. Discharge exam: Gen: well developed, obese, NAD HENT: no epistaxis CV: Irregular, no murmur, 1+ edema sandy Lungs: clear throughout Ext: cap refill <2 seconds Patient Condition at Discharge: Serious Plan - Discharge Summary New Discharge Prescriptions: New Oxymetazoline 0.05% Nasl [place] [Afrin 0.05% Nasal [place]] 3 spray NASAL TID PRN #1 bottle PRN Reason: nose bleeds Allopurinol [Zyloprim] 200 mg PO DAILY #60 tab Pantoprazole Sodium [Protonix] 40 mg PO BID #60 tablet.dr Continue Loratadine [Claritin] 10 mg PO HS Furosemide [Lasix] 80 mg PO DAILY Diltiazem HCl [Diltiazem 24Hr ER (CD)] 120 mg PO HS HYDROcodone/APAP 10-325MG [[place] 10-325] 2 tab PO TID PRN PRN Reason: Pain DULoxetine HCL [Cymbalta] 20 mg PO HS Metoprolol Succinate (ER) [Toprol XL] 100 mg PO DAILY Apixaban [Eliquis] 5 mg PO BID Gabapentin 800 mg PO TID fentaNYL 75MCG/HR PATCH [Duragesic 75MCG/HR] 1 patch TRANSDERM Q72H Loperamide [Imodium] 2 mg PO QID PRN #0 cap PRN Reason: Diarrhea Methyl Salicylate/Menth/Camph [Salonpas 3.1%-6.0%-10.0% Patch] 1 patch TOPICAL DAILY PRN PRN Reason: Pain Discharge Medication List Furosemide [Lasix] 80 mg PO DAILY 02/27/17 [History] Loratadine [Claritin] 10 mg PO HS 02/27/17 [History] Diltiazem HCl [Diltiazem 24Hr ER (CD)] 120 mg PO HS 09/25/18 [History] DULoxetine HCL [Cymbalta] 20 mg PO HS 05/13/19 [History] HYDROcodone/APAP 10-325MG [[place] 10-325] 2 tab PO TID PRN 05/13/19 [History] Metoprolol Succinate (ER) [Toprol XL] 100 mg PO DAILY 05/13/19 [History] Apixaban [Eliquis] 5 mg PO BID 06/20/19 [History] Gabapentin 800 mg PO TID 06/20/19 [History] fentaNYL 75MCG/HR PATCH [Duragesic 75MCG/HR] 1 patch TRANSDERM Q72H 06/20/19 [History] Loperamide [Imodium] 2 mg PO QID PRN #0 cap 09/04/19 [Rx] Methyl Salicylate/Menth/Camph [Salonpas 3.1%-6.0%-10.0% Patch] 1 patch TOPICAL DAILY PRN 09/18/19 [History] Allopurinol [Zyloprim] 200 mg PO DAILY #60 tab 09/23/19 [Rx] Oxymetazoline 0.05% Nasl [place] [Afrin 0.05% Nasal [place]] 3 spray NASAL TID PRN #1 bottle 09/23/19 [Rx] Pantoprazole Sodium [Protonix] 40 mg PO BID #60 tablet. 09/23/19 [Rx] Follow up Appointment(s)/Referral(s): Curt Paiz MD [Primary Care Provider] - 1-2 days (Office closed; holiday; advised patient to make follow-up appt.) James Holman MD [STAFF PHYSICIAN] - 10/06/19 10:30 am (09/26/19 10:30 am; already made ) [facility] Visiting Nurse, [NON-STAFF] - As Needed (Office closed holiday; referral made by case management coordinator. ) Patient Instructions/Handouts: Gastrointestinal Bleeding (DC), Gout (DC) Discharge Disposition: HOME WITH HOME HEALTH SERVICES
== END 2019-09-23 14:58 | disposition home health service (06) | DRG 377 ==
LOC: EC 18:11 → 2SICU 20:46
PROVIDERS: ADMIT Family Medicine; ATTEND Family Medicine
PROC: 30233N1 Transfusion of Nonautologous Red Blood Cells into Peripheral Vein, Percutaneous Approach (ICD-10-PCS; 2019-09-21)
PROC: 2Y41X5Z Packing of Nasal Region using Packing Material (ICD-10-PCS; 2019-09-21)
PROC: 0DB78ZX Excision of Stomach, Pylorus, Via Natural or Artificial Opening Endoscopic, Diagnostic (ICD-10-PCS; principal; 2019-09-21 07:30)
DX: K25.4 Chronic or unspecified gastric ulcer with hemorrhage (principal); N17.0 Acute kidney failure with tubular necrosis; C79.51 Secondary malignant neoplasm of bone; D62 Acute posthemorrhagic anemia; E44.0 Moderate protein-calorie malnutrition; E87.1 Hypo-osmolality and hyponatremia; I50.32 Chronic diastolic (congestive) heart failure; Z68.42 Body mass index [BMI] 45.0-49.9, adult; L51.1 Stevens-Johnson syndrome; D61.818 Other pancytopenia; I48.20 Chronic atrial fibrillation, unspecified; C61 Malignant neoplasm of prostate; D63.8 Anemia in other chronic diseases classified elsewhere; E66.01 Morbid (severe) obesity due to excess calories; E78.5 Hyperlipidemia, unspecified; I08.3 Combined rheumatic disorders of mitral, aortic and tricuspid valves; E86.0 Dehydration; E86.1 Hypovolemia; F17.200 Nicotine dependence, unspecified, uncomplicated; I11.0 Hypertensive heart disease with heart failure; R04.0 Epistaxis; M10.9 Gout, unspecified; K21.9 Gastro-esophageal reflux disease without esophagitis; G62.0 Drug-induced polyneuropathy; T45.1X5A Adverse effect of antineoplastic and immunosuppressive drugs, initial encounter; W19.XXXA Unspecified fall, initial encounter; Z79.01 Long term (current) use of anticoagulants; Z79.899 Other long term (current) drug therapy; Z80.42 Family history of malignant neoplasm of prostate; Z85.46 Personal history of malignant neoplasm of prostate; Z86.19 Personal history of other infectious and parasitic diseases; Z86.73 Personal history of transient ischemic attack (TIA), and cerebral infarction without residual deficits; Z98.84 Bariatric surgery status
CPT/HCPCS: 30901; 36415; 43239; 71045; 80048; 80053; 82248; 82272; 82607; 82728; 82746; 83010; 83540; 83550; 83605; 83615; 83735; 84100; 84484; 84550; 85025; 85027; 85045; 85610; 85730; 86850; 86900; 86901; 86920; 88305; 93005; 93306; 96361; 96374; 96375; 99285

== ENCOUNTER 2019-10-13 01:45 | Inpatient (IN) | payer MEDICARE ==
--- NOTE | 2019-10-13 02:05 | ED ---
Fall HPI - General Chief Complaint: Fall Stated Complaint: Fall Time Seen by Provider: 10/13/19 01:48 Source: patient, EMS, RN notes reviewed, old records reviewed Mode of arrival: EMS Limitations: no limitations - History of Present Illness Initial Comments: This is a 54-year-old male with severe medical comorbidities and sickness, illness. End stage pancreatic cancer coming in for bleeding from the right leg, patient is bandaged at this time. Denying any significant pain. Patient denies any injury patient was in the bathroom when his legs gave out and lost his balance, did sustain injury to right leg with some bleeding MD Complaint: fall -: minutes(s) Fall From: standing When Fall Occurred: 1 hour [employer] Fall Witnessed: no Place Fall Occurred: home Loss of Consciousness: none Prolonged Down Time?: no Symptoms Prior to Fall: none Location - Extremities: Right: Ankle (Mild bleeding with skin tear) Severity: moderate Severity scale (1-10): 3 Context: tripped/slipped, other (Dizziness) Associated Symptoms: denies - Related Data Home Medications Medication Instructions Recorded Confirmed Furosemide [Lasix] 80 mg PO DAILY 02/27/17 10/13/19 Loratadine [Claritin] 10 mg PO HS 02/27/17 10/13/19 Diltiazem HCl [Diltiazem 24Hr ER 120 mg PO HS 09/25/18 10/13/19 (CD)] DULoxetine HCL [Cymbalta] 20 mg PO HS 05/13/19 10/13/19 Metoprolol Succinate (ER) [Toprol 100 mg PO DAILY 05/13/19 10/13/19 XL] Apixaban [Eliquis] 5 mg PO BID 06/20/19 10/13/19 Gabapentin 800 mg PO TID 06/20/19 10/13/19 HYDROmorphone [Dilaudid] 4 mg PO Q2HR 10/13/19 10/13/19 fentaNYL 100MCG/HR PATCH 1 applic TRANSDERM Q72H 10/13/19 10/13/19 [Duragesic 100MCG/HR] Previous Rx's Medication Instructions Recorded Loperamide [Imodium] 2 mg PO QID PRN #0 cap 09/04/19 Allopurinol [Zyloprim] 200 mg PO DAILY #60 tab 09/23/19 Oxymetazoline 0.05% Nasl [place] 3 spray NASAL TID PRN #1 bottle 09/23/19 [Afrin 0.05% Nasal [place]] Pantoprazole Sodium [Protonix] 40 mg PO BID #60 tablet. 09/23/19 Allergies Allergy/AdvReac Type Severity Reaction Status Date / Time cephalexin [From Keflex] Allergy Unknown Itching Verified 09/19/19 13:30 levofloxacin [From Levaquin] Allergy Unknown Blisters Verified 09/18/19 20:56 Penicillins Allergy Unknown Blisters Verified 09/18/19 20:56 Tetracyclines Allergy Unknown Blisters Verified 09/18/19 20:56 adhesive Allergy BLISTERS Verified 09/18/19 20:56 Review of Systems ROS Statement: Those systems with pertinent positive or pertinent negative responses have been documented in the HPI. ROS Other: All systems not noted in ROS Statement are negative. Past Medical History Past Medical History: Atrial Fibrillation, Cancer, Heart Failure, GERD/Reflux, Hypertension Additional Past Medical History / Comment(s): GOUT. PERIPHERAL EDEMA. HX OF RENAL FAILURE (3 YRS AGO), RASHARD JOHNSONS SYNDROME. PROSTATE CANCER WITH METS TO BONE (DX 2014) IN REMISSION AT THIS TIME. POWER PORT IN LEFT UPPER CHEST INFECTED AND REMOVED 2017. RECEVIES HORMONE TX Q 3 MONTHS AT [facility]. CHRONIC CONSTIPATION. DYSPHAGIA. History of Any Multi-Drug Resistant Organisms: C-DIFF Date of last positivie culture/infection: 2011 MDRO Source:: stool Past Surgical History: Appendectomy, Bariatric Surgery Additional Past Surgical History / Comment(s): FLUID ABSCESS AFTER APPENDECTOMY (CHILD), PROSTATE BIOPSY'S. LAP BAND 2010. POWER PORt removed, gallbladder removed Past Anesthesia/Blood Transfusion Reactions: No Reported Reaction Past Psychological History: No Psychological Hx Reported Smoking Status: Current some day smoker Past Alcohol Use History: Rare Past Drug Use History: None Reported - Past Family History Father Family Medical History: Cancer Additional Family Medical History / Comment(s): PROSTATE CANCER Brother(s) Family Medical History: Cancer Additional Family Medical History / Comment(s): PROSTATE CANCER Course Vital Signs 10/13/19 10/13/19 01:47 02:40 Temperature 99.1 F Pulse Rate 89 Respiratory 18 Rate Blood Pressure 106/84 119/59 O2 Sat by Pulse 93 L Oximetry - Reevaluation(s) Reevaluation #1: 10/13/19 04:29 medical record is reviewed - Consultations Consultation #1: spoke w Dr Bethea, will see patient for fracture eval and treatment Consultation #2: spoke w Dr Paiz agreeable for admission Procedures - Orthopedic Fracture Reduction Fracture #1 Consent Obtained: verbal consent Side: left Fracture Reduction Location: tibia, fibula Technique: direct manipulation, traction/counter-traction Post Reduction X-rays Demonstrate: acceptable reduction Post-Reduction Neuro Exam: intact Post-Reduction Vascular Exam: intact Splint Applied: Yes Patient Tolerated Procedure: well - Orthopedic Joint Reduction Joint #1 Consent Obtained: verbal consent Side: left Joint Reduction Location: ankle Analgesia: none Technique Used: traction/counter-traction, direct manipulation Post-Reduction Neuro Exam: intact Post-Reduction Vascular Exam: intact Post Reduction X-Ray Obtained: Yes Post Reduction X-Ray Results: reduced Splint Applied: Yes Patient Tolerated Procedure: well Medical Decision Making - Medical Decision Making 54 male to the ED sp spontaneous L ankle fracture, open w dislocation, patient has fracture reduced, and splinted will admit for further evaluation and treatment - Lab Data Result diagrams: 10/13/19 02:40 10/13/19 02:40 Lab Results 10/13/19 10/13/19 10/13/19 Range/Units 02:40 02:40 02:40 WBC 5.8 (3.8-10.6) k/uL RBC 2.03 L (4.30-5.90) m/uL Hgb 5.9 L* D (13.0-17.5) gm/dL Hct 19.1 L* (39.0-53.0) % MCV 94.2 (80.0-100.0) fL MCH 29.1 (25.0-35.0) pg MCHC 30.9 L (31.0-37.0) g/dL RDW 22.3 H (11.5-15.5) % Plt Count 101 L (150-450) k/uL Neutrophils % (Manual) 82 % Band Neutrophils % 2 % Lymphocytes % (Manual) 6 % Monocytes % (Manual) 7 % Eosinophils % (Manual) 2 % Basophils % (Manual) 1 % Neutrophils # (Manual) 4.80 (1.3-7.7) k/uL Lymphocytes # (Manual) 0.35 L (1.0-4.8) k/uL Monocytes # (Manual) 0.41 (0-1.0) k/uL Eosinophils # (Manual) 0.12 (0-0.7) k/uL Basophils # (Manual) 0.06 (0-0.2) k/uL Nucleated RBCs 4 H (0-0) /100 WBC Manual Slide Review Performed Polychromasia Present Hypochromasia Marked Poikilocytosis Marked Anisocytosis Moderate Macrocytosis Slight Spherocytes Present PT 11.7 (9.0-12.0) sec INR 1.2 H (<1.2) APTT 25.5 (22.0-30.0) sec Sodium 138 (137-145) mmol/L Potassium 4.3 (3.5-5.1) mmol/L Chloride 104 (98-107) mmol/L Carbon Dioxide 28 (22-30) mmol/L Anion Gap 6 mmol/L BUN 21 H (9-20) mg/dL Creatinine 1.36 H (0.66-1.25) mg/dL Est GFR (CKD-EPI)AfAm 67 (>60 ml/min/1.73 sqM) Est GFR (CKD-EPI)NonAf 58 (>60 ml/min/1.73 sqM) Glucose 109 H (74-99) mg/dL Calcium 7.8 L (8.4-10.2) mg/dL Phosphorus 3.8 (2.5-4.5) mg/dL Magnesium 1.9 (1.6-2.3) mg/dL Total Bilirubin 0.7 (0.2-1.3) mg/dL AST 73 H (17-59) U/L ALT 7 (4-49) U/L Alkaline Phosphatase 110 (38-126) U/L Creatine Kinase 157 (55-170) U/L Total Protein 5.7 L (6.3-8.2) g/dL Albumin 2.7 L (3.5-5.0) g/dL Blood Type Blood Type Recheck Bld Type Recheck Status Antibody Screen Spec Expiration Date 10/13/19 Range/Units 03:15 WBC (3.8-10.6) k/uL RBC (4.30-5.90) m/uL Hgb (13.0-17.5) gm/dL Hct (39.0-53.0) % MCV (80.0-100.0) fL MCH (25.0-35.0) pg MCHC (31.0-37.0) g/dL RDW (11.5-15.5) % Plt Count (150-450) k/uL Neutrophils % (Manual) % Band Neutrophils % % Lymphocytes % (Manual) % Monocytes % (Manual) % Eosinophils % (Manual) % Basophils % (Manual) % Neutrophils # (Manual) (1.3-7.7) k/uL Lymphocytes # (Manual) (1.0-4.8) k/uL Monocytes # (Manual) (0-1.0) k/uL Eosinophils # (Manual) (0-0.7) k/uL Basophils # (Manual) (0-0.2) k/uL Nucleated RBCs (0-0) /100 WBC Manual Slide Review Polychromasia Hypochromasia Poikilocytosis Anisocytosis Macrocytosis Spherocytes PT (9.0-12.0) sec INR (<1.2) APTT (22.0-30.0) sec Sodium (137-145) mmol/L Potassium (3.5-5.1) mmol/L Chloride (98-107) mmol/L Carbon Dioxide (22-30) mmol/L Anion Gap mmol/L BUN (9-20) mg/dL Creatinine (0.66-1.25) mg/dL Est GFR (CKD-EPI)AfAm (>60 ml/min/1.73 sqM) Est GFR (CKD-EPI)NonAf (>60 ml/min/1.73 sqM) Glucose (74-99) mg/dL Calcium (8.4-10.2) mg/dL Phosphorus (2.5-4.5) mg/dL Magnesium (1.6-2.3) mg/dL Total Bilirubin (0.2-1.3) mg/dL AST (17-59) U/L ALT (4-49) U/L Alkaline Phosphatase (38-126) U/L Creatine Kinase (55-170) U/L Total Protein (6.3-8.2) g/dL Albumin (3.5-5.0) g/dL Blood Type O Positive Blood Type Recheck O Pos Bld Type Recheck Status No Antibody Screen NEGATIVE Spec Expiration Date 10/16/20192019 - Radiology Data Radiology results: report reviewed (xr l ankle shows fracture disloacation), image reviewed Disposition Clinical Impression: Open left ankle fracture, Dislocation of ankle, left, open, Coagulopathy, Anemia Disposition: ADMITTED IP TO THIS [facility] Condition: Serious Is patient prescribed a controlled substance at d/c from ED?: No Referrals: Curt Paiz MD [Primary Care Provider] - 1-2 days
--- NOTE | 2019-10-13 02:20 | XR ---
EXAMINATION TYPE: XR ankle limited RT DATE OF EXAM: 10/13/2019 COMPARISON: NONE HISTORY: Pain TECHNIQUE: 2 views FINDINGS: There is lateral dislocation of the talus there is plantar calcaneal spurring. Subtalar shira nt is intact. There is narrowing of the tarsometatarsal joints.. There is transverse fracture of the medial malleolus and transverse fracture of the distal fibula. There is 4.5 cm lateral displacement o f the talus and medial and lateral malleolus. IMPRESSION: There is a lateral fracture dislocation of the ankle joint.
[2019-10-13] MEDS ORDERED: DIPH,PERTUS(ACELL)TETVAC-LF 0.5 ML VIAL IM ONE (02:21)
[2019-10-13] MEDS ORDERED: SODIUM CHLORIDE 0.9% 1,000 ML IV STA (02:21)
[2019-10-13] MEDS ORDERED: MORPHINE SULFATE 4 MG/ML SYRINGE IV STA (02:21)
--- NOTE | 2019-10-13 02:21 | XR ---
EXAMINATION TYPE: XR foot limited RT DATE OF EXAM: 10/13/2019 COMPARISON: NONE HISTORY: Pain TECHNIQUE: 2 views FINDINGS: Metatarsals are intact. There is severe narrowing of the first MP joint space with spurring . There is soft tissue swelling of the forefoot. There is a lateral dislocation of the ankle joint wi th fractures of the medial and lateral malleolus. IMPRESSION: Acute fracture dislocation of the ankle joint.
[2019-10-13] MEDS ORDERED: CLINDAMYCIN 900 MG in DEXTROSE 5% IN WATER 50 ML IVPB ONE ×2 (02:30)
[2019-10-13 02:54] LABS: Anisocytosis Moderate; Hypochromasia Marked; MCH 29.1 pg (25.0-35.0); MCHC 30.9 g/dL (31.0-37.0); MCV 94.2 fL (80.0-100.0); Macrocytosis Slight; Mean Platelet Volume 8.8; Platelet Count 101 k/uL (150-450); Poikilocytosis Marked; RBC 2.03 m/uL (4.30-5.90); RDW 22.3 % (11.5-15.5)
[2019-10-13 02:59] LABS: INR 1.2 (<1.2); Partial Thromboplastin Time 25.5 sec (22.0-30.0); Prothrombin Time 11.7 sec (9.0-12.0)
[2019-10-13 03:00] LABS: HCT 19.1 % (39.0-53.0); HGB 5.9 gm/dL (13.0-17.5)
[2019-10-13 03:13] LABS: Albumin 2.7 g/dL (3.5-5.0); Calcium 7.8 mg/dL (8.4-10.2); Magnesium 1.9 mg/dL (1.6-2.3); Phosphorus 3.8 mg/dL (2.5-4.5); Potassium 4.3 mmol/L (3.5-5.1); Total Bilirubin 0.7 mg/dL (0.2-1.3); Total Protein 5.7 g/dL (6.3-8.2)
[2019-10-13 03:14] LABS: Band Neutrophils % 2 %; Basophils # (M) 0.06 k/uL (0-0.2); Eosinophils # (M) 0.12 k/uL (0-0.7); Neutrophils % (M) 82 %; Nucleated Red Blood Cells 4 /100 WBC (0-0); Total Cells Counted 200
[2019-10-13 03:15] LABS: Lymphocytes # (M) 0.35 k/uL (1.0-4.8); Monocytes # (M) 0.41 k/uL (0-1.0); WBC 5.8 k/uL (3.8-10.6)
[2019-10-13 03:16] LABS: Polychromasia Present; Spherocytes Present
[2019-10-13] MEDS ORDERED: HYDROmorphone 1 MG/ML 1 ML SYRINGE IVP STA ×3 (03:20→05:09)
[2019-10-13] MEDS ORDERED: LORazepam 2 MG/ML INJ IV STA ×2 (03:30→03:47)
--- NOTE | 2019-10-13 04:35 | XR ---
EXAMINATION TYPE: XR ankle limited RT DATE OF EXAM: 10/13/2019 COMPARISON: Today HISTORY: Post reduction TECHNIQUE: Single frontal view FINDINGS: In the frontal view there is significant improved anatomic position of the talus. There is bimalleolar fracture of the ankle. There is 7 mm lateral subluxation of the talus. IMPRESSION: Significant improved anatomic position of the bimalleolar fracture dislocation.
[2019-10-13] MEDS ORDERED: NALOXONE 0.4 MG/ML 1 ML VIAL IV STA (04:38)
[2019-10-13] MEDS ORDERED: NALOXONE 0.4 MG/ML 1 ML VIAL IV PRN (04:38)
--- NOTE | 2019-10-13 04:39 | XR ---
EXAMINATION TYPE: XR ankle limited RT DATE OF EXAM: 10/13/2019 COMPARISON: NONE HISTORY: Post reduction TECHNIQUE: Single view FINDINGS: There is bimalleolar fracture of the ankle. Detail is limited by the cast. There is 7 mm la teral displacement of the talus and the malleolar fragments. IMPRESSION: Significant anatomic reduction of the lateral fracture dislocation of the ankle joint.
[2019-10-13] MEDS ORDERED: NALOXONE 0.4 MG/ML 10 ML VIAL ONE (04:45)
[2019-10-13] MEDS ORDERED: DIAZEPAM 5 MG/ML 2 ML INJ IVP STA (04:57)
[2019-10-13] MEDS ORDERED: FUROSEMIDE 80 MG TAB PO SCH (09:00)
[2019-10-13] MEDS: ALLOPURINOL 100 MG TAB PO SCH (09:51)
[2019-10-13] MEDS: GABAPENTIN 400 MG CAP PO SCH ×3 (09:52→22:28)
[2019-10-13] MEDS: METOPROLOL SUCCINATE (ER) 100 MG TAB.ER.24H PO SCH (09:52)
[2019-10-13] MEDS: PANTOPRAZOLE 40 MG TABLET PO SCH ×2 (09:52→21:28)
--- NOTE | 2019-10-13 10:35 | P.CNOR ---
History of Present Illness - HPI Consult date: 10/13/19 History of present illness: This patient is a 54- year old male with a past medical history of atrial fibrillation, chronic anemia, and metastatic prostate cancer that presented to [facility] ER yesterday via ambulance after a fall at home. At the time of my exam, the patient is sleeping and a history is unable to be obtained. His girlfriend is bedside, and the history is obtained from her. The patient's girlfriend states that the patient fell in the bathroom at home yesterday. She states his mother called her, therefore she came over to the home and found the patient in the bathroom with substantial bleeding from the ri t ankle, she states she was able to see bone and the ankle was obviously deformed. She states she called an ambulance, and EMS splinted the ankle and transported the patient to the patient to [facility]. On arrival to the emergency department, x-rays were taken and revealed a significantly displaced bimalleolar open ankle fracture. The patient's ankle was reduced and splinted. The patient's hemoglobin was found to be 5.9 in the emergency room. He was given IV antibiotics and tdap in the ER. The patient was admitted under the care of internal medicine, with a consult placed to orthopedic surgery for further evaluation and treatment of his right ankle. Per the patient's girlfriend, Travis, she states that her and the patient ,and the patient's primary care physician were in the process of placing the patient on hospice, although there have been no final decisions made. Past Medical History Past Medical History: Atrial Fibrillation, Cancer, Heart Failure, GERD/Reflux, Hypertension Additional Past Medical History / Comment(s): GOUT. PERIPHERAL EDEMA. HX OF RENAL FAILURE (3 YRS AGO), RASHARD JOHNSONS SYNDROME. PROSTATE CANCER WITH METS TO BONE (DX 2014) CURRENTLY NO FURTHER TX OPTIONS. POWER PORT IN LEFT UPPER CHEST INFECTED AND REMOVED 2017. RECEVIES HORMONE TX Q 3 MONTHS AT [facility]. CHRONIC CONSTIPATION. DYSPHAGIA. History of Any Multi-Drug Resistant Organisms: C-DIFF Year Discovered:: 2011 MDRO Source:: stool Past Surgical History: Appendectomy, Bariatric Surgery Additional Past Surgical History / Comment(s): FLUID ABSCESS AFTER APPENDECTOMY (CHILD), PROSTATE BIOPSY'S. LAP BAND 2010. POWER PORt removed, gallbladder removed Past Anesthesia/Blood Transfusion Reactions: No Reported Reaction Past Psychological History: No Psychological Hx Reported Smoking Status: Former smoker Past Alcohol Use History: Rare Additional Past Alcohol Use History / Comment(s): HX OF CHEWING TOBACCO- QUIT 4 YRS AGO., OCCASIONAL CIGARS SINCE HE WAS 17 YRS OLD. (0-1 PER WEEK) Past Drug Use History: None Reported - Past Family History Father Family Medical History: Cancer Additional Family Medical History / Comment(s): PROSTATE CANCER Brother(s) Family Medical History: Cancer Additional Family Medical History / Comment(s): PROSTATE CANCER Medications and Allergies Home Medications Medication Instructions Recorded Confirmed Type Furosemide [Lasix] 80 mg PO DAILY 02/27/17 10/13/19 History Loratadine [Claritin] 10 mg PO HS 02/27/17 10/13/19 History Diltiazem HCl [Diltiazem 24Hr ER 120 mg PO HS 09/25/18 10/13/19 History (CD)] DULoxetine HCL [Cymbalta] 20 mg PO HS 05/13/19 10/13/19 History Metoprolol Succinate (ER) [Toprol 100 mg PO DAILY 05/13/19 10/13/19 History XL] Apixaban [Eliquis] 5 mg PO BID 06/20/19 10/13/19 History Gabapentin 800 mg PO TID 06/20/19 10/13/19 History Allopurinol [Zyloprim] 200 mg PO DAILY #60 tab 09/23/19 10/13/19 Rx Oxymetazoline 0.05% Nasl [place] 3 spray NASAL TID PRN #1 bottle 09/23/19 10/13/19 Rx [Afrin 0.05% Nasal [place]] Pantoprazole Sodium [Protonix] 40 mg PO BID #60 tablet. 09/23/19 10/13/19 Rx HYDROcodone/APAP 10-325MG [[place] 1 - 2 tab PO Q6HR PRN 10/13/19 10/13/19 History 10-325] HYDROmorphone [Dilaudid] 4 mg PO Q2HR PRN 10/13/19 10/13/19 History Leuprolide Acetate [Lupron Dep[place]] 7.5 mg IM Q30D 10/13/19 10/13/19 History Xgeva 120mg/1.7ml 120 mg IM Q30D 10/13/19 10/13/19 History fentaNYL 100MCG/HR PATCH 1 applic TRANSDERM Q72H 10/13/19 10/13/19 History [Duragesic 100MCG/HR] Allergies Allergy/AdvReac Type Severity Reaction Status Date / Time cephalexin [From Keflex] Allergy Unknown Itching Verified 09/19/19 13:30 levofloxacin [From Levaquin] Allergy Unknown Blisters Verified 09/18/19 20:56 Penicillins Allergy Unknown Blisters Verified 09/18/19 20:56 Tetracyclines Allergy Unknown Blisters Verified 09/18/19 20:56 adhesive Allergy BLISTERS Verified 09/18/19 20:56 Physical Examination On examination, the patient is lying in bed in no apparent distress. He is alert and oriented 3. He appears lethargic, although he is easily aroused and able to answer questions correctly and follow commands. His head appears normocephalic and atraumatic. His breathing appears non-labored, nasal cannula in place. On inspection of the right ankle, there is a posterior splint in place. The visible portion of the toes are warm and well-perfused with brisk capillary refill of all toes. Patient is able to move all toes without issue. No pain with passive range of motion of the toes. Motor and sensory function appear to be intact of the right lower extremity. Results Right ankle x-ray 10/13/2019: Bimalleolar fracture dislocation of the right ankle. - Labs Labs: Abnormal Lab Results - Last 24 Hours (Table) 10/13/19 10/13/19 10/13/19 Range/Units 02:40 02:40 02:40 RBC 2.03 L (4.30-5.90) m/uL Hgb 5.9 L* D (13.0-17.5) gm/dL Hct 19.1 L* (39.0-53.0) % MCHC 30.9 L (31.0-37.0) g/dL RDW 22.3 H (11.5-15.5) % Plt Count 101 L (150-450) k/uL Lymphocytes # (Manual) 0.35 L (1.0-4.8) k/uL Nucleated RBCs 4 H (0-0) /100 WBC INR 1.2 H (<1.2) BUN 21 H (9-20) mg/dL Creatinine 1.36 H (0.66-1.25) mg/dL Glucose 109 H (74-99) mg/dL Calcium 7.8 L (8.4-10.2) mg/dL AST 73 H (17-59) U/L Total Protein 5.7 L (6.3-8.2) g/dL Albumin 2.7 L (3.5-5.0) g/dL Crossmatch 10/13/19 Range/Units 03:15 RBC (4.30-5.90) m/uL Hgb (13.0-17.5) gm/dL Hct (39.0-53.0) % MCHC (31.0-37.0) g/dL RDW (11.5-15.5) % Plt Count (150-450) k/uL Lymphocytes # (Manual) (1.0-4.8) k/uL Nucleated RBCs (0-0) /100 WBC INR (<1.2) BUN (9-20) mg/dL Creatinine (0.66-1.25) mg/dL Glucose (74-99) mg/dL Calcium (8.4-10.2) mg/dL AST (17-59) U/L Total Protein (6.3-8.2) g/dL Albumin (3.5-5.0) g/dL Crossmatch See Detail H & H 10/13/19 Range/Units 02:40 Hgb 5.9 L* D (13.0-17.5) gm/dL Hct 19.1 L* (39.0-53.0) % Coagulation 10/13/19 Range/Units 02:40 INR 1.2 H (<1.2) Result Diagrams: 10/13/19 02:40 10/13/19 02:40 Assessment and Plan Assessment: Open bimalleolar fracture dislocation, right ankle Plan: - I discussed the clinical and imaging findings extensively with the patient and his girlfriend. We discussed options for treatment. It is recommended that the right ankle be taken to the operating room for a formal irrigation and de bridement today. We also discussed operative fixation for this ankle fracture dislocation would be recommended in a healthy adult. But based on the patient's metastatic prostate cancer and his current life expectancy, the patient's girlfriend states they would like to move forward with a right ankle irrigation and debridement with reduction and splint application only today in the operating room. They would not like to undergo operative fixation of the ankle today. We also discussed the possibility of undergoing operative fixation of the ankle at a later date, if they wish. - We will plan for formal irrigation and debridement of the open bimalleolar fracture dislocation of the right ankle today in the operating room, pending medical clearance and consent. - NPO diet. Patient discussed with Dr. Bethea.
[2019-10-13] MEDS: HYDROmorphone 1 MG/ML 1 ML SYRINGE IVP PRN (16:13)
[2019-10-13 16:16] LABS: Anisocytosis Slight; HCT 23.6 % (39.0-53.0); Hypochromasia Slight; MCH 30.3 pg (25.0-35.0); MCHC 32.6 g/dL (31.0-37.0); MCV 93.2 fL (80.0-100.0); Macrocytosis Slight; Mean Platelet Volume 9.1; Poikilocytosis Moderate; RBC 2.54 m/uL (4.30-5.90); RDW 19.4 % (11.5-15.5); WBC 5.9 k/uL (3.8-10.6)
[2019-10-13 16:18] LABS: HGB 7.7 gm/dL (13.0-17.5); Platelet Count 79 k/uL (150-450)
[2019-10-13] MEDS ORDERED: IV FLUID CONTINUATION 1,000 ML IV ONE (16:48)
[2019-10-13] MEDS ORDERED: MIDAZOLAM 2 MG/2 ML VIAL ONE (16:51)
[2019-10-13] MEDS ORDERED: KETAMINE 10 MG/ML 20 ML VIAL ONE (16:51)
[2019-10-13] MEDS ORDERED: PROPOFOL 10 MG/ML 20 ML VIAL IV ONE (16:51)
[2019-10-13] MEDS ORDERED: fentaNYL (PF) 50 MCG/ML 2 ML AMP ONE (16:51)
--- NOTE | 2019-10-13 17:35 | P.CONS ---
History of Present Illness - Reason for Consult Consult date: 10/13/19 prostate cancer Requesting physician: Mio Romo - Chief Complaint fall with fracture - History of Present Illness Mr. Sutherland is a very pleasant male pt of Dr. Holman with a history of prostate cancer diagnosed in 2014, presenting with a PSA of 283, pelvic lymphadenopathy, as well as diffuse bone mets. He was treated at [facility] [place] with Lupron and Taxotere X 13 cycles. He had casodex then Xtandi through Dr. Llamas at [facility] in [place], ADP maintained. In January 2018 pt was treated with xofigo for painful bone mets with some relief. Palliative XRT L hip later that year. 07/11 PSA increased further. He was started on erleada in Jul. By Aug he was having increasing hip pain, has has several falls, currently admitted for right ankle fracture. He is off all prostate cancer treatment since last visit with Dr. Holman on 10/06 at which time pt was told that there was disease progression. Pt had no other c/o on a 14 point ROS Review of Systems 10 point ROS is negative except as stated in HPI Past Medical History Past Medical History: Atrial Fibrillation, Cancer, Heart Failure, GERD/Reflux, Hypertension Additional Past Medical History / Comment(s): GOUT. PERIPHERAL EDEMA. HX OF RENAL FAILURE (3 YRS AGO), RASHARD JOHNSONS SYNDROME. PROSTATE CANCER WITH METS TO BONE (DX 2014) CURRENTLY NO FURTHER TX OPTIONS. POWER PORT IN LEFT UPPER CHEST INFECTED AND REMOVED 2017. RECEVIES HORMONE TX Q 3 MONTHS AT [facility]. CHRONIC CONSTIPATION. DYSPHAGIA. History of Any Multi-Drug Resistant Organisms: C-DIFF Year Discovered:: 2011 MDRO Source:: stool Past Surgical History: Appendectomy, Bariatric Surgery Additional Past Surgical History / Comment(s): FLUID ABSCESS AFTER APPENDECTOMY (CHILD), PROSTATE BIOPSY'S. LAP BAND 2010. POWER PORt removed, gallbladder removed Past Anesthesia/Blood Transfusion Reactions: No Reported Reaction Past Psychological History: No Psychological Hx Reported Smoking Status: Former smoker Past Alcohol Use History: Rare Additional Past Alcohol Use History / Comment(s): HX OF CHEWING TOBACCO- QUIT 4 YRS AGO., OCCASIONAL CIGARS SINCE HE WAS 17 YRS OLD. (0-1 PER WEEK) Past Drug Use History: None Reported - Past Family History Father Family Medical History: Cancer Additional Family Medical History / Comment(s): PROSTATE CANCER Brother(s) Family Medical History: Cancer Additional Family Medical History / Comment(s): PROSTATE CANCER Medications and Allergies Home Medications Medication Instructions Recorded Confirmed Type Furosemide [Lasix] 80 mg PO DAILY 02/27/17 10/13/19 History Loratadine [Claritin] 10 mg PO HS 02/27/17 10/13/19 History Diltiazem HCl [Diltiazem HCl 24Hr 120 mg PO HS 09/25/18 10/13/19 History ER (CD)] DULoxetine HCL [Cymbalta] 20 mg PO HS 05/13/19 10/13/19 History Metoprolol Succinate (ER) [Toprol 100 mg PO DAILY 05/13/19 10/13/19 History XL] Apixaban [Eliquis] 5 mg PO BID 06/20/19 10/13/19 History Gabapentin 800 mg PO TID 06/20/19 10/13/19 History Allopurinol [Zyloprim] 200 mg PO DAILY #60 tab 09/23/19 10/13/19 Rx Oxymetazoline 0.05% Nasl [place] 3 spray NASAL TID PRN #1 bottle 09/23/19 10/13/19 Rx [Afrin 0.05% Nasal [place]] Pantoprazole Sodium [Protonix] 40 mg PO BID #60 tablet. 09/23/19 10/13/19 Rx HYDROcodone/APAP 10-325MG [[place] 1 - 2 tab PO Q6HR PRN 10/13/19 10/13/19 History 10-325] HYDROmorphone [Dilaudid] 4 mg PO Q2HR PRN 10/13/19 10/13/19 History Leuprolide Acetate [Lupron Depot] 7.5 mg IM Q30D 10/13/19 10/13/19 History Xgeva 120mg/1.7ml 120 mg IM Q30D 10/13/19 10/13/19 History fentaNYL 100MCG/HR PATCH 1 applic TRANSDERM Q72H 10/13/19 10/13/19 History [Duragesic 100MCG/HR] Allergies Allergy/AdvReac Type Severity Reaction Status Date / Time cephalexin [From Keflex] Allergy Unknown Itching Verified 09/19/19 13:30 levofloxacin [From Levaquin] Allergy Unknown Blisters Verified 09/18/19 20:56 Penicillins Allergy Unknown Blisters Verified 09/18/19 20:56 Tetracyclines Allergy Unknown Blisters Verified 09/18/19 20:56 adhesive Allergy BLISTERS Verified 09/18/19 20:56 Physical Exam Vitals: Vital Signs Temp Pulse Pulse Resp BP BP Pulse Ox 10/13/19 15:00 97.9 F 88 16 118/59 100 10/13/19 14:07 98.2 F 74 16 108/64 10/13/19 12:21 98.4 F 76 14 110/65 10/13/19 11:51 98.5 F 72 16 104/86 10/13/19 11:41 98.4 F 74 16 100/57 10/13/19 10:25 98.6 F 76 16 114/60 10/13/19 09:27 98.5 F 82 16 100/64 98 10/13/19 09:25 98.2 F 88 16 107/67 10/13/19 08:55 98.3 F 79 16 114/67 98 10/13/19 08:45 98.5 F 82 16 100/64 10/13/19 07:46 98.5 F 82 16 100/64 98 10/13/19 07:00 98.5 F 82 100/64 98 10/13/19 06:29 99.1 F 72 18 91/42 99 10/13/19 05:59 98.8 F 82 20 92/52 98 10/13/19 05:49 98.7 F 80 24 95/50 100 10/13/19 05:34 98.2 F 93 24 102/52 98 10/13/19 05:05 98 24 90/47 100 10/13/19 04:45 9 L 10/13/19 02:40 119/59 10/13/19 01:47 99.1 F 89 18 106/84 93 L Intake and Output 10/13/19 10/13/19 10/13/19 06:59 14:59 22:59 Intake Total 0 1730 Output Total 220 Balance 0 1510 Intake: IV 800 Sodium Chloride 0.9% 1, 800 000 ml @ 100 mls/hr IV . Q10H STA Rx#:[id number] Blood Product 0 930 Rc As-1 Unit 0 310 [id number] Rc As-1 Unit 310 [id number] Rc Pheresis As-3 Unit 310 [id number] Output: Urine 220 Other: # Voids 2 Weight 146.51 kg 146.51 kg - Constitutional General appearance: cooperative, no acute distress, obese - EENT dry mucus membranes and lips Eyes: anicteric sclerae ENT: hearing grossly normal - Neck Neck: no lymphadenopathy - Respiratory Respiratory: bilateral: diminished - Cardiovascular Rhythm: regular Heart sounds: normal: S1, S2 Abnormal Heart Sounds: no systolic murmur, no diastolic murmur, no rub, no S3 Gallop, no S4 Gallop, no click, no other - Gastrointestinal General gastrointestinal: no absent bowel sounds, no decreased bowel sounds, no distended, no hepatomegaly, no hyperactive bowel sounds, normal bowel sounds, no organomegaly, no rigid, no scaphoid, soft, no splenomegaly, no tenderness, no umbilical hernia, no ventral hernia - Musculoskeletal Musculoskeletal: generalized weakness - Psychiatric Difficult to arouse but, once awake, answers questions appropriately and is able to stay awake for a bit Psychiatric: appropriate affect, intact judgment & insight Results CBC & Chem 7: 10/13/19 15:27 10/13/19 02:40 Labs: Abnormal Lab Results - Last 24 Hours (Table) 10/13/19 10/13/19 10/13/19 Range/Units 02:40 02:40 02:40 RBC 2.03 L (4.30-5.90) m/uL Hgb 5.9 L* D (13.0-17.5) gm/dL Hct 19.1 L* (39.0-53.0) % MCHC 30.9 L (31.0-37.0) g/dL RDW 22.3 H (11.5-15.5) % Plt Count 101 L (150-450) k/uL Lymphocytes # (Manual) 0.35 L (1.0-4.8) k/uL Nucleated RBCs 4 H (0-0) /100 WBC INR 1.2 H (<1.2) BUN 21 H (9-20) mg/dL Creatinine 1.36 H (0.66-1.25) mg/dL Glucose 109 H (74-99) mg/dL Calcium 7.8 L (8.4-10.2) mg/dL AST 73 H (17-59) U/L Total Protein 5.7 L (6.3-8.2) g/dL Albumin 2.7 L (3.5-5.0) g/dL Crossmatch 10/13/19 10/13/19 Range/Units 03:15 15:27 RBC 2.54 L (4.30-5.90) m/uL Hgb 7.7 L D (13.0-17.5) gm/dL Hct 23.6 L (39.0-53.0) % MCHC (31.0-37.0) g/dL RDW 19.4 H (11.5-15.5) % Plt Count 79 L (150-450) k/uL Lymphocytes # (Manual) (1.0-4.8) k/uL Nucleated RBCs (0-0) /100 WBC INR (<1.2) BUN (9-20) mg/dL Creatinine (0.66-1.25) mg/dL Glucose (74-99) mg/dL Calcium (8.4-10.2) mg/dL AST (17-59) U/L Total Protein (6.3-8.2) g/dL Albumin (3.5-5.0) g/dL Crossmatch See Detail Assessment and Plan (1) Anemia Narrative/Plan: S/P 2 units with appropriate increase in Hgb. Hgb baseline is in the low 7 range. Suspect that acute drop r/t fracture/injury. Transfuse to keep Hgb >7 Current Visit: Yes Status: Chronic Priority: Medium Code(s): D64.9 - ANEMIA, UNSPECIFIED SNOMED Code(s): 386760874 (2) Prostate cancer metastatic to bone Narrative/Plan: Pt met with Dr. Holman last week. His PSA continued to increase (969 for 917 month before). Pt and agreed at that time for hospice referral which was sent. Will check with pt tomorrow if they have met yet. Current Visit: No Status: Chronic Priority: Medium Code(s): C61 - MALIGNANT NEOPLASM OF PROSTATE; C79.51 - SECONDARY MALIGNANT NEOPLASM OF BONE SNOMED Code(s): 838958331 (3) Thrombocytopenia Narrative/Plan: Pt has mild thrombocytopenia at baseline from xofigo treatment. This has recently progressed (? marrow involvement with malignancy) Plt >50K adequate for orthopedic procedure from a Heme standpoint. Plt>50K ok for post op anticoagulation if felt to be necessary by orthopedics Current Visit: Yes Status: Chronic Priority: Medium Code(s): D69.6 - THROMBOCYTOPENIA, UNSPECIFIED SNOMED Code(s): 196934200
[2019-10-13] MEDS ORDERED: ONDANSETRON 4 MG/2 ML VIAL IVP PRN (18:21)
[2019-10-13] MEDS ORDERED: HYDROcodone/APAP 5-325MG 1 EACH TAB PO PRN ×2 (18:21)
--- NOTE | 2019-10-13 18:28 | P.OP ---
Date of Procedure: 10/13/19 Preoperative Diagnosis: 1. Open type IIIa bimalleolar ankle fracture dislocation 2. Stage IV prostate cancer 3. Chronic anemia with admission hemoglobin of 5.9 4. Morbid obesity with BMI 47.7 5. Chronic venous insufficiency bilateral lower extremities Postoperative Diagnosis: Same Procedure(s) Performed: 1. Open reduction and internal fixation of right medial malleolus fracture 2. Irrigation and debridement of right open ankle fracture 3. Manual application of joint stress by physician for radiography, right ankle 4. Application of [place] by physician, right ankle Anesthesia: RICKY Surgeon: Stone Bethea Boss Miner #1: Mishel Durán Estimated Blood Loss (ml): 50 Pathology: none sent Condition: stable Disposition: PACU Indications for Procedure: The patient is a 54-year-old male with multiple medical problems including stage IV prostate cancer, extreme morbid obesity with BMI 47, chronic anemia with an admission hemoglobin of 5.9, and chronic venous insufficiency in his bilateral lower extremities who sustained a fall last evening resulting in an open ankle fracture dislocation. He is brought to the emergency department where an attempt at closed reduction and splinting was performed. He was given urgent IV antibiotics. He is admitted to the hospital under my care and then transferred to internal medicine this morning due to his multiple medical issues. I met with the patient and his fiance preoperatively to discuss treatment options. He has an extremely complex medical history and the family was actually considering going on hospice due to his terminal prostate cancer and chronic anemia. We discussed urgent need to irrigate and debride his open fracture. We also discussed different surgical stabilization including splinting versus formal open reduction internal fixation. My recommendation was to perform an irrigation and debridement of the open fracture and stabilize the medial malleolus fracture as the fracture was visible through the open wound. The patient and his fiance agreed with this plan. They understand the potential to fix the fibula in the future should his clinical condition improved. We discussed potential risks and complications of surgery including but not limited to risk of anesthesia, infection, delayed wound healing, nonunion, malunion, ankle instability, DVT, PE, and . The patient and his fiance understand these risks and also gauze other less common Rotations are possible. Description of Procedure: The patient was identified in the operative holding and the correct right ankle was marked with my initials. I reviewed the consent form with the patient and his fiance. There were then brought back to the operating room by anesthesia. He was positioned on the OR table where a general anesthetic antibiotics were given. All bony prominences were well-padded. The right leg was then prepped and draped in standard sterile fashion. Prior to starting surgery timeout was performed identifying the correct patient, operative extremity, and procedure. I began by thoroughly debriding the open wound with 3 L of sterile saline and cystoscopy tubing. On inspection of the wound the wound measured 17 cm. The distal tibial plafond was visible through the wound. The anterior extensor tendons and medial flexor tendons were also visible within the wound. All gross debris was removed. Once the wound was thoroughly debrided and irrigated the medial malleolus was identified and carefully reduced. A [id number] reduction clamp was used with 1 neida placed over the tip of the medial malleolus and the other neida placed through a unicortical drill hole the medial distal tibia. Fluoroscopy was used to verify reduction of the ankle mortise and medial malleolus. I then placed 2 nonlocking 3.5 mm fully threaded screws across the medial malleolus into the distal tibia, with both screws measuring 55 mm. Fluoroscopy was then brought in and a gentle manual external rotation stress x- ray was performed which showed a stable ankle mortise and no opening of the medial clear space. The deep layer was closed with interrupted 2-0 Prolene. The superficial subcutaneous tissue was reapproximated using 3-0 Monocryl. The skin was closed with 3-0 nylon horizontal mattress sutures. I verified that all instrument, sponge, and sharp counts were correct. Sterile dressing consisting of Betadine soaked Adaptic, 4 x 4, EBD, and web rolls applied followed by well- padded bulky Thomas splint with the ankle in neutral. The patient was then awoken from his anesthetic, transferred to a gurney, and brought to recovery having tolerated the procedure well. Mishel Durán PA-C was required as a skilled bindery assistant due to the complexity of the surgery for patient positioning, exposure, retraction, placement of hardware, closure of wound, application of splint. Plan: The patient is going to be admitted back to the floor under the care of internal medicine. He is to remain strictly nonweightbearing on his right leg. He is to leave the splint on at all times. I recommend 48-72 hours of IV antibiotics due to the severity of his open wound. We will continue to closely follow up patient is in the hospital. I would like to see the patient 2 weeks postoperatively to remove sutures and discussed definitive treatment of the fibula. The ankle mortise is stabilized and he may also be able to be treated in a boot pending decisions on hospice and care of his multiple medical problems.
[2019-10-13] MEDS ORDERED: LACTATED RINGERS 1,000 ML IV SCH (18:30)
[2019-10-13] MEDS: HYDROmorphone 1 MG/ML 1 ML SYRINGE IVP ONE ×3 (18:40→19:03)
[2019-10-13 19:00] LABS: Anisocytosis Slight; HCT 24.3 % (39.0-53.0); HGB 7.7 gm/dL (13.0-17.5); Hypochromasia Moderate; MCH 29.7 pg (25.0-35.0); MCHC 31.9 g/dL (31.0-37.0); MCV 93.2 fL (80.0-100.0); Macrocytosis Slight; Mean Platelet Volume 9.3; Poikilocytosis Moderate; RDW 19.3 % (11.5-15.5)
[2019-10-13] MEDS ORDERED: LACTATED RINGERS 1,000 ML IV ONE (19:20)
[2019-10-13 19:49] LABS: Platelet Count 87 k/uL (150-450)
[2019-10-13 20:44] LABS: Band Neutrophils % 2 %; Eosinophils # (M) 0.11 k/uL (0-0.7); Neutrophils % (M) 81 %; Nucleated Red Blood Cells 2 /100 WBC (0-0); Total Cells Counted 200
[2019-10-13 20:45] LABS: Anisocytosis (M) Present; Lymphocytes # (M) 0.42 k/uL (1.0-4.8); Monocytes # (M) 0.42 k/uL (0-1.0); Polychromasia Present; WBC 5.3 k/uL (3.8-10.6)
[2019-10-13] MEDS: LORATADINE 10 MG TAB PO SCH (21:28)
[2019-10-13] MEDS: DILTIAZEM CD 120 MG CAP.ER.24H PO SCH (21:28)
[2019-10-13] MEDS: DULoxetine HCL 20 MG CAPSULE.DR PO SCH (21:28)
[2019-10-13] MEDS: CLINDAMYCIN 900 MG in DEXTROSE 5% IN WATER 50 ML IVPB SCH ×2 (23:54)
[2019-10-14] MEDS ORDERED: CLINDAMYCIN 900 MG in DEXTROSE 5% IN WATER 50 ML IVPB SCH ×2
[2019-10-14] MEDS: HYDROmorphone 1 MG/ML 1 ML SYRINGE IVP PRN ×6 (01:18→23:15)
--- NOTE | 2019-10-14 07:14 | XR ---
EXAMINATION TYPE: XR ankle limited RT DATE OF EXAM: 10/13/2019 COMPARISON: NONE TECHNIQUE: Two views submitted HISTORY: Post op FINDINGS: There is postsurgical change in near anatomic alignment involving the medial tibial. There is soft t issue edema and emphysema. Persistent fracture fibula noted. IMPRESSION: 1. Postoperative change. Appears in near-anatomic alignment
[2019-10-14 07:21] LABS: Calcium 7.2 mg/dL (8.4-10.2); Potassium 3.9 mmol/L (3.5-5.1)
--- NOTE | 2019-10-14 07:32 | FL ---
EXAMINATION TYPE: FL guidance operating room DATE OF EXAM: 10/13/2019 HISTORY: Fluoroscopy time 8 seconds of fluoroscopy provided. IMPRESSION: 1. Fluoroscopy time.
[2019-10-14 07:38] LABS: Anisocytosis Slight; HCT 20.9 % (39.0-53.0); HGB 7.1 gm/dL (13.0-17.5); Hypochromasia Moderate; MCHC 33.8 g/dL (31.0-37.0); MCV 94.7 fL (80.0-100.0); Macrocytosis Slight; Mean Platelet Volume 8.3; Poikilocytosis Moderate; RBC 2.21 m/uL (4.30-5.90); RDW 19.5 % (11.5-15.5)
[2019-10-14 07:39] LABS: Platelet Count 78 k/uL (150-450)
[2019-10-14] MEDS: CLINDAMYCIN 900 MG in DEXTROSE 5% IN WATER 50 ML IVPB SCH ×6 (08:02→23:14)
[2019-10-14] MEDS: PANTOPRAZOLE 40 MG TABLET PO SCH ×2 (08:03→21:48)
[2019-10-14] MEDS: GABAPENTIN 400 MG CAP PO SCH ×2 (08:03→16:28)
[2019-10-14] MEDS: ALLOPURINOL 100 MG TAB PO SCH (08:03)
[2019-10-14] MEDS: METOPROLOL SUCCINATE (ER) 100 MG TAB.ER.24H PO SCH (08:03)
--- NOTE | 2019-10-14 08:26 | P.PN ---
Subjective Progress Note Date: 10/14/19 This patient is a 54- year old male with a past medical history of atrial fibrillation, chronic anemia, and metastatic prostate cancer that presented to [facility] ER yesterday via ambulance after a fall at home. Upon arrival to the ER, the patient was found to have a significantly displaced jay leolar open ankle fracture. The patient's ankle was reduced and splinted. The patient's hemoglobin was found to be 5.9 in the emergency room. He was given IV antibiotics and tdap in the ER. The patient was admitted under the care of internal medicine, with a consult placed to orthopedic surgery for further evaluation and treatment of his right ankle. Per the patient's girlfriend, Travis, she states that her and the patient ,and the patient's primary care physician were in the process of placing the patient on hospice, although there have been no final decisions made. The patient underwent an irrigation and debridement, ORIF of the right ankle medial malleolus with splint application on 10/13/[address] Bethea. Today's postoperative day #1. The patient states his pain is currently well- controlled. He is experiencing moderate discomfort in the anterior ankle. He states he does not have a large appetite this morning, though he is tolerating the small bites he is eating. He states otherwise he is feeling well this morning. He denies chest pain, shortness breath, nausea, vomiting. Vital signs stable. Objective - Vital Signs Vital signs: Vital Signs Temp 97.8 F 10/14/19 07:26 Pulse 98 10/14/19 07:26 Resp 16 10/14/19 07:26 BP 113/69 10/14/19 07:26 Pulse Ox 96 10/14/19 07:26 Intake & Output 10/13/19 10/14/19 10/14/19 18:59 06:59 18:59 Intake Total 2280 660 Output Total 270 500 Balance 2009 160 Weight 146.51 kg Intake: IV 1350 460 Sodium Chloride 0.9% 1, 800 260 000 ml @ 100 mls/hr IV . Q10H STA Rx#:[id number] Oral 200 Blood Product 930 Rc As-1 Unit 310 [id number] Rc As-1 Unit 310 [id number] Rc Pheresis As-3 Unit 310 [id number] Output: Urine 220 500 Estimated Blood Loss 50 Other: # Voids 2 1 - Exam On examination, the patient is sitting up in bed in no apparent distress. He is alert and oriented 3. Nasal cannula in place. On inspection of the right lower extremity, there is a clean, dry, intact bulky Thomas splint in place. The visible portion of the toes are warm and well- perfused with brisk capillary refill. Patient is able to move his toes without pain or issue. No pain with passive range of motion of the toes. Motor and sensory function appear to be intact of the right lower extremity. Left lower extremity compression cuff in place. - Labs CBC & Chem 7: 10/14/19 06:22 10/14/19 06:22 Labs: Abnormal Lab Results - Last 24 Hours (Table) 10/13/19 10/13/19 10/13/19 Range/Units 03:15 15:27 17:54 RBC 2.54 L 2.60 L (4.30-5.90) m/uL Hgb 7.7 L D 7.7 L (13.0-17.5) gm/dL Hct 23.6 L 24.3 L (39.0-53.0) % RDW 19.4 H 19.3 H (11.5-15.5) % Plt Count 79 L 87 L (150-450) k/uL Lymphocytes # (Manual) 0.42 L (1.0-4.8) k/uL Nucleated RBCs 2 H (0-0) /100 WBC Chloride (98-107) mmol/L Glucose (74-99) mg/dL Calcium (8.4-10.2) mg/dL Crossmatch See Detail 10/14/19 10/14/19 Range/Units 06:22 06:22 RBC 2.21 L (4.30-5.90) m/uL Hgb 7.1 L (13.0-17.5) gm/dL Hct 20.9 L (39.0-53.0) % RDW 19.5 H (11.5-15.5) % Plt Count (150-450) k/uL Lymphocytes # (Manual) (1.0-4.8) k/uL Nucleated RBCs (0-0) /100 WBC Chloride 108 H (98-107) mmol/L Glucose 104 H (74-99) mg/dL Calcium 7.2 L (8.4-10.2) mg/dL Crossmatch Assessment and Plan Assessment: Open right ankle bimalleolar fracture dislocation status-post irrigation and debridement, ORIF of the right medial malleolus with splint application. Postoperative day #1. Plan: - Strict nonweightbearing of the operative leg. Ice and elevate the right lower extremity to decrease pain and swelling. Keep bulky Thomas splint clean, dry, intact. - Continue pain management. - Continue IV antibiotics. The patient will need 48-72 hours of IV antibiotics due to the severity of his open wound. - We will defer DVT prophylaxis to the internal medicine team. - We will continue to follow patient closely while he remains inpatient. He may follow-up in the office in 2 weeks after discharge for suture removal, wound check, and repeat x-rays of the right ankle. Further management of the right ankle will be determined at this time, based on final decisions made on hospice. Patient discussed with Dr. Bethea.
[2019-10-14 08:53] LABS: Lymphocytes # (M) 0.29 k/uL (1.0-4.8); Neutrophils % (M) 90 %; Nucleated Red Blood Cells 3 /100 WBC (0-0); Total Cells Counted 100
[2019-10-14 08:54] LABS: Monocytes # (M) 0.19 k/uL (0-1.0); Neutrophils # (M) 4.32 k/uL (1.3-7.7); Polychromasia Present; WBC 4.8 k/uL (3.8-10.6)
[2019-10-14 08:55] LABS: Mixed Population RBC Present
[2019-10-14 08:58] LABS: RBC Fragments Present
[2019-10-14 08:59] LABS: Spherocytes Present
[2019-10-14 09:00] LABS: Toxic Granulation Present
--- NOTE | 2019-10-14 09:30 | P.HPIM ---
History of Present Illness H&P Date: 10/13/19 Chief Complaint: fall Sung Sutherland is a 54 yo M with PMH of prostate cancer metastatic to bone, anemia, A fib, CHF who presented to the ED after a fall and subsequent ankle f racture at home. He was recently discharged approx 2 weeks ago for GI bleed at that time. Pt reports minimal mobility at baseline, states that overnight he went to the bathroom when his legs gave out due to weakness and he collapsed. Pt has been in the process of transitioning to hospice as he is no longer a candidate for further chemotherapy and has been requiring transfusions every 1-2 weeks due to suspected bone marrow infiltration. In the ED he was noted to have hemoglobin 5.9 and bimalleolar right ankle fracture. He was given antibiotics and transfused a total of 3 units of RBCs. Pt was seen by Orthopedic surgery and underwent irrigation and debridement of the open ankle fracture. Review of Systems All systems: negative Constitutional: Reports malaise, Reports weakness, Denies chills, Denies fever Eyes: denies blurred vision, denies pain Ears, nose, mouth and throat: Denies headache, Denies sore throat Cardiovascular: Denies chest pain, Denies shortness of breath Respiratory: Denies cough Gastrointestinal: Denies abdominal pain, Denies diarrhea, Denies nausea, Denies vomiting Musculoskeletal: Reports as per HPI, Reports fractures, Reports frequent falls, Reports gait dysfunction, Reports myalgias Integumentary: Denies pruritus, Denies rash Neurological: Denies numbness, Denies weakness Psychiatric: Denies anxiety, Denies depression Endocrine: Denies fatigue, Denies weight change Past Medical History Past Medical History: Atrial Fibrillation, Cancer, Heart Failure, GERD/Reflux, Hypertension Additional Past Medical History / Comment(s): GOUT. PERIPHERAL EDEMA. HX OF RENAL FAILURE (3 YRS AGO), RASHARD JOHNSONS SYNDROME. PROSTATE CANCER WITH METS TO BONE (DX 2014) CURRENTLY NO FURTHER TX OPTIONS. POWER PORT IN LEFT UPPER CHEST INFECTED AND REMOVED 2017. RECEVIES HORMONE TX Q 3 MONTHS AT [facility]. CHRONIC CONSTIPATION. DYSPHAGIA. History of Any Multi-Drug Resistant Organisms: C-DIFF Date of last positivie culture/infection: 2011 MDRO Source:: stool Past Surgical History: Appendectomy, Bariatric Surgery Additional Past Surgical History / Comment(s): FLUID ABSCESS AFTER APPENDECTOMY (CHILD), PROSTATE BIOPSY'S. LAP BAND 2010. POWER PORt removed, gallbladder removed Past Anesthesia/Blood Transfusion Reactions: No Reported Reaction Past Psychological History: No Psychological Hx Reported Smoking Status: Former smoker Past Alcohol Use History: Rare Additional Past Alcohol Use History / Comment(s): HX OF CHEWING TOBACCO- QUIT 4 YRS AGO., OCCASIONAL CIGARS SINCE HE WAS 17 YRS OLD. (0-1 PER WEEK) Past Drug Use History: None Reported - Past Family History Father Family Medical History: Cancer Additional Family Medical History / Comment(s): PROSTATE CANCER Brother(s) Family Medical History: Cancer Additional Family Medical History / Comment(s): PROSTATE CANCER Medications and Allergies Home Medications Medication Instructions Recorded Confirmed Type Furosemide [Lasix] 80 mg PO DAILY 02/27/17 10/13/19 History Loratadine [Claritin] 10 mg PO HS 02/27/17 10/13/19 History Diltiazem HCl [Diltiazem HCl 24Hr 120 mg PO HS 09/25/18 10/13/19 History ER (CD)] DULoxetine HCL [Cymbalta] 20 mg PO HS 05/13/19 10/13/19 History Metoprolol Succinate (ER) [Toprol 100 mg PO DAILY 05/13/19 10/13/19 History XL] Apixaban [Eliquis] 5 mg PO BID 06/20/19 10/13/19 History Gabapentin 800 mg PO TID 06/20/19 10/13/19 History Allopurinol [Zyloprim] 200 mg PO DAILY #60 tab 09/23/19 10/13/19 Rx Oxymetazoline 0.05% Nasl [place] 3 spray NASAL TID PRN #1 bottle 09/23/19 10/13/19 Rx [Afrin 0.05% Nasal [place]] Pantoprazole Sodium [Protonix] 40 mg PO BID #60 tablet.dr 09/23/19 10/13/19 Rx HYDROcodone/APAP 10-325MG [[place] 1 - 2 tab PO Q6HR PRN 10/13/19 10/13/19 History 10-325] HYDROmorphone [Dilaudid] 4 mg PO Q2HR PRN 10/13/19 10/13/19 History Leuprolide Acetate [Lupron Depot] 7.5 mg IM Q30D 01/21/20 01/21/20 History Xgeva 120mg/1.7ml 120 mg IM Q30D 10/13/19 10/13/19 History fentaNYL 100MCG/HR PATCH 1 applic TRANSDERM Q72H 10/13/19 10/13/19 History [Duragesic 100MCG/HR] Allergies Allergy/AdvReac Type Severity Reaction Status Date / Time cephalexin [From Keflex] Allergy Unknown Itching Verified 09/19/19 13:30 levofloxacin [From Levaquin] Allergy Unknown Blisters Verified 09/18/19 20:56 Penicillins Allergy Unknown Blisters Verified 09/18/19 20:56 Tetracyclines Allergy Unknown Blisters Verified 09/18/19 20:56 adhesive Allergy BLISTERS Verified 09/18/19 20:56 Physical Exam Vitals: Vital Signs Temp Pulse Pulse Pulse Resp BP BP 10/14/19 07:26 97.8 F 98 16 113/69 10/14/19 04:05 98.3 F 103 H 16 112/69 10/14/19 03:00 14 10/14/19 00:07 98.0 F 99 16 123/77 10/13/19 21:55 98.2 F 102 H 14 106/70 10/13/19 21:40 112 H 129/60 10/13/19 21:25 114 H 141/105 10/13/19 21:10 91 106/69 10/13/19 20:55 109 H 100/69 10/13/19 20:40 93 99/57 10/13/19 20:25 102 H 106/66 10/13/19 20:10 97 95/56 10/13/19 19:55 99 107/68 10/13/19 19:45 14 10/13/19 19:40 98.9 F 99 14 102/63 10/13/19 19:16 112 H 16 108/52 10/13/19 19:01 109 H 18 113/65 10/13/19 18:46 97 18 118/78 10/13/19 18:31 109 H 18 117/56 10/13/19 18:22 97.7 F 104 H 11 L 123/70 10/13/19 16:44 98.8 F 88 16 118/59 10/13/19 15:00 97.9 F 88 16 118/59 10/13/19 14:07 98.2 F 74 16 108/64 10/13/19 12:21 98.4 F 76 14 110/65 10/13/19 11:51 98.5 F 72 16 104/86 10/13/19 11:41 98.4 F 74 16 100/57 10/13/19 10:25 98.6 F 76 16 114/60 10/13/19 09:27 98.5 F 82 16 100/64 10/13/19 09:25 98.2 F 88 16 107/67 10/13/19 08:55 98.3 F 79 16 114/67 10/13/19 08:45 98.5 F 82 16 100/64 Pulse Ox 10/14/19 07:26 96 10/14/19 04:05 97 10/14/19 03:00 10/14/19 00:07 99 10/13/19 21:55 97 10/13/19 21:40 99 10/13/19 21:25 95 10/13/19 21:10 98 10/13/19 20:55 97 10/13/19 20:40 96 10/13/19 20:25 96 10/13/19 20:10 97 10/13/19 19:55 97 10/13/19 19:45 97 10/13/19 19:40 89 L 10/13/19 19:16 92 L 10/13/19 19:01 95 10/13/19 18:46 100 10/13/19 18:31 100 10/13/19 18:22 94 L 10/13/19 16:44 99 10/13/19 15:00 100 10/13/19 14:07 10/13/19 12:21 10/13/19 11:51 10/13/19 11:41 10/13/19 10:25 10/13/19 09:27 98 10/13/19 09:25 10/13/19 08:55 98 10/13/19 08:45 Intake and Output 10/13/19 10/14/19 10/14/19 22:59 06:59 14:59 Intake Total 950 260 Output Total 350 200 Balance 600 60 Intake: IV 750 260 Sodium Chloride 0.9% 1, 260 000 ml @ 100 mls/hr IV . Q10H STA Rx#:[id number] Oral 200 Output: Urine 300 200 Estimated Blood Loss 50 Other: # Voids 1 1 General: Well-developed white male in mild to moderate distress. Vitals reviewed HEENT: Normocephalic, atraumatic, mucous membranes moist, conjunctiva pale Neck: Supple, no thyromegaly, no JVD CV: Irregularly irregular, no murmur. Pulses 1+. 2+ edema Lungs: Normal inspiratory effort, no rales or rhonchi Lymph: No cervical or axillary lymphadenopathy Neuro: Alert and oriented 3, no focal deficits Extremities: Right lower extremity in brace. Capillary refill appropriate Skin: Warm and dry Results CBC & Chem 7: 10/14/19 06:22 10/14/19 06:22 Labs: Abnormal Lab Results - Last 24 Hours (Table) 10/13/19 10/13/19 10/13/19 Range/Units 03:15 15:27 17:54 RBC 2.54 L 2.60 L (4.30-5.90) m/uL Hgb 7.7 L D 7.7 L (13.0-17.5) gm/dL Hct 23.6 L 24.3 L (39.0-53.0) % RDW 19.4 H 19.3 H (11.5-15.5) % Plt Count 79 L 87 L (150-450) k/uL Lymphocytes # (Manual) 0.42 L (1.0-4.8) k/uL Nucleated RBCs 2 H (0-0) /100 WBC Chloride (98-107) mmol/L Glucose (74-99) mg/dL Calcium (8.4-10.2) mg/dL Crossmatch See Detail 10/14/19 10/14/19 Range/Units 06:22 06:22 RBC 2.21 L (4.30-5.90) m/uL Hgb 7.1 L (13.0-17.5) gm/dL Hct 20.9 L (39.0-53.0) % RDW 19.5 H (11.5-15.5) % Plt Count (150-450) k/uL Lymphocytes # (Manual) (1.0-4.8) k/uL Nucleated RBCs (0-0) /100 WBC Chloride 108 H (98-107) mmol/L Glucose 104 H (74-99) mg/dL Calcium 7.2 L (8.4-10.2) mg/dL Crossmatch Thrombosis Risk Factor Assmnt - Choose All That Apply Each Factor Represents 1 point: Age 41-60 years, Medical pt on bed rest, Obesity (BMI >25) Each Risk Factor Represents 5 Points: Elective major lower extremity arthoplasty Thrombosis Risk Factor Assessment Total Risk Factor Score: 8 Thrombosis Risk Factor Assessment Level: High Risk Assessment and Plan (1) Open right ankle fracture Current Visit: Yes Status: Acute Code(s): S82.891B - OTH FRACTURE OF RIGHT LOWER LEG, INIT FOR OPN FX TYPE I/2 SNOMED Code(s): 00282783 (2) Thrombocytopenia Current Visit: Yes Status: Chronic Priority: Medium Code(s): D69.6 - THROMBOCYTOPENIA, UNSPECIFIED SNOMED Code(s): 784942950 (3) Acute blood loss anemia Current Visit: No Status: Acute Priority: High Code(s): D62 - ACUTE POSTHEMORRHAGIC ANEMIA SNOMED Code(s): 650051220 (4) Anemia in chronic illness Current Visit: No Status: Acute Code(s): D63.8 - ANEMIA IN OTHER CHRONIC DISEASES CLASSIFIED ELSEWHERE SNOMED Code(s): 126400126 (5) Atrial fibrillation Current Visit: No Status: Acute Code(s): I48.91 - UNSPECIFIED ATRIAL FIBRILLATION SNOMED Code(s): 40778302 (6) Diastolic CHF Current Visit: No Status: Acute Code(s): I50.30 - UNSPECIFIED DIASTOLIC (CONGESTIVE) HEART FAILURE SNOMED Code(s): 221111627 (7) Prostate cancer metastatic to bone Current Visit: No Status: Chronic Priority: Medium Code(s): C61 - MALIGNANT NEOPLASM OF PROSTATE; C79.51 - SECONDARY MALIGNANT NEOPLASM OF BONE SNOMED Code(s): 700074968 Plan: 1. Open R ankle fracture. S/p irrigation and debridement. Ortho following. Pt will need ECF at discharge. Anticoagulation per Hematology 2. Metastatic prostate cancer. Heme/onc following. Pt has been discussing hospice outpatient but would like to continue medical treatment at this time. Continue to monitor blood counts 3. Anemia of chronic disease, aplastic anemia. Transfused 3 U PRBC, hgb 7.1 today. Daily CBC, transfuse to maintain Hgb >7 4. A fib. Continue cardizem and metoprolol. Anticoagulation per Heme/onc 5. Diastolic CHF. Hold lasix today
--- NOTE | 2019-10-14 16:45 | P.PN ---
Subjective Progress Note Date: 10/14/19 Sung Sutherland is a 54 yo M with PMH of prostate cancer metastatic to bone, anemia, A fib, CHF who presented to the ED after a fall and subsequent ankle fracture at home. He was recently discharged approx 2 weeks ago for GI bleed at that time. Pt reports minimal mobility at baseline, states that overnight he went to the bathroom when his legs gave out due to weakness and he collapsed. Pt has been in the process of transitioning to hospice as he is no longer a candidate for further chemotherapy and has been requiring transfusions every 1-2 weeks due to suspected bone marrow infiltration. In the ED he was noted to have hemoglobin 5.9 and bimalleolar right ankle fracture. He was given antibiotics and transfused a total of 3 units of RBCs. Pt was seen by Orthopedic surgery and underwent irrigation and debridement of the open ankle fracture. 10/14/2019 pain controlled. Denies chest pain, palpitations or shortness of breath. Denies lightheadedness, dizziness or focal deficits. Consuming 50% of diet with no nausea vomiting or diarrhea. Passing flatus. Hemoglobin 7.1, platelets 78. Objective - Vital Signs Vital signs: Vital Signs Temp 98.3 F 10/14/19 14:54 Pulse 94 10/14/19 14:54 Resp 16 10/14/19 14:54 BP 90/57 10/14/19 14:54 Pulse Ox 92 L 10/14/19 14:54 Intake & Output 10/13/19 10/14/19 10/14/19 18:59 06:59 18:59 Intake Total 2280 660 480 Output Total 270 500 300 Balance 2009 160 180 Weight 146.51 kg Intake: IV 1350 460 Sodium Chloride 0.9% 1, 800 260 000 ml @ 100 mls/hr IV . Q10H STA Rx#:[id number] Oral 200 480 Blood Product 930 Rc As-1 Unit 310 [id number] Rc As-1 Unit 310 [id number] Rc Pheresis As-3 Unit 310 [id number] Output: Urine 220 500 300 Estimated Blood Loss 50 Other: # Voids 2 1 2 - Exam General: Well-developed white male in mild to moderate distress. Vitals reviewed HEENT: Normocephalic, atraumatic, mucous membranes moist, conjunctiva pale Neck: Supple, no thyromegaly, no JVD CV: Irregularly irregular, no murmur. Pulses 1+. 2+ edema Lungs: Normal inspiratory effort, no rales or rhonchi Lymph: No cervical or axillary lymphadenopathy Neuro: Alert and oriented 3, no focal deficits Extremities: Right lower extremity in brace. Capillary refill appropriate Skin: Warm and dry - Labs CBC & Chem 7: 10/14/19 06:22 10/14/19 06:22 Labs: Abnormal Lab Results - Last 24 Hours (Table) 10/13/19 10/14/19 10/14/19 Range/Units 17:54 06:22 06:22 RBC 2.60 L 2.21 L (4.30-5.90) m/uL Hgb 7.7 L 7.1 L (13.0-17.5) gm/dL Hct 24.3 L 20.9 L (39.0-53.0) % RDW 19.3 H 19.5 H (11.5-15.5) % Plt Count 87 L 78 L (150-450) k/uL Lymphocytes # (Manual) 0.42 L 0.29 L (1.0-4.8) k/uL Nucleated RBCs 2 H 3 H (0-0) /100 WBC Chloride 108 H (98-107) mmol/L Glucose 104 H (74-99) mg/dL Calcium 7.2 L (8.4-10.2) mg/dL Assessment and Plan Assessment: (1) Open right ankle fracture Current Visit: Yes Status: Acute Code(s): S82.891B - OTH FRACTURE OF RIGHT LOWER LEG, INIT FOR OPN FX TYPE I/2 SNOMED Code(s): 18254512 (2) Thrombocytopenia Current Visit: Yes Status: Chronic Priority: Medium Code(s): D69.6 - THROMBOCYTOPENIA, UNSPECIFIED SNOMED Code(s): 430496823 (3) Acute blood loss anemia Current Visit: No Status: Acute Priority: High Code(s): D62 - ACUTE POSTHEMORRHAGIC ANEMIA SNOMED Code(s): 430525146 (4) Anemia in chronic illness Current Visit: No Status: Acute Code(s): D63.8 - ANEMIA IN OTHER CHRONIC DISEASES CLASSIFIED ELSEWHERE SNOMED Code(s): 341350914 (5) Atrial fibrillation Current Visit: No Status: Acute Code(s): I48.91 - UNSPECIFIED ATRIAL FIBRILLATION SNOMED Code(s): 13309610 (6) Diastolic CHF Current Visit: No Status: Acute Code(s): I50.30 - UNSPECIFIED DIASTOLIC (CONGESTIVE) HEART FAILURE SNOMED Code(s): 186878447 (7) Prostate cancer metastatic to bone Current Visit: No Status: Chronic Priority: Medium Code(s): C61 - MALIGNANT NEOPLASM OF PROSTATE; C79.51 - SECONDARY MALIGNANT NEOPLASM OF BONE SNOMED Code(s): 246634779 Plan: Continue on current medication regime ,monitoring and symptomatic treatment. Maintain IV antibiotics. Anticoagulation as per oncology .Non- weightbearing as per orthopedics. Close monitoring of platelets, hemoglobin with repeat labs ordered for a.m. Discharge planning in progress for tomorrow pending orthopedic clearance. Case management discussed with significant other Travis who is requesting hospice to be reopened once patient back at home. Further recommendations to follow. The impression and plan of care has been dictated as directed. : I performed a history and examination of this patient, discussed the same with the dictator. I agree with the dictator's note ,documented as a scribe. Any additional findings or plans will be noted.
[2019-10-14] MEDS: DULoxetine HCL 20 MG CAPSULE.DR PO SCH (21:48)
[2019-10-14] MEDS: LORATADINE 10 MG TAB PO SCH (21:48)
[2019-10-14] MEDS: DILTIAZEM CD 120 MG CAP.ER.24H PO SCH (21:48)
[2019-10-15] MEDS: GABAPENTIN 400 MG CAP PO SCH ×3 (00:21→15:30)
[2019-10-15] MEDS: HYDROmorphone 1 MG/ML 1 ML SYRINGE IVP PRN ×3 (04:36→14:43)
[2019-10-15 07:09] LABS: Anisocytosis Slight; Basophils % (A) 0 %; Eosinophils # (A) 0.1 k/uL (0-0.7); Eosinophils % (A) 3 %; HCT 20.4 % (39.0-53.0); Hypochromasia Moderate; Lymphocytes # (A) 0.3 k/uL (1.0-4.8); Lymphocytes % (A) 6 %; MCH 30.8 pg (25.0-35.0); MCHC 32.5 g/dL (31.0-37.0); MCV 94.8 fL (80.0-100.0); Macrocytosis Slight; Mean Platelet Volume 8.8; Monocytes # (A) 0.3 k/uL (0-1.0); Monocytes % (A) 7 %; Neutrophils # (A) 3.8 k/uL (1.3-7.7); Neutrophils % (A) 83 %; Poikilocytosis Moderate; RBC 2.15 m/uL (4.30-5.90); RDW 19.8 % (11.5-15.5); WBC 4.6 k/uL (3.8-10.6)
[2019-10-15 07:11] LABS: African American GFR (CKD) >90 (>60 ml/min/1.73 sqM); Anion Gap 5 mmol/L; Blood Urea Nitrogen 16 mg/dL (9-20); Calcium 7.4 mg/dL (8.4-10.2); Carbon Dioxide 26 mmol/L (22-30); Chloride 107 mmol/L (98-107); Glucose 96 mg/dL (74-99); Non-African American GFR(CKD) 83 (>60 ml/min/1.73 sqM); Potassium 3.9 mmol/L (3.5-5.1); Sodium 138 mmol/L (137-145)
[2019-10-15 07:13] LABS: HGB 6.6 gm/dL (13.0-17.5)
[2019-10-15 07:14] LABS: Platelet Count 78 k/uL (150-450)
[2019-10-15] MEDS: CLINDAMYCIN 900 MG in DEXTROSE 5% IN WATER 50 ML IVPB SCH ×2 (08:53)
[2019-10-15] MEDS: PANTOPRAZOLE 40 MG TABLET PO SCH (08:54)
[2019-10-15] MEDS: METOPROLOL SUCCINATE (ER) 100 MG TAB.ER.24H PO SCH (08:58)
[2019-10-15] MEDS: ALLOPURINOL 100 MG TAB PO SCH (08:58)
--- NOTE | 2019-10-15 11:33 | P.DS ---
Providers Date of admission: 10/13/19 04:39 Expected date of discharge: 10/15/19 Attending physician: Curt Paiz MD Consults: 10/13/19 04:39 Consult Physician Routine Consulting Provider: James Holman Consult Reason/Comments: known Do you want consulting provider notified?: Yes Consult Physician Routine Consulting Provider: Stone Bethea Consult Reason/Comments: ankle fracture Do you want consulting provider notified?: Yes Primary care physician: Curt Paiz MD Hospital Course: Final Diagnoses: (1) Open right ankle fracture Current Visit: Yes Status: Acute Code(s): S82.891B - OTH FRACTURE OF RIGHT LOWER LEG, INIT FOR OPN FX TYPE I/2 SNOMED Code(s): 91713708 (2) Thrombocytopenia Current Visit: Yes Status: Chronic Priority: Medium Code(s): D69.6 - THROMBOCYTOPENIA, UNSPECIFIED SNOMED Code(s): 852835065 (3) Acute blood loss anemia Current Visit: No Status: Acute Priority: High Code(s): D62 - ACUTE POSTHEMORRHAGIC ANEMIA SNOMED Code(s): 170028720 (4) Anemia in chronic illness, aplastic Current Visit: No Status: Acute Code(s): D63.8 - ANEMIA IN OTHER CHRONIC DISEASES CLASSIFIED ELSEWHERE SNOMED Code(s): 063520680 (5) Atrial fibrillation Current Visit: No Status: Acute Code(s): I48.91 - UNSPECIFIED ATRIAL FIBRILLATION SNOMED Code(s): 82839536 (6) Diastolic CHF Current Visit: No Status: Acute Code(s): I50.30 - UNSPECIFIED DIASTOLIC (CONGESTIVE) HEART FAILURE SNOMED Code(s): 667869590 (7) Prostate cancer metastatic to bone Current Visit: No Status: Chronic Priority: Medium Code(s): C61 - MALIGNANT NEOPLASM OF PROSTATE; C79.51 - SECONDARY MALIGNANT NEOPLASM OF BONE SNOMED Code(s): 330969197 Hospital course:Sung Sutherland is a 54 yo M with PMH of prostate cancer metastatic to bone, anemia, A fib, CHF who presented to the ED after a fall and subsequent ankle fracture at home. He was recently discharged approx 2 weeks ago for GI bleed at that time. Pt reports minimal mobility at baseline, states that overnight he went to the bathroom when his legs gave out due to weakness and he collapsed. Pt has been in the process of transitioning to hospice as he is no longer a candidate for further chemotherapy and has been requiring transfusions every 1-2 weeks due to suspected bone marrow infiltration. In the ED he was noted to have hemoglobin 5.9 and bimalleolar right ankle fracture. He was given antibiotics and transfused a total of 3 units of RBCs. Pt was seen by Orthopedic surgery and underwent irrigation and debridement of the open ankle fracture. 10/14/2019 pain controlled. Denies chest pain, palpitations or shortness of breath. Denies lightheadedness, dizziness or focal deficits. Consuming 50% of diet with no nausea vomiting or diarrhea. Passing flatus. Hemoglobin 7.1, platelets 78. Receiving IV antibiotics. Hemoglobin 6.6, receiving 1 unit of packed RBCs. Pain controlled. Patient will be discharged home in a stable condition with guarded prognosis pending orthopedic surgery clearance, anticoagulation as per oncology. Recheck CBC in clinic on Saturday. Significant other,Travis discussed with case management, reopening with hospice-[facility], once home. Exam General: Well-developed white male in mild to moderate distress. HEENT: Normocephalic, atraumatic, mucous membranes moist, conjunctiva pale Neck: Supple, no thyromegaly, no JVD CV: Irregularly irregular, no murmur. Pulses 1+. 2+ edema Lungs: Normal inspiratory effort, no rales or rhonchi Lymph: No cervical or axillary lymphadenopathy Neuro: Alert and oriented 3, no focal deficits Extremities: Right lower extremity in brace. Capillary refill appropriate Skin: Warm and dry The impression and plan of care has been dictated as directed. : I performed a history and examination of this patient, discussed the same with the dictator. I agree with the dictator's note ,documented as a scribe. Any additional findings or plans will be noted. Patient Condition at Discharge: Stable Plan - Discharge Summary Discharge Rx Participant: No New Discharge Prescriptions: New Cephalexin [Keflex] 500 mg PO Q8HR #21 cap Continue Loratadine [Claritin] 10 mg PO HS Furosemide [Lasix] 80 mg PO DAILY Diltiazem HCl [Diltiazem HCl 24Hr ER (CD)] 120 mg PO HS DULoxetine HCL [Cymbalta] 20 mg PO HS Metoprolol Succinate (ER) [Toprol XL] 100 mg PO DAILY Gabapentin 800 mg PO TID Oxymetazoline 0.05% Nasl [place] [Afrin 0.05% Nasal [place]] 3 spray NASAL TID PRN #1 bottle PRN Reason: nose bleeds Allopurinol [Zyloprim] 200 mg PO DAILY #60 tab Pantoprazole Sodium [Protonix] 40 mg PO BID #60 tablet. fentaNYL 100MCG/HR PATCH [Durages[place] 100MCG/HR] 1 applic TRANSDERM Q72H HYDROmorphone [Dilaudid] 4 mg PO Q2HR PRN PRN Reason: Pain Leuprolide Acetate [Lupron Depot] 7.5 mg IM Q30D HYDROcodone/APAP 10-325MG [[place] 10-325] 1 - 2 tab PO Q6HR PRN PRN Reason: Pain Xgeva 120mg/1.7ml 120 mg IM Q30D Discontinued Apixaban [Eliquis] 5 mg PO BID Discharge Medication List Furosemide [Lasix] 80 mg PO DAILY 02/27/17 [History] Loratadine [Claritin] 10 mg PO HS 02/27/17 [History] Diltiazem HCl [Diltiazem HCl 24Hr ER (CD)] 120 mg PO HS 09/25/18 [History] DULoxetine HCL [Cymbalta] 20 mg PO HS 05/13/19 [History] Metoprolol Succinate (ER) [Toprol XL] 100 mg PO DAILY 05/13/19 [History] Gabapentin 800 mg PO TID 06/20/19 [History] Allopurinol [Zyloprim] 200 mg PO DAILY #60 tab 09/23/19 [Rx] Oxymetazoline 0.05% Nasl [place] [Afrin 0.05% Nasal [place]] 3 spray NASAL TID PRN #1 bottle 09/23/19 [Rx] Pantoprazole Sodium [Protonix] 40 mg PO BID #60 tablet. 09/23/19 [Rx] HYDROcodone/APAP 10-325MG [[place] 10-325] 1 - 2 tab PO Q6HR PRN 10/13/19 [History] HYDROmorphone [Dilaudid] 4 mg PO Q2HR PRN 10/13/19 [History] Leuprolide Acetate [Lupron Depot] 7.5 mg IM Q30D 10/13/19 [History] Xgeva 120mg/1.7ml 120 mg IM Q30D 10/13/19 [History] fentaNYL 100MCG/HR PATCH [[place] 100MCG/HR] 1 applic TRANSDERM Q72H 10/13/19 [History] Cephalexin [Keflex] 500 mg PO Q8HR #21 cap 10/15/19 [Rx] Follow up Appointment(s)/Referral(s): Curt Paiz MD [Primary Care Provider] - 10/19/19 [facility] Visiting Nurse, [NON-STAFF] - Stone Bethea MD [Medical Doctor] - 10/28/19 9:00 am Ambulatory/Diagnostic Orders: Complete Blood Count w/diff [LAB.AMB] Time Frame: 3 Days, Location: None Selected Activity/Diet/Wound Care/Special Instructions: Pending orthopedic final DC recommendations and clearance. Anticoagulation as per hematology/oncology.
[2019-10-15 11:43] VITALS: RESP 16; TEMP 98.4
--- NOTE | 2019-10-15 12:15 | CDI ---
Documentation Clarification Form Date: 10/15/2019 12:01:11 PM From: Marry Venegas RN, CCDS Admit Date: 10/13/2019 04:39:00 AM Patient Name: Sung Sutherland Visit Number: [id number] Discharge Date: ATTENTION: The Clinical Documentation Specialists (CDI) and [facility] Coding Staff appreciate your assistance in clarifying documentation. Please respond to the clarification below the line at the bottom and electronically sign. The CDI & [facility] Coding staff will review the response and follow-up if needed. Please note: Queries are made part of the Legal Health Record. If you have any questions, please contact the author of this message via ITS. Dr. Curt Paiz Atrial Fibrillation is documented in the past medical history, your progress notes and discharge summary and further specificity related to the type of atrial fibrillation is needed. History/Risk Factors: Atrial Fibrillation Diastolic heart failure, Hypertension Clinical Indicators: 54-year-old male with past medical history of atrial fibrillation and ongoing treatment with Eliquis. Treatment: Eliquis (stopped) Cardizem 120 mg Daily HS Toprol XL 100 mg PO In your professional opinion, can you please clarify the type of Atrial Fibrillation, if known? Chronic/Permanent Paroxysmal Persistent Other, please specify Unable to determine (Last Revision: December 2017) Paroxysmal MTDD
--- NOTE | 2019-10-15 12:41 | CDI ---
Documentation Clarification Form Date: 10/15/2019 12:16:00 PM From: Marry Venegas RN, CCDS Admit Date: 10/13/2019 04:39:00 AM Patient Name: Sung Sutherland Visit Number: [id number] Discharge Date: ATTENTION: The Clinical Documentation Specialists (CDI) and [facility] Coding Staff appreciate your assistance in clarifying documentation. Please respond to the clarification below the line at the bottom and electronically sign. The CDI & [facility] Coding staff will review the response and follow-up if needed. Please note: Queries are made part of the Legal Health Record. If you have any questions, please contact the author of this message via ITS. Dr. Curt Paiz On 10/13/19 in the History and Physical and ongoing progress notes Diastolic CHF is documented and further specificity is indicated.. History/Risk Factors: Diastolic heart failure, Atrial Fibrillation, Hypertension Clinical Indicators: 54-year-old male with past medical history of diastolic heart failure. His current treatment includes Toprol XL, Lasix PO. VS/Pulse OX: 10/13/19@01:47) 106/84 89 18 99.1 93 % RA Echocardiogram Results: (09/21/19) the right ventricle is severely enlarged, Moderate pulmonary hypertension EF 50-55 % Treatment: Lasix 80 PO Daily Toprol XL 100 mg PO Daily Cardizem PO 120 mg HS In your professional opinion, can you please clarify the acuity of CHF if known? Chronic Diastolic Heart Failure: Unable to Determine Other, please specify (Last Revision: December 2017) Chronic diastolic CHF MTDD
[2019-10-15 14:06] VITALS: BP 112/68; PULSE 84
--- NOTE | 2019-10-15 15:22 | P.PN ---
Subjective Progress Note Date: 10/15/19 This patient is a 54- year old male with a past medical history of atrial fibrillation, chronic anemia, and metastatic prostate cancer that presented to [facility] ER yesterday via ambulance after a fall at home. Upon arrival to the ER, the patient was found to have a significantly displaced jay leolar open ankle fracture. The patient's ankle was reduced and splinted. The patient's hemoglobin was found to be 5.9 in the emergency room. He was given IV antibiotics and tdap in the ER. The patient was admitted under the care of internal medicine, with a consult placed to orthopedic surgery for further evaluation and treatment of his right ankle. Per the patient's girlfriend, Travis, she states that her and the patient ,and the patient's primary care physician were in the process of placing the patient on hospice, although there have been no final decisions made. The patient underwent an irrigation and debridement, ORIF of the right ankle medial malleolus with splint application on 10/13/[address] Bethea. Today's postoperative day #2. Patient is examined bedside. He states his pain is currently well controlled. He states he has no new complaints today. Objective - Vital Signs Vital signs: Vital Signs Temp 98.4 F 10/15/19 14:05 Pulse 84 10/15/19 14:05 Resp 16 10/15/19 14:05 BP 112/68 10/15/19 14:05 Pulse Ox 94 L 10/15/19 14:05 Intake & Output 10/14/19 10/15/19 10/15/19 18:59 06:59 18:59 Intake Total 776 670 Output Total 300 550 Balance 476 -550 670 Intake: Oral 776 360 Blood Product 310 Rc As-1 Unit 310 [id number] Output: Urine 300 550 Other: Voiding Method Urinal # Voids 2 1 2 - Exam On examination, the patient is sitting up in bed in no apparent distress. He is alert and oriented 3. Nasal cannula in place. On inspection of the right lower extremity, there is a clean, dry, intact bulky Thomas splint in place. The visible portion of the toes are warm and well- perfused with brisk capillary refill. Patient is able to move his toes without pain or issue. No pain with passive range of motion of the toes. Motor and sensory function appear to be intact of the right lower extremity. - Labs CBC & Chem 7: 10/15/19 06:21 10/15/19 06:21 Labs: Abnormal Lab Results - Last 24 Hours (Table) 10/13/19 10/15/19 10/15/19 Range/Units 03:15 06:21 06:21 RBC 2.15 L (4.30-5.90) m/uL Hgb 6.6 L* (13.0-17.5) gm/dL Hct 20.4 L (39.0-53.0) % RDW 19.8 H (11.5-15.5) % Plt Count 78 L (150-450) k/uL Lymphocytes # 0.3 L (1.0-4.8) k/uL Calcium 7.4 L (8.4-10.2) mg/dL Crossmatch See Detail Assessment and Plan Assessment: Open right ankle bimalleolar fracture dislocation status-post irrigation and debridement, ORIF of the right medial malleolus with splint application. Postoperative day #2. Plan: - Strict nonweightbearing of the operative leg. Ice and elevate the right lower extremity to decrease pain and swelling. Keep bulky Thomas splint clean, dry, intact. - Continue pain management. - Continue IV antibiotics. - We will defer DVT prophylaxis to the internal medicine team. - We will continue to follow patient closely while he remains inpatient. He may follow-up in the office in 2 weeks after discharge for suture removal, wound check, and repeat x-rays of the right ankle. Further management of the right ankle will be determined at this time, based on final decisions made on hospice. Patient is ok for discharge from an orthopedic standpoint. Patient discussed with Dr. Bethea.
[2019-10-15] MEDS ORDERED: CLINDAMYCIN 150 MG CAP PO SCH (16:00)
== END 2019-10-15 16:24 | disposition hospice, home (50) | DRG 493 ==
LOC: EC 01:45 → 4SSUR 04:39
PROVIDERS: ADMIT Family Medicine; ATTEND Family Medicine
PROC: 30233N1 Transfusion of Nonautologous Red Blood Cells into Peripheral Vein, Percutaneous Approach (ICD-10-PCS; principal; 2019-10-13 14:40)
PROC: 0QSG04Z Reposition Right Tibia with Internal Fixation Device, Open Approach (ICD-10-PCS; principal; 2019-10-13 14:40)
DX: S82.841C Displaced bimalleolar fracture of right lower leg, initial encounter for open fracture type IIIA, IIIB, or IIIC (principal); C25.9 Malignant neoplasm of pancreas, unspecified; C79.51 Secondary malignant neoplasm of bone; D62 Acute posthemorrhagic anemia; I50.32 Chronic diastolic (congestive) heart failure; Z68.42 Body mass index [BMI] 45.0-49.9, adult; C61 Malignant neoplasm of prostate; Z51.5 Encounter for palliative care; D63.8 Anemia in other chronic diseases classified elsewhere; D69.6 Thrombocytopenia, unspecified; F17.290 Nicotine dependence, other tobacco product, uncomplicated; G89.3 Neoplasm related pain (acute) (chronic); E66.01 Morbid (severe) obesity due to excess calories; I11.0 Hypertensive heart disease with heart failure; I48.91 Unspecified atrial fibrillation; I87.2 Venous insufficiency (chronic) (peripheral); W18.30XA Fall on same level, unspecified, initial encounter; Y92.002 Bathroom of unspecified non-institutional (private) residence as the place of occurrence of the external cause; Z98.84 Bariatric surgery status; Z85.46 Personal history of malignant neoplasm of prostate; Z80.42 Family history of malignant neoplasm of prostate; Z79.899 Other long term (current) drug therapy; Z79.01 Long term (current) use of anticoagulants
CPT/HCPCS: 27810; 36415; 36430; 80048; 80053; 82550; 83735; 84100; 85025; 85027; 85610; 85730; 86850; 86900; 86901; 86920; 94760; 96361; 96365; 96375; 96376; 99285